=== PATIENT | female | born 1950 | race Hispanic/Latino ===

== ENCOUNTER 2021-01-05 12:19 | Inpatient (IN) | payer MEDICARE, OTHER ==
--- NOTE | 2021-01-05 13:13 | XRay Report ---
CHEST 1 VIEW 01/05/2021 12:40 PM INDICATION / CLINICAL INFORMATION: AMS. COMPARISON: None available. FINDINGS: SUPPORT DEVICES: None. HEART / MEDIASTINUM: No significant abnormality. LUNGS / PLEURA: Mild atelectasis in the left lower lung. No pneumothorax. ADDITIONAL FINDINGS: No significant additional findings. IMPRESSION: Mild atelectasis in the left lower lung. Small left effusion Signer Name: Blas Merino MD Signed: 01/05/2021 1:09 PM Workstation Name: [id number]
[2021-01-05 13:50] LABS: ABG Base Excess -27.8 mmol/L (-2.0-3.0); ABG HCO3 3.5 mmol/L (20.0-26.0); ABG Methemoglobin 0.9 % (0.0-1.5); ABG Oxygen Saturation 84.1 % (95.0-99.0); ABG PO2 84.7 mm Hg (80.0-90.0)
[2021-01-05 13:52] LABS: ABG PH 6.889 pH Units (7.350-7.450)
[2021-01-05] MEDS ORDERED: CEFEPIME/NS 2 GM/100 ML 2 GM/100 ML BAG IV SCH (14:00)
[2021-01-05 14:06] LABS: Hematocrit 26.1 % (30.3-42.9); Hemoglobin 7.7 gm/dl (10.1-14.3); Mean Corpuscular HGB Conc 30 % (30-34); Mean Corpuscular Volume 92 fl (79-97); Platelet Count 150 K/mm3 (140-440); Red Blood Count 2.83 M/mm3 (3.65-5.03); Red Cell Distribution Width 19.2 % (13.2-15.2)
[2021-01-05] MEDS ORDERED: SODIUM CHLORIDE 0.9% 1000 ML 1,000 ML IV ONE ×2 (14:20)
[2021-01-05] MEDS ORDERED: MINERAL OIL/PETROLATUM, WHITE OPHTH OINT 3.5 GM OU PRN (14:21)
[2021-01-05] MEDS ORDERED: LIP THERAPY VASELINE TP PRN (14:21)
[2021-01-05 14:29] LABS: Albumin 3.2 g/dL (3.9-5); Calcium 7.7 mg/dL (8.4-10.2)
--- NOTE | 2021-01-05 14:48 | XRay Report ---
CHEST 1 VIEW 01/05/2021 1:42 PM INDICATION / CLINICAL INFORMATION: ETT placement. COMPARISON: Exam done earlier today FINDINGS: SUPPORT DEVICES: ET tube tip is about 3 cm above the jen. HEART / MEDIASTINUM: No significant abnormality. LUNGS / PLEURA: Stable left lower lung atelectasis. No pneumothorax. ADDITIONAL FINDINGS: No significant additional findings. IMPRESSION: 1. Endotracheal tube in expected position. Signer Name: Dane Guillermo MD Signed: 01/05/2021 2:44 PM Workstation Name: [id number]
[2021-01-05 15:19] LABS: Band Neutrophils # (Manual) 0.6 K/mm3; Myelocytes # (Manual) 0.5 K/mm3; Promyelocytes # (Manual) 38.5 K/mm3; Total Cells Counted 100
[2021-01-05 15:20] LABS: Burr Cells 1+; Hypochromasia 1+; Ovalocytes Few; Platelet Estimate Consistent w Auto; Spherocytes Few
[2021-01-05 15:21] LABS: Poikilocytosis 2+
[2021-01-05] MEDS ORDERED: NORepinephrine/NS 4 MG-250 ML 4 MG/250 ML BAG IV ONE (15:30)
[2021-01-05] MEDS ORDERED: CALCIUM CHLORIDE 1,000 MG in SODIUM CHLORIDE 0.9% 100 ML IV ONE (15:56)
[2021-01-05] MEDS ORDERED: INSULIN REGULAR, HUMAN 100 UNITS/1 ML IV ONE (15:57)
[2021-01-05] MEDS ORDERED: SODIUM BICARB 8.4% 50 MEQ/50 ML SYRINGE IV ONE ×2 (15:57→22:46)
[2021-01-05] MEDS ORDERED: SODIUM POLYSTYRENE 15 GM/60 ML ORAL LIQD PR ONE (15:58)
[2021-01-05] MEDS ORDERED: DEXTROSE 50% IN WATER (25GM) 50 ML SYRINGE IV ONE (15:58)
[2021-01-05 16:20] LABS: Chol/HDL Ratio 1.24 %
[2021-01-05] MEDS: NORepinephrine/NS 4 MG-250 ML 4 MG/250 ML BAG IV SCH (16:20)
--- NOTE | 2021-01-05 16:29 | Consultation ---
History of Present Illness - Reason for Consult Consult date: 01/05/21 acute renal failure, hyperkalemia, metabolic acidosis - History of Present Illness The patient is a 70 YO female with history significant for Obesity, DM, HLD, Multiple Myeloma currently on Chemotherapy and Anemia of Chronic Disease presented to [facility] ED 01/05 for evaluation of AMS. Patient was not able to provide any history and there was no family member at the bedside. Information was obtained from priro notes and staff at the ED. Patient was noted to have increased confusion and weakness while undergoing chemotherapy at [facility]. The patient was seen and evaluated in the emergency department. The patient was found to have sepsis with shock, acute hypoxemic respiratory failure, Lactic acidosis, resp failure and Hyperkalemia. The patient is currently intubated on vent and Levophed. Initiated on sepsis protocol. Nephrology was consulted for further evaluation and treatment of MORGAN and hyperkalemia. Past History Past Medical History: other (See HPI.) Medications and Allergies Allergies Allergy/AdvReac Type Severity Reaction Status Date / Time Unable to Assess Allergy Unverified 01/05/21 13:30 Active Meds: Active Medications Famotidine (Famotidine 20 Mg/2 Ml Inj) 20 mg IV BID MIKEY Hydrophilic Ointment (Lip Therapy Vaseline) 1 applic TP Q2HR PRN PRN Reason: Dry Lips Cefepime HCl (Cefepime/Ns 2 Gm/100 Ml) 2 gm in 100 mls @ 200 mls/hr IV Q8H MIKEY; Protocol Last Admin: 01/05/21 16:19 Dose: 200 mls/hr Documented by: Propofol (Diprivan 10 Mg/Ml) 1,000 mg in 100 mls @ 0 mls/hr IV TITR MIKEY; Protocol Norepinephrine (Levophed Drip 4 Mg/Ns 250 Ml) 4 mg in 250 mls @ 7.5 mls/hr IV TITR MIKEY; Protocol Last Admin: 01/05/21 16:20 Dose: 2 mcg/min, 7.5 mls/hr Documented by: Calcium Chloride 1,000 mg/ (Sodium Chloride) 110 mls @ 110 mls/hr IV ONCE ONE Stop: 01/05/21 16:55 Sodium Bicarbonate 150 meq/ (Dextrose) 1,150 mls @ 125 mls/hr IV DIRECT MIKEY Multi-Ingred Cream/Lotion/Oil/Oint (Mineral Oil/Petrolatum, White Ophth Oint 3.5 Gm) 1 applic OU Q4HR PRN PRN Reason: Dry Eye(s) Senna/Docusate Sodium (Sennosides/Docusate Sodium 8.6/50 Mg Tab) 1 tab FEEDTUBE BID MIKEY Review of Systems ROS unobtainable: due to mental status Exam - Vital Signs Vital signs: Vital Signs Pulse Resp Pulse Ox 105 H 42 H 94 01/05/21 12:30 01/05/21 12:30 01/05/21 12:30 Results - Lab Results 01/05/21 13:44 01/05/21 13:44 Most recent lab results ABG pH 6.889 pH Units (7.350-7.450) L* 01/05/21 13:35 ABG pCO2 19.0 mm Hg 01/05/21 13:35 ABG pO2 84.7 mm Hg (80.0-90.0) 01/05/21 13:35 ABG HCO3 3.5 mmol/L (20.0-26.0) L 01/05/21 13:35 ABG O2 Saturation 84.1 % (95.0-99.0) L 01/05/21 13:35 Calcium 7.7 mg/dL (8.4-10.2) L 01/05/21 13:44 Magnesium 2.10 mg/dL (1.7-2.3) 01/05/21 13:44 Assessment and Plan 1. Acute kidney injury: Vasomotor MORGAN in the setting shock. Urine studies and Renal US ordered. Monitor renal function. Renal prognosis is guarded. Avoid nephrotoxic agents. Meds dosage based on GFR. Monitor for [employer] needs. Patient require hemodialysis due to significant decline in the GFR, associated hyperkalemia and severe metabolic acidosis. Unfortunately I was not able to reach her , called multiple times and left VM. Patient needs urgent hemodialysis due to above and also d/w , who agrees with me. Hemodialysis orders placed. 2. FEN: Hyperkalemia, meds ordered, HD today. Anion-gap Metabolic acidosis, HD today. Severe Lactic acidosis. Monitor lytes. 3. Acute respiratory failure with hypoxia: Intubated, on vent. Pulmonary consulted. 4. Shock, POA: Likely septic. Abx. On Levophed. Follow cultures. 5. Elevated Troponin: Monitor. 6. Diabetes mellitus type 2: Follow blood glucose. 7. Anemia, POA: Monitor. 8. Encephalopathy: CT head pending. Monitor. 9. Multiple myeloma: On Chemo. Prognosis is slim. Subjective: Patient was seen and examined at the bedside. Examination: General appearance: well-developed, well-nourished, appears stated age, intubated, on vent HEENT: ATNC, pupils equal Neck: supple Respiratory: coarse breath sounds Cardiology: regular, S1S2, no murmur Gastrointestinal: soft, bowel sounds heard, not tender Integumentary: no rash, warm and dry Neurologic: not responding Ext: no edema
--- NOTE | 2021-01-05 16:38 | History and Physical Report ---
History of Present Illness Chief complaint: Unresponsive History of present illness: 70 YO Female with Multiple Myeloma currently on Chemotherapy, DM, HLD, Obesity, Anemia of Chronic Disease presents to ED for evaluation. Patient is intubated and on ventilatory support at the time my evaluation and is unable to provide history. Patient history provided by EMS staff, ED staff, as well as the patient's who was made available via telephone for interview. As per the patient was noted to have increased confusion and weakness while undergoing chemotherapy at [facility]. EMS was notified and upon arrival the patient was found to be in distress and subsequently transported to [facility] for further care and evaluation. The patient was seen and evaluated in the emergency department. All lab and imaging studies reviewed. The patient was found to be in extremis with evidence of sepsis suspected secondary to urinary tract infection, multiple myeloma, currently undergoing chemotherapy, antibiotic acidosis. The patient was found to have acute hypoxemic respiratory failure and was intubated and subsequently placed on ventilatory support. Critical care team consulted in the emergency department. Patient admitted to ICU and initiated on sepsis protocol. Advanced care hugo nning conducted in ED. Patient found to have poor prognosis. Nephrology team consulted in ED. Patient pending Vas-Cath placement for urgent dialysis. Past History Past Medical History: cancer, ESRD, hypertension Past Surgical History: No surgical history, Other (Reviewed) Social history: Family history: no significant family history, other (Reviewed) Medications and Allergies Allergies Allergy/AdvReac Type Severity Reaction Status Date / Time Unable to Assess Allergy Unverified 01/05/21 13:30 Active Meds: Active Medications Famotidine (Famotidine 20 Mg/2 Ml Inj) 20 mg IV BID MIKEY Hydrophilic Ointment (Lip Therapy Vaseline) 1 applic TP Q2HR PRN PRN Reason: Dry Lips Cefepime HCl (Cefepime/Ns 2 Gm/100 Ml) 2 gm in 100 mls @ 200 mls/hr IV Q8H MIKEY; Protocol Last Admin: 01/05/21 16:19 Dose: 200 mls/hr Documented by: Propofol (Diprivan 10 Mg/Ml) 1,000 mg in 100 mls @ 0 mls/hr IV TITR MIKEY; Protocol Norepinephrine (Levophed Drip 4 Mg/Ns 250 Ml) 4 mg in 250 mls @ 7.5 mls/hr IV TITR MIKEY; Protocol Last Admin: 01/05/21 16:20 Dose: 2 mcg/min, 7.5 mls/hr Documented by: Calcium Chloride 1,000 mg/ (Sodium Chloride) 110 mls @ 110 mls/hr IV ONCE ONE Stop: 01/05/21 16:55 Sodium Bicarbonate 150 meq/ (Dextrose) 1,150 mls @ 125 mls/hr IV DIRECT MIKEY Sodium Chloride (Nacl 0.9%) 100 mls @ 999 mls/hr IV ERIC PRN PRN Reason: Hypotension Multi-Ingred Cream/Lotion/Oil/Oint (Mineral Oil/Petrolatum, White Ophth Oint 3.5 Gm) 1 applic OU Q4HR PRN PRN Reason: Dry Eye(s) Senna/Docusate Sodium (Sennosides/Docusate Sodium 8.6/50 Mg Tab) 1 tab FEEDTUBE BID MIKEY Review of Systems ROS unobtainable: due to endotracheal tube, due to mental status Exam - Constitutional Vitals: Temp Pulse Resp BP Pulse Ox 91 H 30 H 94/23 100 01/05/21 16:25 01/05/21 16:25 01/05/21 16:25 01/05/21 16:25 General appearance: Present: severe distress - EENT Eyes: Present: miosis ENT: hearing decreased - Neck Neck: Present: supple, normal ROM - Respiratory Respiratory effort: labored Respiratory: bilateral: diminished, rhonchi - Cardiovascular Heart Sounds: Present: S1 & S2. Absent: rub, click - Extremities Extremities: pulses symmetrical, No edema Peripheral Pulses: abnormal (Capillary refill greater than 3.5 seconds) - Abdominal General gastrointestinal: Present: soft, non-tender, non-distended, normal bowel sounds Female genitourinary: Present: normal - Integumentary Integumentary: Present: warm, dry, clammy, decreased turgor - Musculoskeletal Musculoskeletal: generalized weakness - Psychiatric Psychiatric: no appropriate mood/affect, no intact judgment & insight, no memory intact - Neurologic Neurologic: moves all extremities, no gait normal HEART Score - HEART Score Troponin: Troponin T 0.153 ng/mL (0.00-0.029) H* 01/05/21 13:44 Results - Labs CBC & Chem 7: 01/05/21 13:44 01/05/21 13:44 Labs: Abnormal lab results 01/05/21 01/05/21 01/05/21 Range/Units 13:35 13:44 13:44 WBC 11.6 H (4.5-11.0) K/mm3 RBC 2.83 L (3.65-5.03) M/mm3 Hgb 7.7 L (10.1-14.3) gm/dl Hct 26.1 L (30.3-42.9) % MCH 27 L (28-32) pg RDW 19.2 H (13.2-15.2) % Seg Neuts % (Manual) 79.0 H (40.0-70.0) % Lymphocytes % (Manual) 9.0 L (13.4-35.0) % Nucleated RBC % 2.0 H (0.0-0.9) % Seg Neutrophils # Man 9.2 H (1.8-7.7) K/mm3 Lymphocytes # (Manual) 1.0 L (1.2-5.4) K/mm3 APTT 44.4 H (24.2-36.6) Sec. ABG pH 6.889 L* (7.350-7.450) pH Units ABG HCO3 3.5 L (20.0-26.0) mmol/L ABG O2 Saturation 84.1 L (95.0-99.0) % ABG Base Excess -27.8 L (-2.0-3.0) mmol/L ABG Hemoglobin 9.2 L (12.0-16.0) gm/dl Oxyhemoglobin 82.4 L (95.0-99.0) % Sodium (137-145) mmol/L Potassium (3.6-5.0) mmol/L Chloride (98-107) mmol/L Carbon Dioxide (22-30) mmol/L BUN (7-17) mg/dL Creatinine (0.6-1.2) mg/dL Glucose (65-100) mg/dL Lactic Acid (0.7-2.0) mmol/L Calcium (8.4-10.2) mg/dL AST (5-40) units/L Ammonia (25-60) umol/L Total Creatine Kinase (30-135) units/L Troponin T (0.00-0.029) ng/mL NT-Pro-B Natriuret Pep (0-900) pg/mL Albumin (3.9-5) g/dL LDL Cholesterol Direct (50-130) mg/dL 01/05/21 01/05/21 01/05/21 Range/Units 13:44 13:44 13:44 WBC (4.5-11.0) K/mm3 RBC (3.65-5.03) M/mm3 Hgb (10.1-14.3) gm/dl Hct (30.3-42.9) % MCH (28-32) pg RDW (13.2-15.2) % Seg Neuts % (Manual) (40.0-70.0) % Lymphocytes % (Manual) (13.4-35.0) % Nucleated RBC % (0.0-0.9) % Seg Neutrophils # Man (1.8-7.7) K/mm3 Lymphocytes # (Manual) (1.2-5.4) K/mm3 APTT (24.2-36.6) Sec. ABG pH (7.350-7.450) pH Units ABG HCO3 (20.0-26.0) mmol/L ABG O2 Saturation (95.0-99.0) % ABG Base Excess (-2.0-3.0) mmol/L ABG Hemoglobin (12.0-16.0) gm/dl Oxyhemoglobin (95.0-99.0) % Sodium 129 L (137-145) mmol/L Potassium 6.2 H* (3.6-5.0) mmol/L Chloride 82.2 L (98-107) mmol/L Carbon Dioxide 4 L* (22-30) mmol/L BUN 67 H (7-17) mg/dL Creatinine 8.1 H (0.6-1.2) mg/dL Glucose 126 H (65-100) mg/dL Lactic Acid 20.10 H* (0.7-2.0) mmol/L Calcium 7.7 L (8.4-10.2) mg/dL AST 54 H (5-40) units/L Ammonia (25-60) umol/L Total Creatine Kinase 484 H (30-135) units/L Troponin T 0.153 H* (0.00-0.029) ng/mL NT-Pro-B Natriuret Pep 38246 H (0-900) pg/mL Albumin 3.2 L (3.9-5) g/dL LDL Cholesterol Direct 8 L (50-130) mg/dL 01/05/21 01/05/21 Range/Units 13:44 14:47 WBC (4.5-11.0) K/mm3 RBC (3.65-5.03) M/mm3 Hgb (10.1-14.3) gm/dl Hct (30.3-42.9) % MCH (28-32) pg RDW (13.2-15.2) % Seg Neuts % (Manual) (40.0-70.0) % Lymphocytes % (Manual) (13.4-35.0) % Nucleated RBC % (0.0-0.9) % Seg Neutrophils # Man (1.8-7.7) K/mm3 Lymphocytes # (Manual) (1.2-5.4) K/mm3 APTT (24.2-36.6) Sec. ABG pH (7.350-7.450) pH Units ABG HCO3 (20.0-26.0) mmol/L ABG O2 Saturation (95.0-99.0) % ABG Base Excess (-2.0-3.0) mmol/L ABG Hemoglobin (12.0-16.0) gm/dl Oxyhemoglobin (95.0-99.0) % Sodium (137-145) mmol/L Potassium (3.6-5.0) mmol/L Chloride (98-107) mmol/L Carbon Dioxide (22-30) mmol/L BUN (7-17) mg/dL Creatinine (0.6-1.2) mg/dL Glucose (65-100) mg/dL Lactic Acid 18.80 H* (0.7-2.0) mmol/L Calcium (8.4-10.2) mg/dL AST (5-40) units/L Ammonia 106.0 H (25-60) umol/L Total Creatine Kinase (30-135) units/L Troponin T (0.00-0.029) ng/mL NT-Pro-B Natriuret Pep (0-900) pg/mL Albumin (3.9-5) g/dL LDL Cholesterol Direct (50-130) mg/dL Assessment and Plan - Patient Problems (1) Sepsis Current Visit: Yes Status: Acute Qualifiers: Severe sepsis shock status: with septic shock Plan to address problem: Sepsis protocol: CBC, CMP, chest x-ray, urinalysis, blood culture, IV antibiotic therapy, IV fluid resuscitation therapy, maintain mean arterial pressure greater than or equal to 65, IV pressor support, monitor urine output every shift, The high probability of a clinically significant, sudden or life threatening deterioration of the [cardiac, pulmonary, renal, endocrine, hematologic] system(s) required my full and direct attention, intervention and personal management. The aggregate critical care time was [95] minutes. This time is in addition to time spent performing reported procedures but includes the following: [x] Data Review and interpretation [x] Patient assessment and monitoring of vital signs [x] Documentation [x] Medication orders and management (2) Acute hypoxemic respiratory failure Current Visit: Yes Status: Acute Plan to address problem: Patient intubated and on ventilatory support, wean vent as tolerated, critical care team consulted in ED, daily spontaneous breathing trial, arterial blood gas daily, sedation holiday daily, (3) UTI (urinary tract infection) Current Visit: Yes Status: Acute Qualifiers: Encounter type: initial encounter Plan to address problem: CBC, urinalysis, IV antibiotic therapy, (4) Multiple myeloma Current Visit: Yes Status: Acute Qualifiers: Multiple myeloma remission status: not in remission Qualified Code(s): C90.00 - Multiple myeloma not having achieved remission Plan to address problem: Supportive care, (5) Anemia of chronic disease Current Visit: Yes Status: Acute Plan to address problem: CBC, no transfusion at this time. Repeat CBC in a.m. (6) End stage renal disease Current Visit: Yes Status: Acute Plan to address problem: Nephrology team consulted in ED, patient is pending Vas-Cath placement for urgent dialysis, (7) DVT prophylaxis Current Visit: Yes Status: Acute Plan to address problem: SCD to bilateral lower extremities while in bed, prophylactic anticoagulation (8) Advance care planning Current Visit: Yes Status: Acute Plan to address problem: Disease education conducted, care plan discussed, diagnosis discussed, patient prognosis discussed, patient family knowledges understanding and agreement with care plan, +30 minutes. Patient remains full code. Patient reports that "I want everything done".
[2021-01-05] MEDS ORDERED: HYDROmorphone 1 MG/1 ML INJ IV PRN ×2 (17:00→19:30)
[2021-01-05] MEDS ORDERED: SODIUM CHLORIDE 0.9% 100 ML IV PRN (17:00)
[2021-01-05] MEDS ORDERED: ALBUTEROL 2.5 MG/3 ML NEBU IH PRN (17:00)
[2021-01-05] MEDS ORDERED: MORPHINE 2 MG/1 ML INJ IV PRN (17:00)
[2021-01-05] MEDS ORDERED: ACETAMINOPHEN 650 MG RECT SUPP PR PRN (17:00)
--- NOTE | 2021-01-05 17:09 | XRay Report ---
CHEST 1 VIEW 4:38 PM INDICATION: CVL attempt. COMPARISON: Earlier today. FINDINGS: Support devices: Endotracheal tube is unchanged. Heart: Stable. Lungs/Pleura: No pneumothorax. There is persistent pleuroparenchymal disease in the left lower hemith orax. IMPRESSION: 1. No pneumothorax after CVL attempt. Signer Name: Kailash Francis MD Signed: 01/05/2021 5:04 PM Workstation Name: [id number]
--- NOTE | 2021-01-05 17:26 | Emergency Department Report ---
ED General Adult HPI - General Chief complaint: Dyspnea/Respdistress Stated complaint: NICOLE Time Seen by Provider: 01/05/21 12:27 Source: EMS Mode of arrival: Stretcher Limitations: Altered Mental Status - History of Present Illness Initial comments: The patient presents to the emergency department via EMS for altered mental status. Is reported that the patient has stage IV cancer. EMS is not able to tell us the origin of the patient's cancer. Is reported that the patient went to [facility]'s infusion center for some form of infusion today when they noticed that the patient was altered and sent her to their urgent care/EC where she was evaluated and 911 was called. Upon patient's arrival she is completely altered and not able to cooperate with exam. -: unknown Consistency: constant Improves with: none Worsens with: none Treatments Prior to Arrival: none - Related Data Allergies Allergy/AdvReac Type Severity Reaction Status Date / Time Unable to Assess Allergy Unverified 01/05/21 13:30 ED Review of Systems ROS: Stated complaint: NICOLE Other details as noted in HPI Comment: Unobtainable due to pts medical conditions ED Physical Exam - General Limitations: Altered Mental Status General appearance: obtunded - Head Head exam: Present: atraumatic, normocephalic - Eye Eye exam: Present: normal appearance, PERRL - ENT ENT exam: Present: mucous membranes dry - Neck Neck exam: Present: normal inspection - Respiratory Respiratory exam: Present: decreased breath sounds - Cardiovascular Cardiovascular Exam: Present: normal rhythm, tachycardia - GI/Abdominal GI/Abdominal exam: Present: soft, normal bowel sounds. Absent: distended, tenderness - Extremities Exam Extremities exam: Absent: pedal edema - Neurological Exam Neurological exam: Present: altered - Psychiatric Psychiatric exam: Present: other (Not able to assess due to the patient's condition) - Skin Skin exam: Present: warm, dry, intact, normal color. Absent: rash ED Course Vital Signs 01/05/21 01/05/21 01/05/21 12:30 12:45 13:01 Pulse Rate 105 H 100 H 98 H Respiratory 42 H 41 H 41 H Rate Blood Pressure 138/45 138/45 O2 Sat by Pulse 94 89 43 L Oximetry 01/05/21 01/05/21 01/05/21 13:15 13:31 13:45 Pulse Rate 108 H Respiratory 30 H Rate Blood Pressure 138/45 138/45 138/45 O2 Sat by Pulse 89 93 68 L Oximetry 01/05/21 01/05/21 01/05/21 14:01 14:15 14:31 Pulse Rate Respiratory Rate Blood Pressure 138/45 138/45 91/25 O2 Sat by Pulse 65 L 85 100 Oximetry 01/05/21 01/05/21 01/05/21 14:45 15:01 15:15 Pulse Rate Respiratory Rate Blood Pressure 75/19 76/27 90/30 O2 Sat by Pulse 100 100 100 Oximetry 01/05/21 01/05/21 01/05/21 15:31 15:45 15:46 Pulse Rate 98 H Respiratory Rate Blood Pressure 87/26 91/28 103/30 O2 Sat by Pulse 100 100 100 Oximetry 01/05/21 01/05/21 01/05/21 16:00 16:15 16:25 Pulse Rate 94 H 95 H 91 H Respiratory 30 H 30 H 30 H Rate Blood Pressure 102/31 103/33 94/23 O2 Sat by Pulse 98 100 100 Oximetry - Central Line Placement Right Femoral Consent Obtained: emergent situation Time Out Performed: Yes Patient Placed on Monitor/Pulse Ox: Yes Prep: mask, gown, gloves Central Line Prep: Chlorhexidine scrub Ultrasound Used for Placement: No Central Line Lumen Inserted: triple Reason for Insertion: Volume Resuscitation Bloods Obtained for Lab: No Central Line Position: good blood return, all ports aspirated, flus, sutured in place with 2-0 Dressing Applied: Tegaderm Patient Tolerated Procedure: well Complications: pneumothorax Additional Comments: Initially right subclavian was attempted to no avail thus this was aborted and a right femoral placed - Intubation Time Out Performed: Yes Sedative: Etomidate Mg Given: 20 Paralytic: Rocuronium Mg Given: 50 Laryngoscope: Morgan Size: 3 ET Tube Size: 7.5 Tube Secured Depth (cm): 21 Tube Secured Location: lips Tube Placement Confirmation: visualized tube passing t Patient Tolerated Procedure: well Intubation Complications: none ED Medical Decision Making - Lab Data Result diagrams: 01/05/21 13:44 01/05/21 13:44 Upon the patient's initial evaluation it was noticed that the patient was altered patient was placed in the seated position in the bed and laboratory values were obtained as well as imaging Patient's mental status continued to decline in the ED with O2 sats dropping to 90% ABG obtained which showed pH of less than 6.9 At this point patient was intubated with no difficulty The remaining the laboratory values returned showing that the patient had a creatinine of greater than 8 and potassium greater than 6 IV and rectal therapy was initiated for the patient's hyperkalemia At this time patient appears to need emergent dialysis thus nephrology was consulted Dr. Mercedes was contacted and agreed to see the patient in consultation Critical care was contacted for placement of temporary dialysis catheter and acceptance to the ICU Patient was started on vasopressor Prior to lifesaving measures being applied we spoke with the patient's who stated she was a full code Patient is a [place] patient so I spoke to Dr. Buitrago at 4:43 PM who gave us approval to keep the patient at our facility. Lab Results 01/05/21 01/05/21 01/05/21 Range/Units 13:35 13:44 13:44 WBC 11.6 H (4.5-11.0) K/mm3 RBC 2.83 L (3.65-5.03) M/mm3 Hgb 7.7 L (10.1-14.3) gm/dl Hct 26.1 L (30.3-42.9) % MCV 92 (79-97) fl MCH 27 L (28-32) pg MCHC 30 (30-34) % RDW 19.2 H (13.2-15.2) % Plt Count 150 (140-440) K/mm3 Add Manual Diff Complete Total Counted 100 Seg Neuts % (Manual) 79.0 H (40.0-70.0) % Band Neutrophils % 5.0 % Lymphocytes % (Manual) 9.0 L (13.4-35.0) % Monocytes % (Manual) 2.0 (0.0-7.3) % Eosinophils % (Manual) 1.0 (0.0-4.3) % Myelocytes % 4.0 % Nucleated RBC % 2.0 H (0.0-0.9) % Seg Neutrophils # Man 9.2 H (1.8-7.7) K/mm3 Band Neutrophils # 0.6 K/mm3 Lymphocytes # (Manual) 1.0 L (1.2-5.4) K/mm3 Abs React Lymphs (Man) 0.0 K/mm3 Monocytes # (Manual) 0.2 (0.0-0.8) K/mm3 Eosinophils # (Manual) 0.1 (0.0-0.4) K/mm3 Basophils # (Manual) 0.0 (0.0-0.1) K/mm3 Metamyelocytes # 0.0 K/mm3 Myelocytes # 0.5 K/mm3 Promyelocytes # 38.5 K/mm3 Blast Cells # 0.0 K/mm3 WBC Morphology Not Reportable Hypersegmented Neuts Not Reportable Hyposegmented Neuts Not Reportable Hypogranular Neuts Not Reportable Smudge Cells Not Reportable Toxic Granulation Not Reportable Toxic Vacuolation Not Reportable Dohle Bodies Not Reportable Pelger-Huet Anomaly Not Reportable Diony Rods Not Reportable Platelet Estimate Consistent w auto Clumped Platelets Not Reportable Plt Clumps, EDTA Not Reportable Large Platelets Not Reportable Giant Platelets Not Reportable Platelet Satelliting Not Reportable Plt Morphology Comment Not Reportable RBC Morphology Not Reportable Dimorphic RBCs Not Reportable Polychromasia 1+ Hypochromasia 1+ Poikilocytosis 2+ Anisocytosis Not Reportable Microcytosis Not Reportable Macrocytosis Not Reportable Spherocytes Few Pappenheimer Bodies Not Reportable Sickle Cells Not Reportable Target Cells Not Reportable Tear Drop Cells Not Reportable Ovalocytes Few Helmet Cells Not Reportable [place] Bodies Not Reportable [place] Rings Not Reportable Taylor Cells 1+ Bite Cells Not Reportable Crenated Cell Not Reportable Elliptocytes Few Acanthocytes (Spur) Few Rouleaux Not Reportable Hemoglobin C Crystals Not Reportable Schistocytes Not Reportable Malaria parasites Not Reportable [place] Bodies Not Reportable Hem Pathologist Commnt No APTT 44.4 H (24.2-36.6) Sec. ABG pH 6.889 L* (7.350-7.450) pH Units ABG pCO2 19.0 mm Hg ABG pO2 84.7 (80.0-90.0) mm Hg ABG HCO3 3.5 L (20.0-26.0) mmol/L ABG O2 Saturation 84.1 L (95.0-99.0) % ABG O2 Content 10.8 (0.0-44) ABG Base Excess -27.8 L (-2.0-3.0) mmol/L ABG Hemoglobin 9.2 L (12.0-16.0) gm/dl ABG Carboxyhemoglobin 1.1 (0.0-5.0) % ABG Methemoglobin 0.9 (0.0-1.5) % Oxyhemoglobin 82.4 L (95.0-99.0) % FiO2 21 % Sodium (137-145) mmol/L Potassium (3.6-5.0) mmol/L Chloride (98-107) mmol/L Carbon Dioxide (22-30) mmol/L Anion Gap mmol/L BUN (7-17) mg/dL Creatinine (0.6-1.2) mg/dL Estimated GFR ml/min BUN/Creatinine Ratio % Glucose (65-100) mg/dL Ketones Quantitative (Negative) Lactic Acid (0.7-2.0) mmol/L Calcium (8.4-10.2) mg/dL Magnesium (1.7-2.3) mg/dL Total Bilirubin (0.1-1.2) mg/dL AST (5-40) units/L ALT (7-56) units/L Alkaline Phosphatase (35-129) units/L Ammonia (25-60) umol/L Total Creatine Kinase (30-135) units/L Troponin T (0.00-0.029) ng/mL NT-Pro-B Natriuret Pep (0-900) pg/mL Total Protein (6.3-8.2) g/dL Albumin (3.9-5) g/dL Albumin/Globulin Ratio % Triglycerides (2-149) mg/dL Cholesterol (50-199) mg/dL LDL Cholesterol Direct (50-130) mg/dL HDL Cholesterol (40-59) mg/dL Cholesterol/HDL Ratio % 01/05/21 01/05/21 01/05/21 Range/Units 13:44 13:44 13:44 WBC (4.5-11.0) K/mm3 RBC (3.65-5.03) M/mm3 Hgb (10.1-14.3) gm/dl Hct (30.3-42.9) % MCV (79-97) fl MCH (28-32) pg MCHC (30-34) % RDW (13.2-15.2) % Plt Count (140-440) K/mm3 Add Manual Diff Total Counted Seg Neuts % (Manual) (40.0-70.0) % Band Neutrophils % % Lymphocytes % (Manual) (13.4-35.0) % Monocytes % (Manual) (0.0-7.3) % Eosinophils % (Manual) (0.0-4.3) % Myelocytes % % Nucleated RBC % (0.0-0.9) % Seg Neutrophils # Man (1.8-7.7) K/mm3 Band Neutrophils # K/mm3 Lymphocytes # (Manual) (1.2-5.4) K/mm3 Abs React Lymphs (Man) K/mm3 Monocytes # (Manual) (0.0-0.8) K/mm3 Eosinophils # (Manual) (0.0-0.4) K/mm3 Basophils # (Manual) (0.0-0.1) K/mm3 Metamyelocytes # K/mm3 Myelocytes # K/mm3 Promyelocytes # K/mm3 Blast Cells # K/mm3 WBC Morphology Hypersegmented Neuts Hyposegmented Neuts Hypogranular Neuts Smudge Cells Toxic Granulation Toxic Vacuolation Dohle Bodies Pelger-Huet Anomaly Diony Rods Platelet Estimate Clumped Platelets Plt Clumps, EDTA Large Platelets Giant Platelets Platelet Satelliting Plt Morphology Comment RBC Morphology Dimorphic RBCs Polychromasia Hypochromasia Poikilocytosis Anisocytosis Microcytosis Macrocytosis Spherocytes Pappenheimer Bodies Sickle Cells Target Cells Tear Drop Cells Ovalocytes Helmet Cells [place] Bodies [place] Rings Taylor Cells Bite Cells Crenated Cell Elliptocytes Acanthocytes (Spur) Rouleaux Hemoglobin C Crystals Schistocytes Malaria parasites [place] Bodies Hem Pathologist Commnt APTT (24.2-36.6) Sec. ABG pH (7.350-7.450) pH Units ABG pCO2 mm Hg ABG pO2 (80.0-90.0) mm Hg ABG HCO3 (20.0-26.0) mmol/L ABG O2 Saturation (95.0-99.0) % ABG O2 Content (0.0-44) ABG Base Excess (-2.0-3.0) mmol/L ABG Hemoglobin (12.0-16.0) gm/dl ABG Carboxyhemoglobin (0.0-5.0) % ABG Methemoglobin (0.0-1.5) % Oxyhemoglobin (95.0-99.0) % FiO2 % Sodium 129 L (137-145) mmol/L Potassium 6.2 H* (3.6-5.0) mmol/L Chloride 82.2 L (98-107) mmol/L Carbon Dioxide 4 L* (22-30) mmol/L Anion Gap 49 mmol/L BUN 67 H (7-17) mg/dL Creatinine 8.1 H (0.6-1.2) mg/dL Estimated GFR 5 ml/min BUN/Creatinine Ratio 8 % Glucose 126 H (65-100) mg/dL Ketones Quantitative (Negative) Lactic Acid 20.10 H* (0.7-2.0) mmol/L Calcium 7.7 L (8.4-10.2) mg/dL Magnesium 2.10 (1.7-2.3) mg/dL Total Bilirubin 0.30 (0.1-1.2) mg/dL AST 54 H (5-40) units/L ALT 37 (7-56) units/L Alkaline Phosphatase 83 (35-129) units/L Ammonia (25-60) umol/L Total Creatine Kinase 484 H (30-135) units/L Troponin T 0.153 H* (0.00-0.029) ng/mL NT-Pro-B Natriuret Pep 87287 H (0-900) pg/mL Total Protein 6.9 (6.3-8.2) g/dL Albumin 3.2 L (3.9-5) g/dL Albumin/Globulin Ratio 0.9 % Triglycerides 75 (2-149) mg/dL Cholesterol 62 (50-199) mg/dL LDL Cholesterol Direct 8 L (50-130) mg/dL HDL Cholesterol 50 (40-59) mg/dL Cholesterol/HDL Ratio 1.24 % 01/05/21 01/05/21 01/05/21 Range/Units 13:44 14:39 14:47 WBC (4.5-11.0) K/mm3 RBC (3.65-5.03) M/mm3 Hgb (10.1-14.3) gm/dl Hct (30.3-42.9) % MCV (79-97) fl MCH (28-32) pg MCHC (30-34) % RDW (13.2-15.2) % Plt Count (140-440) K/mm3 Add Manual Diff Total Counted Seg Neuts % (Manual) (40.0-70.0) % Band Neutrophils % % Lymphocytes % (Manual) (13.4-35.0) % Monocytes % (Manual) (0.0-7.3) % Eosinophils % (Manual) (0.0-4.3) % Myelocytes % % Nucleated RBC % (0.0-0.9) % Seg Neutrophils # Man (1.8-7.7) K/mm3 Band Neutrophils # K/mm3 Lymphocytes # (Manual) (1.2-5.4) K/mm3 Abs React Lymphs (Man) K/mm3 Monocytes # (Manual) (0.0-0.8) K/mm3 Eosinophils # (Manual) (0.0-0.4) K/mm3 Basophils # (Manual) (0.0-0.1) K/mm3 Metamyelocytes # K/mm3 Myelocytes # K/mm3 Promyelocytes # K/mm3 Blast Cells # K/mm3 WBC Morphology Hypersegmented Neuts Hyposegmented Neuts Hypogranular Neuts Smudge Cells Toxic Granulation Toxic Vacuolation Dohle Bodies Pelger-Huet Anomaly Diony Rods Platelet Estimate Clumped Platelets Plt Clumps, EDTA Large Platelets Giant Platelets Platelet Satelliting Plt Morphology Comment RBC Morphology Dimorphic RBCs Polychromasia Hypochromasia Poikilocytosis Anisocytosis Microcytosis Macrocytosis Spherocytes Pappenheimer Bodies Sickle Cells Target Cells Tear Drop Cells Ovalocytes Helmet Cells [place] Bodies [place] Rings [place] Cells Bite Cells Crenated Cell Elliptocytes Acanthocytes (Spur) Rouleaux Hemoglobin C Crystals Schistocytes Malaria parasites [place] Bodies Hem Pathologist Commnt APTT (24.2-36.6) Sec. ABG pH (7.350-7.450) pH Units ABG pCO2 mm Hg ABG pO2 (80.0-90.0) mm Hg ABG HCO3 (20.0-26.0) mmol/L ABG O2 Saturation (95.0-99.0) % ABG O2 Content (0.0-44) ABG Base Excess (-2.0-3.0) mmol/L ABG Hemoglobin (12.0-16.0) gm/dl ABG Carboxyhemoglobin (0.0-5.0) % ABG Methemoglobin (0.0-1.5) % Oxyhemoglobin (95.0-99.0) % FiO2 % Sodium (137-145) mmol/L Potassium (3.6-5.0) mmol/L Chloride (98-107) mmol/L Carbon Dioxide (22-30) mmol/L Anion Gap mmol/L BUN (7-17) mg/dL Creatinine (0.6-1.2) mg/dL Estimated GFR ml/min BUN/Creatinine Ratio % Glucose (65-100) mg/dL Ketones Quantitative Negative (Negative) Lactic Acid 18.80 H* (0.7-2.0) mmol/L Calcium (8.4-10.2) mg/dL Magnesium (1.7-2.3) mg/dL Total Bilirubin (0.1-1.2) mg/dL AST (5-40) units/L ALT (7-56) units/L Alkaline Phosphatase (35-129) units/L Ammonia 106.0 H (25-60) umol/L Total Creatine Kinase (30-135) units/L Troponin T (0.00-0.029) ng/mL NT-Pro-B Natriuret Pep (0-900) pg/mL Total Protein (6.3-8.2) g/dL Albumin (3.9-5) g/dL Albumin/Globulin Ratio % Triglycerides (2-149) mg/dL Cholesterol (50-199) mg/dL LDL Cholesterol Direct (50-130) mg/dL HDL Cholesterol (40-59) mg/dL Cholesterol/HDL Ratio % - Radiology Data Radiology results: report reviewed - Medical Decision Making Upon the patient's initial evaluation it was noticed that the patient was altered patient was placed in the seated position in the bed and laboratory values were obtained as well as imaging Patient's mental status continued to decline in the ED with O2 sats dropping to 90% ABG obtained which showed pH of less than 6.9 At this point patient was intubated with no difficulty The remaining the laboratory values returned showing that the patient had a creatinine of greater than 8 and potassium greater than 6 IV and rectal therapy was initiated for the patient's hyperkalemia At this time patient appears to need emergent dialysis thus nephrology was consulted Dr. Mercedes was contacted and agreed to see the patient in consultation Critical care was contacted for placement of temporary dialysis catheter and acceptance to the ICU Patient was started on vasopressor Prior to lifesaving measures being applied we spoke with the patient's who stated she was a full code Patient is a [place] patient so I spoke to Dr. Buitrago at 4:43 PM who gave us approval to keep the patient at our facility. Dr. Buitrago also stated the patient has multiple myeloma and was recently admitted to the hospital for colitis. Patient has a history of diabetes mellitus, hypertension, hyperlipidemia. Critical Care Time: Yes Critical care time in (mins) excluding proc time.: 75 Critical care attestation.: If time is entered above; I have spent that time in minutes in the direct care of this critically ill patient, excluding procedure time. ED Disposition Clinical Impression: Respiratory failure, Hypoxia, Renal failure, Elevated brain natriuretic peptide (BNP) level, Elevated troponin Disposition: OP ADMIT IP TO THIS HOSP Is pt being admited?: Yes Does the pt Need Aspirin: No Condition: Critical
[2021-01-05 18:10] LABS: Amphetamine Screen,Urine Negative; Benzodiazepines Screen,Urine Negative; Cocaine Screen,Urine Negative; Methadone Screen,Urine Negative; Opiate Screen,Urine Negative
[2021-01-05 18:16] LABS: Amorphous Crystals,Urine 1+; Bacteria,Urine 4+ /HPF (Negative); Bilirubin,Urine NEG (Negative); Blood,Urine SM (Negative); Color,Urine Amber (Yellow); Mucus,Urine FEW /HPF; Protein,Urine >500 mg/dL (Negative); Urobilinogen,Urine < 2.0 mg/dL (<2.0)
[2021-01-05 18:23] LABS: Cannabinoid Screen,Urine Positive
[2021-01-05 18:24] LABS: Creatinine,Urine 74.4 mg/dL (0.1-20.0)
[2021-01-05] MEDS ORDERED: ACETAMINOPHEN 325 MG TAB PO PRN (19:00)
[2021-01-05 19:24] LABS: Hepatitis B Surface Antigen Non-Reactive (Negative); Hepatitis C Virus Antibody Non-Reactive (NonReactive)
[2021-01-05] MEDS ORDERED: SODIUM CHLORIDE 0.9% 1000 ML IV SOLN IV ONE (19:30)
[2021-01-05] MEDS: SODIUM BICARBONATE 150 MEQ in DEXTROSE 5% IN WATER 1,000 ML IV SCH (19:32)
--- NOTE | 2021-01-05 21:50 | Consultation ---
History of Present Illness Consult date: 01/05/21 Requesting physician: KATHERINE BISHOP Reason for consult: other (Acute Hypopxemic Respiratory Failure; MORGAN) History of present illness: PULMONARY/CCM CONSULT NOTE (Full dictation # [id number]) Please see dictated notes for full details Past History Past Medical History: other (See HPI.) Past Surgical History: No surgical history, Other (Reviewed) Social history: Family history: no significant family history, other (Reviewed) Medications and Allergies Allergies Allergy/AdvReac Type Severity Reaction Status Date / Time No Known Allergies Allergy Verified 01/05/21 22:00 Active Meds: Active Medications Acetaminophen (Acetaminophen 650 Mg Rect Supp) 650 mg KY Q6H PRN PRN Reason: Pain MILD(1-3)/Fever >100.5/SILVERMAN Acetaminophen (Acetaminophen 325 Mg Tab) 650 mg PO Q6H PRN PRN Reason: Pain, Mild (1-3) Albuterol (Albuterol 2.5 Mg/3 Ml Nebu) 2.5 mg IH Q3HRT PRN PRN Reason: Shortness Of Breath Famotidine (Famotidine 20 Mg/2 Ml Inj) 20 mg IV BID MIKEY Heparin Sodium (Porcine) (Heparin 5,000 Unit/1 Ml Vial) 5,000 unit SUB-Q Q12HR MIKEY Hydromorphone HCl (Hydromorphone 1 Mg/1 Ml Inj) 0.5 mg IV Q3H PRN PRN Reason: Pain , Severe (7-10) Hydromorphone HCl (Hydromorphone 1 Mg/1 Ml Inj) 0.25 mg IV Q4H PRN PRN Reason: Pain, Moderate (4-6) Hydrophilic Ointment (Lip Therapy Vaseline) 1 applic TP Q2HR PRN PRN Reason: Dry Lips Cefepime HCl (Cefepime/Ns 2 Gm/100 Ml) 2 gm in 100 mls @ 200 mls/hr IV Q8H MIKEY; Protocol Last Admin: 01/05/21 16:19 Dose: 200 mls/hr Documented by: Propofol (Diprivan 10 Mg/Ml) 1,000 mg in 100 mls @ 2.712 mls/hr IV TITR MIKEY; Protocol Norepinephrine (Levophed Drip 4 Mg/Ns 250 Ml) 4 mg in 250 mls @ 7.5 mls/hr IV TITR MIKEY; Protocol Last Titration: 01/05/21 18:28 Dose: 10 mcg/min, 37.5 mls/hr Documented by: Sodium Bicarbonate 150 meq/ (Dextrose) 1,150 mls @ 125 mls/hr IV DIRECT MIKEY Last Admin: 01/05/21 19:32 Dose: 125 mls/hr Documented by: Sodium Chloride (Nacl 0.9%) 100 mls @ 999 mls/hr IV ERIC PRN PRN Reason: Hypotension Ceftriaxone Sodium (Rocephin/Ns 1 Gm/50 Ml) 1 gm in 50 mls @ 100 mls/hr IV Q24HR MIKEY; Protocol Morphine Sulfate (Morphine 2 Mg/1 Ml Inj) 2 mg IV Q4H PRN PRN Reason: Pain, Moderate (4-6) Multi-Ingred Cream/Lotion/Oil/Oint (Mineral Oil/Petrolatum, White Ophth Oint 3.5 Gm) 1 applic OU Q4HR PRN PRN Reason: Dry Eye(s) Senna/Docusate Sodium (Sennosides/Docusate Sodium 8.6/50 Mg Tab) 1 tab FEEDTUBE BID MIKEY Sodium Chloride (Sodium Chloride 0.9% 10 Ml Flush Syringe) 10 ml IV PRN PRN PRN Reason: LINE FLUSH Sodium Chloride (Sodium Chloride 0.9% 10 Ml Flush Syringe) 10 ml IV BID MIKEY Sodium Chloride (Sodium Chloride 0.9% 10 Ml Flush Syringe) 10 ml IV PRN PRN PRN Reason: LINE FLUSH Physical Examination Vital signs: Vital Signs Pulse Resp Pulse Ox 105 H 42 H 94 01/05/21 12:30 01/05/21 12:30 01/05/21 12:30 Results - Laboratory Findings CBC and BMP: 01/05/21 13:44 01/05/21 13:44 ABG ABG pH 6.889 pH Units (7.350-7.450) L* 01/05/21 13:35 ABG pCO2 19.0 mm Hg 01/05/21 13:35 ABG pO2 84.7 mm Hg (80.0-90.0) 01/05/21 13:35 ABG O2 Saturation 84.1 % (95.0-99.0) L 01/05/21 13:35 Abnormal lab findings: Abnormal Labs 01/05/21 01/05/21 01/05/21 13:35 13:44 13:44 WBC 11.6 H RBC 2.83 L Hgb 7.7 L Hct 26.1 L MCH 27 L RDW 19.2 H Seg Neuts % (Manual) 79.0 H Lymphocytes % (Manual) 9.0 L Nucleated RBC % 2.0 H Seg Neutrophils # Man 9.2 H Lymphocytes # (Manual) 1.0 L APTT 44.4 H ABG pH 6.889 L* ABG HCO3 3.5 L ABG O2 Saturation 84.1 L ABG Base Excess -27.8 L ABG Hemoglobin 9.2 L Oxyhemoglobin 82.4 L Sodium Potassium Chloride Carbon Dioxide BUN Creatinine Glucose Lactic Acid Calcium AST Ammonia Total Creatine Kinase Troponin T NT-Pro-B Natriuret Pep Albumin LDL Cholesterol Direct Urine WBC (Auto) Urine Creatinine 01/05/21 01/05/21 01/05/21 13:44 13:44 13:44 WBC RBC Hgb Hct MCH RDW Seg Neuts % (Manual) Lymphocytes % (Manual) Nucleated RBC % Seg Neutrophils # Man Lymphocytes # (Manual) APTT ABG pH ABG HCO3 ABG O2 Saturation ABG Base Excess ABG Hemoglobin Oxyhemoglobin Sodium 129 L Potassium 6.2 H* Chloride 82.2 L Carbon Dioxide 4 L* BUN 67 H Creatinine 8.1 H Glucose 126 H Lactic Acid 20.10 H* Calcium 7.7 L AST 54 H Ammonia Total Creatine Kinase 484 H Troponin T 0.153 H* NT-Pro-B Natriuret Pep 81612 H Albumin 3.2 L LDL Cholesterol Direct 8 L Urine WBC (Auto) Urine Creatinine 01/05/21 01/05/21 01/05/21 13:44 14:47 17:50 WBC RBC Hgb Hct MCH RDW Seg Neuts % (Manual) Lymphocytes % (Manual) Nucleated RBC % Seg Neutrophils # Man Lymphocytes # (Manual) APTT ABG pH ABG HCO3 ABG O2 Saturation ABG Base Excess ABG Hemoglobin Oxyhemoglobin Sodium Potassium Chloride Carbon Dioxide BUN Creatinine Glucose Lactic Acid 18.80 H* Calcium AST Ammonia 106.0 H Total Creatine Kinase Troponin T NT-Pro-B Natriuret Pep Albumin LDL Cholesterol Direct Urine WBC (Auto) 38.0 H Urine Creatinine 01/05/21 17:50 WBC RBC Hgb Hct MCH RDW Seg Neuts % (Manual) Lymphocytes % (Manual) Nucleated RBC % Seg Neutrophils # Man Lymphocytes # (Manual) APTT ABG pH ABG HCO3 ABG O2 Saturation ABG Base Excess ABG Hemoglobin Oxyhemoglobin Sodium Potassium Chloride Carbon Dioxide BUN Creatinine Glucose Lactic Acid Calcium AST Ammonia Total Creatine Kinase Troponin T NT-Pro-B Natriuret Pep Albumin LDL Cholesterol Direct Urine WBC (Auto) Urine Creatinine 74.4 H
[2021-01-05] MEDS ORDERED: FAMOTIDINE 20 MG/2 ML INJ IV SCH (22:00)
[2021-01-05] MEDS ORDERED: HEPARIN 5,000 UNIT/1 ML VIAL SUB-Q SCH (22:00)
--- NOTE | 2021-01-05 22:03 | Procedure Note ---
Date of procedure: 01/05/21 Pre-op diagnosis: MORGAN; Acute Hypoxemic Respiratory Failure Post-op diagnosis: same Procedure: RIJ VASCATH PLACEMENT (Full dictation # [id number]) Please see dictated notes for full details
[2021-01-05] MEDS: fentaNYL DRIP Premix 2,000 MCG/100 ML BAG IV SCH (22:10)
--- NOTE | 2021-01-05 22:30 | XRay Report ---
CHEST 1 VIEW 01/05/2021 9:24 PM INDICATION / CLINICAL INFORMATION: Vascath placement. COMPARISON: 01/05/2021 FINDINGS: SUPPORT DEVICES: ET tube is satisfactory in position. Right jugular line tip overlies the distal SVC/ RA junction HEART / MEDIASTINUM: No significant abnormality. LUNGS / PLEURA: Left lower lung atelectasis and effusion No pneumothorax. Signer Name: Blas Merino MD Signed: 01/05/2021 10:25 PM Workstation Name: [id number]
[2021-01-05] MEDS ORDERED: VANCOMYCIN/NS 1 GM/250 ML 1 GM/250 ML BAG IV ONE (22:45)
[2021-01-05] MEDS: FAMOTIDINE 20 MG/2 ML INJ IV SCH (22:45)
--- NOTE | 2021-01-05 23:08 | Operative Report ---
DATE OF SURGERY: 01/05/2021 PROCEDURE: Right IJ vascular catheter placement for dialysis ____ Trialysis catheter. INDICATIONS: Acute kidney injury with severe hyperkalemia. Consent was informed and witnessed from the patient's . COMPLICATIONS: No immediate procedural complications. This was an ultrasound-guided placement. PROCEDURE DETAILS: As follows: After informed and witnessed consent as well as premedication with general local anesthetic agent and fentanyl drip being ordered, the area of the right upper anterior triangle of the neck was sterilely prepped and draped with chlorhexidine swabs and given a couple of minutes to dry. Full sterile technique was used including sterile gown, hat, mask, gloves, full barrier protection. Ultrasound imaging was used. Right internal jugular vein was located. It was easily compressible lateral to the carotid on the right side. General local anesthetic agent was infiltrated with a 25-gauge needle. First used to create a wheal and then a 22-gauge needle was used to infiltrate further into the skin. Under ultrasound guidance, the central line large bore needle was used to cannulate the internal jugular vein. I entered the vein on the first stick. A good looking venous blood return was obtained. The wire was threaded through the needle and catheter was advanced over the wire after dilatation with the dilators provided. Again, good-looking venous blood return was obtained. The ports of the three lumens were flushed. The catheter was sutured in place with 0 silk sutures. The patient tolerated the procedure well. Post-procedure chest x-ray has been reviewed. No post-procedural pneumothorax was noted. The okay has been given to the dialysis now to use the Vas-Cath. TID: [id number] RECEIPT: [id number] MICHELL/BENI/JOSEFA
[2021-01-06] MEDS ORDERED: VASOPRESSIN 20 UNIT in SODIUM CHLORIDE 0.9% 100 ML IV SCH
[2021-01-06] MEDS ORDERED: SODIUM CHLORIDE 0.45% 1000 ML 1,000 ML IV ONE (00:01)
[2021-01-06] MEDS ORDERED: SODIUM BICARB 8.4% 50 MEQ/50 ML SYRINGE IV ONE (00:02)
[2021-01-06] MEDS ORDERED: SODIUM CHLORIDE 0.9% 1000 ML 1,000 ML IV ONE (00:03)
--- NOTE | 2021-01-06 01:22 | Consultation ---
DATE OF CONSULTATION: 01/05/2021 PULMONARY CRITICAL CARE CONSULT NOTE CONSULTING PHYSICIAN: Dr. Zane Carballo. REASON FOR CONSULTATION: Acute hypoxemic respiratory failure, on mechanical ventilatory support; acute kidney injury requiring dialysis. CHIEF COMPLAINT AND HISTORY OF PRESENTING ILLNESS: The patient is a now 70-year-old female with past medical history significant for recent diagnosis of multiple myeloma for which she is currently on chemotherapy, but also history of diabetes. She was brought into the Emergency Room for altered mental status. According to the records, the patient went to the [facility] for some treatment. On the day of presentation, which is today she was found to be altered. She was sent to the urgent care, from there 911 was called. In the Emergency Room, she was obtunded and not able to cooperate with the exam. The Emergency Room physician ultimately intubated her and further evaluation was started. She was found to have an acute kidney injury with hyperkalemia. Her serum potassium was 6.2. Evaluated by the embedder and a decision was made for emergent hemodialysis. We are asked to assist with management, but also placement of a Vas-Cath. When I stopped by to see her, she was resting on the mechanical ventilator. She was intermittently active, mostly trying to move her neck and moving her upper body, especially around the time of the initial infiltration of the local anesthetic agent for the right internal jugular Vas-Cath placement. I do not have any history of vomiting or overt aspiration. I did discuss with the patient's and he states that the last time she had any urine was on 01/03, which was about a couple of days ago. Otherwise, he was not able to give me much of any history except to say that the patient has been drowsy for at least the past 24-48 hours. Again, this is as far as I can tell with regards to the patient's tobacco use/abuse history. It is unclear if she is a smoker. PAST MEDICAL HISTORY: Again, multiple myeloma, currently on chemotherapy, history of diabetes, hyperlipidemia, obesity and anemia of chronic disease. PAST SURGICAL HISTORY: Unknown. MEDICATIONS: She was on at the time I stopped by to see were reviewed, pertinent medications include the following: Tylenol 650 mg p.o. q. 6 hours p.r.n. mild pain or fevers, albuterol nebulizer treatments 2.5 mg nebulized q. 3 hours p.r.n. shortness of breath, cefepime 2 grams IV q. 8 hours scheduled, Rocephin 1 gram IV daily, famotidine 20 mg IV b.i.d. I have just ordered a fentanyl drip to start at 1 mcg/kg per hour, heparin 5000 units subQ q. 12 hours, Dilaudid 0.5 mg IV q. 3 hours p.r.n. severe pain, morphine sulfate 2 mg IV every 4 hours p.r.n. moderate pain, Levophed drip was going at 10 mcg per minute, propofol had been ordered, but not yet started. Senna, docusate 1 tablet p.o. b.i.d., D5W with 3 amps of bicarbonate per liter drip was going at 125 mL per hour. ALLERGIES: No known drug allergies. DIET: Obese lady, acute weight loss or gain history is unclear. SOCIAL HISTORY: Lives in the community. She is . As far as I can tell. No current alcohol, tobacco or illicit drug use or abuse. Remote history is unknown. FAMILY HISTORY: Otherwise unknown. REVIEW OF SYSTEMS: Unobtainable secondary to patient's medical and mental condition. Since she has been here, no gross hematochezia or melena, no gross hematuria, no hematemesis, no bloody tracheal secretions, no witnessed seizures. Review of systems otherwise unobtainable or as in the body of the history above. PHYSICAL EXAMINATION: VITAL SIGNS: At presentation in the Emergency Room, review of the vital signs. DICTATION ENDS HERE. TID: [id number] RECEIPT: [id number] MICHELL/RADHA
[2021-01-06] MEDS: NORepinephrine/NS 4 MG-250 ML 4 MG/250 ML BAG IV SCH ×2 (01:35→05:06)
--- NOTE | 2021-01-06 01:41 | Consultation ---
DATE OF CONSULTATION: 01/05/2021 ADDENDUM PHYSICAL EXAMINATION: VITAL SIGNS: In the hospital, I do not see any temperature, the first temperature that we get on this patient is in the Intensive Care Unit at about 9:30-10:00 p.m. They were about 92.1 degrees Fahrenheit, pulse at presentation was 105, respiratory rate was 42. Blood pressure was 138/45, O2 sats were 94%. Inspired oxygen concentration at that time was not recorded. When I stopped by to see her, her O2 sats were 98% that was on the mechanical ventilator, assist control mode of ventilation, tidal volume 450, rate of 30, PEEP of 5 on 100% FIO2. GENERAL: She is an elderly obese female. Normocephalic, atraumatic, on the mechanical ventilator without significant patient-ventilator dyssynchrony. HEENT: Anicteric. No conjunctival erythema. Oropharynx was moist. A #7.5 endotracheal tube was taped at the lips at about 23-24 cm. NECK: No gross jugular venous distention, no thyromegaly. Oropharynx was moist. Grossly, there were no palpable lymph nodes in the supraclavicular or submandibular lymph node chains. LUNGS: Auscultation of both lung sanchez unremarkable. Lungs were clear bilaterally with good bilateral air movement. HEART: Sounds 1 and 2 are heard. Regular tachycardia at the time of my evaluation without overt rubs or murmurs. ABDOMEN: Soft, full, bowel sounds are positive, nontender, no palpable hepatosplenomegaly. EXTREMITIES: Without overt digital clubbing or cyanosis. No pedal edema. Pedal pulses are 2+ bilaterally. NEUROLOGIC: Pupils are equal, round, about 3 mm, sluggishly reactive to light. Extraocular muscle movements could not be assessed. She did have spontaneous movements to her extremities, in particular the upper extremities and her head when we were doing the procedure. SKIN: Normal turgor in the areas examined without overt cellulitis or rash. Please see the wound care nurses' notes for full description of her skin. PSYCHIATRIC: Mood and affect could not be assessed. She was still lethargic to delirious. LABORATORY DATA: From my review are as follows: Admission white cell count 11,600, hemoglobin 7.7, hematocrit 26.1, platelet count was 150, 5% band, neutrophils on the manual differential. Arterial blood gas at presentation showed a pH of 6.89, pCO2 of 19, pO2 of 85 and that was reported as being on room air. Serum sodium was 129, potassium was 6.2, chloride was 82, bicarbonate was 4, BUN was 67, creatinine was 8.1, glucose was 126. Lactic acid level was 18.8. AST was 54. Ammonia level was 106. CPK was 484. Troponin was 0.15. Cholesterol 6.2. Urinalysis was negative for leukocyte esterase and nitrites. She did have 38 white cells per high power field, 4+ bacteria. Urine creatinine 74.4. Urine sodium 59. Urine drug screen was positive for THC, otherwise it was presumptive negative. Hepatitis screen is negative. Two sets of blood cultures are no growth to date. A chest x-ray was done essentially shows endotracheal tube in good position, the tip at the level of the aortic knob, left lower lobe infiltrate/partial atelectasis, otherwise negative chest x-ray. CT of the brain is pending. ASSESSMENT: 1. Acute hypoxemic respiratory failure, on mechanical ventilatory support. 2. Acute kidney injury. 3. Severe sepsis with shock. 4. Community-acquired pneumonia, left lower lobe. 5. Multiple myeloma, status post chemotherapy. 6. Severe metabolic acidosis. 7. Lactic acidosis. 8. Hyponatremia. 9. Non-ST elevation myocardial infarction. 10. Anemia that is normocytic. 11. Hyperkalemia. 12. Oropharyngeal dysphagia. 13. Possible urinary tract infection. PLAN: We are going to keep her on full mechanical ventilatory support. I am going to order a stat ABG right now, we will continue to empirically hyperventilate her to compensate for the severe metabolic acidosis at presentation. She is about to begin hemodialysis, right IJ vascath has been placed. Levophed will be weaned to keep mean arterial pressures greater than or equal to about 65 mmHg. Ventilator-associated pneumonia bundle has been introduced. Oxygen will be weaned to keep sats greater than or equal to about 90%. Aspiration precautions will be maintained. I do note the antibiotics. We will continue with cefepime. I will discontinue the Rocephin. Continue with cefepime. Infectious Disease consultation will be placed, one dose of vancomycin will be given. Sedation will be for target RASS scale of about 0 to -1. I will use fentanyl as the sedative of choice. Avoid benzodiazepines as possible. An OG tube will be placed. Enteral nutrition will be the feeding modality of choice. Nutrition consult to be placed. Winters catheter is in place. Inputs and outputs will be monitored. Electrolytes will be followed and corrected as necessary. Chronic disease medications will be continued. Glycemic control will be for target blood glucose of 140-180 mg/dL while critically ill. Sliding scale insulin will be q. 6 hours. I will be starting her empirically on lactulose and repeat the ammonia level in the morning. Lactic acid level will also be trended. Gentle volume resuscitation will be given. I will continue the bicarbonate drip. She is appropriately on GI prophylaxis as well as DVT prophylaxis. Flu and pneumonia vaccination will be addressed per protocol. Thank you very much for the consult, Dr. Carballo, we will follow along and make further recommendations as picture progresses/becomes clearer. I have also discussed with her at length. She is critically ill on life-sustaining interventions including mechanical ventilatory support. I should mention that the initial hyperkalemia has been treated by the body stylist in the Emergency Room. She is at very high risk of from cardiopulmonary and renal system decompensation. At this time, I spent about 60 minutes of critical care time without overlap and excluding any procedural time that may be necessary. TID: [id number] RECEIPT: [id number] MICHELL/JAMARI
[2021-01-06] MEDS: SODIUM BICARBONATE 150 MEQ in DEXTROSE 5% IN WATER 1,000 ML IV SCH ×3 (01:48→22:01)
[2021-01-06] MEDS: SENNOSIDES/DOCUSATE SODIUM 8.6/50 MG TAB FEEDTUBE SCH ×3 (02:25→21:11)
[2021-01-06] MEDS: LACTULOSE 20 GM/30 ML ORAL LIQD PO SCH ×4 (05:10→18:16)
--- NOTE | 2021-01-06 06:01 | Cat Scan Report ---
CT head/brain wo con INDICATION: Altered Mental Status. TECHNIQUE: Routine CT head. All CT scans at this location are performed using CT dose reduction for A FRANKY by means of automated exposure control. COMPARISON: None. FINDINGS: Intracranial: Farias-white matter differentiation is maintained. No intracranial hemorrhage. No extra a xial collection. No hydrocephalus. No herniation. There is a inferiorly projecting 9 mm meningioma al kim the tentorium (image 48 of series 401). No mass effect or vasogenic edema. Sinuses: Paranasal sinuses and mastoid air cells are essentially clear. Orbits: Globes are intact. Calvarium: Numerous tiny punched-out lytic lesions in the calvarium. IMPRESSION: 1. No acute intracranial abnormality. 2. Numerous punched-out calvarial lesions concerning for multiple myeloma. 3. 9 mm meningioma along the tentorium without significant sequela Signer Name: Everton Briggs MD Signed: 01/06/2021 5:56 AM Workstation Name: [id number]
[2021-01-06 07:08] LABS: Hemoglobin 6.5 gm/dl (10.1-14.3); Mean Corpuscular HGB Conc 34 % (30-34); Mean Corpuscular Volume 83 fl (79-97); Red Cell Distribution Width 18.5 % (13.2-15.2)
[2021-01-06 07:21] LABS: Hematocrit 19.1 % (30.3-42.9); Platelet Count 85 K/mm3 (140-440)
[2021-01-06 07:27] LABS: Albumin 2.5 g/dL (3.9-5); Calcium 6.5 mg/dL (8.4-10.2)
--- NOTE | 2021-01-06 07:55 | Progress Note ---
Assessment and Plan 1. Acute kidney injury: Vasomotor MORGAN in the setting shock. Urine studies and Renal US ordered. Monitor renal function. Renal prognosis is guarded. Avoid nephrotoxic agents. Meds dosage based on GFR. 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 Patient was started on hemodialysis due to significant decline in the GFR, associated hyperkalemia and severe metabolic acidosis. Unfortunately I was not able to reach her , called multiple times and left VM. Patient needs urgent hemodialysis due to above and also d/w , who agrees with me. Hemodialysis: 01/05. 2. FEN: Hyperkalemia, improved with HD. Anion-gap Metabolic acidosis, s/p HD, on bicarb drip, monitor. Severe Lactic acidosis. Monitor lytes. 3. Acute respiratory failure with hypoxia: Intubated, on vent. Followed by Pulmonary. 4. Shock, POA: Likely septic. Abx. On Levophed and Vasopressin. Follow cultures. 5. Elevated Troponin: Monitor. 6. Diabetes mellitus type 2: Follow blood glucose. 7. Anemia, POA: 1 unit of PRBC ordered. Monitor. 8. Encephalopathy: Monitor. 9. Multiple myeloma: On Chemo. Prognosis is slim. Subjective: Patient was seen and examined at the bedside. RN at the bedside. Examination: General appearance: well-developed, well-nourished, appears stated age, intubated, on vent HEENT: ATNC, pupils equal Neck: supple Respiratory: coarse breath sounds Cardiology: regular, S1S2, no murmur Gastrointestinal: soft, bowel sounds heard, not tender Integumentary: no rash, warm and dry Neurologic: opens, grimaces Ext: no edema : Winters catheter Hemodialysis access: R IJ temp catheter Subjective Date of service: 01/06/21 Objective - Vital Signs Vital signs: Vital Signs - 12hr 01/05/21 01/05/21 01/05/21 21:05 21:40 21:50 Temperature Pulse Rate 115 H 122 H 113 H Respiratory 30 H 30 H Rate Respiratory Rate [ Generalized] Blood Pressure 139/46 133/47 O2 Sat by Pulse Oximetry O2 Sat by Pulse Oximetry [ Bilateral] 01/05/21 01/05/21 01/05/21 22:00 22:10 22:20 Temperature Pulse Rate 140 H 114 H 110 H Respiratory 30 H 29 H 30 H Rate Respiratory 30 H Rate [ Generalized] Blood Pressure 118/40 118/40 130/46 O2 Sat by Pulse 100 Oximetry O2 Sat by Pulse Oximetry [ Bilateral] 01/05/21 01/05/21 01/05/21 22:30 22:40 22:50 Temperature Pulse Rate 118 H 133 H 108 H Respiratory 31 H 31 H 30 H Rate Respiratory Rate [ Generalized] Blood Pressure 122/61 122/61 114/52 O2 Sat by Pulse 99 100 100 Oximetry O2 Sat by Pulse Oximetry [ Bilateral] 01/05/21 01/05/21 01/05/21 22:55 23:00 23:10 Temperature 92.1 F L Pulse Rate 102 H 127 H 104 H Respiratory 30 H 30 H 31 H Rate Respiratory Rate [ Generalized] Blood Pressure 130/38 121/37 121/37 O2 Sat by Pulse 100 99 Oximetry O2 Sat by Pulse 100 Oximetry [ Bilateral] 01/05/21 01/05/21 01/05/21 23:15 23:20 23:30 Temperature Pulse Rate 104 H 102 H 98 H Respiratory 30 H 34 H Rate Respiratory Rate [ Generalized] Blood Pressure 103/92 121/37 68/32 O2 Sat by Pulse 98 97 Oximetry O2 Sat by Pulse Oximetry [ Bilateral] 01/05/21 01/05/21 01/05/21 23:40 23:45 23:50 Temperature Pulse Rate 95 H 99 H 96 H Respiratory 30 H 30 H Rate Respiratory Rate [ Generalized] Blood Pressure 59/31 93/41 72/36 O2 Sat by Pulse 97 Oximetry O2 Sat by Pulse Oximetry [ Bilateral] 01/06/21 01/06/21 01/06/21 00:00 00:10 00:15 Temperature Pulse Rate 99 H 102 H 101 H Respiratory 30 H 19 Rate Respiratory Rate [ Generalized] Blood Pressure 101/38 99/33 71/33 O2 Sat by Pulse 100 100 Oximetry O2 Sat by Pulse Oximetry [ Bilateral] 01/06/21 01/06/21 01/06/21 00:20 00:25 00:30 Temperature Pulse Rate 99 H 97 H 96 H Respiratory 19 20 Rate Respiratory Rate [ Generalized] Blood Pressure 59/31 83/38 O2 Sat by Pulse 100 100 Oximetry O2 Sat by Pulse Oximetry [ Bilateral] 01/06/21 01/06/21 01/06/21 00:34 00:40 00:45 Temperature Pulse Rate 103 H 104 H 104 H Respiratory 19 Rate Respiratory Rate [ Generalized] Blood Pressure 106/43 142/53 167/65 O2 Sat by Pulse 100 100 Oximetry O2 Sat by Pulse Oximetry [ Bilateral] 01/06/21 01/06/21 01/06/21 00:50 01:00 01:10 Temperature Pulse Rate 105 H 103 H 104 H Respiratory 18 26 H 19 Rate Respiratory Rate [ Generalized] Blood Pressure 157/55 126/58 127/61 O2 Sat by Pulse 100 100 100 Oximetry O2 Sat by Pulse Oximetry [ Bilateral] 01/06/21 01/06/21 01/06/21 01:20 01:26 01:30 Temperature 95.5 F L Pulse Rate 100 H 103 H 104 H Respiratory 14 20 19 Rate Respiratory Rate [ Generalized] Blood Pressure 160/56 118/58 131/46 O2 Sat by Pulse 100 100 Oximetry O2 Sat by Pulse 100 Oximetry [ Bilateral] 01/06/21 01/06/21 01/06/21 01:40 01:50 02:00 Temperature Pulse Rate 106 H 102 H 109 H Respiratory 20 26 H 19 Rate Respiratory Rate [ Generalized] Blood Pressure 144/64 156/58 160/67 O2 Sat by Pulse 100 100 100 Oximetry O2 Sat by Pulse Oximetry [ Bilateral] 01/06/21 01/06/21 01/06/21 02:10 02:20 02:30 Temperature Pulse Rate 97 H 95 H 91 H Respiratory 21 30 H 28 H Rate Respiratory Rate [ Generalized] Blood Pressure 138/50 141/59 142/55 O2 Sat by Pulse 100 100 100 Oximetry O2 Sat by Pulse Oximetry [ Bilateral] 01/06/21 01/06/21 01/06/21 02:40 02:50 03:00 Temperature Pulse Rate 93 H 85 89 Respiratory 30 H 30 H 30 H Rate Respiratory Rate [ Generalized] Blood Pressure 137/52 138/49 138/55 O2 Sat by Pulse 100 100 100 Oximetry O2 Sat by Pulse Oximetry [ Bilateral] 01/06/21 01/06/21 01/06/21 03:10 03:20 03:30 Temperature Pulse Rate 88 89 83 Respiratory 30 H 30 H 30 H Rate Respiratory Rate [ Generalized] Blood Pressure 132/47 128/48 126/41 O2 Sat by Pulse 100 100 100 Oximetry O2 Sat by Pulse Oximetry [ Bilateral] 01/06/21 01/06/21 01/06/21 03:40 03:50 04:00 Temperature Pulse Rate 88 88 111 H Respiratory 30 H 30 H 23 Rate Respiratory Rate [ Generalized] Blood Pressure 127/44 122/48 136/57 O2 Sat by Pulse 100 100 98 Oximetry O2 Sat by Pulse Oximetry [ Bilateral] 01/06/21 01/06/21 01/06/21 04:10 04:20 04:30 Temperature Pulse Rate 110 H 123 H 113 H Respiratory 20 34 H 18 Rate Respiratory Rate [ Generalized] Blood Pressure 136/52 121/84 152/53 O2 Sat by Pulse 93 98 100 Oximetry O2 Sat by Pulse Oximetry [ Bilateral] 01/06/21 01/06/21 01/06/21 04:40 04:50 05:00 Temperature 97.7 F Pulse Rate 109 H 107 H 100 H Respiratory 18 17 24 Rate Respiratory Rate [ Generalized] Blood Pressure 155/54 142/52 85/29 O2 Sat by Pulse 100 100 100 Oximetry O2 Sat by Pulse Oximetry [ Bilateral] 01/06/21 01/06/21 01/06/21 05:10 05:50 06:00 Temperature Pulse Rate 104 H 127 H 111 H Respiratory 16 24 29 H Rate Respiratory Rate [ Generalized] Blood Pressure 111/51 163/62 O2 Sat by Pulse 100 100 98 Oximetry O2 Sat by Pulse Oximetry [ Bilateral] 01/06/21 01/06/21 06:10 06:20 Temperature Pulse Rate 108 H 111 H Respiratory 20 17 Rate Respiratory Rate [ Generalized] Blood Pressure 174/62 164/113 O2 Sat by Pulse 100 100 Oximetry O2 Sat by Pulse Oximetry [ Bilateral] - Lab 01/06/21 06:40 01/06/21 06:40 Most recent lab results ABG pH 7.056 (7.320-7.450) L 01/05/21 22:34 ABG pCO2 19.0 mm Hg 01/05/21 13:35 ABG pO2 84.7 mm Hg (80.0-90.0) 01/05/21 13:35 ABG HCO3 3.5 mmol/L (20.0-26.0) L 01/05/21 13:35 ABG O2 Saturation 99.7 (0-100) 01/05/21 22:34 Calcium 6.5 mg/dL (8.4-10.2) L D 01/06/21 06:40 Magnesium 2.10 mg/dL (1.7-2.3) 01/05/21 13:44 Urine Creatinine 74.4 mg/dL (0.1-20.0) H 01/05/21 17:50 Urine Sodium 59 mmol/L 01/05/21 17:50 Medications & Allergies - Medications Allergies/Adverse Reactions: Allergies No Known Allergies Allergy (Verified 01/05/21 22:00) Active Medications: Generic Name Dose Route Start Last Admin Trade Name Freq PRN Reason Stop Dose Admin Acetaminophen 650 mg 01/05/21 17:00 Acetaminophen 650 Mg Rect Supp SD Q6H PRN Pain MILD(1-3)/Fever >100.5/SILVERMAN Acetaminophen 650 mg 01/05/21 19:00 Acetaminophen 325 Mg Tab PO Q6H PRN Pain, Mild (1-3) Albuterol 2.5 mg 01/05/21 17:00 Albuterol 2.5 Mg/3 Ml Nebu IH Q3HRT PRN Shortness Of Breath Famotidine 20 mg 01/05/21 22:00 01/05/21 22:45 Famotidine 20 Mg/2 Ml Inj IV 20 mg DAILY MIKEY Administration Fentanyl 50 mcg 01/05/21 21:55 Fentanyl 100 Mcg/2 Ml Inj IV Q10MIN PRN ANALGESIA Heparin Sodium (Porcine) 5,000 unit 01/05/21 22:00 01/05/21 22:46 Heparin 5,000 Unit/1 Ml Vial SUB-Q 5,000 unit Q12HR MIKEY Administration Hydromorphone HCl 0.5 mg 01/05/21 17:00 Hydromorphone 1 Mg/1 Ml Inj IV Q3H PRN Pain , Severe (7-10) Hydromorphone HCl 0.25 mg 01/05/21 19:30 Hydromorphone 1 Mg/1 Ml Inj IV Q4H PRN Pain, Moderate (4-6) Hydrophilic Ointment 1 applic 01/05/21 14:21 Lip Therapy Vaseline TP Q2HR PRN Dry Lips Propofol 1,000 mg in 100 mls @ 2.712 mls/hr 01/05/21 19:30 Diprivan 10 Mg/Ml IV TITR MIKEY Protocol 5 MCG/KG/MIN Norepinephrine 4 mg in 250 mls @ 7.5 mls/hr 01/05/21 16:00 01/06/21 05:06 Levophed Drip 4 Mg/Ns 250 Ml IV 14 mcg/min TITR MIKEY 52.5 mls/hr Administration Protocol 2 MCG/MIN Sodium Bicarbonate 150 meq/ 1,150 mls @ 125 mls/hr 01/05/21 17:00 01/06/21 01:48 Dextrose IV 125 mls/hr DIRECT MIKEY Administration Sodium Chloride 100 mls @ 999 mls/hr 01/05/21 17:00 Nacl 0.9% IV ERIC PRN Hypotension Fentanyl Citrate 2,000 mcg in 100 mls @ 4.52 mls/hr 01/05/21 22:00 01/06/21 04:00 Fentanyl Drip Premix IV 2 mcg/kg/hr TITR MIEKY 9.04 mls/hr Titration Protocol 1 MCG/KG/HR Vasopressin 20 unit/ Sodium 101 mls @ 9.09 mls/hr 01/06/21 00:00 Chloride IV TITR MIKEY Protocol 0.03 UNITS/MIN Lactulose 20 gm 01/06/21 00:00 01/06/21 05:10 Lactulose 20 Gm/30 Ml Oral Liqd PO 01/07/21 06:01 20 gm Q6HR MIKEY Administration Morphine Sulfate 2 mg 01/05/21 17:00 Morphine 2 Mg/1 Ml Inj IV Q4H PRN Pain, Moderate (4-6) Multi-Ingred Cream/Lotion/Oil/Oint 1 applic 01/05/21 14:21 Mineral Oil/Petrolatum, White Ophth Oint 3.5 Gm OU Q4HR PRN Dry Eye(s) Senna/Docusate Sodium 1 tab 01/05/21 22:00 01/06/21 02:25 Sennosides/Docusate Sodium 8.6/50 Mg Tab FEEDTUBE Not Given BID MIKEY Sodium Chloride 10 ml 01/05/21 17:00 Sodium Chloride 0.9% 10 Ml Flush Syringe IV PRN PRN LINE FLUSH Sodium Chloride 10 ml 01/05/21 22:00 Sodium Chloride 0.9% 10 Ml Flush Syringe IV BID MIKEY
[2021-01-06] MEDS ORDERED: SODIUM CHLORIDE 0.9% 500 ML 500 ML IV NR (07:58)
[2021-01-06] MEDS ORDERED: SODIUM BICARBONATE 325 MG TAB FEEDTUBE PRN (08:10)
[2021-01-06] MEDS ORDERED: SIMPLE SYRUP 15 ML FEEDTUBE PRN ×2 (08:10)
[2021-01-06] MEDS ORDERED: LIPASE 10,500/PROTEASE 25,000/AMYLASE 43,750 (UNITS) DR CAP FEEDTUBE PRN (08:10)
--- NOTE | 2021-01-06 08:23 | XRay Report ---
ABDOMEN 1 VIEW(S) INDICATION / CLINICAL INFORMATION: og tube placement. COMPARISON: None available. FINDINGS: TUBES / LINES: A G-tube is in good position terminating in the distal stomach. BOWEL GAS PATTERN: No significant abnormality. FREE AIR / EXTRALUMINAL GAS: None seen. ADDITIONAL FINDINGS: Kyphoplasty changes from T12-L3 are noted. IMPRESSION: No significant abnormality. Adequate placement of the nasogastric tube. Signer Name: Alexis Shaffer Jr, MD Signed: 01/06/2021 8:19 AM Workstation Name: [id number]
[2021-01-06] MEDS ORDERED: CEFEPIME/NS 2 GM/100 ML 2 GM/100 ML BAG IV SCH (09:00)
--- NOTE | 2021-01-06 09:41 | Progress Note ---
Assessment and Plan Assessment and plan: --Anemia of chronic disease Hb 6.5 Current Visit: Yes Status: Acute CBC, transfuse 1 unit PRBC, closely monitor H&H Stool for occult blood --Sepsis secondary to UTI Current Visit: Yes Status: Acute. 6.5 hemoglobin, no external evidence of bleeding type and cross transfuse 1 unit PRBC, Sepsis protocol: CBC, CMP, chest x-ray, urinalysis, blood culture, IV antibiotic therapy, IV fluid resuscitation therapy, maintain mean arterial pressure greater than or equal to 65,IV pressor support, monitor urine output every shift, --Acute hypoxemic respiratory failure Current Visit: Yes Status: Acute Patient intubated and on ventilatory support, wean vent as tolerated, critical care team consulted in ED, daily spontaneous breathing trial, arterial blood gas daily, sedation holiday daily, -- UTI (urinary tract infection) Current Visit: Yes Status: Acute Empiric antibiotics, follow cultures --History of multiple myeloma Current Visit: Yes Status: Acute Supportive care, --End stage renal disease Current Visit: Yes Status: Acute Nephrology team consulted in ED, patient is pending Vas-Cath placement for ur gent dialysis, --DVT prophylaxis Current Visit: Yes Status: Acute SCD to bilateral lower extremities while in bed, prophylactic anticoagulation --Advance care planning Current Visit: Yes Status: Acute Disease education conducted, care plan discussed, diagnosis discussed, patient prognosis discussed, patient family knowledges understanding and agreement with care plan, +30 minutes. Patient remains full code. Patient reports that "I want everything done". The high probability of a clinically significant, sudden or life threatening deterioration of the [cardiac, pulmonary, renal, endocrine, hematologic] system(s) required my full and direct attention, intervention and personal management. The aggregate critical care time was [45] minutes. This time is in addition to time spent performing reported procedures but includes the following: [x] Data Review and interpretation [x] Patient assessment and monitoring of vital signs [x] Documentation [x] Medication orders and management Closely monitor patient and adjust management as needed Restraint for safety Plan of care reviewed with the patient's nurse, case project management it specialist recommendations noted and appreciated 01/06/2021; patient is critically ill with severe sepsis and septic shock requiring multiple pressors Acute respiratory failure requiring intubation and ventilatory support History Interval history: I have seen and examined the patient at the bedside in ICU Patient's chart and medications reviewed Patient is orally intubated on ventilatory support Hypotensive on vasopressors Vital signs noted Hospitalist Physical - Constitutional Vitals: Temp Pulse Resp BP Pulse Ox 97.7 F 111 H 17 164/113 100 01/06/21 05:00 01/06/21 08:00 01/06/21 08:00 01/06/21 08:00 01/06/21 08:00 General appearance: Present: mild distress, well-nourished, obese, other (Intubated on ventilatory support) - EENT Eyes: Present: PERRL, EOM intact - Neck Neck: Present: supple, normal ROM - Respiratory Respiratory effort: normal Respiratory: bilateral: diminished, negative: rales, rhonchi, wheezing - Cardiovascular Rhythm: regular Heart Sounds: Present: S1 & S2 - Extremities Extremities: no ischemia, No edema - Abdominal General gastrointestinal: soft, non-tender, non-distended, normal bowel sounds - Integumentary Integumentary: Present: clear, warm - Psychiatric Psychiatric: cooperative, other (Noncommunicative ) - Neurologic Neurologic: moves all extremities HEART Score - HEART Score Troponin: Troponin T 0.153 ng/mL (0.00-0.029) H* 01/05/21 13:44 Results - Labs CBC & Chem 7: 01/06/21 06:40 01/06/21 06:40 Labs: Laboratory Last Values WBC 9.5 K/mm3 (4.5-11.0) 01/06/21 06:40 RBC 2.30 M/mm3 (3.65-5.03) L 01/06/21 06:40 Hgb 6.5 gm/dl (10.1-14.3) L 01/06/21 06:40 Hct 19.1 % (30.3-42.9) L* D 01/06/21 06:40 MCV 83 fl (79-97) 01/06/21 06:40 MCH 28 pg (28-32) 01/06/21 06:40 MCHC 34 % (30-34) 01/06/21 06:40 RDW 18.5 % (13.2-15.2) H 01/06/21 06:40 Plt Count 85 K/mm3 (140-440) L 01/06/21 06:40 Add Manual Diff Complete 01/05/21 13:44 Total Counted 100 01/05/21 13:44 Seg Neutrophils % Relations Manager 01/06/21 06:40 Seg Neuts % (Manual) 79.0 % (40.0-70.0) H 01/05/21 13:44 Band Neutrophils % 5.0 % 01/05/21 13:44 Lymphocytes % (Manual) 9.0 % (13.4-35.0) L 01/05/21 13:44 Monocytes % (Manual) 2.0 % (0.0-7.3) 01/05/21 13:44 Eosinophils % (Manual) 1.0 % (0.0-4.3) 01/05/21 13:44 Myelocytes % 4.0 % 01/05/21 13:44 Nucleated RBC % 2.0 % (0.0-0.9) H 01/05/21 13:44 Seg Neutrophils # Man 9.2 K/mm3 (1.8-7.7) H 01/05/21 13:44 Band Neutrophils # 0.6 K/mm3 01/05/21 13:44 Lymphocytes # (Manual) 1.0 K/mm3 (1.2-5.4) L 01/05/21 13:44 Abs React Lymphs (Man) 0.0 K/mm3 01/05/21 13:44 Monocytes # (Manual) 0.2 K/mm3 (0.0-0.8) 01/05/21 13:44 Eosinophils # (Manual) 0.1 K/mm3 (0.0-0.4) 01/05/21 13:44 Basophils # (Manual) 0.0 K/mm3 (0.0-0.1) 01/05/21 13:44 Metamyelocytes # 0.0 K/mm3 01/05/21 13:44 Myelocytes # 0.5 K/mm3 01/05/21 13:44 Promyelocytes # 38.5 K/mm3 01/05/21 13:44 Blast Cells # 0.0 K/mm3 01/05/21 13:44 WBC Morphology Not Reportable 01/05/21 13:44 Hypersegmented Neuts Not Reportable 01/05/21 13:44 Hyposegmented Neuts Not Reportable 01/05/21 13:44 Hypogranular Neuts Not Reportable 01/05/21 13:44 Smudge Cells Not Reportable 01/05/21 13:44 Toxic Granulation Not Reportable 01/05/21 13:44 Toxic Vacuolation Not Reportable 01/05/21 13:44 Dohle Bodies Not Reportable 01/05/21 13:44 Pelger-Huet Anomaly Not Reportable 01/05/21 13:44 Diony Rods Not Reportable 01/05/21 13:44 Platelet Estimate Consistent w auto 01/05/21 13:44 Clumped Platelets Not Reportable 01/05/21 13:44 Plt Clumps, EDTA Not Reportable 01/05/21 13:44 Large Platelets Not Reportable 01/05/21 13:44 Giant Platelets Not Reportable 01/05/21 13:44 Platelet Satelliting Not Reportable 01/05/21 13:44 Plt Morphology Comment Not Reportable 01/05/21 13:44 RBC Morphology Not Reportable 01/05/21 13:44 Dimorphic RBCs Not Reportable 01/05/21 13:44 Polychromasia 1+ 01/05/21 13:44 Hypochromasia 1+ 01/05/21 13:44 Poikilocytosis 2+ 01/05/21 13:44 Anisocytosis Not Reportable 01/05/21 13:44 Microcytosis Not Reportable 01/05/21 13:44 Macrocytosis Not Reportable 01/05/21 13:44 Spherocytes Few 01/05/21 13:44 Pappenheimer Bodies Not Reportable 01/05/21 13:44 Sickle Cells Not Reportable 01/05/21 13:44 Target Cells Not Reportable 01/05/21 13:44 Tear Drop Cells Not Reportable 01/05/21 13:44 Ovalocytes Few 01/05/21 13:44 Helmet Cells Not Reportable 01/05/21 13:44 Oliveira-Rogers Bodies Not Reportable 01/05/21 13:44 [place] Rings Not Reportable 01/05/21 13:44 [place] Cells 1+ 01/05/21 13:44 Bite Cells Not Reportable 01/05/21 13:44 Crenated Cell Not Reportable 01/05/21 13:44 Elliptocytes Few 01/05/21 13:44 Acanthocytes (Spur) Few 01/05/21 13:44 Rouleaux Not Reportable 01/05/21 13:44 Hemoglobin C Crystals Not Reportable 01/05/21 13:44 Schistocytes Not Reportable 01/05/21 13:44 Malaria parasites Not Reportable 01/05/21 13:44 [place] Bodies Not Reportable 01/05/21 13:44 Hem Pathologist Commnt No 01/05/21 13:44 APTT 44.4 Sec. (24.2-36.6) H 01/05/21 13:44 ABG pH 7.397 (7.320-7.450) 01/06/21 09:04 POC ABG pCO2 20.9 mmHg (32.0-48.0) L 01/06/21 09:04 ABG pCO2 19.0 mm Hg 01/05/21 13:35 POC ABG pO2 162.3 mmHg (83-108) H 01/06/21 09:04 ABG pO2 84.7 mm Hg (80.0-90.0) 01/05/21 13:35 POC ABG HCO3 12.6 01/06/21 09:04 ABG HCO3 3.5 mmol/L (20.0-26.0) L 01/05/21 13:35 ABG O2 Saturation 99.4 (0-100) 01/06/21 09:04 ABG O2 Content 10.8 (0.0-44) 01/05/21 13:35 POC ABG Base Excess -11.2 01/06/21 09:04 ABG Base Excess -27.8 mmol/L (-2.0-3.0) L 01/05/21 13:35 ABG Hemoglobin 6.0 (12.0-17.5) L 01/06/21 09:04 ABG Oxyhemoglobin 98.2 (94-98) H 01/06/21 09:04 ABG Carboxyhemoglobin 1.1 % (0.0-5.0) 01/05/21 13:35 ABG Methemoglobin 0.3 (0.0-1.5) 01/06/21 09:04 ABG Sodium 131.2 mmol/L (136.0-145.0) L 01/06/21 09:04 ABG Potassium 3.6 mmol/L (3.40-4.50) 01/06/21 09:04 ABG Chloride 95.0 mmol/L (98-107) L 01/06/21 09:04 ABG Glucose 175 mg/dL (65-95) H 01/06/21 09:04 Oxyhemoglobin 82.4 % (95.0-99.0) L 01/05/21 13:35 Carboxyhemoglobin 0.9 (0.5-1.5) 01/06/21 09:04 FiO2 21 % 01/05/21 13:35 FiO2 % 45.0 01/06/21 09:04 Sodium 135 mmol/L (137-145) L 01/06/21 06:40 Potassium 3.6 mmol/L (3.6-5.0) D 01/06/21 06:40 Chloride 87.4 mmol/L (98-107) L 01/06/21 06:40 Carbon Dioxide 14 mmol/L (22-30) L D 01/06/21 06:40 Anion Gap 37 mmol/L 01/06/21 06:40 BUN 36 mg/dL (7-17) H 01/06/21 06:40 Creatinine 4.3 mg/dL (0.6-1.2) H 01/06/21 06:40 Estimated GFR 10 ml/min 01/06/21 06:40 BUN/Creatinine Ratio 8 % 01/06/21 06:40 Glucose 167 mg/dL (65-100) H 01/06/21 06:40 POC Glucose 159 mg/dL (70-105) H 01/06/21 05:00 Ketones Quantitative Negative (Negative) 01/05/21 14:39 Lactic Acid 13.60 mmol/L (0.7-2.0) H* 01/06/21 06:40 Calcium 6.5 mg/dL (8.4-10.2) L D 01/06/21 06:40 Magnesium 2.10 mg/dL (1.7-2.3) 01/05/21 13:44 Total Bilirubin 0.30 mg/dL (0.1-1.2) 01/06/21 06:40 AST 122 units/L (5-40) H 01/06/21 06:40 ALT 37 units/L (7-56) 01/06/21 06:40 Alkaline Phosphatase 68 units/L (35-129) 01/06/21 06:40 Ammonia 100.0 umol/L (25-60) H 01/05/21 23:05 Total Creatine Kinase 484 units/L (30-135) H 01/05/21 13:44 Troponin T 0.153 ng/mL (0.00-0.029) H* 01/05/21 13:44 NT-Pro-B Natriuret Pep 76923 pg/mL (0-900) H 01/05/21 13:44 Total Protein 5.4 g/dL (6.3-8.2) L D 01/06/21 06:40 Albumin 2.5 g/dL (3.9-5) L 01/06/21 06:40 Albumin/Globulin Ratio 0.9 % 01/06/21 06:40 Triglycerides 75 mg/dL (2-149) 01/05/21 13:44 Cholesterol 62 mg/dL (50-199) 01/05/21 13:44 LDL Cholesterol Direct 8 mg/dL (50-130) L 01/05/21 13:44 HDL Cholesterol 50 mg/dL (40-59) 01/05/21 13:44 Cholesterol/HDL Ratio 1.24 % 01/05/21 13:44 PTH Intact 209.3 pg/mL (15-65) H 01/06/21 06:40 Arterial Blood Glucose 175 mg/dL (65-95) H 01/06/21 09:04 Arterial Blood Ionized Calcium 3.3 mg/dL (4.6-5.3) L 01/06/21 09:04 Urine Color Yanira (Yellow) 01/05/21 17:50 Urine Turbidity Cloudy (Clear) 01/05/21 17:50 Urine pH 5.0 (5.0-7.0) 01/05/21 17:50 Ur Specific [place] 1.018 (1.003-1.030) 01/05/21 17:50 Urine Protein >500 mg/dL (Negative) 01/05/21 17:50 Urine Glucose (UA) 50 mg/dL (Negative) 01/05/21 17:50 Urine Ketones Neg mg/dL (Negative) 01/05/21 17:50 Urine Blood Sm (Negative) 01/05/21 17:50 Urine Nitrite Neg (Negative) 01/05/21 17:50 Urine Bilirubin Neg (Negative) 01/05/21 17:50 Urine Urobilinogen < 2.0 mg/dL (<2.0) 01/05/21 17:50 Ur Leukocyte Esterase Neg (Negative) 01/05/21 17:50 Urine WBC (Auto) 38.0 /HPF (0.0-6.0) H 01/05/21 17:50 Urine RBC (Auto) 6.0 /HPF (0.0-6.0) 01/05/21 17:50 U Epithel Cells (Auto) 12.0 /HPF (0-13.0) 01/05/21 17:50 Urine Bacteria (Auto) 4+ /HPF (Negative) 01/05/21 17:50 Amorphous Crystals 1+ 01/05/21 17:50 Urine Mucus Few /HPF 01/05/21 17:50 Urine Creatinine 74.4 mg/dL (0.1-20.0) H 01/05/21 17:50 Urine Sodium 59 mmol/L 01/05/21 17:50 Random Vancomycin 15.4 ug/mL (0-40.0) 01/06/21 06:40 Urine Opiates Screen Negative 01/05/21 17:50 Urine Methadone Screen Negative 01/05/21 17:50 Ur Barbiturates Screen Negative 01/05/21 17:50 Ur Phencyclidine Scrn Negative 01/05/21 17:50 Ur Amphetamines Screen Negative 01/05/21 17:50 U Benzodiazepines Scrn Negative 01/05/21 17:50 Urine Cocaine Screen Negative 01/05/21 17:50 U Marijuana (THC) Screen Positive 01/05/21 17:50 Drugs of Abuse Note Disclamer 01/05/21 17:50 Hepatitis A IgM Ab Non-reactive (NonReactive) 01/05/21 18:27 Hep Bs Antigen Non-reactive (Negative) 01/05/21 18:27 Hep B Core IgM Ab Non-reactive (NonReactive) 01/05/21 18:27 Hepatitis C Antibody Non-reactive (NonReactive) 01/05/21 18:27 Microbiology: Microbiology 01/05/21 14:39 Peripheral/Venous Blood Culture - Preliminary Culture in Progress 01/05/21 13:44 Peripheral/Venous Blood Culture - Preliminary Culture in Progress Active Medications - Current Medications Current Medications: Generic Name Dose Route Start Last Admin Trade Name Freq PRN Reason Stop Dose Admin Acetaminophen 650 mg 01/05/21 17:00 Acetaminophen 650 Mg Rect Supp PA Q6H PRN Pain MILD(1-3)/Fever >100.5/SILVERMAN Acetaminophen 650 mg 01/05/21 19:00 Acetaminophen 325 Mg Tab PO Q6H PRN Pain, Mild (1-3) Albuterol 2.5 mg 01/05/21 17:00 Albuterol 2.5 Mg/3 Ml Nebu IH Q3HRT PRN Shortness Of Breath Lipase/Protease/Amylase 1 each 01/06/21 08:10 Lipase 10,500/Protease 25,000/Amylase 43,750 (Units) Dr Cap FEEDTUBE PRN PRN For Clogged Feeding Tube Famotidine 20 mg 01/05/21 22:00 01/05/21 22:45 Famotidine 20 Mg/2 Ml Inj IV 20 mg DAILY MIKEY Administration Fentanyl 50 mcg 01/05/21 21:55 Fentanyl 100 Mcg/2 Ml Inj IV Q10MIN PRN ANALGESIA Hydromorphone HCl 0.5 mg 01/05/21 17:00 Hydromorphone 1 Mg/1 Ml Inj IV Q3H PRN Pain , Severe (7-10) Hydromorphone HCl 0.25 mg 01/05/21 19:30 Hydromorphone 1 Mg/1 Ml Inj IV Q4H PRN Pain, Moderate (4-6) Hydrophilic Ointment 1 applic 01/05/21 14:21 Lip Therapy Vaseline TP Q2HR PRN Dry Lips Propofol 1,000 mg in 100 mls @ 2.712 mls/hr 01/05/21 19:30 Diprivan 10 Mg/Ml IV TITR MIKEY Protocol 5 MCG/KG/MIN Norepinephrine 4 mg in 250 mls @ 7.5 mls/hr 01/05/21 16:00 01/06/21 05:06 Levophed Drip 4 Mg/Ns 250 Ml IV 14 mcg/min TITR MIKEY 52.5 mls/hr Administration Protocol 2 MCG/MIN Sodium Bicarbonate 150 meq/ 1,150 mls @ 125 mls/hr 01/05/21 17:00 01/06/21 01:48 Dextrose IV 125 mls/hr DIRECT MIKEY Administration Sodium Chloride 100 mls @ 999 mls/hr 01/05/21 17:00 Nacl 0.9% IV ERIC PRN Hypotension Fentanyl Citrate 2,000 mcg in 100 mls @ 4.52 mls/hr 01/05/21 22:00 01/06/21 04:00 Fentanyl Drip Premix IV 2 mcg/kg/hr TITR MIKEY 9.04 mls/hr Titration Protocol 1 MCG/KG/HR Vasopressin 20 unit/ Sodium 101 mls @ 9.09 mls/hr 01/06/21 00:00 Chloride IV TITR MIKEY Protocol 0.03 UNITS/MIN Sodium Chloride 500 mls @ 0 mls/hr 01/06/21 07:58 Nacl 0.9% 500 Ml IV 01/06/21 23:59 ONCE NR As Directed Cefepime HCl 2 gm in 100 mls @ 200 mls/hr 01/06/21 10:00 Cefepime/Ns 2 Gm/100 Ml IV Q24H MIKEY Protocol Lactulose 20 gm 01/06/21 00:00 01/06/21 08:09 Lactulose 20 Gm/30 Ml Oral Liqd PO 01/07/21 06:01 Not Given Q6HR MIKEY Morphine Sulfate 2 mg 01/05/21 17:00 Morphine 2 Mg/1 Ml Inj IV Q4H PRN Pain, Moderate (4-6) Multi-Ingred Cream/Lotion/Oil/Oint 1 applic 01/05/21 14:21 Mineral Oil/Petrolatum, White Ophth Oint 3.5 Gm OU Q4HR PRN Dry Eye(s) Senna/Docusate Sodium 1 tab 01/05/21 22:00 01/06/21 02:25 Sennosides/Docusate Sodium 8.6/50 Mg Tab FEEDTUBE Not Given BID MIKEY Simple Syrup 15 ml 01/06/21 08:10 Simple Syrup 15 Ml FEEDTUBE PRN PRN Hypoglycemia Simple Syrup 30 ml 01/06/21 08:10 Simple Syrup 15 Ml FEEDTUBE PRN PRN Hypoglycemia Sodium Bicarbonate 325 mg 01/06/21 08:10 Sodium Bicarbonate 325 Mg Tab FEEDTUBE PRN PRN For Clogged Feeding Tube Sodium Chloride 10 ml 01/05/21 17:00 Sodium Chloride 0.9% 10 Ml Flush Syringe IV PRN PRN LINE FLUSH Sodium Chloride 10 ml 01/05/21 22:00 Sodium Chloride 0.9% 10 Ml Flush Syringe IV BID MIKEY Nutrition/Malnutrition Assess - Dietary Evaluation Nutrition/Malnutrition Findings: Nutrition Notes Start: 01/06/21 08:02 Freq: Status: Active Protocol: Document 01/06/21 08:02 KARINA (Rec: 01/06/21 08:10 KARINA [id number]) Nutrition Notes Need for Assessment generated from: MD Order,legal paraprofessional,MST Initial or Follow up Assessment Current Diagnosis CKD (stage V CKD),Diabetes, Sepsis,Hypertension, Respiratory Failure Other Pertinent Diagnosis on HD, UTI, anemia, multiple myeloma on chemotherapy Current Diet NPO Labs/Tests Na 135 BUN 36 Cr 4.3 Pertinent Medications Levophed Lactulose Height 5 ft 3 in Weight 90.2 kg [place] Body Weight (kg) 52.27 BMI 35.2 Weight Status Obese Subjective/Other Information MD order for TF and eval intakes. RN screen for MST and skin risk. Fer score 12. Pt has abrasion on buttox. Pt on vent. Burn Absent Trauma Absent Current % PO Negligible Minimum of two criteria No physical signs of malnutrition Fluid Accumulation Mild (non-severe) #1 Nutrition Diagnosis Inadequate oral intake Etiology acute respiratory failure As Evidenced by Signs and Symptoms pt on vent and unable to consume PO Is patient on ventilator? Yes Is Patient Ambulatory and/or Out of Bed No REE-([place]-confined to bed) 1669.080 Kcal/Kg value to use for calculation 16 Approximate Energy Requirements Using 1443 kcal/Kg Calculation Used for Recommendations Kcal/kg Additional Notes Protein: (>2g/kg IBW) greater than 105g Fluid: 1 ml/kcal Nutrition Intervention Change Diet Order: Start TF Nutrition Support: Nepro 1.8 at 35 ml/hr Flush 100 ml q4h or per MD Kcal 1,512 Protein (gm) 68 Fluid (mL) 611 Goal #1 Meet at least 75% of energy needs and 60% of protein needs Anticipated Discharge Needs: Unable to determine at this time Follow-Up By: 01/08/21 Additional Comments FU for TF start and tolerance
[2021-01-06] MEDS ORDERED: cefTRIAXone/NS 1 GM/50 ML 1 GM/50 ML BAG IV SCH (10:00)
[2021-01-06] MEDS: CEFEPIME/NS 2 GM/100 ML 2 GM/100 ML BAG IV SCH (10:11)
[2021-01-06] MEDS: fentaNYL 100 MCG/2 ML INJ IV PRN ×2 (10:12→14:10)
[2021-01-06] MEDS: FAMOTIDINE 20 MG/2 ML INJ IV SCH (10:13)
[2021-01-06] MEDS: fentaNYL DRIP Premix 2,000 MCG/100 ML BAG IV SCH ×2 (10:30→21:10)
[2021-01-06 12:45] LABS: Anisocytosis 2+; Burr Cells 2+; Hypochromasia 1+; Ovalocytes 1+; Platelet Estimate Consistent w Auto; Poikilocytosis 1+; Total Cells Counted 100
[2021-01-06] MEDS: INSULIN LISPRO 100 UNIT/ML SUB-Q SCH ×2 (12:46→18:16)
--- NOTE | 2021-01-06 14:06 | Consultation ---
History of Present Illness - Reason for Consult Consult date: 01/06/21 - History of Present Illness 70-year-old female past medical history multiple myeloma currently on chemo, diabetes, obesity presented to the hospital in respiratory failure and months in the field. Family noted on presentation that she was confused and weak while undergoing chemotherapy, EMS was notified during the session. She was found to be in renal failure on presentation and was started on urgent hemodialysis. Low temperatures on presentation which have normalized, white count 9.5. Blood cultures no growth so far. Currently receiving cefepime and vancomycin. Imaging personally reviewed: Chest x-ray: Left lung atelectasis and effusion. Past History Past Medical History: other (See HPI.) Past Surgical History: No surgical history, Other (Reviewed) Social history: Family history: no significant family history, other (Reviewed) Medications and Allergies Allergies Allergy/AdvReac Type Severity Reaction Status Date / Time No Known Allergies Allergy Verified 01/05/21 22:00 Active Meds: Active Medications Acetaminophen (Acetaminophen 650 Mg Rect Supp) 650 mg IA Q6H PRN PRN Reason: Pain MILD(1-3)/Fever >100.5/SILVERMAN Acetaminophen (Acetaminophen 325 Mg Tab) 650 mg PO Q6H PRN PRN Reason: Pain, Mild (1-3) Albuterol (Albuterol 2.5 Mg/3 Ml Nebu) 2.5 mg IH Q3HRT PRN PRN Reason: Shortness Of Breath Lipase/Protease/Amylase (Lipase 10,500/Protease 25,000/Amylase 43,750 (Units) Dr Lockwood) 1 each FEEDTUBE PRN PRN PRN Reason: For Clogged Feeding Tube Famotidine (Famotidine 20 Mg/2 Ml Inj) 20 mg IV DAILY MIKEY Last Admin: 01/06/21 10:13 Dose: 20 mg Documented by: Fentanyl (Fentanyl 100 Mcg/2 Ml Inj) 50 mcg IV Q10MIN PRN PRN Reason: ANALGESIA Last Admin: 01/06/21 10:12 Dose: 50 mcg Documented by: Hydromorphone HCl (Hydromorphone 1 Mg/1 Ml Inj) 0.5 mg IV Q3H PRN PRN Reason: Pain , Severe (7-10) Hydromorphone HCl (Hydromorphone 1 Mg/1 Ml Inj) 0.25 mg IV Q4H PRN PRN Reason: Pain, Moderate (4-6) Hydrophilic Ointment (Lip Therapy Vaseline) 1 applic TP Q2HR PRN PRN Reason: Dry Lips Propofol (Diprivan 10 Mg/Ml) 1,000 mg in 100 mls @ 2.712 mls/hr IV TITR MIKEY; Protocol Norepinephrine (Levophed Drip 4 Mg/Ns 250 Ml) 4 mg in 250 mls @ 7.5 mls/hr IV TITR MIKEY; Protocol Last Titration: 01/06/21 10:15 Dose: 4 mcg/min, 15 mls/hr Documented by: Sodium Bicarbonate 150 meq/ (Dextrose) 1,150 mls @ 125 mls/hr IV DIRECT MIKEY Last Admin: 01/06/21 13:10 Dose: 125 mls/hr Documented by: Sodium Chloride (Nacl 0.9%) 100 mls @ 999 mls/hr IV ERIC PRN PRN Reason: Hypotension Fentanyl Citrate (Fentanyl Drip Premix) 2,000 mcg in 100 mls @ 4.52 mls/hr IV TITR MIKEY; Protocol Last Titration: 01/06/21 12:47 Dose: 1 mcg/kg/hr, 4.52 mls/hr Documented by: Vasopressin 20 unit/ Sodium (Chloride) 101 mls @ 9.09 mls/hr IV TITR MIKEY; Protocol Last Admin: 01/06/21 12:45 Dose: 0.03 units/min, 9.09 mls/hr Documented by: Sodium Chloride (Nacl 0.9% 500 Ml) 500 mls @ 0 mls/hr IV ONCE NR Stop: 01/06/21 23:59 Cefepime HCl (Cefepime/Ns 2 Gm/100 Ml) 2 gm in 100 mls @ 200 mls/hr IV Q24H MIKEY; Protocol Last Admin: 01/06/21 10:11 Dose: 200 mls/hr Documented by: Insulin Human Lispro (Insulin Lispro 100 Unit/Ml) 0 unit SUB-Q Q6HR MIKEY; Protocol Last Admin: 01/06/21 12:46 Dose: 1 unit Documented by: Lactulose (Lactulose 20 Gm/30 Ml Oral Liqd) 20 gm PO Q6HR MIKEY Stop: 01/07/21 06:01 Last Admin: 01/06/21 12:45 Dose: 20 gm Documented by: Morphine Sulfate (Morphine 2 Mg/1 Ml Inj) 2 mg IV Q4H PRN PRN Reason: Pain, Moderate (4-6) Multi-Ingred Cream/Lotion/Oil/Oint (Mineral Oil/Petrolatum, White Ophth Oint 3.5 Gm) 1 applic OU Q4HR PRN PRN Reason: Dry Eye(s) Senna/Docusate Sodium (Sennosides/Docusate Sodium 8.6/50 Mg Tab) 1 tab FEEDTUBE BID [facility] Last Admin: 01/06/21 10:12 Dose: Not Given Documented by: Simple Syrup (Simple Syrup 15 Ml) 15 ml FEEDTUBE PRN PRN PRN Reason: Hypoglycemia Simple Syrup (Simple Syrup 15 Ml) 30 ml FEEDTUBE PRN PRN PRN Reason: Hypoglycemia Sodium Bicarbonate (Sodium Bicarbonate 325 Mg Tab) 325 mg FEEDTUBE PRN PRN PRN Reason: For Clogged Feeding Tube Sodium Chloride (Sodium Chloride 0.9% 10 Ml Flush Syringe) 10 ml IV PRN PRN PRN Reason: LINE FLUSH Sodium Chloride (Sodium Chloride 0.9% 10 Ml Flush Syringe) 10 ml IV BID [facility] Last Admin: 01/06/21 10:13 Dose: 10 ml Documented by: Review of Systems ROS unobtainable: due to endotracheal tube Physical Examination - Physical Exam Narrative exam: Physical Exam: Constitutional: intubated, sedated Head, Ears, Nose: Normocephalic, atraumatic. External ears, nose normal Eyes: Conjunctivae/corneas clear. No icterus. No ptosis. Neck: ETT Oral: ETT Cardiovascular: S1, S2 normal. Respiratory: Good air entry, clear to auscultation bilaterally GI: Soft, non-tender; bowel sounds normal. No peritoneal signs. Musculoskeletal: noted sacral wound/erosions on images, patient not turned for exam. Skin: No rash or abscess Hem/Lymphatic: No palpable cervical or supraclavicular nodes. No lymphangitis Psych: Mood ok. Affect normal Neurological: intubated, sedated - Constitutional Vitals: Vital Signs Temp Pulse Resp BP Pulse Ox 97.7 F 103 H 28 H 142/61 100 01/06/21 05:00 01/06/21 12:08 01/06/21 12:08 01/06/21 12:08 01/06/21 12:08 Temperature -Last 24 Hours Temperature 97.7 F Temperature 99.6 F Temperature 95.5 F Temperature 92.1 F Results - Labs CBC & Chem 7: 01/06/21 06:40 01/06/21 06:40 Labs: Abnormal lab results 01/05/21 01/05/21 01/05/21 Range/Units 13:44 13:44 13:44 WBC 11.6 H (4.5-11.0) K/mm3 RBC 2.83 L (3.65-5.03) M/mm3 Hgb 7.7 L (10.1-14.3) gm/dl Hct 26.1 L (30.3-42.9) % MCH 27 L (28-32) pg RDW 19.2 H (13.2-15.2) % Plt Count (140-440) K/mm3 Seg Neuts % (Manual) 79.0 H (40.0-70.0) % Lymphocytes % (Manual) 9.0 L (13.4-35.0) % Nucleated RBC % 2.0 H (0.0-0.9) % Seg Neutrophils # Man 9.2 H (1.8-7.7) K/mm3 Lymphocytes # (Manual) 1.0 L (1.2-5.4) K/mm3 APTT 44.4 H (24.2-36.6) Sec. ABG pH (7.320-7.450) POC ABG pCO2 (32.0-48.0) mmHg POC ABG pO2 (83-108) mmHg ABG Hemoglobin (12.0-17.5) ABG Oxyhemoglobin (94-98) ABG Sodium (136.0-145.0) mmol/L ABG Potassium (3.40-4.50) mmol/L ABG Chloride (98-107) mmol/L ABG Glucose (65-95) mg/dL Carboxyhemoglobin (0.5-1.5) Sodium 129 L (137-145) mmol/L Potassium 6.2 H* (3.6-5.0) mmol/L Chloride 82.2 L (98-107) mmol/L Carbon Dioxide 4 L* (22-30) mmol/L BUN 67 H (7-17) mg/dL Creatinine 8.1 H (0.6-1.2) mg/dL Glucose 126 H (65-100) mg/dL POC Glucose (70-105) mg/dL Lactic Acid (0.7-2.0) mmol/L Calcium 7.7 L (8.4-10.2) mg/dL AST 54 H (5-40) units/L Ammonia (25-60) umol/L Total Creatine Kinase 484 H (30-135) units/L Troponin T 0.153 H* (0.00-0.029) ng/mL NT-Pro-B Natriuret Pep (0-900) pg/mL Total Protein (6.3-8.2) g/dL Albumin 3.2 L (3.9-5) g/dL LDL Cholesterol Direct 8 L (50-130) mg/dL PTH Intact (15-65) pg/mL Arterial Blood Glucose (65-95) mg/dL Arterial Blood Ionized Calcium (4.6-5.3) mg/dL Urine WBC (Auto) (0.0-6.0) /HPF Urine Creatinine (0.1-20.0) mg/dL 01/05/21 01/05/21 01/05/21 Range/Units 13:44 13:44 13:44 WBC (4.5-11.0) K/mm3 RBC (3.65-5.03) M/mm3 Hgb (10.1-14.3) gm/dl Hct (30.3-42.9) % MCH (28-32) pg RDW (13.2-15.2) % Plt Count (140-440) K/mm3 Seg Neuts % (Manual) (40.0-70.0) % Lymphocytes % (Manual) (13.4-35.0) % Nucleated RBC % (0.0-0.9) % Seg Neutrophils # Man (1.8-7.7) K/mm3 Lymphocytes # (Manual) (1.2-5.4) K/mm3 APTT (24.2-36.6) Sec. ABG pH (7.320-7.450) POC ABG pCO2 (32.0-48.0) mmHg POC ABG pO2 (83-108) mmHg ABG Hemoglobin (12.0-17.5) ABG Oxyhemoglobin (94-98) ABG Sodium (136.0-145.0) mmol/L ABG Potassium (3.40-4.50) mmol/L ABG Chloride (98-107) mmol/L ABG Glucose (65-95) mg/dL Carboxyhemoglobin (0.5-1.5) Sodium (137-145) mmol/L Potassium (3.6-5.0) mmol/L Chloride (98-107) mmol/L Carbon Dioxide (22-30) mmol/L BUN (7-17) mg/dL Creatinine (0.6-1.2) mg/dL Glucose (65-100) mg/dL POC Glucose (70-105) mg/dL Lactic Acid 20.10 H* (0.7-2.0) mmol/L Calcium (8.4-10.2) mg/dL AST (5-40) units/L Ammonia 106.0 H (25-60) umol/L Total Creatine Kinase (30-135) units/L Troponin T (0.00-0.029) ng/mL NT-Pro-B Natriuret Pep 74502 H (0-900) pg/mL Total Protein (6.3-8.2) g/dL Albumin (3.9-5) g/dL LDL Cholesterol Direct (50-130) mg/dL PTH Intact (15-65) pg/mL Arterial Blood Glucose (65-95) mg/dL Arterial Blood Ionized Calcium (4.6-5.3) mg/dL Urine WBC (Auto) (0.0-6.0) /HPF Urine Creatinine (0.1-20.0) mg/dL 01/05/21 01/05/21 01/05/21 Range/Units 14:47 17:50 17:50 WBC (4.5-11.0) K/mm3 RBC (3.65-5.03) M/mm3 Hgb (10.1-14.3) gm/dl Hct (30.3-42.9) % MCH (28-32) pg RDW (13.2-15.2) % Plt Count (140-440) K/mm3 Seg Neuts % (Manual) (40.0-70.0) % Lymphocytes % (Manual) (13.4-35.0) % Nucleated RBC % (0.0-0.9) % Seg Neutrophils # Man (1.8-7.7) K/mm3 Lymphocytes # (Manual) (1.2-5.4) K/mm3 APTT (24.2-36.6) Sec. ABG pH (7.320-7.450) POC ABG pCO2 (32.0-48.0) mmHg POC ABG pO2 (83-108) mmHg ABG Hemoglobin (12.0-17.5) ABG Oxyhemoglobin (94-98) ABG Sodium (136.0-145.0) mmol/L ABG Potassium (3.40-4.50) mmol/L ABG Chloride (98-107) mmol/L ABG Glucose (65-95) mg/dL Carboxyhemoglobin (0.5-1.5) Sodium (137-145) mmol/L Potassium (3.6-5.0) mmol/L Chloride (98-107) mmol/L Carbon Dioxide (22-30) mmol/L BUN (7-17) mg/dL Creatinine (0.6-1.2) mg/dL Glucose (65-100) mg/dL POC Glucose (70-105) mg/dL Lactic Acid 18.80 H* (0.7-2.0) mmol/L Calcium (8.4-10.2) mg/dL AST (5-40) units/L Ammonia (25-60) umol/L Total Creatine Kinase (30-135) units/L Troponin T (0.00-0.029) ng/mL NT-Pro-B Natriuret Pep (0-900) pg/mL Total Protein (6.3-8.2) g/dL Albumin (3.9-5) g/dL LDL Cholesterol Direct (50-130) mg/dL PTH Intact (15-65) pg/mL Arterial Blood Glucose (65-95) mg/dL Arterial Blood Ionized Calcium (4.6-5.3) mg/dL Urine WBC (Auto) 38.0 H (0.0-6.0) /HPF Urine Creatinine 74.4 H (0.1-20.0) mg/dL 01/05/21 01/05/21 01/05/21 Range/Units 22:34 23:05 23:18 WBC (4.5-11.0) K/mm3 RBC (3.65-5.03) M/mm3 Hgb (10.1-14.3) gm/dl Hct (30.3-42.9) % MCH (28-32) pg RDW (13.2-15.2) % Plt Count (140-440) K/mm3 Seg Neuts % (Manual) (40.0-70.0) % Lymphocytes % (Manual) (13.4-35.0) % Nucleated RBC % (0.0-0.9) % Seg Neutrophils # Man (1.8-7.7) K/mm3 Lymphocytes # (Manual) (1.2-5.4) K/mm3 APTT (24.2-36.6) Sec. ABG pH 7.056 L (7.320-7.450) POC ABG pCO2 23.6 L (32.0-48.0) mmHg POC ABG pO2 277.9 H (83-108) mmHg ABG Hemoglobin 7.6 L (12.0-17.5) ABG Oxyhemoglobin 99.6 H (94-98) ABG Sodium 125.0 L (136.0-145.0) mmol/L ABG Potassium 5.7 H (3.40-4.50) mmol/L ABG Chloride 94.0 L (98-107) mmol/L ABG Glucose 283 H (65-95) mg/dL Carboxyhemoglobin 0.1 L (0.5-1.5) Sodium (137-145) mmol/L Potassium (3.6-5.0) mmol/L Chloride (98-107) mmol/L Carbon Dioxide (22-30) mmol/L BUN (7-17) mg/dL Creatinine (0.6-1.2) mg/dL Glucose (65-100) mg/dL POC Glucose 252 H (70-105) mg/dL Lactic Acid (0.7-2.0) mmol/L Calcium (8.4-10.2) mg/dL AST (5-40) units/L Ammonia 100.0 H (25-60) umol/L Total Creatine Kinase (30-135) units/L Troponin T (0.00-0.029) ng/mL NT-Pro-B Natriuret Pep (0-900) pg/mL Total Protein (6.3-8.2) g/dL Albumin (3.9-5) g/dL LDL Cholesterol Direct (50-130) mg/dL PTH Intact (15-65) pg/mL Arterial Blood Glucose 283 H (65-95) mg/dL Arterial Blood Ionized Calcium 3.9 L (4.6-5.3) mg/dL Urine WBC (Auto) (0.0-6.0) /HPF Urine Creatinine (0.1-20.0) mg/dL 01/06/21 01/06/21 01/06/21 Range/Units 05:00 06:40 06:40 WBC (4.5-11.0) K/mm3 RBC 2.30 L (3.65-5.03) M/mm3 Hgb 6.5 L (10.1-14.3) gm/dl Hct 19.1 L* D (30.3-42.9) % MCH (28-32) pg RDW 18.5 H (13.2-15.2) % Plt Count 85 L (140-440) K/mm3 Seg Neuts % (Manual) 76.0 H (40.0-70.0) % Lymphocytes % (Manual) 1.0 L (13.4-35.0) % Nucleated RBC % 2.0 H (0.0-0.9) % Seg Neutrophils # Man (1.8-7.7) K/mm3 Lymphocytes # (Manual) 0.1 L (1.2-5.4) K/mm3 APTT (24.2-36.6) Sec. ABG pH (7.320-7.450) POC ABG pCO2 (32.0-48.0) mmHg POC ABG pO2 (83-108) mmHg ABG Hemoglobin (12.0-17.5) ABG Oxyhemoglobin (94-98) ABG Sodium (136.0-145.0) mmol/L ABG Potassium (3.40-4.50) mmol/L ABG Chloride (98-107) mmol/L ABG Glucose (65-95) mg/dL Carboxyhemoglobin (0.5-1.5) Sodium 135 L (137-145) mmol/L Potassium (3.6-5.0) mmol/L Chloride 87.4 L (98-107) mmol/L Carbon Dioxide 14 L D (22-30) mmol/L BUN 36 H (7-17) mg/dL Creatinine 4.3 H (0.6-1.2) mg/dL Glucose 167 H (65-100) mg/dL POC Glucose 159 H (70-105) mg/dL Lactic Acid (0.7-2.0) mmol/L Calcium 6.5 L D (8.4-10.2) mg/dL AST 122 H (5-40) units/L Ammonia (25-60) umol/L Total Creatine Kinase (30-135) units/L Troponin T (0.00-0.029) ng/mL NT-Pro-B Natriuret Pep (0-900) pg/mL Total Protein 5.4 L D (6.3-8.2) g/dL Albumin 2.5 L (3.9-5) g/dL LDL Cholesterol Direct (50-130) mg/dL PTH Intact (15-65) pg/mL Arterial Blood Glucose (65-95) mg/dL Arterial Blood Ionized Calcium (4.6-5.3) mg/dL Urine WBC (Auto) (0.0-6.0) /HPF Urine Creatinine (0.1-20.0) mg/dL 01/06/21 01/06/21 01/06/21 Range/Units 06:40 06:40 09:04 WBC (4.5-11.0) K/mm3 RBC (3.65-5.03) M/mm3 Hgb (10.1-14.3) gm/dl Hct (30.3-42.9) % MCH (28-32) pg RDW (13.2-15.2) % Plt Count (140-440) K/mm3 Seg Neuts % (Manual) (40.0-70.0) % Lymphocytes % (Manual) (13.4-35.0) % Nucleated RBC % (0.0-0.9) % Seg Neutrophils # Man (1.8-7.7) K/mm3 Lymphocytes # (Manual) (1.2-5.4) K/mm3 APTT (24.2-36.6) Sec. ABG pH (7.320-7.450) POC ABG pCO2 20.9 L (32.0-48.0) mmHg POC ABG pO2 162.3 H (83-108) mmHg ABG Hemoglobin 6.0 L (12.0-17.5) ABG Oxyhemoglobin 98.2 H (94-98) ABG Sodium 131.2 L (136.0-145.0) mmol/L ABG Potassium (3.40-4.50) mmol/L ABG Chloride 95.0 L (98-107) mmol/L ABG Glucose 175 H (65-95) mg/dL Carboxyhemoglobin (0.5-1.5) Sodium (137-145) mmol/L Potassium (3.6-5.0) mmol/L Chloride (98-107) mmol/L Carbon Dioxide (22-30) mmol/L BUN (7-17) mg/dL Creatinine (0.6-1.2) mg/dL Glucose (65-100) mg/dL POC Glucose (70-105) mg/dL Lactic Acid 13.60 H* (0.7-2.0) mmol/L Calcium (8.4-10.2) mg/dL AST (5-40) units/L Ammonia (25-60) umol/L Total Creatine Kinase (30-135) units/L Troponin T (0.00-0.029) ng/mL NT-Pro-B Natriuret Pep (0-900) pg/mL Total Protein (6.3-8.2) g/dL Albumin (3.9-5) g/dL LDL Cholesterol Direct (50-130) mg/dL PTH Intact 209.3 H (15-65) pg/mL Arterial Blood Glucose 175 H (65-95) mg/dL Arterial Blood Ionized Calcium 3.3 L (4.6-5.3) mg/dL Urine WBC (Auto) (0.0-6.0) /HPF Urine Creatinine (0.1-20.0) mg/dL 01/06/21 Range/Units 12:43 WBC (4.5-11.0) K/mm3 RBC (3.65-5.03) M/mm3 Hgb (10.1-14.3) gm/dl Hct (30.3-42.9) % MCH (28-32) pg RDW (13.2-15.2) % Plt Count (140-440) K/mm3 Seg Neuts % (Manual) (40.0-70.0) % Lymphocytes % (Manual) (13.4-35.0) % Nucleated RBC % (0.0-0.9) % Seg Neutrophils # Man (1.8-7.7) K/mm3 Lymphocytes # (Manual) (1.2-5.4) K/mm3 APTT (24.2-36.6) Sec. ABG pH (7.320-7.450) POC ABG pCO2 (32.0-48.0) mmHg POC ABG pO2 (83-108) mmHg ABG Hemoglobin (12.0-17.5) ABG Oxyhemoglobin (94-98) ABG Sodium (136.0-145.0) mmol/L ABG Potassium (3.40-4.50) mmol/L ABG Chloride (98-107) mmol/L ABG Glucose (65-95) mg/dL Carboxyhemoglobin (0.5-1.5) Sodium (137-145) mmol/L Potassium (3.6-5.0) mmol/L Chloride (98-107) mmol/L Carbon Dioxide (22-30) mmol/L BUN (7-17) mg/dL Creatinine (0.6-1.2) mg/dL Glucose (65-100) mg/dL POC Glucose 151 H (70-105) mg/dL Lactic Acid (0.7-2.0) mmol/L Calcium (8.4-10.2) mg/dL AST (5-40) units/L Ammonia (25-60) umol/L Total Creatine Kinase (30-135) units/L Troponin T (0.00-0.029) ng/mL NT-Pro-B Natriuret Pep (0-900) pg/mL Total Protein (6.3-8.2) g/dL Albumin (3.9-5) g/dL LDL Cholesterol Direct (50-130) mg/dL PTH Intact (15-65) pg/mL Arterial Blood Glucose (65-95) mg/dL Arterial Blood Ionized Calcium (4.6-5.3) mg/dL Urine WBC (Auto) (0.0-6.0) /HPF Urine Creatinine (0.1-20.0) mg/dL Assessment and Plan Cultures: Blood culture 01/05/2021 no growth so far. A/P: 70-year-old female past medical history multiple myeloma currently on chemo, diabetes, obesity admitted with hypoxic respiratory failure. #Acute hypoxic respiratory failure: unclear etiology, only pleural effusion and atelectasis on the left. #Pyuria: unclear if symptoms previous to admission. epithelial cells on UA, however continue antibiotics in the meantime. #Multiple myeloma on chemotherapy: immunocompromised host. #MORGAN: now requiring HD. Renally dose medications Recs: -Follow up culture data -Continue renally dosed cefepime for now. -Given MORGAN hold off on vanco while blood cultures are pending Thank you for the consult, we will continue to follow. Kesha Dvais MD [facility] ([facility] O: [phone] F: [phone]
--- NOTE | 2021-01-06 15:02 | Ultrasound Report ---
ULTRASOUND RENAL INDICATION / CLINICAL INFORMATION: Acute renal failure.. COMPARISON: None available. FINDINGS: RIGHT KIDNEY: Length = 12.0 cm. [normal > 9 cm] - Parenchymal Thickness = 1.7 cm. [normal > 1.5 cm] - Echogenicity: Increased - Hydronephrosis: None. - Cyst or mass: No significant abnormality. - Stones: None seen. LEFT KIDNEY: Length = 12.4 cm. [normal > 9 cm] - Parenchymal Thickness = 2.2 cm. [normal > 1.5 cm] - Echogenicity: Increased - Hydronephrosis: None. - Cyst or mass: No significant abnormality. - Stones: 1 cm shadowing calcification is suspected near the inferior pole of the left kidney. URINARY BLADDER: Bladder is empty and obscured by bowel gas FREE FLUID: None. ADDITIONAL FINDINGS: None. IMPRESSION: Normal size but echogenic kidneys consistent with medical renal disease or nonspecific renal parench ymal disease. No hydronephrosis. 1 cm left renal stone at the inferior pole. Signer Name: Alexis Shaffer Jr, MD Signed: 01/06/2021 2:58 PM Workstation Name: [id number]
--- NOTE | 2021-01-06 15:14 | Progress Note ---
Assessment and Plan Acute hypoxemic respiratory failure on MVS Acute kidney injury Severe sepsis with shock Community-acquired pneumonia Multiple myeloma Severe metabolic acidosis Lactic acidosis Hyponatremia Non-ST elevation myocardial infarction Anemia that is normocytic Hyperkalemia Oropharyngeal dysphagia Possible urinary tract infection - care plan discussed with her at bedside - will get 2D ECHO and address maury better volume managemnet - discontinue Vasopressin - wean Levophed for target MAP > 65 mmHg - reduce set rate to 14/min - transfuse 1 unit PRBC - send HIT assay re: thrombocytopenia and avoid heparinoids - begin SSI wuith q6h accuchecks - continue HD/UF per nephrology prescription - continue Daily SAT and SBT assessment as tolerated - continue to wean supplemental oxygen for target O2 sat's > 90% acutely - VAP bundle addressed - continue lung protective strategies - continue bronchodilators with pulmonary hygiene per RT - wean per pulmonary driven protocols otherwise - avoid nephrotoxins, renally dose all medications - continue to avoid benzodiazepine's, reduce the possibility of delirium - complete empiric AB's per ID rec's - continue accuchecks with glycemic control per SSI (While critically ill target blood glucose of 140-180 mg/dL; avoid hypoglycemia) - sedation prn for target RASS 0 to -1 - prn analgesia per CPOT score - Maintenance of sleep-wake cycle, avoid delirium - continue enteral nutritional support at goal rate as tolerated - G.I. & VTE prophylaxis - PT/OT/ROM exercises - continue mobility protocols for pressure ulcer prophylaxis - Monitor hemodynamics closely - continue other care per attending / other consultants - discharge planning ongoing concurrently .... Re-evaluate in am & prn CONDITION: CRITICAL PROGNOSIS: GUARDED CODE STATUS: FULL CODE The high probability of a clinically significant, sudden or life-threatening deterioration of the [respiratory, cardiovascular, renal & neurologic] system(s) required my full and direct attention, intervention and personal management. The aggregate critical care time was [38] minutes without overlap. Time includes spent on; [x] Data Review and interpretation [x] Patient assessment and monitoring of vital signs [x] Documentation [x] Medication orders and management Subjective Date of service: 01/06/21 Principal diagnosis: Ac hypoxemic resp failure; MORGAN; Septic Shock; CAP; Multiple myeloma; NSTEMI Interval history: Patient is seen today for: Acute hypoxemic respiratory failure; MORGAN; Septic Shock; CAP; Multiple myeloma; NSTEMI Seen and examined at bedside; 24hour events reviewed; nursing and respiratory care staff consulted; no adverse overnight events reported to me; resting peacefully in bed; doing much better; remains on Levophed and vasopressin but weaned down; tolerated dialysis well yesterday; no emesis or overt aspiration and no gross bleeding Objective Vital Signs - 12hr 01/06/21 01/06/21 01/06/21 03:20 03:30 03:40 Temperature Pulse Rate 89 83 88 Respiratory 30 H 30 H 30 H Rate Respiratory Rate [ Generalized] Blood Pressure 128/48 126/41 127/44 O2 Sat by Pulse 100 100 100 Oximetry 01/06/21 01/06/21 01/06/21 03:50 04:00 04:10 Temperature Pulse Rate 88 111 H 110 H Respiratory 30 H 23 20 Rate Respiratory Rate [ Generalized] Blood Pressure 122/48 136/57 136/52 O2 Sat by Pulse 100 98 93 Oximetry 01/06/21 01/06/21 01/06/21 04:20 04:30 04:40 Temperature Pulse Rate 123 H 113 H 109 H Respiratory 34 H 18 18 Rate Respiratory Rate [ Generalized] Blood Pressure 121/84 152/53 155/54 O2 Sat by Pulse 98 100 100 Oximetry 01/06/21 01/06/21 01/06/21 04:50 05:00 05:10 Temperature 97.7 F Pulse Rate 107 H 100 H 104 H Respiratory 17 24 16 Rate Respiratory Rate [ Generalized] Blood Pressure 142/52 85/29 111/51 O2 Sat by Pulse 100 100 100 Oximetry 01/06/21 01/06/21 01/06/21 05:50 06:00 06:10 Temperature Pulse Rate 127 H 111 H 108 H Respiratory 24 29 H 20 Rate Respiratory Rate [ Generalized] Blood Pressure 163/62 174/62 O2 Sat by Pulse 100 98 100 Oximetry 01/06/21 01/06/21 01/06/21 06:20 08:00 10:00 Temperature Pulse Rate 111 H 111 H Respiratory 17 17 Rate Respiratory 30 H Rate [ Generalized] Blood Pressure 164/113 164/113 O2 Sat by Pulse 100 100 Oximetry 01/06/21 01/06/21 10:12 12:08 Temperature Pulse Rate 103 H Respiratory 28 H 28 H Rate Respiratory Rate [ Generalized] Blood Pressure 142/61 O2 Sat by Pulse 100 Oximetry Constitutional: no acute distress, other (elderly obese female with mildly increased respiratory effort at rest on MVS) Eyes: non-icteric ENT: oropharynx moist, other (ETT 24 cm ERUM) Neck: supple, no lymphadenopathy, no JVD Effort: mildly labored Percussion: Bilateral: not dull Cardiovascular: regular rate and rhythm Gastrointestinal: normoactive bowel sounds, soft, non-tender, non-distended Integumentary: normal Extremities: no cyanosis, no edema, pink and warm, pulses normal Neurologic: non-focal exam (grossly), pupils equal and round, CN II-XII normal, motor strength normal and Psychiatric: anxious CBC and BMP: 01/06/21 06:40 01/07/21 07:06 ABG, PT/INR, D-dimer: ABG ABG pH 7.397 (7.320-7.450) 01/06/21 09:04 POC ABG pCO2 20.9 mmHg (32.0-48.0) L 01/06/21 09:04 ABG pCO2 19.0 mm Hg 01/05/21 13:35 POC ABG pO2 162.3 mmHg (83-108) H 01/06/21 09:04 ABG pO2 84.7 mm Hg (80.0-90.0) 01/05/21 13:35 POC ABG HCO3 12.6 01/06/21 09:04 ABG O2 Saturation 99.4 (0-100) 01/06/21 09:04 Abnormal lab findings: Abnormal Labs 01/05/21 01/05/21 01/05/21 13:35 13:44 13:44 WBC 11.6 H RBC 2.83 L Hgb 7.7 L Hct 26.1 L MCH 27 L RDW 19.2 H Plt Count Seg Neuts % (Manual) 79.0 H Lymphocytes % (Manual) 9.0 L Nucleated RBC % 2.0 H Seg Neutrophils # Man 9.2 H Lymphocytes # (Manual) 1.0 L APTT 44.4 H ABG pH 6.889 L* POC ABG pCO2 POC ABG pO2 ABG HCO3 3.5 L ABG O2 Saturation 84.1 L ABG Base Excess -27.8 L ABG Hemoglobin 9.2 L ABG Oxyhemoglobin ABG Sodium ABG Potassium ABG Chloride ABG Glucose Oxyhemoglobin 82.4 L Carboxyhemoglobin Sodium Potassium Chloride Carbon Dioxide BUN Creatinine Glucose POC Glucose Lactic Acid Calcium AST Ammonia Total Creatine Kinase Troponin T NT-Pro-B Natriuret Pep Total Protein Albumin LDL Cholesterol Direct PTH Intact Arterial Blood Glucose Arterial Blood Ionized Calcium Urine WBC (Auto) Urine Creatinine 01/05/21 01/05/21 01/05/21 13:44 13:44 13:44 WBC RBC Hgb Hct MCH RDW Plt Count Seg Neuts % (Manual) Lymphocytes % (Manual) Nucleated RBC % Seg Neutrophils # Man Lymphocytes # (Manual) APTT ABG pH POC ABG pCO2 POC ABG pO2 ABG HCO3 ABG O2 Saturation ABG Base Excess ABG Hemoglobin ABG Oxyhemoglobin ABG Sodium ABG Potassium ABG Chloride ABG Glucose Oxyhemoglobin Carboxyhemoglobin Sodium 129 L Potassium 6.2 H* Chloride 82.2 L Carbon Dioxide 4 L* BUN 67 H Creatinine 8.1 H Glucose 126 H POC Glucose Lactic Acid 20.10 H* Calcium 7.7 L AST 54 H Ammonia Total Creatine Kinase 484 H Troponin T 0.153 H* NT-Pro-B Natriuret Pep 65759 H Total Protein Albumin 3.2 L LDL Cholesterol Direct 8 L PTH Intact Arterial Blood Glucose Arterial Blood Ionized Calcium Urine WBC (Auto) Urine Creatinine 01/05/21 01/05/21 01/05/21 13:44 14:47 17:50 WBC RBC Hgb Hct MCH RDW Plt Count Seg Neuts % (Manual) Lymphocytes % (Manual) Nucleated RBC % Seg Neutrophils # Man Lymphocytes # (Manual) APTT ABG pH POC ABG pCO2 POC ABG pO2 ABG HCO3 ABG O2 Saturation ABG Base Excess ABG Hemoglobin ABG Oxyhemoglobin ABG Sodium ABG Potassium ABG Chloride ABG Glucose Oxyhemoglobin Carboxyhemoglobin Sodium Potassium Chloride Carbon Dioxide BUN Creatinine Glucose POC Glucose Lactic Acid 18.80 H* Calcium AST Ammonia 106.0 H Total Creatine Kinase Troponin T NT-Pro-B Natriuret Pep Total Protein Albumin LDL Cholesterol Direct PTH Intact Arterial Blood Glucose Arterial Blood Ionized Calcium Urine WBC (Auto) 38.0 H Urine Creatinine 01/05/21 01/05/21 01/05/21 17:50 22:34 23:05 WBC RBC Hgb Hct MCH RDW Plt Count Seg Neuts % (Manual) Lymphocytes % (Manual) Nucleated RBC % Seg Neutrophils # Man Lymphocytes # (Manual) APTT ABG pH 7.056 L POC ABG pCO2 23.6 L POC ABG pO2 277.9 H ABG HCO3 ABG O2 Saturation ABG Base Excess ABG Hemoglobin 7.6 L ABG Oxyhemoglobin 99.6 H ABG Sodium 125.0 L ABG Potassium 5.7 H ABG Chloride 94.0 L ABG Glucose 283 H Oxyhemoglobin Carboxyhemoglobin 0.1 L Sodium Potassium Chloride Carbon Dioxide BUN Creatinine Glucose POC Glucose Lactic Acid Calcium AST Ammonia 100.0 H Total Creatine Kinase Troponin T NT-Pro-B Natriuret Pep Total Protein Albumin LDL Cholesterol Direct PTH Intact Arterial Blood Glucose 283 H Arterial Blood Ionized Calcium 3.9 L Urine WBC (Auto) Urine Creatinine 74.4 H 01/05/21 01/06/21 01/06/21 23:18 05:00 06:40 WBC RBC 2.30 L Hgb 6.5 L Hct 19.1 L* D MCH RDW 18.5 H Plt Count 85 L Seg Neuts % (Manual) 76.0 H Lymphocytes % (Manual) 1.0 L Nucleated RBC % 2.0 H Seg Neutrophils # Man Lymphocytes # (Manual) 0.1 L APTT ABG pH POC ABG pCO2 POC ABG pO2 ABG HCO3 ABG O2 Saturation ABG Base Excess ABG Hemoglobin ABG Oxyhemoglobin ABG Sodium ABG Potassium ABG Chloride ABG Glucose Oxyhemoglobin Carboxyhemoglobin Sodium Potassium Chloride Carbon Dioxide BUN Creatinine Glucose POC Glucose 252 H 159 H Lactic Acid Calcium AST Ammonia Total Creatine Kinase Troponin T NT-Pro-B Natriuret Pep Total Protein Albumin LDL Cholesterol Direct PTH Intact Arterial Blood Glucose Arterial Blood Ionized Calcium Urine WBC (Auto) Urine Creatinine 01/06/21 01/06/21 01/06/21 06:40 06:40 06:40 WBC RBC Hgb Hct MCH RDW Plt Count Seg Neuts % (Manual) Lymphocytes % (Manual) Nucleated RBC % Seg Neutrophils # Man Lymphocytes # (Manual) APTT ABG pH POC ABG pCO2 POC ABG pO2 ABG HCO3 ABG O2 Saturation ABG Base Excess ABG Hemoglobin ABG Oxyhemoglobin ABG Sodium ABG Potassium ABG Chloride ABG Glucose Oxyhemoglobin Carboxyhemoglobin Sodium 135 L Potassium Chloride 87.4 L Carbon Dioxide 14 L D BUN 36 H Creatinine 4.3 H Glucose 167 H POC Glucose Lactic Acid 13.60 H* Calcium 6.5 L D AST 122 H Ammonia Total Creatine Kinase Troponin T NT-Pro-B Natriuret Pep Total Protein 5.4 L D Albumin 2.5 L LDL Cholesterol Direct PTH Intact 209.3 H Arterial Blood Glucose Arterial Blood Ionized Calcium Urine WBC (Auto) Urine Creatinine 01/06/21 01/06/21 09:04 12:43 WBC RBC Hgb Hct MCH RDW Plt Count Seg Neuts % (Manual) Lymphocytes % (Manual) Nucleated RBC % Seg Neutrophils # Man Lymphocytes # (Manual) APTT ABG pH POC ABG pCO2 20.9 L POC ABG pO2 162.3 H ABG HCO3 ABG O2 Saturation ABG Base Excess ABG Hemoglobin 6.0 L ABG Oxyhemoglobin 98.2 H ABG Sodium 131.2 L ABG Potassium ABG Chloride 95.0 L ABG Glucose 175 H Oxyhemoglobin Carboxyhemoglobin Sodium Potassium Chloride Carbon Dioxide BUN Creatinine Glucose POC Glucose 151 H Lactic Acid Calcium AST Ammonia Total Creatine Kinase Troponin T NT-Pro-B Natriuret Pep Total Protein Albumin LDL Cholesterol Direct PTH Intact Arterial Blood Glucose 175 H Arterial Blood Ionized Calcium 3.3 L Urine WBC (Auto) Urine Creatinine Chest x-ray: pending Allied health notes reviewed: nursing
[2021-01-06] MEDS: FLUCONAZOLE 200 MG 200 MG/100 ML BAG IV SCH (15:26)
--- NOTE | 2021-01-06 16:10 | XRay Report ---
CHEST 1 VIEW 01/06/2021 3:53 PM INDICATION / CLINICAL INFORMATION: respiratory failure. COMPARISON: 01/05/21 FINDINGS: SUPPORT DEVICES: Endotracheal tube and right jugular vas catheter are unchanged. Esophagogastric tube has been placed below the diaphragm into the stomach. HEART / MEDIASTINUM: Stable. LUNGS / PLEURA: Left lung base density is unchanged. No pneumothorax. ADDITIONAL FINDINGS: No significant additional findings. IMPRESSION: 1. No significant change. Signer Name: Ruébn Castro MD Signed: 01/06/2021 4:05 PM Workstation Name: [id number]
--- NOTE | 2021-01-06 16:56 | Event Note ---
Date: 01/06/21 I called patient's spouse Mr. Syed Schmitt at [phone] to discuss about patient's condition tests and reports and treatment plan, however I could not reach him as no one picked up the phone. So I left the voice message and requested him to call back to update patient's condition. I left a callback number. Over I will call back in 1 or 2 hours or tomorrow after rounds/
[2021-01-07] MEDS: INSULIN LISPRO 100 UNIT/ML SUB-Q SCH ×5 (00:15→23:17)
[2021-01-07] MEDS: fentaNYL 100 MCG/2 ML INJ IV PRN (00:23)
[2021-01-07] MEDS: LACTULOSE 20 GM/30 ML ORAL LIQD PO SCH ×2 (00:23→06:36)
[2021-01-07] MEDS: fentaNYL DRIP Premix 2,000 MCG/100 ML BAG IV SCH ×3 (04:22→21:10)
[2021-01-07] MEDS: SODIUM BICARBONATE 150 MEQ in DEXTROSE 5% IN WATER 1,000 ML IV SCH (08:10)
--- NOTE | 2021-01-07 08:30 | XRay Report ---
CHEST - 1 VIEW 0755 hours INDICATION: follow up respiratory failure COMPARISON: Yesterday FINDINGS: Support devices: Stable support device positioning. Heart: Stable cardiomediastinal silhouette. Lungs/pleura: Minor linear scarring or discoid atelectasis at the left lung base is stable. Otherwis e the lungs are clear. No pneumothorax. Additional findings: None. IMPRESSION: Unchanged exam. Signer Name: Alexis Shaffer Jr, MD Signed: 01/07/2021 8:25 AM Workstation Name: [id number]
[2021-01-07 09:17] LABS: Calcium 5.7 mg/dL (8.4-10.2)
[2021-01-07] MEDS: SENNOSIDES/DOCUSATE SODIUM 8.6/50 MG TAB FEEDTUBE SCH ×2 (09:51→21:04)
[2021-01-07] MEDS: CEFEPIME/NS 2 GM/100 ML 2 GM/100 ML BAG IV SCH (09:51)
[2021-01-07] MEDS: FAMOTIDINE 20 MG/2 ML INJ IV SCH (09:51)
--- NOTE | 2021-01-07 10:03 | Progress Note ---
Assessment and Plan 1. Acute kidney injury: Vasomotor MORGAN in the setting shock. Renal US negative for hydro. Monitor renal function. Renal prognosis is guarded. Avoid nephrotoxic agents. Meds dosage based on GFR. 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 Patient was started on hemodialysis due to significant decline in the GFR, associated hyperkalemia and severe metabolic acidosis. Hemodialysis: 01/05. HD today. 2. FEN: Hyperkalemia, improved with HD. Anion-gap Metabolic acidosis, s/p HD, on bicarb drip, monitor. Replete Calcium. Severe Lactic acidosis. Monitor lytes. 3. Acute respiratory failure with hypoxia: Intubated, on vent. Followed by Pulmonary. 4. Shock, POA: Likely septic. Abx. Off pressors now. Follow cultures. 5. Elevated Troponin: Monitor. 6. Diabetes mellitus type 2: Follow blood glucose. 7. Anemia, POA: 1 unit of PRBC ordered, yet to be given. Spoke with RN. Monitor. 8. Encephalopathy: Monitor. 9. Multiple myeloma: On Chemo. Prognosis is guarded. Subjective: Patient was seen and examined at the bedside. RN at the bedside. Examination: General appearance: well-developed, well-nourished, appears stated age, intubated, on vent HEENT: ATNC, pupils equal Neck: supple Respiratory: coarse breath sounds Cardiology: regular, S1S2, no murmur Gastrointestinal: soft, bowel sounds heard, not tender Integumentary: no rash, warm and dry Neurologic: opens eyes, grimaces Ext: no edema : Winters catheter Hemodialysis access: R IJ temp catheter Subjective Date of service: 01/07/21 Objective - Vital Signs Vital signs: Vital Signs - 12hr 01/06/21 01/06/21 01/06/21 22:10 22:20 22:30 Temperature Pulse Rate 86 83 84 Respiratory 13 13 14 Rate Blood Pressure 95/46 102/46 100/46 O2 Sat by Pulse 100 100 100 Oximetry 01/06/21 01/06/21 01/06/21 22:40 22:50 22:52 Temperature Pulse Rate 84 85 84 Respiratory 13 15 12 Rate Blood Pressure 99/51 95/47 95/47 O2 Sat by Pulse 100 100 100 Oximetry 01/06/21 01/06/21 01/06/21 23:00 23:10 23:20 Temperature 98.7 F Pulse Rate 84 83 82 Respiratory 16 14 15 Rate Blood Pressure 97/45 97/46 89/47 O2 Sat by Pulse 100 100 100 Oximetry 01/06/21 01/06/21 01/06/21 23:30 23:40 23:50 Temperature Pulse Rate 84 84 83 Respiratory 13 13 18 Rate Blood Pressure 102/45 91/47 88/45 O2 Sat by Pulse 100 100 100 Oximetry 01/07/21 01/07/21 01/07/21 00:00 00:10 00:20 Temperature Pulse Rate 83 105 H 106 H Respiratory 15 20 15 Rate Blood Pressure 101/47 169/58 157/59 O2 Sat by Pulse 100 100 100 Oximetry 01/07/21 01/07/21 01/07/21 00:30 00:33 00:40 Temperature Pulse Rate 94 H 92 H 89 Respiratory 11 L 13 Rate Blood Pressure 143/52 119/46 117/51 O2 Sat by Pulse 100 100 100 Oximetry 01/07/21 01/07/21 01/07/21 00:50 01:00 01:10 Temperature Pulse Rate 103 H 99 H 98 H Respiratory 12 13 18 Rate Blood Pressure 128/71 117/63 108/57 O2 Sat by Pulse 99 100 99 Oximetry 01/07/21 01/07/21 01/07/21 01:20 01:30 01:40 Temperature Pulse Rate 107 H 91 H 89 Respiratory 14 15 13 Rate Blood Pressure 158/73 108/46 101/44 O2 Sat by Pulse 100 100 100 Oximetry 01/07/21 01/07/21 01/07/21 01:50 02:00 02:10 Temperature Pulse Rate 88 88 88 Respiratory 15 14 15 Rate Blood Pressure 92/46 98/47 99/44 O2 Sat by Pulse 100 100 100 Oximetry 01/07/21 01/07/21 01/07/21 02:20 02:30 02:40 Temperature Pulse Rate 88 86 87 Respiratory 13 13 14 Rate Blood Pressure 92/46 99/48 89/50 O2 Sat by Pulse 100 100 100 Oximetry 01/07/21 01/07/21 01/07/21 02:50 03:00 03:10 Temperature Pulse Rate 87 86 99 H Respiratory 13 15 13 Rate Blood Pressure 108/48 99/51 99/60 O2 Sat by Pulse 100 100 100 Oximetry 01/07/21 01/07/21 01/07/21 03:20 03:30 03:40 Temperature Pulse Rate 95 H 89 87 Respiratory 13 14 13 Rate Blood Pressure 142/79 117/49 105/47 O2 Sat by Pulse 100 100 100 Oximetry 01/07/21 01/07/21 01/07/21 03:50 03:56 04:00 Temperature 98.6 F Pulse Rate 104 H 103 H Respiratory 15 13 Rate Blood Pressure 152/56 134/65 O2 Sat by Pulse 100 100 Oximetry 01/07/21 01/07/21 01/07/21 04:10 04:13 04:20 Temperature Pulse Rate 90 97 H Respiratory 13 12 Rate Blood Pressure 126/72 103/50 127/58 O2 Sat by Pulse 100 100 Oximetry 01/07/21 01/07/21 01/07/21 04:30 04:40 04:50 Temperature Pulse Rate 109 H 93 H Respiratory 27 H 16 Rate Blood Pressure 148/61 130/56 121/56 O2 Sat by Pulse 100 99 100 Oximetry 01/07/21 01/07/21 01/07/21 05:00 05:10 05:20 Temperature Pulse Rate 91 H 90 89 Respiratory 13 15 15 Rate Blood Pressure 89/52 104/54 99/53 O2 Sat by Pulse 100 100 100 Oximetry 01/07/21 01/07/21 01/07/21 05:30 05:40 05:50 Temperature Pulse Rate 88 88 88 Respiratory 15 13 13 Rate Blood Pressure 94/52 97/55 98/50 O2 Sat by Pulse 100 Oximetry 01/07/21 01/07/21 01/07/21 06:00 06:10 06:20 Temperature Pulse Rate 87 87 86 Respiratory 17 15 15 Rate Blood Pressure 96/50 101/48 93/52 O2 Sat by Pulse 100 100 Oximetry 01/07/21 01/07/21 01/07/21 06:30 06:40 06:50 Temperature Pulse Rate 85 86 86 Respiratory 13 14 15 Rate Blood Pressure 99/45 103/49 99/55 O2 Sat by Pulse 100 100 100 Oximetry 01/07/21 01/07/21 01/07/21 07:00 07:10 07:20 Temperature Pulse Rate 85 85 85 Respiratory 15 15 14 Rate Blood Pressure 97/54 99/51 103/52 O2 Sat by Pulse 100 100 100 Oximetry 01/07/21 01/07/21 01/07/21 07:30 07:40 07:50 Temperature Pulse Rate 87 85 87 Respiratory 15 13 12 Rate Blood Pressure 100/52 105/47 105/49 O2 Sat by Pulse 100 100 100 Oximetry 01/07/21 01/07/21 01/07/21 08:00 08:10 08:20 Temperature Pulse Rate 96 H 89 93 H Respiratory 14 14 13 Rate Blood Pressure 147/49 114/46 109/63 O2 Sat by Pulse 100 99 100 Oximetry 01/07/21 01/07/21 01/07/21 08:30 08:40 08:50 Temperature Pulse Rate 92 H 95 H 93 H Respiratory 12 12 8 L Rate Blood Pressure 118/54 136/54 137/61 O2 Sat by Pulse 99 99 99 Oximetry 01/07/21 01/07/21 01/07/21 09:00 09:10 09:20 Temperature Pulse Rate 91 H 90 94 H Respiratory 13 14 15 Rate Blood Pressure 106/48 99/42 108/51 O2 Sat by Pulse 100 100 100 Oximetry 01/07/21 01/07/21 01/07/21 09:30 09:40 09:50 Temperature Pulse Rate 92 H 109 H 104 H Respiratory 13 15 10 L Rate Blood Pressure 102/46 125/104 146/60 O2 Sat by Pulse 100 99 99 Oximetry - Lab 01/06/21 06:40 01/07/21 07:06 Most recent lab results ABG pH 7.345 (7.320-7.450) 01/07/21 03:22 ABG pCO2 19.0 mm Hg 01/05/21 13:35 ABG pO2 84.7 mm Hg (80.0-90.0) 01/05/21 13:35 ABG HCO3 3.5 mmol/L (20.0-26.0) L 01/05/21 13:35 ABG O2 Saturation 99.0 (0-100) 01/07/21 03:22 Calcium 5.7 mg/dL (8.4-10.2) L* 01/07/21 07:06 Phosphorus 4.60 mg/dL (2.5-4.5) H 01/07/21 07:06 Magnesium 2.10 mg/dL (1.7-2.3) 01/05/21 13:44 Urine Creatinine 74.4 mg/dL (0.1-20.0) H 01/05/21 17:50 Urine Sodium 59 mmol/L 01/05/21 17:50 Medications & Allergies - Medications Allergies/Adverse Reactions: Allergies No Known Allergies Allergy (Verified 01/05/21 22:00) Home Medications: Home Medications Medication Instructions Recorded Confirmed Last Taken Type Acyclovir [Zovirax Tab] 400 mg PO BID 01/06/21 01/06/21 Unknown History Aspirin [Aspirin BABY CHEW TAB] 81 mg PO 4XD 01/06/21 01/06/21 Unknown History HYDROcodone/ACETAMINOPHEN 1 each PO Q4H PRN 01/06/21 01/06/21 Unknown History [Verdrocet 2.5-325 mg TAB] HYDROcodone/ACETAMINOPHEN 2 each PO Q4H PRN 01/06/21 01/06/21 Unknown History [Verdrocet 2.5-325 mg TAB] Lenalidomide [Revlimid] 10 mg PO QDAY 01/06/21 01/06/21 Unknown History Lisinopril/Hydrochlorothiazide 10 - 12.5 mg PO DAILY 01/06/21 01/06/21 Unknown History [Zestoretic 10-12.5 mg Tablet] Metformin HCl [metFORMIN] 1,000 mg BID 01/06/21 01/06/21 Unknown History Ondansetron HCl [Zofran] 8 mg PO BID PRN 01/06/21 01/06/21 Unknown History Pantoprazole [Protonix] 40 mg PO QDAY 01/06/21 01/06/21 Unknown History Rosuvastatin Calcium 20 mg PO DAILY 01/06/21 01/06/21 Unknown History dexAMETHasone [Dexamethasone] 16 mg PO 1XW 01/06/21 01/06/21 Unknown History traMADoL [Ultram 50 MG tab] 50 mg PO Q6H PRN 01/06/21 01/06/21 Unknown History Active Medications: Generic Name Dose Route Start Last Admin Trade Name Freq PRN Reason Stop Dose Admin Acetaminophen 650 mg 01/05/21 17:00 Acetaminophen 650 Mg Rect Supp NE Q6H PRN Pain MILD(1-3)/Fever >100.5/SILVERMAN Acetaminophen 650 mg 01/05/21 19:00 Acetaminophen 325 Mg Tab PO Q6H PRN Pain, Mild (1-3) Albuterol 2.5 mg 01/05/21 17:00 Albuterol 2.5 Mg/3 Ml Nebu IH Q3HRT PRN Shortness Of Breath Lipase/Protease/Amylase 1 each 01/06/21 08:10 Lipase 10,500/Protease 25,000/Amylase 43,750 (Units) Dr Cap FEEDTUBE PRN PRN For Clogged Feeding Tube Famotidine 20 mg 01/05/21 22:00 01/07/21 09:51 Famotidine 20 Mg/2 Ml Inj IV 20 mg DAILY MIKEY Administration Fentanyl 50 mcg 01/05/21 21:55 01/07/21 00:23 Fentanyl 100 Mcg/2 Ml Inj IV 50 mcg Q10MIN PRN Administration ANALGESIA Hydromorphone HCl 0.5 mg 01/05/21 17:00 Hydromorphone 1 Mg/1 Ml Inj IV Q3H PRN Pain , Severe (7-10) Hydromorphone HCl 0.25 mg 01/05/21 19:30 Hydromorphone 1 Mg/1 Ml Inj IV Q4H PRN Pain, Moderate (4-6) Hydrophilic Ointment 1 applic 01/05/21 14:21 Lip Therapy Vaseline TP Q2HR PRN Dry Lips Propofol 1,000 mg in 100 mls @ 2.712 mls/hr 01/05/21 19:30 Diprivan 10 Mg/Ml IV TITR MIKEY Protocol 5 MCG/KG/MIN Norepinephrine 4 mg in 250 mls @ 7.5 mls/hr 01/05/21 16:00 01/06/21 12:15 Levophed Drip 4 Mg/Ns 250 Ml IV 0 mcg/min TITR MIKEY 0 mls/hr Titration Protocol 2 MCG/MIN Sodium Bicarbonate 150 meq/ 1,150 mls @ 50 mls/hr 01/05/21 17:00 01/07/21 08:10 Dextrose IV 125 mls/hr DIRECT MIKEY Administration Sodium Chloride 100 mls @ 999 mls/hr 01/05/21 17:00 Nacl 0.9% IV ERIC PRN Hypotension Fentanyl Citrate 2,000 mcg in 100 mls @ 4.52 mls/hr 01/05/21 22:00 01/07/21 08:53 Fentanyl Drip Premix IV 0 mcg/kg/hr TITR MIKEY 0 mls/hr Titration Protocol 1 MCG/KG/HR Vasopressin 20 unit/ Sodium 101 mls @ 9.09 mls/hr 01/06/21 00:00 01/06/21 12:45 Chloride IV 0.03 units/min TITR MIKEY 9.09 mls/hr Administration Protocol 0.03 UNITS/MIN Cefepime HCl 2 gm in 100 mls @ 200 mls/hr 01/06/21 10:00 01/07/21 09:51 Cefepime/Ns 2 Gm/100 Ml IV 200 mls/hr Q24H MIKEY Administration Protocol Fluconazole 200 mg in 100 mls @ 100 mls/hr 01/06/21 15:00 01/06/21 15:26 Diflucan IV 100 mls/hr Q24H MIKEY Administration Protocol Calcium Gluconate 2,000 mg/ 120 mls @ 660 mls/hr 01/07/21 10:00 Sodium Chloride IV 01/07/21 10:10 ONCE ONE Insulin Human Lispro 0 unit 01/06/21 12:00 01/07/21 06:17 Insulin Lispro 100 Unit/Ml SUB-Q Not Given Q6HR MIKEY Protocol Multi-Ingred Cream/Lotion/Oil/Oint 1 applic 01/05/21 14:21 Mineral Oil/Petrolatum, White Ophth Oint 3.5 Gm OU Q4HR PRN Dry Eye(s) Senna/Docusate Sodium 1 tab 01/05/21 22:00 01/07/21 09:51 Sennosides/Docusate Sodium 8.6/50 Mg Tab FEEDTUBE 1 tab BID MIKEY Administration Simple Syrup 15 ml 01/06/21 08:10 Simple Syrup 15 Ml FEEDTUBE PRN PRN Hypoglycemia Simple Syrup 30 ml 01/06/21 08:10 Simple Syrup 15 Ml FEEDTUBE PRN PRN Hypoglycemia Sodium Bicarbonate 325 mg 01/06/21 08:10 Sodium Bicarbonate 325 Mg Tab FEEDTUBE PRN PRN For Clogged Feeding Tube Sodium Chloride 10 ml 01/05/21 17:00 Sodium Chloride 0.9% 10 Ml Flush Syringe IV PRN PRN LINE FLUSH Sodium Chloride 10 ml 01/05/21 22:00 01/07/21 09:52 Sodium Chloride 0.9% 10 Ml Flush Syringe IV 10 ml BID MIKEY Administration
[2021-01-07] MEDS ORDERED: CALCIUM GLUCONATE 2,000 MG in SODIUM CHLORIDE 0.9% 100 ML IV ONE (10:30)
--- NOTE | 2021-01-07 11:32 | Progress Note ---
Assessment and Plan Assessment and plan: --Anemia of chronic disease Hb 6.5 Current Visit: Yes Status: Acute CBC, transfuse 1 unit PRBC, closely monitor H&H Stool for occult blood --Sepsis secondary to UTI Current Visit: Yes Status: Acute. 6.5 hemoglobin, no external evidence of bleeding type and cross transfuse 1 unit PRBC, Sepsis protocol: CBC, CMP, chest x-ray, urinalysis, blood culture, IV antibiotic therapy, IV fluid resuscitation therapy, maintain mean arterial pressure greater than or equal to 65,IV pressor support, monitor urine output every shift, --Acute hypoxemic respiratory failure Current Visit: Yes Status: Acute Patient intubated and on ventilatory support, wean vent as tolerated, critical care team consulted in ED, daily spontaneous breathing trial, arterial blood gas daily, sedation holiday daily, -- UTI (urinary tract infection) Current Visit: Yes Status: Acute Empiric antibiotics, follow cultures --History of multiple myeloma Current Visit: Yes Status: Acute Supportive care, --End stage renal disease Current Visit: Yes Status: Acute Nephrology team consulted in ED, patient is pending Vas-Cath placement for ur gent dialysis, --DVT prophylaxis Current Visit: Yes Status: Acute SCD to bilateral lower extremities while in bed, prophylactic anticoagulation --Advance care planning Current Visit: Yes Status: Acute Disease education conducted, care plan discussed, diagnosis discussed, patient prognosis discussed, patient family knowledges understanding and agreement with care plan, +30 minutes. Patient remains full code. Patient reports that "I want everything done". The high probability of a clinically significant, sudden or life threatening deterioration of the [cardiac, pulmonary, renal, endocrine, hematologic] system(s) required my full and direct attention, intervention and personal management. The aggregate critical care time was [45] minutes. This time is in addition to time spent performing reported procedures but includes the following: [x] Data Review and interpretation [x] Patient assessment and monitoring of vital signs [x] Documentation [x] Medication orders and management Closely monitor patient and adjust management as needed Restraint for safety Plan of care reviewed with the patient's nurse, case management instructor recommendations noted and appreciated 01/06/2021; patient is critically ill with severe sepsis and septic shock requiring multiple pressors Acute respiratory failure requiring intubation and ventilatory support Hospitalist Physical - Constitutional Vitals: Temp Pulse Resp BP Pulse Ox 97.8 F 111 H 15 144/99 99 07/08/21 11:10 01/07/21 11:15 01/07/21 11:10 01/07/21 11:15 01/07/21 11:10 General appearance: Present: mild distress, well-nourished, obese, other (Intubated on ventilatory support) HEART Score - HEART Score Troponin: Troponin T 0.153 ng/mL (0.00-0.029) H* 01/05/21 13:44 Results - Labs CBC & Chem 7: 01/06/21 06:40 01/07/21 07:06 Labs: Laboratory Last Values WBC 9.5 K/mm3 (4.5-11.0) 01/06/21 06:40 RBC 2.30 M/mm3 (3.65-5.03) L 01/06/21 06:40 Hgb 6.5 gm/dl (10.1-14.3) L 01/06/21 06:40 Hct 19.1 % (30.3-42.9) L* D 01/06/21 06:40 MCV 83 fl (79-97) 01/06/21 06:40 MCH 28 pg (28-32) 01/06/21 06:40 MCHC 34 % (30-34) 01/06/21 06:40 RDW 18.5 % (13.2-15.2) H 01/06/21 06:40 Plt Count 85 K/mm3 (140-440) L 01/06/21 06:40 Add Manual Diff Complete 01/06/21 06:40 Total Counted 100 01/06/21 06:40 Seg Neutrophils % Advanced Nursing Professor 01/06/21 06:40 Seg Neuts % (Manual) 76.0 % (40.0-70.0) H 01/06/21 06:40 Band Neutrophils % 21.0 % 01/06/21 06:40 Lymphocytes % (Manual) 1.0 % (13.4-35.0) L 01/06/21 06:40 Monocytes % (Manual) 1.0 % (0.0-7.3) 01/06/21 06:40 Eosinophils % (Manual) 1.0 % (0.0-4.3) 01/05/21 13:44 Metamyelocytes % 1.0 % 01/06/21 06:40 Myelocytes % 4.0 % 01/05/21 13:44 Nucleated RBC % 2.0 % (0.0-0.9) H 01/06/21 06:40 Seg Neutrophils # Man 7.2 K/mm3 (1.8-7.7) 01/06/21 06:40 Band Neutrophils # 2.0 K/mm3 01/06/21 06:40 Lymphocytes # (Manual) 0.1 K/mm3 (1.2-5.4) L 01/06/21 06:40 Abs React Lymphs (Man) 0.0 K/mm3 01/06/21 06:40 Monocytes # (Manual) 0.1 K/mm3 (0.0-0.8) 01/06/21 06:40 Eosinophils # (Manual) 0.0 K/mm3 (0.0-0.4) 01/06/21 06:40 Basophils # (Manual) 0.0 K/mm3 (0.0-0.1) 01/06/21 06:40 Metamyelocytes # 0.1 K/mm3 01/06/21 06:40 Myelocytes # 0.0 K/mm3 01/06/21 06:40 Promyelocytes # 0.0 K/mm3 01/06/21 06:40 Blast Cells # 0.0 K/mm3 01/06/21 06:40 WBC Morphology Not Reportable 01/06/21 06:40 Hypersegmented Neuts Not Reportable 01/06/21 06:40 Hyposegmented Neuts Not Reportable 01/06/21 06:40 Hypogranular Neuts Not Reportable 01/06/21 06:40 Smudge Cells Not Reportable 01/06/21 06:40 Toxic Granulation Not Reportable 01/06/21 06:40 Toxic Vacuolation Not Reportable 01/06/21 06:40 Dohle Bodies Not Reportable 01/06/21 06:40 Pelger-Huet Anomaly Not Reportable 01/06/21 06:40 Diony Rods Not Reportable 01/06/21 06:40 Platelet Estimate Consistent w auto 01/06/21 06:40 Clumped Platelets Not Reportable 01/06/21 06:40 Plt Clumps, EDTA Not Reportable 01/06/21 06:40 Large Platelets Not Reportable 01/06/21 06:40 Giant Platelets Not Reportable 01/06/21 06:40 Platelet Satelliting Not Reportable 01/06/21 06:40 Plt Morphology Comment Not Reportable 01/06/21 06:40 RBC Morphology Not Reportable 01/06/21 06:40 Dimorphic RBCs Not Reportable 01/06/21 06:40 Polychromasia Not Reportable 01/06/21 06:40 Hypochromasia 1+ 01/06/21 06:40 Poikilocytosis 1+ 01/06/21 06:40 Anisocytosis 2+ 01/06/21 06:40 Microcytosis Not Reportable 01/06/21 06:40 Macrocytosis Not Reportable 01/06/21 06:40 Spherocytes Not Reportable 01/06/21 06:40 Pappenheimer Bodies Not Reportable 01/06/21 06:40 Sickle Cells Not Reportable 01/06/21 06:40 Target Cells Not Reportable 01/06/21 06:40 Tear Drop Cells Not Reportable 01/06/21 06:40 Ovalocytes 1+ 01/06/21 06:40 Helmet Cells Not Reportable 01/06/21 06:40 Oliveira-Granite [place]arry Bodies Not Reportable 01/06/21 06:40 Maceo Rings Not Reportable 01/06/21 06:40 Moose Cells 2+ 01/06/21 06:40 Bite Cells Not Reportable 01/06/21 06:40 Crenated Cell Not Reportable 01/06/21 06:40 Elliptocytes Not Reportable 01/06/21 06:40 Acanthocytes (Spur) Not Reportable 01/06/21 06:40 Rouleaux Not Reportable 01/06/21 06:40 Hemoglobin C Crystals Not Reportable 01/06/21 06:40 Schistocytes Not Reportable 01/06/21 06:40 Malaria parasites Not Reportable 01/06/21 06:40 [place]os Bodies Not Reportable 01/06/21 06:40 Hem Pathologist Commnt No 01/06/21 06:40 APTT 44.4 Sec. (24.2-36.6) H 01/05/21 13:44 ABG pH 7.345 (7.320-7.450) 01/07/21 03:22 POC ABG pCO2 32.6 mmHg (32.0-48.0) 01/07/21 03:22 ABG pCO2 19.0 mm Hg 01/05/21 13:35 POC ABG pO2 138.2 mmHg (83-108) H 01/07/21 03:22 ABG pO2 84.7 mm Hg (80.0-90.0) 01/05/21 13:35 POC ABG HCO3 17.4 01/07/21 03:22 ABG HCO3 3.5 mmol/L (20.0-26.0) L 01/05/21 13:35 ABG O2 Saturation 99.0 (0-100) 01/07/21 03:22 ABG O2 Content 10.8 (0.0-44) 01/05/21 13:35 POC ABG Base Excess -7.6 01/07/21 03:22 ABG Base Excess -27.8 mmol/L (-2.0-3.0) L 01/05/21 13:35 ABG Hemoglobin 5.7 (12.0-17.5) L 01/07/21 03:22 ABG Oxyhemoglobin 97.4 (94-98) 01/07/21 03:22 ABG Carboxyhemoglobin 1.1 % (0.0-5.0) 01/05/21 13:35 ABG Methemoglobin 0.3 (0.0-1.5) 01/07/21 03:22 ABG Sodium 129.7 mmol/L (136.0-145.0) L 01/07/21 03:22 ABG Potassium 3.5 mmol/L (3.40-4.50) 01/07/21 03:22 ABG Chloride 89.0 mmol/L (98-107) L 01/07/21 03:22 ABG Glucose 146 mg/dL (65-95) H 01/07/21 03:22 Oxyhemoglobin 82.4 % (95.0-99.0) L 01/05/21 13:35 Carboxyhemoglobin 1.3 (0.5-1.5) 01/07/21 03:22 FiO2 21 % 01/05/21 13:35 FiO2 % 35.0 01/07/21 03:22 Sodium 137 mmol/L (137-145) 01/07/21 07:06 Potassium 3.7 mmol/L (3.6-5.0) 01/07/21 07:06 Chloride 85.2 mmol/L (98-107) L 01/07/21 07:06 Carbon Dioxide 21 mmol/L (22-30) L D 01/07/21 07:06 Anion Gap 35 mmol/L 01/07/21 07:06 BUN 48 mg/dL (7-17) H 01/07/21 07:06 Creatinine 5.0 mg/dL (0.6-1.2) H 01/07/21 07:06 Estimated GFR 9 ml/min 01/07/21 07:06 BUN/Creatinine Ratio 10 % 01/07/21 07:06 Glucose 142 mg/dL (65-100) H 01/07/21 07:06 POC Glucose 137 mg/dL (70-105) H 01/07/21 05:49 Ketones Quantitative Negative (Negative) 01/05/21 14:39 Lactic Acid 14.20 mmol/L (0.7-2.0) H* 01/07/21 08:35 Calcium 5.7 mg/dL (8.4-10.2) L* 01/07/21 07:06 Phosphorus 4.60 mg/dL (2.5-4.5) H 01/07/21 07:06 Magnesium 2.10 mg/dL (1.7-2.3) 01/05/21 13:44 Total Bilirubin 0.30 mg/dL (0.1-1.2) 01/06/21 06:40 AST 122 units/L (5-40) H 01/06/21 06:40 ALT 37 units/L (7-56) 01/06/21 06:40 Alkaline Phosphatase 68 units/L (35-129) 01/06/21 06:40 Ammonia 100.0 umol/L (25-60) H 01/05/21 23:05 Total Creatine Kinase 484 units/L (30-135) H 01/05/21 13:44 Troponin T 0.153 ng/mL (0.00-0.029) H* 01/05/21 13:44 NT-Pro-B Natriuret Pep 40112 pg/mL (0-900) H 01/05/21 13:44 Total Protein 5.4 g/dL (6.3-8.2) L D 01/06/21 06:40 Albumin 2.5 g/dL (3.9-5) L 01/06/21 06:40 Albumin/Globulin Ratio 0.9 % 01/06/21 06:40 Triglycerides 75 mg/dL (2-149) 01/05/21 13:44 Cholesterol 62 mg/dL (50-199) 01/05/21 13:44 LDL Cholesterol Direct 8 mg/dL (50-130) L 01/05/21 13:44 HDL Cholesterol 50 mg/dL (40-59) 01/05/21 13:44 Cholesterol/HDL Ratio 1.24 % 01/05/21 13:44 Procalcitonin 17.62 ng/mL (<0.15) 01/05/21 23:05 PTH Intact 209.3 pg/mL (15-65) H 01/06/21 06:40 Arterial Blood Glucose 146 mg/dL (65-95) H 01/07/21 03:22 Arterial Blood Ionized Calcium 2.9 mg/dL (4.6-5.3) L 01/07/21 03:22 Urine Color Yanira (Yellow) 01/05/21 17:50 Urine Turbidity Cloudy (Clear) 01/05/21 17:50 Urine pH 5.0 (5.0-7.0) 01/05/21 17:50 Ur Specific [place] 1.018 (1.003-1.030) 01/05/21 17:50 Urine Protein >500 mg/dL (Negative) 01/05/21 17:50 Urine Glucose (UA) 50 mg/dL (Negative) 01/05/21 17:50 Urine Ketones Neg mg/dL (Negative) 01/05/21 17:50 Urine Blood Sm (Negative) 01/05/21 17:50 Urine Nitrite Neg (Negative) 01/05/21 17:50 Urine Bilirubin Neg (Negative) 01/05/21 17:50 Urine Urobilinogen < 2.0 mg/dL (<2.0) 01/05/21 17:50 Ur Leukocyte Esterase Neg (Negative) 01/05/21 17:50 Urine WBC (Auto) 38.0 /HPF (0.0-6.0) H 01/05/21 17:50 Urine RBC (Auto) 6.0 /HPF (0.0-6.0) 01/05/21 17:50 U Epithel Cells (Auto) 12.0 /HPF (0-13.0) 01/05/21 17:50 Urine Bacteria (Auto) 4+ /HPF (Negative) 01/05/21 17:50 Amorphous Crystals 1+ 01/05/21 17:50 Urine Mucus Few /HPF 01/05/21 17:50 Urine Creatinine 74.4 mg/dL (0.1-20.0) H 01/05/21 17:50 Urine Sodium 59 mmol/L 01/05/21 17:50 Random Vancomycin 15.4 ug/mL (0-40.0) 01/06/21 06:40 Urine Opiates Screen Negative 01/05/21 17:50 Urine Methadone Screen Negative 01/05/21 17:50 Ur Barbiturates Screen Negative 01/05/21 17:50 Ur Phencyclidine Scrn Negative 01/05/21 17:50 Ur Amphetamines Screen Negative 01/05/21 17:50 U Benzodiazepines Scrn Negative 01/05/21 17:50 Urine Cocaine Screen Negative 01/05/21 17:50 U Marijuana (THC) Screen Positive 01/05/21 17:50 Drugs of Abuse Note Disclamer 01/05/21 17:50 Hepatitis A IgM Ab Non-reactive (NonReactive) 01/05/21 18:27 Hep Bs Antigen Non-reactive (Negative) 01/05/21 18:27 Hep B Core IgM Ab Non-reactive (NonReactive) 01/05/21 18:27 Hepatitis C Antibody Non-reactive (NonReactive) 01/05/21 18:27 Blood Type A POSITIVE 01/07/21 07:06 Antibody Screen Negative 01/07/21 07:06 Crossmatch See Detail 01/07/21 07:06 Microbiology: Microbiology 01/05/21 14:39 Peripheral/Venous Blood Culture - Preliminary NO GROWTH AFTER 24 HOURS 01/05/21 13:44 Peripheral/Venous Blood Culture - Preliminary NO GROWTH AFTER 24 HOURS Active Medications - Current Medications Current Medications: Generic Name Dose Route Start Last Admin Trade Name Freq PRN Reason Stop Dose Admin Acetaminophen 650 mg 01/05/21 17:00 Acetaminophen 650 Mg Rect Supp [place] Q6H PRN Pain MILD(1-3)/Fever >100.5/SILVERMAN Acetaminophen 650 mg 01/05/21 19:00 Acetaminophen 325 Mg Tab PO Q6H PRN Pain, Mild (1-3) Albuterol 2.5 mg 01/05/21 17:00 Albuterol 2.5 Mg/3 Ml Nebu IH Q3HRT PRN Shortness Of Breath Lipase/Protease/Amylase 1 each 01/06/21 08:10 Lipase 10,500/Protease 25,000/Amylase 43,750 (Units) Dr Cap FEEDTUBE PRN PRN For Clogged Feeding Tube Famotidine 20 mg 01/05/21 22:00 01/07/21 09:51 Famotidine 20 Mg/2 Ml Inj IV 20 mg DAILY MIKEY Administration Fentanyl 50 mcg 01/05/21 21:55 01/07/21 00:23 Fentanyl 100 Mcg/2 Ml Inj IV 50 mcg Q10MIN PRN Administration ANALGESIA Hydromorphone HCl 0.5 mg 01/05/21 17:00 Hydromorphone 1 Mg/1 Ml Inj IV Q3H PRN Pain , Severe (7-10) Hydromorphone HCl 0.25 mg 01/05/21 19:30 Hydromorphone 1 Mg/1 Ml Inj IV Q4H PRN Pain, Moderate (4-6) Hydrophilic Ointment 1 applic 01/05/21 14:21 Lip Therapy Vaseline TP Q2HR PRN Dry Lips Propofol 1,000 mg in 100 mls @ 2.712 mls/hr 01/05/21 19:30 Diprivan 10 Mg/Ml IV TITR MIKEY Protocol 5 MCG/KG/MIN Norepinephrine 4 mg in 250 mls @ 7.5 mls/hr 01/05/21 16:00 01/06/21 12:15 Levophed Drip 4 Mg/Ns 250 Ml IV 0 mcg/min TITR MIKEY 0 mls/hr Titration Protocol 2 MCG/MIN Sodium Bicarbonate 150 meq/ 1,150 mls @ 50 mls/hr 01/05/21 17:00 01/07/21 08:10 Dextrose IV 125 mls/hr DIRECT MIKEY Administration Sodium Chloride 100 mls @ 999 mls/hr 01/05/21 17:00 Nacl 0.9% IV ERCI PRN Hypotension Fentanyl Citrate 2,000 mcg in 100 mls @ 4.52 mls/hr 01/05/21 22:00 01/07/21 08:53 Fentanyl Drip Premix IV 0 mcg/kg/hr TITR MIKEY 0 mls/hr Titration Protocol 1 MCG/KG/HR Vasopressin 20 unit/ Sodium 101 mls @ 9.09 mls/hr 01/06/21 00:00 01/06/21 12:45 Chloride IV 0.03 units/min TITR MIKEY 9.09 mls/hr Administration Protocol 0.03 UNITS/MIN Cefepime HCl 2 gm in 100 mls @ 200 mls/hr 01/06/21 10:00 01/07/21 09:51 Cefepime/Ns 2 Gm/100 Ml IV 200 mls/hr Q24H MIKEY Administration Protocol Fluconazole 200 mg in 100 mls @ 100 mls/hr 01/06/21 15:00 01/06/21 15:26 Diflucan IV 100 mls/hr Q24H MIKEY Administration Protocol Insulin Human Lispro 0 unit 01/06/21 12:00 01/07/21 06:17 Insulin Lispro 100 Unit/Ml SUB-Q Not Given Q6HR [facility] Protocol Multi-Ingred Cream/Lotion/Oil/Oint 1 applic 01/05/21 14:21 Mineral Oil/Petrolatum, White Ophth Oint 3.5 Gm OU Q4HR PRN Dry Eye(s) Senna/Docusate Sodium 1 tab 01/05/21 22:00 01/07/21 09:51 Sennosides/Docusate Sodium 8.6/50 Mg Tab FEEDTUBE 1 tab BID MIKEY Administration Simple Syrup 15 ml 01/06/21 08:10 Simple Syrup 15 Ml FEEDTUBE PRN PRN Hypoglycemia Simple Syrup 30 ml 01/06/21 08:10 Simple Syrup 15 Ml FEEDTUBE PRN PRN Hypoglycemia Sodium Bicarbonate 325 mg 01/06/21 08:10 Sodium Bicarbonate 325 Mg Tab FEEDTUBE PRN PRN For Clogged Feeding Tube Sodium Chloride 10 ml 01/05/21 17:00 Sodium Chloride 0.9% 10 Ml Flush Syringe IV PRN PRN LINE FLUSH Sodium Chloride 10 ml 01/05/21 22:00 01/07/21 09:52 Sodium Chloride 0.9% 10 Ml Flush Syringe IV 10 ml BID MIKEY Administration Nutrition/Malnutrition Assess - Dietary Evaluation Nutrition/Malnutrition Findings: Nutrition Notes Start: 01/06/21 0 8:02 Freq: Status: Active Protocol: Document 01/06/21 08:02 KARINA (Rec: 01/06/21 08:10 KARINA [id number]) Nutrition Notes Need for Assessment generated from: MD Order,rn invasive,MST Initial or Follow up Assessment Current Diagnosis CKD (stage V CKD),Diabetes, Sepsis,Hypertension, Respiratory Failure Other Pertinent Diagnosis on HD, UTI, anemia, multiple myeloma on chemotherapy Current Diet NPO Labs/Tests Na 135 BUN 36 Cr 4.3 Pertinent Medications Levophed Lactulose Height 5 ft 3 in Weight 90.2 kg Williams Body Weight (kg) 52.27 BMI 35.2 Weight Status Obese Subjective/Other Information MD order for TF and eval intakes. RN screen for MST and skin risk. Fer score 12. Pt has abrasion on buttox. Pt on vent. Burn Absent Trauma Absent Current % PO Negligible Minimum of two criteria No physical signs of malnutrition Fluid Accumulation Mild (non-severe) #1 Nutrition Diagnosis Inadequate oral intake Etiology acute respiratory failure As Evidenced by Signs and Symptoms pt on vent and unable to consume PO Is patient on ventilator? Yes Is Patient Ambulatory and/or Out of Bed No REE-([facility]-confined to bed) 1669.080 Kcal/Kg value to use for calculation 16 Approximate Energy Requirements Using 1443 kcal/Kg Calculation Used for Recommendations Kcal/kg Additional Notes Protein: (>2g/kg IBW) greater than 105g Fluid: 1 ml/kcal Nutrition Intervention Change Diet Order: Start TF Nutrition Support: Nepro 1.8 at 35 ml/hr Flush 100 ml q4h or per MD Kcal 1,512 Protein (gm) 68 Fluid (mL) 611 Goal #1 Meet at least 75% of energy needs and 60% of protein needs Anticipated Discharge Needs: Unable to determine at this time Follow-Up By: 01/08/21 Additional Comments FU for TF start and tolerance
--- NOTE | 2021-01-07 13:03 | Progress Note ---
Assessment and Plan Acute hypoxemic respiratory failure on MVS Acute kidney injury Severe sepsis with shock Community-acquired pneumonia Multiple myeloma Severe metabolic acidosis Lactic acidosis Hyponatremia Non-ST elevation myocardial infarction Anemia that is normocytic Hyperkalemia Oropharyngeal dysphagia Possible urinary tract infection - care plan discussed with her at bedside again today - 2D ECHO with any heart failure - placed back on PSV and tolerating well - get ABG at 9 pm today to assess ventilation - tentative extubation in am if passes SBT - follow repeat CBC re: thrombocytopenia ands anemia - follow HIT assay - continue care as below otherwise; - continue HD/UF per nephrology prescription - continue Daily SAT and SBT assessment as tolerated - continue to wean supplemental oxygen for target O2 sat's > 90% acutely - VAP bundle addressed - continue lung protective strategies - continue bronchodilators with pulmonary hygiene per RT - wean per pulmonary driven protocols otherwise - avoid nephrotoxins, renally dose all medications - continue to avoid benzodiazepine's, reduce the possibility of delirium - complete empiric AB's per ID rec's - continue accuchecks with glycemic control per SSI (While critically ill target blood glucose of 140-180 mg/dL; avoid hypoglycemia) - sedation prn for target RASS 0 to -1 - prn analgesia per CPOT score - Maintenance of sleep-wake cycle, avoid delirium - continue enteral nutritional support at goal rate as tolerated - G.I. & VTE prophylaxis - PT/OT/ROM exercises - continue mobility protocols for pressure ulcer prophylaxis - Monitor hemodynamics closely - continue other care per attending / other consultants - discharge planning ongoing concurrently .... Re-evaluate in am & prn CONDITION: CRITICAL PROGNOSIS: GUARDED CODE STATUS: FULL CODE The high probability of a clinically significant, sudden or life-threatening deterioration of the [respiratory, cardiovascular, renal & neurologic] system(s) required my full and direct attention, intervention and personal management. The aggregate critical care time was [33] minutes without overlap. Time includes s pent on; [x] Data Review and interpretation [x] Patient assessment and monitoring of vital signs [x] Documentation [x] Medication orders and management Subjective Date of service: 01/07/21 Principal diagnosis: Ac hypoxemic resp failure; MORGAN; Septic Shock; CAP; Multiple myeloma; NSTEMI Interval history: Patient is seen today for: Acute hypoxemic respiratory failure; MORGAN; Septic Shock; CAP; Multiple myeloma; NSTEMI Seen and examined at bedside; 24hour events reviewed; nursing and respiratory care staff consulted; no adverse overnight events reported to me; resting peacefully in bed; doing much better but failed SBT earlier today; HD/UF ongoin g; she is agitated and looks very anxious; no emesis or overt aspiration; now off vasopressors Objective Vital Signs - 12hr 01/07/21 01/07/21 01/07/21 01:10 01:20 01:30 Temperature Pulse Rate 98 H 107 H 91 H Respiratory 18 14 15 Rate Blood Pressure 108/57 158/73 108/46 O2 Sat by Pulse 99 100 100 Oximetry O2 Sat by Pulse Oximetry [ Bilateral] 01/07/21 01/07/21 01/07/21 01:40 01:50 02:00 Temperature Pulse Rate 89 88 88 Respiratory 13 15 14 Rate Blood Pressure 101/44 92/46 98/47 O2 Sat by Pulse 100 100 100 Oximetry O2 Sat by Pulse Oximetry [ Bilateral] 01/07/21 01/07/21 01/07/21 02:10 02:20 02:30 Temperature Pulse Rate 88 88 86 Respiratory 15 13 13 Rate Blood Pressure 99/44 92/46 99/48 O2 Sat by Pulse 100 100 100 Oximetry O2 Sat by Pulse Oximetry [ Bilateral] 01/07/21 01/07/21 01/07/21 02:40 02:50 03:00 Temperature Pulse Rate 87 87 86 Respiratory 14 13 15 Rate Blood Pressure 89/50 108/48 99/51 O2 Sat by Pulse 100 100 100 Oximetry O2 Sat by Pulse Oximetry [ Bilateral] 01/07/21 01/07/21 01/07/21 03:10 03:20 03:30 Temperature Pulse Rate 99 H 95 H 89 Respiratory 13 13 14 Rate Blood Pressure 99/60 142/79 117/49 O2 Sat by Pulse 100 100 100 Oximetry O2 Sat by Pulse Oximetry [ Bilateral] 01/07/21 01/07/21 01/07/21 03:40 03:50 03:56 Temperature 98.6 F Pulse Rate 87 104 H Respiratory 13 15 Rate Blood Pressure 105/47 152/56 O2 Sat by Pulse 100 100 Oximetry O2 Sat by Pulse Oximetry [ Bilateral] 01/07/21 01/07/21 01/07/21 04:00 04:10 04:13 Temperature Pulse Rate 103 H 90 Respiratory 13 13 Rate Blood Pressure 134/65 126/72 103/50 O2 Sat by Pulse 100 100 Oximetry O2 Sat by Pulse Oximetry [ Bilateral] 01/07/21 01/07/21 01/07/21 04:20 04:30 04:40 Temperature Pulse Rate 97 H 109 H Respiratory 12 27 H Rate Blood Pressure 127/58 148/61 130/56 O2 Sat by Pulse 100 100 99 Oximetry O2 Sat by Pulse Oximetry [ Bilateral] 01/07/21 01/07/21 01/07/21 04:50 05:00 05:10 Temperature Pulse Rate 93 H 91 H 90 Respiratory 16 13 15 Rate Blood Pressure 121/56 89/52 104/54 O2 Sat by Pulse 100 100 100 Oximetry O2 Sat by Pulse Oximetry [ Bilateral] 01/07/21 01/07/21 01/07/21 05:20 05:30 05:40 Temperature Pulse Rate 89 88 88 Respiratory 15 15 13 Rate Blood Pressure 99/53 94/52 97/55 O2 Sat by Pulse 100 Oximetry O2 Sat by Pulse Oximetry [ Bilateral] 01/07/21 01/07/21 01/07/21 05:50 06:00 06:10 Temperature Pulse Rate 88 87 87 Respiratory 13 17 15 Rate Blood Pressure 98/50 96/50 101/48 O2 Sat by Pulse 100 100 100 Oximetry O2 Sat by Pulse Oximetry [ Bilateral] 01/07/21 01/07/21 01/07/21 06:20 06:30 06:40 Temperature Pulse Rate 86 85 86 Respiratory 15 13 14 Rate Blood Pressure 93/52 99/45 103/49 O2 Sat by Pulse 100 100 Oximetry O2 Sat by Pulse Oximetry [ Bilateral] 01/07/21 01/07/21 01/07/21 06:50 07:00 07:10 Temperature Pulse Rate 86 85 85 Respiratory 15 15 15 Rate Blood Pressure 99/55 97/54 99/51 O2 Sat by Pulse 100 100 100 Oximetry O2 Sat by Pulse Oximetry [ Bilateral] 01/07/21 01/07/21 01/07/21 07:20 07:30 07:40 Temperature Pulse Rate 85 87 85 Respiratory 14 15 13 Rate Blood Pressure 103/52 100/52 105/47 O2 Sat by Pulse 100 100 100 Oximetry O2 Sat by Pulse Oximetry [ Bilateral] 01/07/21 01/07/21 01/07/21 07:50 08:00 08:10 Temperature 98.4 F Pulse Rate 87 90 89 Respiratory 12 14 14 Rate Blood Pressure 105/49 147/49 114/46 O2 Sat by Pulse 100 100 99 Oximetry O2 Sat by Pulse Oximetry [ Bilateral] 01/07/21 01/07/21 01/07/21 08:20 08:30 08:40 Temperature Pulse Rate 93 H 92 H 95 H Respiratory 13 12 12 Rate Blood Pressure 109/63 118/54 136/54 O2 Sat by Pulse 100 99 99 Oximetry O2 Sat by Pulse Oximetry [ Bilateral] 01/07/21 01/07/21 01/07/21 08:50 09:00 09:10 Temperature Pulse Rate 93 H 91 H 90 Respiratory 8 L 13 14 Rate Blood Pressure 137/61 106/48 99/42 O2 Sat by Pulse 99 100 100 Oximetry O2 Sat by Pulse Oximetry [ Bilateral] 01/07/21 01/07/21 01/07/21 09:20 09:30 09:40 Temperature Pulse Rate 94 H 92 H 109 H Respiratory 15 13 15 Rate Blood Pressure 108/51 102/46 125/104 O2 Sat by Pulse 100 100 99 Oximetry O2 Sat by Pulse Oximetry [ Bilateral] 01/07/21 01/07/21 01/07/21 09:50 10:00 10:10 Temperature Pulse Rate 104 H 94 H 107 H Respiratory 10 L 15 13 Rate Blood Pressure 146/60 103/50 134/57 O2 Sat by Pulse 99 99 99 Oximetry O2 Sat by Pulse Oximetry [ Bilateral] 01/07/21 01/07/21 01/07/21 10:20 10:30 11:10 Temperature 97.8 F Pulse Rate 109 H 102 H 110 H Respiratory 17 13 15 Rate Blood Pressure 135/61 123/50 138/96 O2 Sat by Pulse 98 99 Oximetry O2 Sat by Pulse 99 Oximetry [ Bilateral] 01/07/21 01/07/21 01/07/21 11:15 11:30 11:45 Temperature Pulse Rate 111 H 116 H 114 H Respiratory Rate Blood Pressure 144/99 132/62 124/62 O2 Sat by Pulse Oximetry O2 Sat by Pulse Oximetry [ Bilateral] 01/07/21 01/07/21 01/07/21 12:00 12:02 12:10 Temperature 97.8 F 97.8 F Pulse Rate 114 H 114 H 116 H Respiratory 15 Rate Blood Pressure 136/58 136/58 136/58 O2 Sat by Pulse 100 100 Oximetry O2 Sat by Pulse Oximetry [ Bilateral] 01/07/21 01/07/21 01/07/21 12:15 12:30 12:45 Temperature Pulse Rate 110 H 117 H 112 H Respiratory Rate Blood Pressure 145/56 146/51 151/73 O2 Sat by Pulse Oximetry O2 Sat by Pulse Oximetry [ Bilateral] Constitutional: appears uncomfortable, other (elderly obese female with mildly increased respiratory effort at rest on MVS) Eyes: non-icteric ENT: oropharynx moist, other (ETT 24 cm ERUM) Neck: supple, no lymphadenopathy, no JVD Effort: mildly labored Ascultation: Bilateral: rhonchi (scant) Percussion: Bilateral: not dull Cardiovascular: regular rate and rhythm Gastrointestinal: normoactive bowel sounds, soft, non-tender, non-distended Integumentary: normal Extremities: no cyanosis, no edema, pink and warm, pulses normal Neurologic: non-focal exam (grossly), pupils equal and round, CN II-XII normal, motor strength normal and Psychiatric: anxious CBC and BMP: 01/06/21 06:40 01/07/21 07:06 ABG, PT/INR, D-dimer: ABG ABG pH 7.345 (7.320-7.450) 01/07/21 03:22 POC ABG pCO2 32.6 mmHg (32.0-48.0) 01/07/21 03:22 ABG pCO2 19.0 mm Hg 01/05/21 13:35 POC ABG pO2 138.2 mmHg (83-108) H 01/07/21 03:22 ABG pO2 84.7 mm Hg (80.0-90.0) 01/05/21 13:35 POC ABG HCO3 17.4 01/07/21 03:22 ABG O2 Saturation 99.0 (0-100) 01/07/21 03:22 Abnormal lab findings: Abnormal Labs 01/05/21 01/05/21 01/05/21 13:35 13:44 13:44 WBC 11.6 H RBC 2.83 L Hgb 7.7 L Hct 26.1 L MCH 27 L RDW 19.2 H Plt Count Seg Neuts % (Manual) 79.0 H Lymphocytes % (Manual) 9.0 L Nucleated RBC % 2.0 H Seg Neutrophils # Man 9.2 H Lymphocytes # (Manual) 1.0 L APTT 44.4 H ABG pH 6.889 L* POC ABG pCO2 POC ABG pO2 ABG HCO3 3.5 L ABG O2 Saturation 84.1 L ABG Base Excess -27.8 L ABG Hemoglobin 9.2 L ABG Oxyhemoglobin ABG Sodium ABG Potassium ABG Chloride ABG Glucose Oxyhemoglobin 82.4 L Carboxyhemoglobin Sodium Potassium Chloride Carbon Dioxide BUN Creatinine Glucose POC Glucose Lactic Acid Calcium Phosphorus AST Ammonia Total Creatine Kinase Troponin T NT-Pro-B Natriuret Pep Total Protein Albumin LDL Cholesterol Direct PTH Intact Arterial Blood Glucose Arterial Blood Ionized Calcium Urine WBC (Auto) Urine Creatinine Crossmatch 01/05/21 01/05/21 01/05/21 13:44 13:44 13:44 WBC RBC Hgb Hct MCH RDW Plt Count Seg Neuts % (Manual) Lymphocytes % (Manual) Nucleated RBC % Seg Neutrophils # Man Lymphocytes # (Manual) APTT ABG pH POC ABG pCO2 POC ABG pO2 ABG HCO3 ABG O2 Saturation ABG Base Excess ABG Hemoglobin ABG Oxyhemoglobin ABG Sodium ABG Potassium ABG Chloride ABG Glucose Oxyhemoglobin Carboxyhemoglobin Sodium 129 L Potassium 6.2 H* Chloride 82.2 L Carbon Dioxide 4 L* BUN 67 H Creatinine 8.1 H Glucose 126 H POC Glucose Lactic Acid 20.10 H* Calcium 7.7 L Phosphorus AST 54 H Ammonia Total Creatine Kinase 484 H Troponin T 0.153 H* NT-Pro-B Natriuret Pep 41560 H Total Protein Albumin 3.2 L LDL Cholesterol Direct 8 L PTH Intact Arterial Blood Glucose Arterial Blood Ionized Calcium Urine WBC (Auto) Urine Creatinine Crossmatch 01/05/21 01/05/21 01/05/21 13:44 14:47 17:50 WBC RBC Hgb Hct MCH RDW Plt Count Seg Neuts % (Manual) Lymphocytes % (Manual) Nucleated RBC % Seg Neutrophils # Man Lymphocytes # (Manual) APTT ABG pH POC ABG pCO2 POC ABG pO2 ABG HCO3 ABG O2 Saturation ABG Base Excess ABG Hemoglobin ABG Oxyhemoglobin ABG Sodium ABG Potassium ABG Chloride ABG Glucose Oxyhemoglobin Carboxyhemoglobin Sodium Potassium Chloride Carbon Dioxide BUN Creatinine Glucose POC Glucose Lactic Acid 18.80 H* Calcium Phosphorus AST Ammonia 106.0 H Total Creatine Kinase Troponin T NT-Pro-B Natriuret Pep Total Protein Albumin LDL Cholesterol Direct PTH Intact Arterial Blood Glucose Arterial Blood Ionized Calcium Urine WBC (Auto) 38.0 H Urine Creatinine Crossmatch 01/05/21 01/05/21 01/05/21 17:50 22:34 23:05 WBC RBC Hgb Hct MCH RDW Plt Count Seg Neuts % (Manual) Lymphocytes % (Manual) Nucleated RBC % Seg Neutrophils # Man Lymphocytes # (Manual) APTT ABG pH 7.056 L POC ABG pCO2 23.6 L POC ABG pO2 277.9 H ABG HCO3 ABG O2 Saturation ABG Base Excess ABG Hemoglobin 7.6 L ABG Oxyhemoglobin 99.6 H ABG Sodium 125.0 L ABG Potassium 5.7 H ABG Chloride 94.0 L ABG Glucose 283 H Oxyhemoglobin Carboxyhemoglobin 0.1 L Sodium Potassium Chloride Carbon Dioxide BUN Creatinine Glucose POC Glucose Lactic Acid Calcium Phosphorus AST Ammonia 100.0 H Total Creatine Kinase Troponin T NT-Pro-B Natriuret Pep Total Protein Albumin LDL Cholesterol Direct PTH Intact Arterial Blood Glucose 283 H Arterial Blood Ionized Calcium 3.9 L Urine WBC (Auto) Urine Creatinine 74.4 H Crossmatch 01/05/21 01/06/21 01/06/21 23:18 05:00 06:40 WBC RBC 2.30 L Hgb 6.5 L Hct 19.1 L* D MCH RDW 18.5 H Plt Count 85 L Seg Neuts % (Manual) 76.0 H Lymphocytes % (Manual) 1.0 L Nucleated RBC % 2.0 H Seg Neutrophils # Man Lymphocytes # (Manual) 0.1 L APTT ABG pH POC ABG pCO2 POC ABG pO2 ABG HCO3 ABG O2 Saturation ABG Base Excess ABG Hemoglobin ABG Oxyhemoglobin ABG Sodium ABG Potassium ABG Chloride ABG Glucose Oxyhemoglobin Carboxyhemoglobin Sodium Potassium Chloride Carbon Dioxide BUN Creatinine Glucose POC Glucose 252 H 159 H Lactic Acid Calcium Phosphorus AST Ammonia Total Creatine Kinase Troponin T NT-Pro-B Natriuret Pep Total Protein Albumin LDL Cholesterol Direct PTH Intact Arterial Blood Glucose Arterial Blood Ionized Calcium Urine WBC (Auto) Urine Creatinine Crossmatch 01/06/21 01/06/21 01/06/21 06:40 06:40 06:40 WBC RBC Hgb Hct MCH RDW Plt Count Seg Neuts % (Manual) Lymphocytes % (Manual) Nucleated RBC % Seg Neutrophils # Man Lymphocytes # (Manual) APTT ABG pH POC ABG pCO2 POC ABG pO2 ABG HCO3 ABG O2 Saturation ABG Base Excess ABG Hemoglobin ABG Oxyhemoglobin ABG Sodium ABG Potassium ABG Chloride ABG Glucose Oxyhemoglobin Carboxyhemoglobin Sodium 135 L Potassium Chloride 87.4 L Carbon Dioxide 14 L D BUN 36 H Creatinine 4.3 H Glucose 167 H POC Glucose Lactic Acid 13.60 H* Calcium 6.5 L D Phosphorus AST 122 H Ammonia Total Creatine Kinase Troponin T NT-Pro-B Natriuret Pep Total Protein 5.4 L D Albumin 2.5 L LDL Cholesterol Direct PTH Intact 209.3 H Arterial Blood Glucose Arterial Blood Ionized Calcium Urine WBC (Auto) Urine Creatinine Crossmatch 01/06/21 01/06/21 01/06/21 09:04 12:43 17:27 WBC RBC Hgb Hct MCH RDW Plt Count Seg Neuts % (Manual) Lymphocytes % (Manual) Nucleated RBC % Seg Neutrophils # Man Lymphocytes # (Manual) APTT ABG pH POC ABG pCO2 20.9 L POC ABG pO2 162.3 H ABG HCO3 ABG O2 Saturation ABG Base Excess ABG Hemoglobin 6.0 L ABG Oxyhemoglobin 98.2 H ABG Sodium 131.2 L ABG Potassium ABG Chloride 95.0 L ABG Glucose 175 H Oxyhemoglobin Carboxyhemoglobin Sodium Potassium Chloride Carbon Dioxide BUN Creatinine Glucose POC Glucose 151 H 151 H Lactic Acid Calcium Phosphorus AST Ammonia Total Creatine Kinase Troponin T NT-Pro-B Natriuret Pep Total Protein Albumin LDL Cholesterol Direct PTH Intact Arterial Blood Glucose 175 H Arterial Blood Ionized Calcium 3.3 L Urine WBC (Auto) Urine Creatinine Crossmatch 01/06/21 01/07/21 01/07/21 23:04 03:22 05:49 WBC RBC Hgb Hct MCH RDW Plt Count Seg Neuts % (Manual) Lymphocytes % (Manual) Nucleated RBC % Seg Neutrophils # Man Lymphocytes # (Manual) APTT ABG pH POC ABG pCO2 POC ABG pO2 138.2 H ABG HCO3 ABG O2 Saturation ABG Base Excess ABG Hemoglobin 5.7 L ABG Oxyhemoglobin ABG Sodium 129.7 L ABG Potassium ABG Chloride 89.0 L ABG Glucose 146 H Oxyhemoglobin Carboxyhemoglobin Sodium Potassium Chloride Carbon Dioxide BUN Creatinine Glucose POC Glucose 139 H 137 H Lactic Acid Calcium Phosphorus AST Ammonia Total Creatine Kinase Troponin T NT-Pro-B Natriuret Pep Total Protein Albumin LDL Cholesterol Direct PTH Intact Arterial Blood Glucose 146 H Arterial Blood Ionized Calcium 2.9 L Urine WBC (Auto) Urine Creatinine Crossmatch 01/07/21 01/07/21 01/07/21 07:06 07:06 07:06 WBC RBC Hgb Hct MCH RDW Plt Count Seg Neuts % (Manual) Lymphocytes % (Manual) Nucleated RBC % Seg Neutrophils # Man Lymphocytes # (Manual) APTT ABG pH POC ABG pCO2 POC ABG pO2 ABG HCO3 ABG O2 Saturation ABG Base Excess ABG Hemoglobin ABG Oxyhemoglobin ABG Sodium ABG Potassium ABG Chloride ABG Glucose Oxyhemoglobin Carboxyhemoglobin Sodium Potassium Chloride 85.2 L Carbon Dioxide 21 L D BUN 48 H Creatinine 5.0 H Glucose 142 H POC Glucose Lactic Acid 13.90 H* Calcium 5.7 L* Phosphorus 4.60 H AST Ammonia Total Creatine Kinase Troponin T NT-Pro-B Natriuret Pep Total Protein Albumin LDL Cholesterol Direct PTH Intact Arterial Blood Glucose Arterial Blood Ionized Calcium Urine WBC (Auto) Urine Creatinine Crossmatch See Detail 01/07/21 01/07/21 08:35 11:33 WBC RBC Hgb Hct MCH RDW Plt Count Seg Neuts % (Manual) Lymphocytes % (Manual) Nucleated RBC % Seg Neutrophils # Man Lymphocytes # (Manual) APTT ABG pH POC ABG pCO2 POC ABG pO2 ABG HCO3 ABG O2 Saturation ABG Base Excess ABG Hemoglobin ABG Oxyhemoglobin ABG Sodium ABG Potassium ABG Chloride ABG Glucose Oxyhemoglobin Carboxyhemoglobin Sodium Potassium Chloride Carbon Dioxide BUN Creatinine Glucose POC Glucose 149 H Lactic Acid 14.20 H* Calcium Phosphorus AST Ammonia Total Creatine Kinase Troponin T NT-Pro-B Natriuret Pep Total Protein Albumin LDL Cholesterol Direct PTH Intact Arterial Blood Glucose Arterial Blood Ionized Calcium Urine WBC (Auto) Urine Creatinine Crossmatch Chest x-ray: image reviewed (no acute infiltrate) Allied health notes reviewed: nursing
[2021-01-07] MEDS ORDERED: ONDANSETRON 4 MG/2 ML INJ ONE (13:22)
[2021-01-07] MEDS ORDERED: ONDANSETRON 4 MG/2 ML INJ IV PRN (13:23)
[2021-01-07] MEDS: FLUCONAZOLE 200 MG 200 MG/100 ML BAG IV SCH (14:49)
--- NOTE | 2021-01-07 16:03 | Progress Note ---
Assessment and Plan Cultures: Blood culture 01/05/2021 no growth so far. A/P: 70-year-old female past medical history multiple myeloma currently on chemo, diabetes, obesity admitted with hypoxic respiratory failure. #Acute hypoxic respiratory failure: unclear etiology, only pleural effusion and atelectasis on the left. #Pyuria: unclear if symptoms previous to admission. epithelial cells on UA, however continue antibiotics in the meantime. #Multiple myeloma on chemotherapy: immunocompromised host. #MORGAN: now requiring HD. Renally dose medications Recs: -Follow up culture data -Continue renally dosed cefepime for now. -Given MORGAN hold off on vanco while blood cultures are pending -Fluconazole 200 mg daily for possible fungal rash on sacrum Thank you for the consult, we will continue to follow. Kesha Davis MD [facility] ([facility] O: [phone] F: [phone] Subjective Date of service: 01/07/21 Principal diagnosis: Ac hypoxemic resp failure; MORGAN; Septic Shock; CAP; Multiple myeloma; NSTEMI Interval history: Afebrile, remains tachycardic. Cultures remain negative so far. Imaging personally viewed: Chest x-ray: Unchanged, probable atelectasis the left lung base. Remains on the vent. Objective - Exam Narrative Exam: Physical Exam: Constitutional: intubated, sedated Head, Ears, Nose: Normocephalic, atraumatic. Eyes: Conjunctivae/corneas clear. No icterus. No ptosis. Neck: ETT Oral: ETT Cardiovascular: S1, S2 normal. Respiratory: Good air entry, clear to auscultation bilaterally GI: Soft, non-tender; bowel sounds normal. No peritoneal signs. Musculoskeletal: noted sacral wound/erosions on images, patient not turned for exam. Skin: No rash or abscess Hem/Lymphatic: No palpable cervical or supraclavicular nodes. No lymphangitis Psych: Mood ok. Affect normal Neurological: intubated, sedated - Constitutional Vitals: Vital Signs Temp Pulse Resp BP Pulse Ox 97.8 F 114 H 14 145/58 97 01/07/21 14:20 01/07/21 15:30 01/07/21 15:30 01/07/21 15:30 01/07/21 15:30 Temperature -Last 24 Hours Temperature 97.8 F Temperature 97.8 F Temperature 97.8 F Temperature 97.8 F Temperature 98.4 F Temperature 98.6 F Temperature 98.7 F Temperature 98.7 F - Labs CBC & Chem 7: 01/06/21 06:40 01/07/21 07:06 Labs: Abnormal lab results 01/06/21 01/06/21 01/07/21 Range/Units 17:27 23:04 03:22 POC ABG pO2 138.2 H (83-108) mmHg ABG Hemoglobin 5.7 L (12.0-17.5) ABG Sodium 129.7 L (136.0-145.0) mmol/L ABG Chloride 89.0 L (98-107) mmol/L ABG Glucose 146 H (65-95) mg/dL Chloride (98-107) mmol/L Carbon Dioxide (22-30) mmol/L BUN (7-17) mg/dL Creatinine (0.6-1.2) mg/dL Glucose (65-100) mg/dL POC Glucose 151 H 139 H (70-105) mg/dL Lactic Acid (0.7-2.0) mmol/L Calcium (8.4-10.2) mg/dL Phosphorus (2.5-4.5) mg/dL Arterial Blood Glucose 146 H (65-95) mg/dL Arterial Blood Ionized Calcium 2.9 L (4.6-5.3) mg/dL Crossmatch 01/07/21 01/07/21 01/07/21 Range/Units 05:49 07:06 07:06 POC ABG pO2 (83-108) mmHg ABG Hemoglobin (12.0-17.5) ABG Sodium (136.0-145.0) mmol/L ABG Chloride (98-107) mmol/L ABG Glucose (65-95) mg/dL Chloride 85.2 L (98-107) mmol/L Carbon Dioxide 21 L D (22-30) mmol/L BUN 48 H (7-17) mg/dL Creatinine 5.0 H (0.6-1.2) mg/dL Glucose 142 H (65-100) mg/dL POC Glucose 137 H (70-105) mg/dL Lactic Acid (0.7-2.0) mmol/L Calcium 5.7 L* (8.4-10.2) mg/dL Phosphorus 4.60 H (2.5-4.5) mg/dL Arterial Blood Glucose (65-95) mg/dL Arterial Blood Ionized Calcium (4.6-5.3) mg/dL Crossmatch See Detail 01/07/21 01/07/21 01/07/21 Range/Units 07:06 08:35 11:33 POC ABG pO2 (83-108) mmHg ABG Hemoglobin (12.0-17.5) ABG Sodium (136.0-145.0) mmol/L ABG Chloride (98-107) mmol/L ABG Glucose (65-95) mg/dL Chloride (98-107) mmol/L Carbon Dioxide (22-30) mmol/L BUN (7-17) mg/dL Creatinine (0.6-1.2) mg/dL Glucose (65-100) mg/dL POC Glucose 149 H (70-105) mg/dL Lactic Acid 13.90 H* 14.20 H* (0.7-2.0) mmol/L Calcium (8.4-10.2) mg/dL Phosphorus (2.5-4.5) mg/dL Arterial Blood Glucose (65-95) mg/dL Arterial Blood Ionized Calcium (4.6-5.3) mg/dL Crossmatch
[2021-01-08] MEDS: fentaNYL DRIP Premix 2,000 MCG/100 ML BAG IV SCH (03:32)
[2021-01-08] MEDS: SODIUM BICARBONATE 150 MEQ in DEXTROSE 5% IN WATER 1,000 ML IV SCH (04:52)
[2021-01-08] MEDS: INSULIN LISPRO 100 UNIT/ML SUB-Q SCH ×4 (05:39→23:58)
--- NOTE | 2021-01-08 06:31 | XRay Report ---
XR chest 1V ap INDICATION / CLINICAL INFORMATION: follow up respiratory failure. COMPARISON: Radiograph from yesterday. FINDINGS: SUPPORT DEVICES: Unchanged. HEART / MEDIASTINUM: Unchanged. LUNGS / PLEURA: Left basilar subsegmental atelectasis is unchanged. Low lung lines. Lung parenchyma i s not significantly changed. No pneumothorax. No definite effusions. ADDITIONAL FINDINGS: No significant additional findings. IMPRESSION: 1. No significant interval change. Signer Name: Everton Briggs MD Signed: 01/08/2021 5:20 AM Workstation Name: [id number]
[2021-01-08 06:34] LABS: Hematocrit 21.7 % (30.3-42.9); Hemoglobin 7.3 gm/dl (10.1-14.3); Mean Corpuscular HGB Conc 34 % (30-34); Mean Corpuscular Volume 83 fl (79-97); Platelet Count 46 K/mm3 (140-440); Red Blood Count 2.57 M/mm3 (3.65-5.03); Red Cell Distribution Width 17.9 % (13.2-15.2)
[2021-01-08 06:52] LABS: Calcium 7.8 mg/dL (8.4-10.2)
[2021-01-08 07:36] LABS: Anisocytosis 1+; Band Neutrophils # (Manual) 0.6 K/mm3; Burr Cells 1+; Ovalocytes 1+; Platelet Estimate Consistent w Auto; Tear Drop Cells Few; Total Cells Counted 100
--- NOTE | 2021-01-08 08:35 | Progress Note ---
Assessment and Plan Acute hypoxemic respiratory failure on MVS Acute kidney injury on HD Severe sepsis with shock Community-acquired pneumonia Multiple myeloma Severe metabolic acidosis Lactic acidosis Hyponatremia Non-ST elevation myocardial infarction Anemia that is normocytic Hyperkalemia Oropharyngeal dysphagia Possible urinary tract infection -Titrate supplemental oxygen for SpO2 89-92% - continue Daily SAT and SBT assessment as tolerated -Will decrease PS to 6, if she tolerates it then get weaning parameters with a goal to liberate from MVS -Hold enteric nutritional support, currently running via OGT -Discussed extensively with the renal service re a session of UF today to help optimize chances of liberation from MVS - VAP bundle addressed, aspiration precautions HOB >30 - continue lung protective strategies - continue bronchodilators with pulmonary hygiene per RT - avoid nephrotoxins, renally dose all medications - continue to avoid benzodiazepines, reduce the possibility of delirium - complete empiric antibiotics per ID - continue accuchecks with glycemic control per SSI (While critically ill target blood glucose of 140-180 mg/dL; avoid hypoglycemia) - Maintenance of sleep-wake cycle, avoid delirium - Continue with stress ulcer and VTE prophylaxis - PT/OT/ROM exercises - continue mobility , off loading and frequent turning per facility protocol to avoid pressure ulcers - continue to monitor hemodynamics closely CONDITION: CRITICAL PROGNOSIS: GUARDED CODE STATUS: FULL CODE The high probability of a clinically significant, sudden or life-threatening deterioration of the [respiratory, cardiovascular, renal and neurologic] system(s) required my full and direct attention, intervention and personal management. The aggregate critical care time was [35] minutes without overlap. Time includes spent on; [x] Data Review and interpretation [x] Patient assessment and monitoring of vital signs [x] Documentation [x] Medication orders and management Subjective Date of service: 01/08/21 Principal diagnosis: Ac hypoxemic resp failure; MORGAN; Septic Shock; CAP; Multiple myeloma; NSTEMI Interval history: Patient is seen today for: Acute hypoxemic respiratory failure; MORGAN; Septic Shock; CAP; Multiple myeloma; NSTEMI Seen and examined at bedside; 24hour events reviewed; nursing and respiratory care staff consulted; no adverse overnight events reported to me; resting peace fully in bed;tolerating SBT with PSV 10; awake and alert; no emesis or overt aspiration; remains off vasopressors No diarrhea, no fevers, no vomiting Objective Vital Signs - 12hr 01/07/21 01/07/21 01/07/21 20:40 20:50 21:00 Temperature Pulse Rate 108 H 112 H 107 H Respiratory 13 16 15 Rate Respiratory Rate [ Generalized] Blood Pressure 170/60 145/70 149/67 O2 Sat by Pulse 100 99 99 Oximetry 01/07/21 01/07/21 01/07/21 21:05 21:10 21:20 Temperature Pulse Rate 110 H 108 H Respiratory 16 17 15 Rate Respiratory Rate [ Generalized] Blood Pressure 149/67 146/73 O2 Sat by Pulse 99 99 98 Oximetry 01/07/21 01/07/21 01/07/21 21:30 21:40 21:50 Temperature Pulse Rate 100 H 101 H 99 H Respiratory 14 14 15 Rate Respiratory Rate [ Generalized] Blood Pressure 148/65 148/65 142/72 O2 Sat by Pulse 98 99 98 Oximetry 01/07/21 01/07/21 01/07/21 22:00 22:10 22:20 Temperature Pulse Rate 106 H 104 H 104 H Respiratory 16 13 13 Rate Respiratory Rate [ Generalized] Blood Pressure 149/62 149/62 153/59 O2 Sat by Pulse 93 98 97 Oximetry 01/07/21 01/07/21 01/07/21 22:30 22:40 22:50 Temperature Pulse Rate 102 H 103 H 100 H Respiratory 13 17 10 L Rate Respiratory Rate [ Generalized] Blood Pressure 129/53 129/53 120/55 O2 Sat by Pulse 96 99 99 Oximetry 01/07/21 01/07/21 01/07/21 23:00 23:10 23:20 Temperature Pulse Rate 101 H 105 H 85 Respiratory 16 17 16 Rate Respiratory 16 Rate [ Generalized] Blood Pressure 126/57 126/57 116/53 O2 Sat by Pulse 98 99 99 Oximetry 01/07/21 01/07/21 01/07/21 23:30 23:40 23:48 Temperature 99.9 F H Pulse Rate 98 H 97 H Respiratory 12 11 L Rate Respiratory Rate [ Generalized] Blood Pressure 123/57 123/57 O2 Sat by Pulse 98 99 Oximetry 01/07/21 01/08/21 01/08/21 23:50 00:00 00:02 Temperature Pulse Rate 98 H 93 H 92 H Respiratory 14 12 14 Rate Respiratory Rate [ Generalized] Blood Pressure 141/57 107/52 107/52 O2 Sat by Pulse 97 97 98 Oximetry 01/08/21 01/08/21 01/08/21 00:09 00:10 00:20 Temperature Pulse Rate 94 H 92 H 90 Respiratory 12 13 Rate Respiratory Rate [ Generalized] Blood Pressure 141/57 107/52 103/46 O2 Sat by Pulse 98 98 98 Oximetry 01/08/21 01/08/21 01/08/21 00:30 00:40 00:50 Temperature Pulse Rate 87 86 85 Respiratory 12 12 12 Rate Respiratory Rate [ Generalized] Blood Pressure O2 Sat by Pulse 97 96 100 Oximetry 01/08/21 01/08/21 01/08/21 01:00 01:05 01:10 Temperature Pulse Rate 86 86 87 Respiratory 12 16 12 Rate Respiratory Rate [ Generalized] Blood Pressure 84/42 89/61 O2 Sat by Pulse 98 99 98 Oximetry 01/08/21 01/08/21 01/08/21 01:20 01:30 01:40 Temperature Pulse Rate 85 83 85 Respiratory 12 12 12 Rate Respiratory Rate [ Generalized] Blood Pressure 89/61 82/40 82/40 O2 Sat by Pulse 96 99 99 Oximetry 01/08/21 01/08/21 01/08/21 01:50 02:00 02:10 Temperature Pulse Rate 86 86 87 Respiratory 12 12 13 Rate Respiratory Rate [ Generalized] Blood Pressure 82/40 84/45 84/45 O2 Sat by Pulse 100 99 Oximetry 01/08/21 01/08/21 01/08/21 02:20 02:30 02:40 Temperature Pulse Rate 90 101 H 107 H Respiratory 15 17 18 Rate Respiratory Rate [ Generalized] Blood Pressure 84/45 135/72 135/72 O2 Sat by Pulse 99 98 100 Oximetry 01/08/21 01/08/21 01/08/21 02:50 03:00 03:10 Temperature Pulse Rate 106 H 112 H 106 H Respiratory 17 18 11 L Rate Respiratory Rate [ Generalized] Blood Pressure 135/72 122/71 122/71 O2 Sat by Pulse 99 98 99 Oximetry 01/08/21 01/08/21 01/08/21 03:20 03:30 03:32 Temperature Pulse Rate 113 H 114 H 116 H Respiratory 17 23 16 Rate Respiratory Rate [ Generalized] Blood Pressure 122/71 122/71 O2 Sat by Pulse 99 98 99 Oximetry 01/08/21 01/08/21 01/08/21 03:40 03:50 04:00 Temperature 99.2 F Pulse Rate 113 H 115 H 112 H Respiratory 19 17 14 Rate Respiratory Rate [ Generalized] Blood Pressure 112/73 112/73 112/73 O2 Sat by Pulse 99 99 99 Oximetry 01/08/21 01/08/21 01/08/21 04:10 04:20 04:30 Temperature Pulse Rate 116 H 115 H 107 H Respiratory 12 14 14 Rate Respiratory Rate [ Generalized] Blood Pressure 104/77 104/77 O2 Sat by Pulse 97 97 96 Oximetry 01/08/21 01/08/21 01/08/21 04:40 04:50 05:00 Temperature Pulse Rate 114 H 106 H 109 H Respiratory 16 13 13 Rate Respiratory Rate [ Generalized] Blood Pressure 137/68 137/68 137/68 O2 Sat by Pulse 100 98 97 Oximetry 01/08/21 01/08/21 01/08/21 05:10 05:19 05:20 Temperature Pulse Rate 107 H 109 H Respiratory 13 16 13 Rate Respiratory Rate [ Generalized] Blood Pressure 136/63 136/63 O2 Sat by Pulse 99 99 99 Oximetry 01/08/21 01/08/21 01/08/21 05:30 05:40 05:50 Temperature Pulse Rate 107 H 111 H 103 H Respiratory 16 17 13 Rate Respiratory Rate [ Generalized] Blood Pressure 134/103 134/103 134/103 O2 Sat by Pulse 97 99 99 Oximetry 01/08/21 01/08/21 01/08/21 06:00 06:10 06:15 Temperature Pulse Rate 106 H 107 H 110 H Respiratory 9 L 16 Rate Respiratory Rate [ Generalized] Blood Pressure 136/73 136/73 136/73 O2 Sat by Pulse 98 99 99 Oximetry 01/08/21 01/08/21 01/08/21 06:20 06:30 06:40 Temperature Pulse Rate 111 H 105 H 107 H Respiratory 14 21 11 L Rate Respiratory Rate [ Generalized] Blood Pressure 136/73 148/60 148/60 O2 Sat by Pulse 97 98 99 Oximetry 01/08/21 01/08/21 01/08/21 06:50 07:00 07:10 Temperature Pulse Rate 107 H 107 H 110 H Respiratory 15 14 19 Rate Respiratory Rate [ Generalized] Blood Pressure 148/60 141/58 141/58 O2 Sat by Pulse 99 99 99 Oximetry 01/08/21 01/08/21 01/08/21 07:20 07:30 07:40 Temperature Pulse Rate 110 H 106 H 107 H Respiratory 11 L 11 L 15 Rate Respiratory Rate [ Generalized] Blood Pressure 141/58 133/57 133/57 O2 Sat by Pulse 99 97 99 Oximetry 01/08/21 01/08/21 01/08/21 07:50 08:00 08:10 Temperature Pulse Rate 105 H 106 H 100 H Respiratory 15 13 12 Rate Respiratory Rate [ Generalized] Blood Pressure 133/57 158/74 158/74 O2 Sat by Pulse 99 99 98 Oximetry 01/08/21 01/08/21 08:20 08:30 Temperature 99.6 F Pulse Rate 103 H Respiratory 14 Rate Respiratory Rate [ Generalized] Blood Pressure 158/74 O2 Sat by Pulse 100 Oximetry Constitutional: appears uncomfortable, other (elderly obese female with normal respiratory effort at rest on MVS) Eyes: non-icteric ENT: oropharynx moist, other (ETT 24 cm ERUM) Neck: supple, no lymphadenopathy, no JVD Effort: normal Ascultation: Bilateral: rhonchi (scant) Percussion: Bilateral: not dull Cardiovascular: regular rate and rhythm, other (S1,S2) Gastrointestinal: normoactive bowel sounds, soft, non-tender, non-distended Integumentary: normal Extremities: no cyanosis, no edema, pink and warm, pulses normal Neurologic: non-focal exam (grossly), pupils equal and round, CN II-XII normal, motor strength normal and Psychiatric: mood appropriate, affect normal CBC and BMP: 01/09/21 04:27 01/09/21 04:27 ABG, PT/INR, D-dimer: ABG ABG pH 7.482 (7.320-7.450) H 01/07/21 21:00 POC ABG pCO2 33.4 mmHg (32.0-48.0) 01/07/21 21:00 ABG pCO2 19.0 mm Hg 01/05/21 13:35 POC ABG pO2 108.1 mmHg (83-108) H 01/07/21 21:00 ABG pO2 84.7 mm Hg (80.0-90.0) 01/05/21 13:35 POC ABG HCO3 24.4 01/07/21 21:00 ABG O2 Saturation 98.1 (0-100) 01/07/21 21:00 Abnormal lab findings: Abnormal Labs 01/05/21 01/05/21 01/05/21 13:35 13:44 13:44 WBC 11.6 H RBC 2.83 L Hgb 7.7 L Hct 26.1 L MCH 27 L RDW 19.2 H Plt Count Seg Neuts % (Manual) 79.0 H Lymphocytes % (Manual) 9.0 L Nucleated RBC % 2.0 H Seg Neutrophils # Man 9.2 H Lymphocytes # (Manual) 1.0 L APTT 44.4 H ABG pH 6.889 L* POC ABG pCO2 POC ABG pO2 ABG HCO3 3.5 L ABG O2 Saturation 84.1 L ABG Base Excess -27.8 L ABG Hemoglobin 9.2 L ABG Oxyhemoglobin ABG Sodium ABG Potassium ABG Chloride ABG Glucose Oxyhemoglobin 82.4 L Carboxyhemoglobin Sodium Potassium Chloride Carbon Dioxide BUN Creatinine Glucose POC Glucose Lactic Acid Calcium Phosphorus AST Ammonia Total Creatine Kinase Troponin T NT-Pro-B Natriuret Pep Total Protein Albumin LDL Cholesterol Direct PTH Intact Arterial Blood Glucose Arterial Blood Ionized Calcium Urine WBC (Auto) Urine Creatinine Crossmatch 01/05/21 01/05/21 01/05/21 13:44 13:44 13:44 WBC RBC Hgb Hct MCH RDW Plt Count Seg Neuts % (Manual) Lymphocytes % (Manual) Nucleated RBC % Seg Neutrophils # Man Lymphocytes # (Manual) APTT ABG pH POC ABG pCO2 POC ABG pO2 ABG HCO3 ABG O2 Saturation ABG Base Excess ABG Hemoglobin ABG Oxyhemoglobin ABG Sodium ABG Potassium ABG Chloride ABG Glucose Oxyhemoglobin Carboxyhemoglobin Sodium 129 L Potassium 6.2 H* Chloride 82.2 L Carbon Dioxide 4 L* BUN 67 H Creatinine 8.1 H Glucose 126 H POC Glucose Lactic Acid 20.10 H* Calcium 7.7 L Phosphorus AST 54 H Ammonia Total Creatine Kinase 484 H Troponin T 0.153 H* NT-Pro-B Natriuret Pep 12840 H Total Protein Albumin 3.2 L LDL Cholesterol Direct 8 L PTH Intact Arterial Blood Glucose Arterial Blood Ionized Calcium Urine WBC (Auto) Urine Creatinine Crossmatch 01/05/21 01/05/21 01/05/21 13:44 14:47 17:50 WBC RBC Hgb Hct MCH RDW Plt Count Seg Neuts % (Manual) Lymphocytes % (Manual) Nucleated RBC % Seg Neutrophils # Man Lymphocytes # (Manual) APTT ABG pH POC ABG pCO2 POC ABG pO2 ABG HCO3 ABG O2 Saturation ABG Base Excess ABG Hemoglobin ABG Oxyhemoglobin ABG Sodium ABG Potassium ABG Chloride ABG Glucose Oxyhemoglobin Carboxyhemoglobin Sodium Potassium Chloride Carbon Dioxide BUN Creatinine Glucose POC Glucose Lactic Acid 18.80 H* Calcium Phosphorus AST Ammonia 106.0 H Total Creatine Kinase Troponin T NT-Pro-B Natriuret Pep Total Protein Albumin LDL Cholesterol Direct PTH Intact Arterial Blood Glucose Arterial Blood Ionized Calcium Urine WBC (Auto) 38.0 H Urine Creatinine Crossmatch 01/05/21 01/05/21 01/05/21 17:50 22:34 23:05 WBC RBC Hgb Hct MCH RDW Plt Count Seg Neuts % (Manual) Lymphocytes % (Manual) Nucleated RBC % Seg Neutrophils # Man Lymphocytes # (Manual) APTT ABG pH 7.056 L POC ABG pCO2 23.6 L POC ABG pO2 277.9 H ABG HCO3 ABG O2 Saturation ABG Base Excess ABG Hemoglobin 7.6 L ABG Oxyhemoglobin 99.6 H ABG Sodium 125.0 L ABG Potassium 5.7 H ABG Chloride 94.0 L ABG Glucose 283 H Oxyhemoglobin Carboxyhemoglobin 0.1 L Sodium Potassium Chloride Carbon Dioxide BUN Creatinine Glucose POC Glucose Lactic Acid Calcium Phosphorus AST Ammonia 100.0 H Total Creatine Kinase Troponin T NT-Pro-B Natriuret Pep Total Protein Albumin LDL Cholesterol Direct PTH Intact Arterial Blood Glucose 283 H Arterial Blood Ionized Calcium 3.9 L Urine WBC (Auto) Urine Creatinine 74.4 H Crossmatch 01/05/21 01/06/21 01/06/21 23:18 05:00 06:40 WBC RBC 2.30 L Hgb 6.5 L Hct 19.1 L* D MCH RDW 18.5 H Plt Count 85 L Seg Neuts % (Manual) 76.0 H Lymphocytes % (Manual) 1.0 L Nucleated RBC % 2.0 H Seg Neutrophils # Man Lymphocytes # (Manual) 0.1 L APTT ABG pH POC ABG pCO2 POC ABG pO2 ABG HCO3 ABG O2 Saturation ABG Base Excess ABG Hemoglobin ABG Oxyhemoglobin ABG Sodium ABG Potassium ABG Chloride ABG Glucose Oxyhemoglobin Carboxyhemoglobin Sodium Potassium Chloride Carbon Dioxide BUN Creatinine Glucose POC Glucose 252 H 159 H Lactic Acid Calcium Phosphorus AST Ammonia Total Creatine Kinase Troponin T NT-Pro-B Natriuret Pep Total Protein Albumin LDL Cholesterol Direct PTH Intact Arterial Blood Glucose Arterial Blood Ionized Calcium Urine WBC (Auto) Urine Creatinine Crossmatch 01/06/21 01/06/21 01/06/21 06:40 06:40 06:40 WBC RBC Hgb Hct MCH RDW Plt Count Seg Neuts % (Manual) Lymphocytes % (Manual) Nucleated RBC % Seg Neutrophils # Man Lymphocytes # (Manual) APTT ABG pH POC ABG pCO2 POC ABG pO2 ABG HCO3 ABG O2 Saturation ABG Base Excess ABG Hemoglobin ABG Oxyhemoglobin ABG Sodium ABG Potassium ABG Chloride ABG Glucose Oxyhemoglobin Carboxyhemoglobin Sodium 135 L Potassium Chloride 87.4 L Carbon Dioxide 14 L D BUN 36 H Creatinine 4.3 H Glucose 167 H POC Glucose Lactic Acid 13.60 H* Calcium 6.5 L D Phosphorus AST 122 H Ammonia Total Creatine Kinase Troponin T NT-Pro-B Natriuret Pep Total Protein 5.4 L D Albumin 2.5 L LDL Cholesterol Direct PTH Intact 209.3 H Arterial Blood Glucose Arterial Blood Ionized Calcium Urine WBC (Auto) Urine Creatinine Crossmatch 01/06/21 01/06/21 01/06/21 09:04 12:43 17:27 WBC RBC Hgb Hct MCH RDW Plt Count Seg Neuts % (Manual) Lymphocytes % (Manual) Nucleated RBC % Seg Neutrophils # Man Lymphocytes # (Manual) APTT ABG pH POC ABG pCO2 20.9 L POC ABG pO2 162.3 H ABG HCO3 ABG O2 Saturation ABG Base Excess ABG Hemoglobin 6.0 L ABG Oxyhemoglobin 98.2 H ABG Sodium 131.2 L ABG Potassium ABG Chloride 95.0 L ABG Glucose 175 H Oxyhemoglobin Carboxyhemoglobin Sodium Potassium Chloride Carbon Dioxide BUN Creatinine Glucose POC Glucose 151 H 151 H Lactic Acid Calcium Phosphorus AST Ammonia Total Creatine Kinase Troponin T NT-Pro-B Natriuret Pep Total Protein Albumin LDL Cholesterol Direct PTH Intact Arterial Blood Glucose 175 H Arterial Blood Ionized Calcium 3.3 L Urine WBC (Auto) Urine Creatinine Crossmatch 01/06/21 01/07/21 01/07/21 23:04 03:22 05:49 WBC RBC Hgb Hct MCH RDW Plt Count Seg Neuts % (Manual) Lymphocytes % (Manual) Nucleated RBC % Seg Neutrophils # Man Lymphocytes # (Manual) APTT ABG pH POC ABG pCO2 POC ABG pO2 138.2 H ABG HCO3 ABG O2 Saturation ABG Base Excess ABG Hemoglobin 5.7 L ABG Oxyhemoglobin ABG Sodium 129.7 L ABG Potassium ABG Chloride 89.0 L ABG Glucose 146 H Oxyhemoglobin Carboxyhemoglobin Sodium Potassium Chloride Carbon Dioxide BUN Creatinine Glucose POC Glucose 139 H 137 H Lactic Acid Calcium Phosphorus AST Ammonia Total Creatine Kinase Troponin T NT-Pro-B Natriuret Pep Total Protein Albumin LDL Cholesterol Direct PTH Intact Arterial Blood Glucose 146 H Arterial Blood Ionized Calcium 2.9 L Urine WBC (Auto) Urine Creatinine Crossmatch 01/07/21 01/07/21 01/07/21 07:06 07:06 07:06 WBC RBC Hgb Hct MCH RDW Plt Count Seg Neuts % (Manual) Lymphocytes % (Manual) Nucleated RBC % Seg Neutrophils # Man Lymphocytes # (Manual) APTT ABG pH POC ABG pCO2 POC ABG pO2 ABG HCO3 ABG O2 Saturation ABG Base Excess ABG Hemoglobin ABG Oxyhemoglobin ABG Sodium ABG Potassium ABG Chloride ABG Glucose Oxyhemoglobin Carboxyhemoglobin Sodium Potassium Chloride 85.2 L Carbon Dioxide 21 L D BUN 48 H Creatinine 5.0 H Glucose 142 H POC Glucose Lactic Acid 13.90 H* Calcium 5.7 L* Phosphorus 4.60 H AST Ammonia Total Creatine Kinase Troponin T NT-Pro-B Natriuret Pep Total Protein Albumin LDL Cholesterol Direct PTH Intact Arterial Blood Glucose Arterial Blood Ionized Calcium Urine WBC (Auto) Urine Creatinine Crossmatch See Detail 01/07/21 01/07/21 01/07/21 08:35 11:33 21:00 WBC RBC Hgb Hct MCH RDW Plt Count Seg Neuts % (Manual) Lymphocytes % (Manual) Nucleated RBC % Seg Neutrophils # Man Lymphocytes # (Manual) APTT ABG pH 7.482 H POC ABG pCO2 POC ABG pO2 108.1 H ABG HCO3 ABG O2 Saturation ABG Base Excess ABG Hemoglobin 7.2 L ABG Oxyhemoglobin ABG Sodium 128.1 L ABG Potassium 3.2 L ABG Chloride 95.0 L ABG Glucose 185 H Oxyhemoglobin Carboxyhemoglobin Sodium Potassium Chloride Carbon Dioxide BUN Creatinine Glucose POC Glucose 149 H Lactic Acid 14.20 H* Calcium Phosphorus AST Ammonia Total Creatine Kinase Troponin T NT-Pro-B Natriuret Pep Total Protein Albumin LDL Cholesterol Direct PTH Intact Arterial Blood Glucose 185 H Arterial Blood Ionized Calcium 4.2 L Urine WBC (Auto) Urine Creatinine Crossmatch 01/07/21 01/08/21 01/08/21 23:09 02:47 05:29 WBC RBC Hgb Hct MCH RDW Plt Count Seg Neuts % (Manual) Lymphocytes % (Manual) Nucleated RBC % Seg Neutrophils # Man Lymphocytes # (Manual) APTT ABG pH POC ABG pCO2 POC ABG pO2 ABG HCO3 ABG O2 Saturation ABG Base Excess ABG Hemoglobin ABG Oxyhemoglobin ABG Sodium ABG Potassium ABG Chloride ABG Glucose Oxyhemoglobin Carboxyhemoglobin Sodium Potassium Chloride Carbon Dioxide BUN Creatinine Glucose POC Glucose 179 H 121 H 154 H Lactic Acid Calcium Phosphorus AST Ammonia Total Creatine Kinase Troponin T NT-Pro-B Natriuret Pep Total Protein Albumin LDL Cholesterol Direct PTH Intact Arterial Blood Glucose Arterial Blood Ionized Calcium Urine WBC (Auto) Urine Creatinine Crossmatch 01/08/21 01/08/21 05:56 05:56 WBC 4.0 L RBC 2.57 L Hgb 7.3 L Hct 21.7 L MCH RDW 17.9 H Plt Count 46 L Seg Neuts % (Manual) 74.0 H Lymphocytes % (Manual) 1.0 L Nucleated RBC % Seg Neutrophils # Man Lymphocytes # (Manual) 0.0 L APTT ABG pH POC ABG pCO2 POC ABG pO2 ABG HCO3 ABG O2 Saturation ABG Base Excess ABG Hemoglobin ABG Oxyhemoglobin ABG Sodium ABG Potassium ABG Chloride ABG Glucose Oxyhemoglobin Carboxyhemoglobin Sodium Potassium 3.2 L Chloride 93.4 L Carbon Dioxide BUN 32 H Creatinine 3.2 H Glucose 154 H POC Glucose Lactic Acid Calcium 7.8 L D Phosphorus AST Ammonia Total Creatine Kinase Troponin T NT-Pro-B Natriuret Pep Total Protein Albumin LDL Cholesterol Direct PTH Intact Arterial Blood Glucose Arterial Blood Ionized Calcium Urine WBC (Auto) Urine Creatinine Crossmatch Chest x-ray: image reviewed Allied health notes reviewed: RT
[2021-01-08] MEDS ORDERED: HALOPERIDOL LACTATE 5 MG/1 ML INJ IV PRN (09:13)
[2021-01-08 09:21] LABS: Eosinophils # (Auto) 0.2 K/mm3 (0.0-0.4); Eosinophils % (Auto) 4.5 % (0.0-4.3); Monocytes # (Auto) 0.3 K/mm3 (0.0-0.8); Monocytes % (Auto) 6.3 % (0.0-7.3)
[2021-01-08] MEDS: CEFEPIME/NS 2 GM/100 ML 2 GM/100 ML BAG IV SCH (09:36)
[2021-01-08] MEDS: SENNOSIDES/DOCUSATE SODIUM 8.6/50 MG TAB FEEDTUBE SCH ×2 (09:36→22:16)
[2021-01-08] MEDS: FAMOTIDINE 20 MG TAB PO SCH (09:36)
--- NOTE | 2021-01-08 10:04 | Progress Note ---
Assessment and Plan Assessment and plan: --Anemia of chronic disease Hb 6.5-7.3 Current Visit: Yes Status: Acute Received 1 unit PRBC, Stool for occult blood --Sepsis secondary to UTI Current Visit: Yes Status: Acute. Continue cefepime renal dose, cultures negative to date Diflucan for possible fungal infection of the sacrum per ID --Acute hypoxemic respiratory failure intubated[01/05/2021] Current Visit: Yes Status: Acute on ventilatory support, weaning parameters Extubated per loader operator 01/05/2021 arterial blood gas daily, sedation holiday daily, Home O2 evaluation upon discharge -- UTI (urinary tract infection) Current Visit: Yes Status: Acute Continue cefepime renal dose Cultures negative to date, ID following --History of multiple myeloma Current Visit: Yes Status: Acute Supportive care, --End stage renal disease Current Visit: Yes Status: Acute Nephrology following Patient received dialysis 01/05, 01/07 --DVT prophylaxis Current Visit: Yes Status: Acute SCD , no pharmacologic anticoagulation in view of severe thrombocytopenia --Advance care planning Current Visit: Yes Status: Acute Disease education conducted, care plan discussed, diagnosis discussed, patient prognosis discussed, patient family knowledges understanding and agreement with care plan, +30 minutes. Patient remains full code. Patient reports that "I want everything done". The high probability of a clinically significant, sudden or life threatening deterioration of the [cardiac, pulmonary, renal, endocrine, hematologic] system(s) required my full and direct attention, intervention and personal management. The aggregate critical care time was [35 ] minutes. This time is in addition to time spent performing reported procedures but includes the following: [x] Data Review and interpretation [x] Patient assessment and monitoring of vital signs [x] Documentation [x] Medication orders and management Brief history and daily hospital course 70-year-old female patient with history of multiple myeloma on chemotherapy, diabetes mellitus dyslipidemia anemia chronic kidney disease was admitted to emergency room with unresponsiveness and severe hypoxemia requiring intubation, patient was admitted to ICU evaluated by loader operator, nephrology and ID and medications optimized Patient was appropriately managed received hemodialysis on 01/05 and 01/07, nephrology following dialysis as needed Today patient was extubated saturating well on 2 L of nasal cannula oxygen 01/07/2021;I called [place] physician at [phone] and updated patient's condition with Dr. Herrera and answered all her questions She advised us to continue patient care in the hospital and would call to check on the patient tomorrow. Patient remains intubated on ventilatory support, on weaning parameters Extensively spoke with the at the bedside 01/08/2021; patient is extubated, on nasal cannula oxygen, tolerating and saturating well Continue empiric antibiotics for sepsis due to UTI as well as Diflucan for p ossible fungal infection of the sacrum Physical therapy occupational therapy, patient received hemodialysis on 01/05 and 01/07 possible hemodialysis tomorrow if needed Today 01/08/2021 I called [place] physician Dr. Izquierdo at [phone] updated patient's condition that patient is extubated And plan for discharge in 2 to 3 days if stable she advised to continue the management here at this point, and check with the family if they want to be transferred. Disposition possible transfer to [facility] versus discharge in 1 to 2 days if stable History Interval history: I have seen and examined the patient at the bedside Patient's chart and medications reviewed Patient was extubated this morning On 2 L nasal cannula oxygen Vital signs reviewed Hospitalist Physical - Constitutional Vitals: Temp Pulse Resp BP Pulse Ox 97.9 F 100 H 12 151/68 99 01/08/21 09:10 01/08/21 09:35 01/08/21 09:35 01/08/21 09:35 01/08/21 09:35 General appearance: Present: mild distress, well-nourished, obese, other (Intubated on ventilatory support) - EENT Eyes: Present: PERRL, EOM intact - Neck Neck: Present: supple, normal ROM - Respiratory Respiratory effort: normal Respiratory: bilateral: diminished, negative: rales, rhonchi, wheezing - Cardiovascular Rhythm: regular Heart Sounds: Present: S1 & S2 - Extremities Extremities: no ischemia, No edema - Abdominal General gastrointestinal: soft, non-tender, non-distended, normal bowel sounds - Integumentary Integumentary: Present: clear, warm - Psychiatric Psychiatric: appropriate mood/affect, other - Neurologic Neurologic: moves all extremities HEART Score - HEART Score Troponin: Troponin T 0.153 ng/mL (0.00-0.029) H* 01/05/21 13:44 Results - Labs CBC & Chem 7: 01/08/21 05:56 01/08/21 05:56 Labs: Laboratory Last Values WBC 4.0 K/mm3 (4.5-11.0) L 01/08/21 05:56 RBC 2.57 M/mm3 (3.65-5.03) L 01/08/21 05:56 Hgb 7.3 gm/dl (10.1-14.3) L 01/08/21 05:56 Hct 21.7 % (30.3-42.9) L 01/08/21 05:56 MCV 83 fl (79-97) 01/08/21 05:56 MCH 28 pg (28-32) 01/08/21 05:56 MCHC 34 % (30-34) 01/08/21 05:56 RDW 17.9 % (13.2-15.2) H 01/08/21 05:56 Plt Count 46 K/mm3 (140-440) L 01/08/21 05:56 [place] % (Auto) 6.3 % (0.0-7.3) 01/08/21 05:56 Eos % (Auto) 4.5 % (0.0-4.3) H 01/08/21 05:56 [place] # (Auto) 0.3 K/mm3 (0.0-0.8) 01/08/21 05:56 Eos # (Auto) 0.2 K/mm3 (0.0-0.4) 01/08/21 05:56 Baso # (Auto) 0.0 K/mm3 (0.0-0.1) 01/08/21 05:56 Add Manual Diff Complete 01/08/21 05:56 Total Counted 100 01/08/21 05:56 Seg Neutrophils % 87.1 % (40.0-70.0) H 01/08/21 05:56 Seg Neuts % (Manual) 74.0 % (40.0-70.0) H 01/08/21 05:56 Band Neutrophils % 14.0 % 01/08/21 05:56 Lymphocytes % (Manual) 1.0 % (13.4-35.0) L 01/08/21 05:56 Monocytes % (Manual) 7.0 % (0.0-7.3) 01/08/21 05:56 Eosinophils % (Manual) 4.0 % (0.0-4.3) 01/08/21 05:56 Metamyelocytes % 1.0 % 01/06/21 06:40 Myelocytes % 4.0 % 01/05/21 13:44 Nucleated RBC % Not Reportable 01/08/21 05:56 Seg Neutrophils # 3.5 K/mm3 (1.8-7.7) 01/08/21 05:56 Seg Neutrophils # Man 3.0 K/mm3 (1.8-7.7) 01/08/21 05:56 Band Neutrophils # 0.6 K/mm3 01/08/21 05:56 Lymphocytes # (Manual) 0.0 K/mm3 (1.2-5.4) L 01/08/21 05:56 Abs React Lymphs (Man) 0.0 K/mm3 01/08/21 05:56 Monocytes # (Manual) 0.3 K/mm3 (0.0-0.8) 01/08/21 05:56 Eosinophils # (Manual) 0.2 K/mm3 (0.0-0.4) 01/08/21 05:56 Basophils # (Manual) 0.0 K/mm3 (0.0-0.1) 01/08/21 05:56 Metamyelocytes # 0.0 K/mm3 01/08/21 05:56 Myelocytes # 0.0 K/mm3 01/08/21 05:56 Promyelocytes # 0.0 K/mm3 01/08/21 05:56 Blast Cells # 0.0 K/mm3 01/08/21 05:56 WBC Morphology Not Reportable 01/08/21 05:56 Hypersegmented Neuts Not Reportable 01/08/21 05:56 Hyposegmented Neuts Not Reportable 01/08/21 05:56 Hypogranular Neuts Not Reportable 01/08/21 05:56 Smudge Cells Not Reportable 01/08/21 05:56 Toxic Granulation Not Reportable 01/08/21 05:56 Toxic Vacuolation Not Reportable 01/08/21 05:56 Dohle Bodies Not Reportable 01/08/21 05:56 Pelger-Huet Anomaly Not Reportable 01/08/21 05:56 Diony Rods Not Reportable 01/08/21 05:56 Platelet Estimate Consistent w auto 01/08/21 05:56 Clumped Platelets Not Reportable 01/08/21 05:56 Plt Clumps, EDTA Not Reportable 01/08/21 05:56 Large Platelets Not Reportable 01/08/21 05:56 Giant Platelets Not Reportable 01/08/21 05:56 Platelet Satelliting Not Reportable 01/08/21 05:56 Plt Morphology Comment Not Reportable 01/08/21 05:56 RBC Morphology Not Reportable 01/08/21 05:56 Dimorphic RBCs Not Reportable 01/08/21 05:56 Polychromasia Not Reportable 01/08/21 05:56 Hypochromasia Not Reportable 01/08/21 05:56 Poikilocytosis Not Reportable 01/08/21 05:56 Anisocytosis 1+ 01/08/21 05:56 Microcytosis Not Reportable 01/08/21 05:56 Macrocytosis Not Reportable 01/08/21 05:56 Spherocytes Not Reportable 01/08/21 05:56 Pappenheimer Bodies Not Reportable 01/08/21 05:56 Sickle Cells Not Reportable 01/08/21 05:56 Target Cells Not Reportable 01/08/21 05:56 Tear Drop Cells Few 01/08/21 05:56 Ovalocytes 1+ 01/08/21 05:56 Helmet Cells Not Reportable 01/08/21 05:56 [place] Bodies Not Reportable 01/08/21 05:56 [place] Rings Not Reportable 01/08/21 05:56 [place] Cells 1+ 01/08/21 05:56 Bite Cells Not Reportable 01/08/21 05:56 Crenated Cell Not Reportable 01/08/21 05:56 Elliptocytes Not Reportable 01/08/21 05:56 Acanthocytes (Spur) Not Reportable 01/08/21 05:56 Rouleaux Not Reportable 01/08/21 05:56 Hemoglobin C Crystals Not Reportable 01/08/21 05:56 Schistocytes Not Reportable 01/08/21 05:56 Malaria parasites Not Reportable 01/08/21 05:56 [place] Bodies Not Reportable 01/08/21 05:56 Hem Pathologist Commnt No 01/08/21 05:56 APTT 44.4 Sec. (24.2-36.6) H 01/05/21 13:44 ABG pH 7.474 (7.320-7.450) H 01/08/21 09:20 POC ABG pCO2 39.7 mmHg (32.0-48.0) 01/08/21 09:20 ABG pCO2 19.0 mm Hg 01/05/21 13:35 POC ABG pO2 101.9 mmHg (83-108) 01/08/21 09:20 ABG pO2 84.7 mm Hg (80.0-90.0) 01/05/21 13:35 POC ABG HCO3 28.5 01/08/21 09:20 ABG HCO3 3.5 mmol/L (20.0-26.0) L 01/05/21 13:35 ABG O2 Saturation 98.1 (0-100) 01/08/21 09:20 ABG O2 Content 10.8 (0.0-44) 01/05/21 13:35 POC ABG Base Excess 4.5 01/08/21 09:20 ABG Base Excess -27.8 mmol/L (-2.0-3.0) L 01/05/21 13:35 ABG Hemoglobin 6.9 (12.0-17.5) L 01/08/21 09:20 ABG Oxyhemoglobin 96.6 (94-98) 01/08/21 09:20 ABG Carboxyhemoglobin 1.1 % (0.0-5.0) 01/05/21 13:35 ABG Methemoglobin 0.3 (0.0-1.5) 01/08/21 09:20 ABG Sodium 126.7 mmol/L (136.0-145.0) L 01/08/21 09:20 ABG Potassium 3.0 mmol/L (3.40-4.50) L 01/08/21 09:20 ABG Chloride 94.0 mmol/L (98-107) L 01/08/21 09:20 ABG Glucose 199 mg/dL (65-95) H 01/08/21 09:20 Oxyhemoglobin 82.4 % (95.0-99.0) L 01/05/21 13:35 Carboxyhemoglobin 1.2 (0.5-1.5) 01/08/21 09:20 FiO2 21 % 01/05/21 13:35 FiO2 % 30.0 01/08/21 09:20 Sodium 139 mmol/L (137-145) 01/08/21 05:56 Potassium 3.2 mmol/L (3.6-5.0) L 01/08/21 05:56 Chloride 93.4 mmol/L (98-107) L 01/08/21 05:56 Carbon Dioxide 30 mmol/L (22-30) D 01/08/21 05:56 Anion Gap 19 mmol/L 01/08/21 05:56 BUN 32 mg/dL (7-17) H 01/08/21 05:56 Creatinine 3.2 mg/dL (0.6-1.2) H 01/08/21 05:56 Estimated GFR 14 ml/min 01/08/21 05:56 BUN/Creatinine Ratio 10 % 01/08/21 05:56 Glucose 154 mg/dL (65-100) H 01/08/21 05:56 POC Glucose 154 mg/dL (70-105) H 01/08/21 05:29 Ketones Quantitative Negative (Negative) 01/05/21 14:39 Lactic Acid 14.20 mmol/L (0.7-2.0) H* 01/07/21 08:35 Calcium 7.8 mg/dL (8.4-10.2) L D 01/08/21 05:56 Phosphorus 4.60 mg/dL (2.5-4.5) H 01/07/21 07:06 Magnesium 2.10 mg/dL (1.7-2.3) 01/05/21 13:44 Total Bilirubin 0.30 mg/dL (0.1-1.2) 01/06/21 06:40 AST 122 units/L (5-40) H 01/06/21 06:40 ALT 37 units/L (7-56) 01/06/21 06:40 Alkaline Phosphatase 68 units/L (35-129) 01/06/21 06:40 Ammonia 100.0 umol/L (25-60) H 01/05/21 23:05 Total Creatine Kinase 484 units/L (30-135) H 01/05/21 13:44 Troponin T 0.153 ng/mL (0.00-0.029) H* 01/05/21 13:44 NT-Pro-B Natriuret Pep 02255 pg/mL (0-900) H 01/05/21 13:44 Total Protein 5.4 g/dL (6.3-8.2) L D 01/06/21 06:40 Albumin 2.5 g/dL (3.9-5) L 01/06/21 06:40 Albumin/Globulin Ratio 0.9 % 01/06/21 06:40 Triglycerides 75 mg/dL (2-149) 01/05/21 13:44 Cholesterol 62 mg/dL (50-199) 01/05/21 13:44 LDL Cholesterol Direct 8 mg/dL (50-130) L 01/05/21 13:44 HDL Cholesterol 50 mg/dL (40-59) 01/05/21 13:44 Cholesterol/HDL Ratio 1.24 % 01/05/21 13:44 Procalcitonin 17.62 ng/mL (<0.15) 01/05/21 23:05 PTH Intact 209.3 pg/mL (15-65) H 01/06/21 06:40 Arterial Blood Glucose 199 mg/dL (65-95) H 01/08/21 09:20 Arterial Blood Ionized Calcium 3.9 mg/dL (4.6-5.3) L 01/08/21 09:20 Urine Color [place] (Yellow) 01/05/21 17:50 Urine Turbidity Cloudy (Clear) 01/05/21 17:50 Urine pH 5.0 (5.0-7.0) 01/05/21 17:50 Ur Specific [place] 1.018 (1.003-1.030) 01/05/21 17:50 Urine Protein >500 mg/dL (Negative) 01/05/21 17:50 Urine Glucose (UA) 50 mg/dL (Negative) 01/05/21 17:50 Urine Ketones Neg mg/dL (Negative) 01/05/21 17:50 Urine Blood Sm (Negative) 01/05/21 17:50 Urine Nitrite Neg (Negative) 01/05/21 17:50 Urine Bilirubin Neg (Negative) 01/05/21 17:50 Urine Urobilinogen < 2.0 mg/dL (<2.0) 01/05/21 17:50 Ur Leukocyte Esterase Neg (Negative) 01/05/21 17:50 Urine WBC (Auto) 38.0 /HPF (0.0-6.0) H 01/05/21 17:50 Urine RBC (Auto) 6.0 /HPF (0.0-6.0) 01/05/21 17:50 U Epithel Cells (Auto) 12.0 /HPF (0-13.0) 01/05/21 17:50 Urine Bacteria (Auto) 4+ /HPF (Negative) 01/05/21 17:50 Amorphous Crystals 1+ 01/05/21 17:50 Urine Mucus Few /HPF 01/05/21 17:50 Urine Creatinine 74.4 mg/dL (0.1-20.0) H 01/05/21 17:50 Urine Sodium 59 mmol/L 01/05/21 17:50 Random Vancomycin 15.4 ug/mL (0-40.0) 01/06/21 06:40 Urine Opiates Screen Negative 01/05/21 17:50 Urine Methadone Screen Negative 01/05/21 17:50 Ur Barbiturates Screen Negative 01/05/21 17:50 Ur Phencyclidine Scrn Negative 01/05/21 17:50 Ur Amphetamines Screen Negative 01/05/21 17:50 U Benzodiazepines Scrn Negative 01/05/21 17:50 Urine Cocaine Screen Negative 01/05/21 17:50 U Marijuana (THC) Screen Positive 01/05/21 17:50 Drugs of Abuse Note Disclamer 01/05/21 17:50 Hepatitis A IgM Ab Non-reactive (NonReactive) 01/05/21 18:27 Hep Bs Antigen Non-reactive (Negative) 01/05/21 18:27 Hep B Core IgM Ab Non-reactive (NonReactive) 01/05/21 18:27 Hepatitis C Antibody Non-reactive (NonReactive) 01/05/21 18:27 Blood Type A POSITIVE 01/07/21 07:06 Antibody Screen Negative 01/07/21 07:06 Crossmatch See Detail 01/07/21 07:06 Microbiology: Microbiology 01/05/21 14:39 Peripheral/Venous Blood Culture - Preliminary NO GROWTH AFTER 48 HOURS 01/05/21 13:44 Peripheral/Venous Blood Culture - Preliminary NO GROWTH AFTER 48 HOURS [place]/IV: Voiding Method Indwelling Catheter Active Medications - Current Medications Current Medications: Generic Name Dose Route Start Last Admin Trade Name Freq PRN Reason Stop Dose Admin Acetaminophen 650 mg 01/05/21 17:00 Acetaminophen 650 Mg Rect Supp UT Q6H PRN Pain MILD(1-3)/Fever >100.5/SILVERMAN Acetaminophen 650 mg 01/05/21 19:00 Acetaminophen 325 Mg Tab PO Q6H PRN Pain, Mild (1-3) Albuterol 2.5 mg 01/05/21 17:00 Albuterol 2.5 Mg/3 Ml Nebu IH Q3HRT PRN Shortness Of Breath Lipase/Protease/Amylase 1 each 01/06/21 08:10 Lipase 10,500/Protease 25,000/Amylase 43,750 (Units) Dr Lockwood FEEDTUBE PRN PRN For Clogged Feeding Tube Famotidine 20 mg 01/08/21 10:00 01/08/21 09:36 Famotidine 20 Mg Tab PO 20 mg DAILY MIKEY Administration Haloperidol Lactate 5 mg 01/08/21 09:13 Haloperidol Lactate 5 Mg/1 Ml Inj IV Q6H PRN Agitation Hydrophilic Ointment 1 applic 01/05/21 14:21 Lip Therapy Vaseline TP Q2HR PRN Dry Lips Sodium Chloride 100 mls @ 999 mls/hr 01/05/21 17:00 Nacl 0.9% IV ERIC PRN Hypotension Cefepime HCl 2 gm in 100 mls @ 200 mls/hr 01/06/21 10:00 01/08/21 09:36 Cefepime/Ns 2 Gm/100 Ml IV 200 mls/hr Q24H MIKEY Administration Protocol Fluconazole 200 mg in 100 mls @ 100 mls/hr 01/06/21 15:00 01/07/21 14:49 Diflucan IV 100 mls/hr Q24H [facility] Administration Protocol Insulin Human Lispro 0 unit 01/06/21 12:00 01/08/21 05:39 Insulin Lispro 100 Unit/Ml SUB-Q 1 unit Q6HR MIKEY Administration Protocol Multi-Ingred Cream/Lotion/Oil/Oint 1 applic 01/05/21 14:21 Mineral Oil/Petrolatum, White Ophth Oint 3.5 Gm OU Q4HR PRN Dry Eye(s) Ondansetron HCl 4 mg 01/07/21 13:23 Ondansetron 4 Mg/2 Ml Inj IV Q8H PRN Nausea And Vomiting Potassium Chloride 40 meq 01/08/21 11:00 Potassium Chloride 20 Meq Packet FEEDTUBE 01/08/21 11:01 ONCE ONE Senna/Docusate Sodium 1 tab 01/05/21 22:00 01/08/21 09:36 Sennosides/Docusate Sodium 8.6/50 Mg Tab FEEDTUBE 1 tab BID MIKEY Administration Simple Syrup 15 ml 01/06/21 08:10 Simple Syrup 15 Ml FEEDTUBE PRN PRN Hypoglycemia Simple Syrup 30 ml 01/06/21 08:10 Simple Syrup 15 Ml FEEDTUBE PRN PRN Hypoglycemia Sodium Bicarbonate 325 mg 01/06/21 08:10 Sodium Bicarbonate 325 Mg Tab FEEDTUBE PRN PRN For Clogged Feeding Tube Sodium Chloride 10 ml 01/05/21 17:00 Sodium Chloride 0.9% 10 Ml Flush Syringe IV PRN PRN LINE FLUSH Sodium Chloride 10 ml 01/05/21 22:00 01/08/21 09:37 Sodium Chloride 0.9% 10 Ml Flush Syringe IV 10 ml BID MIKEY Administration Nutrition/Malnutrition Assess - Dietary Evaluation Nutrition/Malnutrition Findings: Nutrition Notes Start: 01/06/21 08:02 Freq: Status: Active Protocol: Document 01/06/21 08:02 KARINA (Rec: 01/06/21 08:10 KARINA [id number]) Nutrition Notes Need for Assessment generated from: MD Order,kitchen supervisor,MST Initial or Follow up Assessment Current Diagnosis CKD (stage V CKD),Diabetes, Sepsis,Hypertension, Respiratory Failure Other Pertinent Diagnosis on HD, UTI, anemia, multiple myeloma on chemotherapy Current Diet NPO Labs/Tests Na 135 BUN 36 Cr 4.3 Pertinent Medications Levophed Lactulose Height 5 ft 3 in Weight 90.2 kg [place] Body Weight (kg) 52.27 BMI 35.2 Weight Status Obese Subjective/Other Information MD order for TF and eval intakes. RN screen for MST and skin risk. Fer score 12. Pt has abrasion on buttox. Pt on vent. Burn Absent Trauma Absent Current % PO Negligible Minimum of two criteria No physical signs of malnutrition Fluid Accumulation Mild (non-severe) #1 Nutrition Diagnosis Inadequate oral intake Etiology acute respiratory failure As Evidenced by Signs and Symptoms pt on vent and unable to consume PO Is patient on ventilator? Yes Is Patient Ambulatory and/or Out of Bed No REE-([place]-confined to bed) 1669.080 Kcal/Kg value to use for calculation 16 Approximate Energy Requirements Using 1443 kcal/Kg Calculation Used for Recommendations Kcal/kg Additional Notes Protein: (>2g/kg IBW) greater than 105g Fluid: 1 ml/kcal Nutrition Intervention Change Diet Order: Start TF Nutrition Support: Nepro 1.8 at 35 ml/hr Flush 100 ml q4h or per MD Kcal 1,512 Protein (gm) 68 Fluid (mL) 611 Goal #1 Meet at least 75% of energy needs and 60% of protein needs Anticipated Discharge Needs: Unable to determine at this time Follow-Up By: 01/08/21 Additional Comments FU for TF start and tolerance
--- NOTE | 2021-01-08 10:44 | Progress Note ---
Assessment and Plan 1. Acute kidney injury: Vasomotor MORGAN in the setting shock. Renal US negative for hydro. Monitor renal function. Oliguric. Renal prognosis is guarded. Avoid nephrotoxic agents. Meds dosage based on GFR. Monitor for [employer] needs. Patient was started on hemodialysis due to significant decline in the GFR, associated hyperkalemia and severe metabolic acidosis. Hemodialysis: 01/05, 01/07. 2. FEN: Hyperkalemia, improved with HD. Anion-gap Metabolic acidosis, s/p HD, on bicarb drip, monitor. Replete Calcium. UF today. Monitor lytes. 3. Acute respiratory failure with hypoxia: S/p extubated. Followed by Pulmonary. 4. Shock, POA: Likely septic. Abx. Off pressors now. Follow cultures. 5. Elevated Troponin: Monitor. 6. Diabetes mellitus type 2: Follow blood glucose. 7. Anemia, POA: S/p 1 unit of PRBC 01/07. Monitor. 8. Encephalopathy: Monitor. 9. Multiple myeloma: On Chemo. Prognosis is guarded. Subjective: Patient was seen and examined at the bedside. RN at the bedside. Examination: General appearance: well-developed, well-nourished, appears stated age HEENT: ATNC, pupils equal Neck: supple Respiratory: ctab Cardiology: regular, S1S2, no murmur Gastrointestinal: soft, bowel sounds heard, not tender Integumentary: no rash, warm and dry Neurologic: lethargic, hoarse voice, able to move extremities Ext: no edema : Winters catheter Hemodialysis access: R IJ temp catheter Subjective Date of service: 01/08/21 Principal diagnosis: Ac hypoxemic resp failure; MORGAN; Septic Shock; CAP; Multiple myeloma; NSTEMI Objective - Vital Signs Vital signs: Vital Signs - 12hr 01/07/21 01/07/21 01/07/21 22:50 23:00 23:10 Temperature Pulse Rate 100 H 101 H 105 H Respiratory 10 L 16 17 Rate Respiratory 16 Rate [ Generalized] Blood Pressure 120/55 126/57 126/57 O2 Sat by Pulse 99 98 99 Oximetry 01/07/21 01/07/21 01/07/21 23:20 23:30 23:40 Temperature Pulse Rate 85 98 H 97 H Respiratory 16 12 11 L Rate Respiratory Rate [ Generalized] Blood Pressure 116/53 123/57 123/57 O2 Sat by Pulse 99 98 99 Oximetry 01/07/21 01/07/21 01/08/21 23:48 23:50 00:00 Temperature 99.9 F H Pulse Rate 98 H 93 H Respiratory 14 12 Rate Respiratory Rate [ Generalized] Blood Pressure 141/57 107/52 O2 Sat by Pulse 97 97 Oximetry 01/08/21 01/08/21 01/08/21 00:02 00:09 00:10 Temperature Pulse Rate 92 H 94 H 92 H Respiratory 14 12 Rate Respiratory Rate [ Generalized] Blood Pressure 107/52 141/57 107/52 O2 Sat by Pulse 98 98 98 Oximetry 01/08/21 01/08/21 01/08/21 00:20 00:30 00:40 Temperature Pulse Rate 90 87 86 Respiratory 13 12 12 Rate Respiratory Rate [ Generalized] Blood Pressure 103/46 O2 Sat by Pulse 98 97 96 Oximetry 01/08/21 01/08/21 01/08/21 00:50 01:00 01:05 Temperature Pulse Rate 85 86 86 Respiratory 12 12 16 Rate Respiratory Rate [ Generalized] Blood Pressure 84/42 O2 Sat by Pulse 100 98 99 Oximetry 01/08/21 01/08/21 01/08/21 01:10 01:20 01:30 Temperature Pulse Rate 87 85 83 Respiratory 12 12 12 Rate Respiratory Rate [ Generalized] Blood Pressure 89/61 89/61 82/40 O2 Sat by Pulse 98 96 99 Oximetry 01/08/21 01/08/21 01/08/21 01:40 01:50 02:00 Temperature Pulse Rate 85 86 86 Respiratory 12 12 12 Rate Respiratory Rate [ Generalized] Blood Pressure 82/40 82/40 84/45 O2 Sat by Pulse 99 100 Oximetry 01/08/21 01/08/21 01/08/21 02:10 02:20 02:30 Temperature Pulse Rate 87 90 101 H Respiratory 13 15 17 Rate Respiratory Rate [ Generalized] Blood Pressure 84/45 84/45 135/72 O2 Sat by Pulse 99 99 98 Oximetry 01/08/21 01/08/21 01/08/21 02:40 02:50 03:00 Temperature Pulse Rate 107 H 106 H 112 H Respiratory 18 17 18 Rate Respiratory Rate [ Generalized] Blood Pressure 135/72 135/72 122/71 O2 Sat by Pulse 100 99 98 Oximetry 01/08/21 01/08/21 01/08/21 03:10 03:20 03:30 Temperature Pulse Rate 106 H 113 H 114 H Respiratory 11 L 17 23 Rate Respiratory Rate [ Generalized] Blood Pressure 122/71 122/71 122/71 O2 Sat by Pulse 99 99 98 Oximetry 01/08/21 01/08/21 01/08/21 03:32 03:40 03:50 Temperature Pulse Rate 116 H 113 H 115 H Respiratory 16 19 17 Rate Respiratory Rate [ Generalized] Blood Pressure 112/73 112/73 O2 Sat by Pulse 99 99 99 Oximetry 01/08/21 01/08/21 01/08/21 04:00 04:10 04:20 Temperature 99.2 F Pulse Rate 112 H 116 H 115 H Respiratory 14 12 14 Rate Respiratory Rate [ Generalized] Blood Pressure 112/73 104/77 O2 Sat by Pulse 99 97 97 Oximetry 01/08/21 01/08/21 01/08/21 04:30 04:40 04:50 Temperature Pulse Rate 107 H 114 H 106 H Respiratory 14 16 13 Rate Respiratory Rate [ Generalized] Blood Pressure 104/77 137/68 137/68 O2 Sat by Pulse 96 100 98 Oximetry 01/08/21 01/08/21 01/08/21 05:00 05:10 05:19 Temperature Pulse Rate 109 H 107 H Respiratory 13 13 16 Rate Respiratory Rate [ Generalized] Blood Pressure 137/68 136/63 O2 Sat by Pulse 97 99 99 Oximetry 01/08/21 01/08/21 01/08/21 05:20 05:30 05:40 Temperature Pulse Rate 109 H 107 H 111 H Respiratory 13 16 17 Rate Respiratory Rate [ Generalized] Blood Pressure 136/63 134/103 134/103 O2 Sat by Pulse 99 97 99 Oximetry 01/08/21 01/08/21 01/08/21 05:50 06:00 06:10 Temperature Pulse Rate 103 H 106 H 107 H Respiratory 13 9 L 16 Rate Respiratory Rate [ Generalized] Blood Pressure 134/103 136/73 136/73 O2 Sat by Pulse 99 98 99 Oximetry 01/08/21 01/08/21 01/08/21 06:15 06:20 06:30 Temperature Pulse Rate 110 H 111 H 105 H Respiratory 14 21 Rate Respiratory Rate [ Generalized] Blood Pressure 136/73 136/73 148/60 O2 Sat by Pulse 99 97 98 Oximetry 01/08/21 01/08/21 01/08/21 06:40 06:50 07:00 Temperature Pulse Rate 107 H 107 H 107 H Respiratory 11 L 15 14 Rate Respiratory Rate [ Generalized] Blood Pressure 148/60 148/60 141/58 O2 Sat by Pulse 99 99 99 Oximetry 01/08/21 01/08/21 01/08/21 07:10 07:20 07:30 Temperature Pulse Rate 110 H 110 H 106 H Respiratory 19 11 L 11 L Rate Respiratory Rate [ Generalized] Blood Pressure 141/58 141/58 133/57 O2 Sat by Pulse 99 99 97 Oximetry 01/08/21 01/08/21 01/08/21 07:40 07:50 08:00 Temperature Pulse Rate 107 H 105 H 102 H Respiratory 15 15 10 L Rate Respiratory Rate [ Generalized] Blood Pressure 133/57 133/57 158/74 O2 Sat by Pulse 99 99 99 Oximetry 01/08/21 01/08/21 01/08/21 08:10 08:20 08:30 Temperature 99.6 F Pulse Rate 100 H 103 H 97 H Respiratory 12 14 12 Rate Respiratory Rate [ Generalized] Blood Pressure 158/74 158/74 138/60 O2 Sat by Pulse 98 100 99 Oximetry 01/08/21 01/08/21 01/08/21 08:38 08:40 08:50 Temperature Pulse Rate 101 H 102 H 105 H Respiratory 8 L 11 L 11 L Rate Respiratory Rate [ Generalized] Blood Pressure 138/60 138/60 138/60 O2 Sat by Pulse 99 99 100 Oximetry 01/08/21 01/08/21 01/08/21 09:00 09:10 09:20 Temperature 97.9 F Pulse Rate 105 H 104 H 98 H Respiratory 14 12 11 L Rate Respiratory Rate [ Generalized] Blood Pressure 148/59 148/59 148/59 O2 Sat by Pulse 99 100 99 Oximetry 01/08/21 01/08/21 01/08/21 09:30 09:35 09:40 Temperature Pulse Rate 108 H 100 H 104 H Respiratory 15 12 9 L Rate Respiratory Rate [ Generalized] Blood Pressure 151/68 151/68 151/68 O2 Sat by Pulse 99 99 100 Oximetry 01/08/21 01/08/21 09:50 10:00 Temperature Pulse Rate 102 H 107 H Respiratory 8 L 14 Rate Respiratory Rate [ Generalized] Blood Pressure 151/68 128/62 O2 Sat by Pulse 99 99 Oximetry - Lab 01/08/21 05:56 01/08/21 05:56 Most recent lab results ABG pH 7.474 (7.320-7.450) H 01/08/21 09:20 ABG pCO2 19.0 mm Hg 01/05/21 13:35 ABG pO2 84.7 mm Hg (80.0-90.0) 01/05/21 13:35 ABG HCO3 3.5 mmol/L (20.0-26.0) L 01/05/21 13:35 ABG O2 Saturation 98.1 (0-100) 01/08/21 09:20 Calcium 7.8 mg/dL (8.4-10.2) L D 01/08/21 05:56 Phosphorus 4.60 mg/dL (2.5-4.5) H 01/07/21 07:06 Magnesium 2.10 mg/dL (1.7-2.3) 01/05/21 13:44 Urine Creatinine 74.4 mg/dL (0.1-20.0) H 01/05/21 17:50 Urine Sodium 59 mmol/L 01/05/21 17:50 Medications & Allergies - Medications Allergies/Adverse Reactions: Allergies No Known Allergies Allergy (Verified 01/05/21 22:00) Home Medications: Home Medications Medication Instructions Recorded Confirmed Last Taken Type Acyclovir [Zovirax Tab] 400 mg PO BID 01/06/21 01/06/21 Unknown History Aspirin [Aspirin BABY CHEW TAB] 81 mg PO 4XD 01/06/21 01/06/21 Unknown History HYDROcodone/ACETAMINOPHEN 1 each PO Q4H PRN 01/06/21 01/06/21 Unknown History [Verdrocet 2.5-325 mg TAB] HYDROcodone/ACETAMINOPHEN 2 each PO Q4H PRN 01/06/21 01/06/21 Unknown History [Verdrocet 2.5-325 mg TAB] Lenalidomide [Revlimid] 10 mg PO QDAY 01/06/21 01/06/21 Unknown History Lisinopril/Hydrochlorothiazide 10 - 12.5 mg PO DAILY 01/06/21 01/06/21 Unknown History [Zestoretic 10-12.5 mg Tablet] Metformin HCl [metFORMIN] 1,000 mg BID 01/06/21 01/06/21 Unknown History Ondansetron HCl [Zofran] 8 mg PO BID PRN 01/06/21 01/06/21 Unknown History Pantoprazole [Protonix] 40 mg PO QDAY 01/06/21 01/06/21 Unknown History Rosuvastatin Calcium 20 mg PO DAILY 01/06/21 01/06/21 Unknown History dexAMETHasone [Dexamethasone] 16 mg PO 1XW 01/06/21 01/06/21 Unknown History traMADoL [Ultram 50 MG tab] 50 mg PO Q6H PRN 01/06/21 01/06/21 Unknown History Active Medications: Generic Name Dose Route Start Last Admin Trade Name Freq PRN Reason Stop Dose Admin Acetaminophen 650 mg 01/05/21 17:00 Acetaminophen 650 Mg Rect Supp NV Q6H PRN Pain MILD(1-3)/Fever >100.5/SILVERMAN Acetaminophen 650 mg 01/05/21 19:00 Acetaminophen 325 Mg Tab PO Q6H PRN Pain, Mild (1-3) Albuterol 2.5 mg 01/05/21 17:00 Albuterol 2.5 Mg/3 Ml Nebu IH Q3HRT PRN Shortness Of Breath Lipase/Protease/Amylase 1 each 01/06/21 08:10 Lipase 10,500/Protease 25,000/Amylase 43,750 (Units) Dr Lockwood FEEDTUBE PRN PRN For Clogged Feeding Tube Famotidine 20 mg 01/08/21 10:00 01/08/21 09:36 Famotidine 20 Mg Tab PO 20 mg DAILY MIKEY Administration Haloperidol Lactate 5 mg 01/08/21 09:13 Haloperidol Lactate 5 Mg/1 Ml Inj IV Q6H PRN Agitation Hydrophilic Ointment 1 applic 01/05/21 14:21 Lip Therapy Vaseline TP Q2HR PRN Dry Lips Sodium Chloride 100 mls @ 999 mls/hr 01/05/21 17:00 Nacl 0.9% IV ERIC PRN Hypotension Cefepime HCl 2 gm in 100 mls @ 200 mls/hr 01/06/21 10:00 01/08/21 09:36 Cefepime/Ns 2 Gm/100 Ml IV 200 mls/hr Q24H MIKEY Administration Protocol Fluconazole 200 mg in 100 mls @ 100 mls/hr 01/06/21 15:00 01/07/21 14:49 Diflucan IV 100 mls/hr Q24H MIKEY Administration Protocol Insulin Human Lispro 0 unit 01/06/21 12:00 01/08/21 05:39 Insulin Lispro 100 Unit/Ml SUB-Q 1 unit Q6HR MIKEY Administration Protocol Multi-Ingred Cream/Lotion/Oil/Oint 1 applic 01/05/21 14:21 Mineral Oil/Petrolatum, White Ophth Oint 3.5 Gm OU Q4HR PRN Dry Eye(s) Ondansetron HCl 4 mg 01/07/21 13:23 Ondansetron 4 Mg/2 Ml Inj IV Q8H PRN Nausea And Vomiting Potassium Chloride 40 meq 01/08/21 11:00 Potassium Chloride 20 Meq Packet FEEDTUBE 01/08/21 11:01 ONCE ONE Senna/Docusate Sodium 1 tab 01/05/21 22:00 01/08/21 09:36 Sennosides/Docusate Sodium 8.6/50 Mg Tab FEEDTUBE 1 tab BID MIKEY Administration Simple Syrup 15 ml 01/06/21 08:10 Simple Syrup 15 Ml FEEDTUBE PRN PRN Hypoglycemia Simple Syrup 30 ml 01/06/21 08:10 Simple Syrup 15 Ml FEEDTUBE PRN PRN Hypoglycemia Sodium Bicarbonate 325 mg 01/06/21 08:10 Sodium Bicarbonate 325 Mg Tab FEEDTUBE PRN PRN For Clogged Feeding Tube Sodium Chloride 10 ml 01/05/21 17:00 Sodium Chloride 0.9% 10 Ml Flush Syringe IV PRN PRN LINE FLUSH Sodium Chloride 10 ml 01/05/21 22:00 01/08/21 09:37 Sodium Chloride 0.9% 10 Ml Flush Syringe IV 10 ml BID MIKEY Administration
[2021-01-08] MEDS ORDERED: POTASSIUM CHLORIDE 20 MEQ PACKET FEEDTUBE ONE (11:00)
[2021-01-08] MEDS: POTASSIUM CHLORIDE 20 MEQ 20 MEQ/100 ML BAG IV SCH ×2 (11:58→12:50)
[2021-01-08] MEDS: FLUCONAZOLE 200 MG 200 MG/100 ML BAG IV SCH (15:18)
--- NOTE | 2021-01-08 15:19 | Progress Note ---
Assessment and Plan Cultures: Blood culture 01/05/2021 no growth so far. A/P: 70-year-old female past medical history multiple myeloma currently on chemo, diabetes, obesity admitted with hypoxic respiratory failure. #Acute hypoxic respiratory failure: unclear etiology, only pleural effusion and atelectasis on the left. #Pyuria: unclear if symptoms previous to admission. epithelial cells on UA, however continue antibiotics in the meantime. #Multiple myeloma on chemotherapy: immunocompromised host. #MORGAN: now requiring HD. Renally dose medications Recs: -Follow up culture data -Continue renally dosed cefepime for now. -Given MORGAN hold off on vanco while blood cultures are pending -Fluconazole 200 mg daily for fungal rash on sacrum Thank you for the consult, we will continue to follow. Kesha Davis MD [facility] O: [phone] F: [phone] Subjective Date of service: 01/08/21 Principal diagnosis: Ac hypoxemic resp failure; MORGAN; Septic Shock; CAP; Multiple myeloma; NSTEMI Interval history: Afebrile, white count 4. Cultures remain negative so far. Imaging personally viewed: Chest x-ray: No interval change. Objective - Exam Narrative Exam: Physical Exam: Constitutional: intubated, sedated Head, Ears, Nose: Normocephalic, atraumatic. Eyes: Conjunctivae/corneas clear. No icterus. No ptosis. Neck: ETT Oral: ETT Cardiovascular: S1, S2 normal. Respiratory: Good air entry, clear to auscultation bilaterally GI: Soft, non-tender; bowel sounds normal. No peritoneal signs. Musculoskeletal: noted sacral wound/erosions on images, patient not turned for exam. Skin: No rash or abscess Hem/Lymphatic: No palpable cervical or supraclavicular nodes. No lymphangitis Psych: Mood ok. Affect normal Neurological: intubated, sedated - Constitutional Vitals: Vital Signs Temp Pulse Resp BP Pulse Ox 97.9 F 106 H 18 153/62 99 01/08/21 09:10 01/08/21 12:40 01/08/21 12:40 01/08/21 12:40 01/08/21 12:40 Temperature -Last 24 Hours Temperature 97.9 F Temperature 99.6 F Temperature 99.2 F Temperature 99.9 F Temperature 99.2 F Temperature 98.8 F - Labs CBC & Chem 7: 01/08/21 05:56 01/08/21 05:56 Labs: Abnormal lab results 01/07/21 01/07/21 01/08/21 Range/Units 21:00 23:09 02:47 WBC (4.5-11.0) K/mm3 RBC (3.65-5.03) M/mm3 Hgb (10.1-14.3) gm/dl Hct (30.3-42.9) % RDW (13.2-15.2) % Plt Count (140-440) K/mm3 Eos % (Auto) (0.0-4.3) % Seg Neutrophils % (40.0-70.0) % Seg Neuts % (Manual) (40.0-70.0) % Lymphocytes % (Manual) (13.4-35.0) % Lymphocytes # (Manual) (1.2-5.4) K/mm3 ABG pH 7.482 H (7.320-7.450) POC ABG pO2 108.1 H (83-108) mmHg ABG Hemoglobin 7.2 L (12.0-17.5) ABG Sodium 128.1 L (136.0-145.0) mmol/L ABG Potassium 3.2 L (3.40-4.50) mmol/L ABG Chloride 95.0 L (98-107) mmol/L ABG Glucose 185 H (65-95) mg/dL Potassium (3.6-5.0) mmol/L Chloride (98-107) mmol/L BUN (7-17) mg/dL Creatinine (0.6-1.2) mg/dL Glucose (65-100) mg/dL POC Glucose 179 H 121 H (70-105) mg/dL Calcium (8.4-10.2) mg/dL Arterial Blood Glucose 185 H (65-95) mg/dL Arterial Blood Ionized Calcium 4.2 L (4.6-5.3) mg/dL 01/08/21 01/08/21 01/08/21 Range/Units 05:29 05:56 05:56 WBC 4.0 L (4.5-11.0) K/mm3 RBC 2.57 L (3.65-5.03) M/mm3 Hgb 7.3 L (10.1-14.3) gm/dl Hct 21.7 L (30.3-42.9) % RDW 17.9 H (13.2-15.2) % Plt Count 46 L (140-440) K/mm3 Eos % (Auto) 4.5 H (0.0-4.3) % Seg Neutrophils % 87.1 H (40.0-70.0) % Seg Neuts % (Manual) 74.0 H (40.0-70.0) % Lymphocytes % (Manual) 1.0 L (13.4-35.0) % Lymphocytes # (Manual) 0.0 L (1.2-5.4) K/mm3 ABG pH (7.320-7.450) POC ABG pO2 (83-108) mmHg ABG Hemoglobin (12.0-17.5) ABG Sodium (136.0-145.0) mmol/L ABG Potassium (3.40-4.50) mmol/L ABG Chloride (98-107) mmol/L ABG Glucose (65-95) mg/dL Potassium 3.2 L (3.6-5.0) mmol/L Chloride 93.4 L (98-107) mmol/L BUN 32 H (7-17) mg/dL Creatinine 3.2 H (0.6-1.2) mg/dL Glucose 154 H (65-100) mg/dL POC Glucose 154 H (70-105) mg/dL Calcium 7.8 L D (8.4-10.2) mg/dL Arterial Blood Glucose (65-95) mg/dL Arterial Blood Ionized Calcium (4.6-5.3) mg/dL 01/08/21 01/08/21 Range/Units 09:20 11:43 WBC (4.5-11.0) K/mm3 RBC (3.65-5.03) M/mm3 Hgb (10.1-14.3) gm/dl Hct (30.3-42.9) % RDW (13.2-15.2) % Plt Count (140-440) K/mm3 Eos % (Auto) (0.0-4.3) % Seg Neutrophils % (40.0-70.0) % Seg Neuts % (Manual) (40.0-70.0) % Lymphocytes % (Manual) (13.4-35.0) % Lymphocytes # (Manual) (1.2-5.4) K/mm3 ABG pH 7.474 H (7.320-7.450) POC ABG pO2 (83-108) mmHg ABG Hemoglobin 6.9 L (12.0-17.5) ABG Sodium 126.7 L (136.0-145.0) mmol/L ABG Potassium 3.0 L (3.40-4.50) mmol/L ABG Chloride 94.0 L (98-107) mmol/L ABG Glucose 199 H (65-95) mg/dL Potassium (3.6-5.0) mmol/L Chloride (98-107) mmol/L BUN (7-17) mg/dL Creatinine (0.6-1.2) mg/dL Glucose (65-100) mg/dL POC Glucose 179 H (70-105) mg/dL Calcium (8.4-10.2) mg/dL Arterial Blood Glucose 199 H (65-95) mg/dL Arterial Blood Ionized Calcium 3.9 L (4.6-5.3) mg/dL
[2021-01-09 05:12] LABS: Hemoglobin 6.8 gm/dl (10.1-14.3); Mean Corpuscular HGB Conc 35 % (30-34); Mean Corpuscular Volume 82 fl (79-97)
[2021-01-09] MEDS: INSULIN LISPRO 100 UNIT/ML SUB-Q SCH ×3 (05:22→18:22)
[2021-01-09 05:27] LABS: Calcium 7.6 mg/dL (8.4-10.2)
[2021-01-09 05:29] LABS: Hematocrit 19.7 % (30.3-42.9); Platelet Count 30 K/mm3 (140-440)
[2021-01-09] MEDS ORDERED: SODIUM CHLORIDE 0.9% 500 ML 500 ML IV ONE (06:10)
--- NOTE | 2021-01-09 07:25 | Progress Note ---
Assessment and Plan Acute hypoxemic respiratory failure s/p MVS -extubated 01/08/2021 Acute kidney injury on HD Severe sepsis with shock, improved Community-acquired pneumonia Multiple myeloma Severe metabolic acidosis Lactic acidosis Hyponatremia Non-ST elevation myocardial infarction Anemia that is normocytic Hyperkalemia Oropharyngeal dysphagia Possible urinary tract infection -Titrate supplemental oxygen for SpO2 89-92% - Place small bowel feeding tube fro nutritional support -Strict NPO per FIN[employer] PROFESSIONAL for now -Stop all laxatives -Transfuse 1 unit PRBC fro HgB <7g/dL - continue bronchodilators with pulmonary hygiene per RT -Chest PT, airway clearance, incentive spirometry - avoid nephrotoxins, renally dose all medications - continue to avoid benzodiazepines, reduce the possibility of delirium - complete empiric antibiotics per ID - continue accuchecks with glycemic control per SSI (While critically ill target blood glucose of 140-180 mg/dL; avoid hypoglycemia) - Maintenance of sleep-wake cycle, avoid delirium - Continue with stress ulcer and VTE prophylaxis - PT/OT/ROM exercises - continue mobility , off loading and frequent turning per facility protocol to avoid pressure ulcers - continue to monitor hemodynamics closely CONDITION: FAIR PROGNOSIS: FAIR CODE STATUS: FULL CODE Subjective Date of service: 01/09/21 Principal diagnosis: Ac hypoxemic resp failure; MORGAN; Septic Shock; CAP; Multiple myeloma; NSTEMI Interval history: Patient is seen today for: Acute hypoxemic respiratory failure; MORGAN; Septic Shock; CAP; Multiple myeloma; NSTEMI Seen and examined at bedside; 24hour events reviewed; nursing and respiratory care staff consulted; no adverse overnight events reported to me; resting peacefully in bed; extubated yesterday, failed swallow evaluation Diarrhea overnight, no fevers, moist cough, some agitation on and off Objective Vital Signs - 12hr 01/08/21 01/08/21 01/08/21 19:30 19:35 19:40 Temperature 98.2 F Pulse Rate 103 H 98 H 107 H Respiratory 17 12 Rate Respiratory Rate [ Generalized] Blood Pressure 114/66 115/54 134/66 O2 Sat by Pulse 99 100 Oximetry 01/08/21 01/08/21 01/08/21 19:45 19:46 19:50 Temperature 99.0 F Pulse Rate 99 H Respiratory 12 Rate Respiratory Rate [ Generalized] Blood Pressure 133/62 O2 Sat by Pulse 100 100 Oximetry 01/08/21 01/08/21 01/08/21 20:00 20:10 20:19 Temperature Pulse Rate 100 H 101 H 101 H Respiratory 12 12 12 Rate Respiratory Rate [ Generalized] Blood Pressure 141/66 141/66 O2 Sat by Pulse 100 100 100 Oximetry 01/08/21 01/08/21 01/08/21 20:20 20:30 20:40 Temperature Pulse Rate 98 H 98 H 105 H Respiratory 13 11 L 13 Rate Respiratory Rate [ Generalized] Blood Pressure 146/63 146/63 146/63 O2 Sat by Pulse 99 100 99 Oximetry 01/08/21 01/08/21 01/08/21 20:50 21:00 21:10 Temperature Pulse Rate 98 H 99 H 100 H Respiratory 12 14 15 Rate Respiratory Rate [ Generalized] Blood Pressure 146/63 137/71 137/71 O2 Sat by Pulse 99 100 100 Oximetry 01/08/21 01/08/21 01/08/21 21:20 21:30 21:40 Temperature Pulse Rate 100 H 99 H 101 H Respiratory 15 13 10 L Rate Respiratory Rate [ Generalized] Blood Pressure 137/71 137/71 137/71 O2 Sat by Pulse 99 100 99 Oximetry 01/08/21 01/08/21 01/08/21 21:50 22:00 22:10 Temperature Pulse Rate 98 H 99 H 95 H Respiratory 14 11 L 13 Rate Respiratory Rate [ Generalized] Blood Pressure 137/71 147/71 147/71 O2 Sat by Pulse 100 100 100 Oximetry 01/08/21 01/08/21 01/08/21 22:15 22:20 22:30 Temperature Pulse Rate 94 H 95 H Respiratory 12 12 Rate Respiratory 18 Rate [ Generalized] Blood Pressure 147/71 147/71 O2 Sat by Pulse 99 100 Oximetry 01/08/21 01/08/21 01/08/21 22:40 22:50 23:00 Temperature Pulse Rate 101 H 96 H 95 H Respiratory 17 11 L 15 Rate Respiratory Rate [ Generalized] Blood Pressure 147/71 147/71 126/56 O2 Sat by Pulse 99 99 100 Oximetry 01/08/21 01/08/21 01/08/21 23:10 23:18 23:20 Temperature Pulse Rate 100 H 97 H 98 H Respiratory 11 L 11 L 12 Rate Respiratory Rate [ Generalized] Blood Pressure 126/56 135/70 126/56 O2 Sat by Pulse 99 100 100 Oximetry 01/08/21 01/08/21 01/08/21 23:30 23:40 23:50 Temperature Pulse Rate 102 H 93 H 100 H Respiratory 12 10 L 12 Rate Respiratory Rate [ Generalized] Blood Pressure 126/56 126/56 126/56 O2 Sat by Pulse 99 99 99 Oximetry 01/09/21 01/09/21 01/09/21 00:00 00:10 00:15 Temperature 97.3 F L Pulse Rate 98 H 102 H 102 H Respiratory 14 13 14 Rate Respiratory Rate [ Generalized] Blood Pressure 153/77 153/77 O2 Sat by Pulse 100 99 100 Oximetry 01/09/21 01/09/21 01/09/21 00:20 00:30 00:40 Temperature Pulse Rate 100 H 94 H 104 H Respiratory 18 14 14 Rate Respiratory Rate [ Generalized] Blood Pressure 153/77 153/77 153/77 O2 Sat by Pulse 93 92 97 Oximetry 01/09/21 01/09/21 01/09/21 00:50 01:00 01:10 Temperature Pulse Rate 98 H 97 H 81 Respiratory 12 16 14 Rate Respiratory Rate [ Generalized] Blood Pressure 153/77 148/67 148/67 O2 Sat by Pulse 90 97 95 Oximetry 01/09/21 01/09/21 01/09/21 01:20 01:30 01:40 Temperature Pulse Rate 96 H 99 H 91 H Respiratory 12 17 12 Rate Respiratory Rate [ Generalized] Blood Pressure 148/67 148/67 148/67 O2 Sat by Pulse 97 95 93 Oximetry 01/09/21 01/09/21 01/09/21 01:50 02:00 02:05 Temperature Pulse Rate 91 H 95 H 95 H Respiratory 15 16 14 Rate Respiratory Rate [ Generalized] Blood Pressure 148/67 150/63 O2 Sat by Pulse 94 97 100 Oximetry 01/09/21 01/09/21 01/09/21 02:10 02:20 02:30 Temperature Pulse Rate 95 H 99 H 85 Respiratory 13 14 14 Rate Respiratory Rate [ Generalized] Blood Pressure 150/63 150/63 150/63 O2 Sat by Pulse 95 97 97 Oximetry 01/09/21 01/09/21 01/09/21 02:40 02:50 03:00 Temperature Pulse Rate 96 H 92 H 94 H Respiratory 14 14 12 Rate Respiratory Rate [ Generalized] Blood Pressure 150/63 150/63 144/62 O2 Sat by Pulse 97 96 96 Oximetry 01/09/21 01/09/21 01/09/21 03:10 03:20 03:30 Temperature Pulse Rate 90 97 H 90 Respiratory 16 13 18 Rate Respiratory Rate [ Generalized] Blood Pressure 144/62 144/62 144/62 O2 Sat by Pulse 92 96 96 Oximetry 01/09/21 01/09/21 01/09/21 03:40 03:46 03:50 Temperature 98.0 F Pulse Rate 94 H 88 Respiratory 19 14 Rate Respiratory Rate [ Generalized] Blood Pressure 144/62 144/62 O2 Sat by Pulse 97 95 Oximetry 01/09/21 01/09/21 01/09/21 04:00 04:10 04:15 Temperature Pulse Rate 92 H 90 86 Respiratory 15 12 14 Rate Respiratory Rate [ Generalized] Blood Pressure 132/58 132/58 O2 Sat by Pulse 100 96 100 Oximetry 01/09/21 01/09/21 01/09/21 04:20 04:30 04:40 Temperature Pulse Rate 89 93 H 86 Respiratory 10 L 13 11 L Rate Respiratory Rate [ Generalized] Blood Pressure 132/58 132/58 132/58 O2 Sat by Pulse 100 100 99 Oximetry 01/09/21 01/09/21 01/09/21 04:50 05:00 05:10 Temperature Pulse Rate 86 79 79 Respiratory 11 L 11 L 12 Rate Respiratory Rate [ Generalized] Blood Pressure 132/58 132/58 132/58 O2 Sat by Pulse 100 100 100 Oximetry 01/09/21 01/09/21 01/09/21 05:19 05:20 05:30 Temperature Pulse Rate 79 87 80 Respiratory 14 10 L 11 L Rate Respiratory Rate [ Generalized] Blood Pressure 121/61 121/61 O2 Sat by Pulse 100 100 100 Oximetry 01/09/21 01/09/21 01/09/21 05:41 05:51 06:00 Temperature Pulse Rate 79 81 83 Respiratory 11 L 12 10 L Rate Respiratory Rate [ Generalized] Blood Pressure 121/61 97/49 O2 Sat by Pulse 100 100 100 Oximetry 01/09/21 06:11 Temperature Pulse Rate 84 Respiratory 11 L Rate Respiratory Rate [ Generalized] Blood Pressure 97/49 O2 Sat by Pulse 100 Oximetry Constitutional: no acute distress, appears uncomfortable Eyes: non-icteric ENT: oropharynx moist Neck: supple, no lymphadenopathy, no JVD, other (RIJ HD catheter) Effort: mildly labored Ascultation: Bilateral: rhonchi (scant) Percussion: Bilateral: not dull Cardiovascular: regular rate and rhythm Gastrointestinal: normoactive bowel sounds, soft, non-tender, non-distended Integumentary: normal Extremities: no cyanosis, no edema, pink and warm, pulses normal Neurologic: non-focal exam (grossly), pupils equal and round, CN II-XII normal, motor strength normal and Psychiatric: affect normal CBC and BMP: 01/09/21 04:27 01/09/21 04:27 ABG, PT/INR, D-dimer: ABG ABG pH 7.474 (7.320-7.450) H 01/08/21 09:20 POC ABG pCO2 39.7 mmHg (32.0-48.0) 01/08/21 09:20 ABG pCO2 19.0 mm Hg 01/05/21 13:35 POC ABG pO2 101.9 mmHg (83-108) 01/08/21 09:20 ABG pO2 84.7 mm Hg (80.0-90.0) 01/05/21 13:35 POC ABG HCO3 28.5 01/08/21 09:20 ABG O2 Saturation 98.1 (0-100) 01/08/21 09:20 Abnormal lab findings: Abnormal Labs 01/05/21 01/05/21 01/05/21 13:35 13:44 13:44 WBC 11.6 H RBC 2.83 L Hgb 7.7 L Hct 26.1 L MCH 27 L MCHC RDW 19.2 H Plt Count Eos % (Auto) Seg Neutrophils % Seg Neuts % (Manual) 79.0 H Lymphocytes % (Manual) 9.0 L Nucleated RBC % 2.0 H Seg Neutrophils # Man 9.2 H Lymphocytes # (Manual) 1.0 L APTT 44.4 H ABG pH 6.889 L* POC ABG pCO2 POC ABG pO2 ABG HCO3 3.5 L ABG O2 Saturation 84.1 L ABG Base Excess -27.8 L ABG Hemoglobin 9.2 L ABG Oxyhemoglobin ABG Sodium ABG Potassium ABG Chloride ABG Glucose Oxyhemoglobin 82.4 L Carboxyhemoglobin Sodium Potassium Chloride Carbon Dioxide BUN Creatinine Glucose POC Glucose Lactic Acid Calcium Phosphorus Magnesium AST Ammonia Total Creatine Kinase Troponin T NT-Pro-B Natriuret Pep Total Protein Albumin LDL Cholesterol Direct PTH Intact Arterial Blood Glucose Arterial Blood Ionized Calcium Urine WBC (Auto) Urine Creatinine Crossmatch 01/05/21 01/05/21 01/05/21 13:44 13:44 13:44 WBC RBC Hgb Hct MCH MCHC RDW Plt Count Eos % (Auto) Seg Neutrophils % Seg Neuts % (Manual) Lymphocytes % (Manual) Nucleated RBC % Seg Neutrophils # Man Lymphocytes # (Manual) APTT ABG pH POC ABG pCO2 POC ABG pO2 ABG HCO3 ABG O2 Saturation ABG Base Excess ABG Hemoglobin ABG Oxyhemoglobin ABG Sodium ABG Potassium ABG Chloride ABG Glucose Oxyhemoglobin Carboxyhemoglobin Sodium 129 L Potassium 6.2 H* Chloride 82.2 L Carbon Dioxide 4 L* BUN 67 H Creatinine 8.1 H Glucose 126 H POC Glucose Lactic Acid 20.10 H* Calcium 7.7 L Phosphorus Magnesium AST 54 H Ammonia Total Creatine Kinase 484 H Troponin T 0.153 H* NT-Pro-B Natriuret Pep 14901 H Total Protein Albumin 3.2 L LDL Cholesterol Direct 8 L PTH Intact Arterial Blood Glucose Arterial Blood Ionized Calcium Urine WBC (Auto) Urine Creatinine Crossmatch 01/05/21 01/05/21 01/05/21 13:44 14:47 17:50 WBC RBC Hgb Hct MCH MCHC RDW Plt Count Eos % (Auto) Seg Neutrophils % Seg Neuts % (Manual) Lymphocytes % (Manual) Nucleated RBC % Seg Neutrophils # Man Lymphocytes # (Manual) APTT ABG pH POC ABG pCO2 POC ABG pO2 ABG HCO3 ABG O2 Saturation ABG Base Excess ABG Hemoglobin ABG Oxyhemoglobin ABG Sodium ABG Potassium ABG Chloride ABG Glucose Oxyhemoglobin Carboxyhemoglobin Sodium Potassium Chloride Carbon Dioxide BUN Creatinine Glucose POC Glucose Lactic Acid 18.80 H* Calcium Phosphorus Magnesium AST Ammonia 106.0 H Total Creatine Kinase Troponin T NT-Pro-B Natriuret Pep Total Protein Albumin LDL Cholesterol Direct PTH Intact Arterial Blood Glucose Arterial Blood Ionized Calcium Urine WBC (Auto) 38.0 H Urine Creatinine Crossmatch 01/05/21 01/05/21 01/05/21 17:50 22:34 23:05 WBC RBC Hgb Hct MCH MCHC RDW Plt Count Eos % (Auto) Seg Neutrophils % Seg Neuts % (Manual) Lymphocytes % (Manual) Nucleated RBC % Seg Neutrophils # Man Lymphocytes # (Manual) APTT ABG pH 7.056 L POC ABG pCO2 23.6 L POC ABG pO2 277.9 H ABG HCO3 ABG O2 Saturation ABG Base Excess ABG Hemoglobin 7.6 L ABG Oxyhemoglobin 99.6 H ABG Sodium 125.0 L ABG Potassium 5.7 H ABG Chloride 94.0 L ABG Glucose 283 H Oxyhemoglobin Carboxyhemoglobin 0.1 L Sodium Potassium Chloride Carbon Dioxide BUN Creatinine Glucose POC Glucose Lactic Acid Calcium Phosphorus Magnesium AST Ammonia 100.0 H Total Creatine Kinase Troponin T NT-Pro-B Natriuret Pep Total Protein Albumin LDL Cholesterol Direct PTH Intact Arterial Blood Glucose 283 H Arterial Blood Ionized Calcium 3.9 L Urine WBC (Auto) Urine Creatinine 74.4 H Crossmatch 01/05/21 01/06/21 01/06/21 23:18 05:00 06:40 WBC RBC 2.30 L Hgb 6.5 L Hct 19.1 L* D MCH MCHC RDW 18.5 H Plt Count 85 L Eos % (Auto) Seg Neutrophils % Seg Neuts % (Manual) 76.0 H Lymphocytes % (Manual) 1.0 L Nucleated RBC % 2.0 H Seg Neutrophils # Man Lymphocytes # (Manual) 0.1 L APTT ABG pH POC ABG pCO2 POC ABG pO2 ABG HCO3 ABG O2 Saturation ABG Base Excess ABG Hemoglobin ABG Oxyhemoglobin ABG Sodium ABG Potassium ABG Chloride ABG Glucose Oxyhemoglobin Carboxyhemoglobin Sodium Potassium Chloride Carbon Dioxide BUN Creatinine Glucose POC Glucose 252 H 159 H Lactic Acid Calcium Phosphorus Magnesium AST Ammonia Total Creatine Kinase Troponin T NT-Pro-B Natriuret Pep Total Protein Albumin LDL Cholesterol Direct PTH Intact Arterial Blood Glucose Arterial Blood Ionized Calcium Urine WBC (Auto) Urine Creatinine Crossmatch 01/06/21 01/06/21 01/06/21 06:40 06:40 06:40 WBC RBC Hgb Hct MCH MCHC RDW Plt Count Eos % (Auto) Seg Neutrophils % Seg Neuts % (Manual) Lymphocytes % (Manual) Nucleated RBC % Seg Neutrophils # Man Lymphocytes # (Manual) APTT ABG pH POC ABG pCO2 POC ABG pO2 ABG HCO3 ABG O2 Saturation ABG Base Excess ABG Hemoglobin ABG Oxyhemoglobin ABG Sodium ABG Potassium ABG Chloride ABG Glucose Oxyhemoglobin Carboxyhemoglobin Sodium 135 L Potassium Chloride 87.4 L Carbon Dioxide 14 L D BUN 36 H Creatinine 4.3 H Glucose 167 H POC Glucose Lactic Acid 13.60 H* Calcium 6.5 L D Phosphorus Magnesium AST 122 H Ammonia Total Creatine Kinase Troponin T NT-Pro-B Natriuret Pep Total Protein 5.4 L D Albumin 2.5 L LDL Cholesterol Direct PTH Intact 209.3 H Arterial Blood Glucose Arterial Blood Ionized Calcium Urine WBC (Auto) Urine Creatinine Crossmatch 01/06/21 01/06/21 01/06/21 09:04 12:43 17:27 WBC RBC Hgb Hct MCH MCHC RDW Plt Count Eos % (Auto) Seg Neutrophils % Seg Neuts % (Manual) Lymphocytes % (Manual) Nucleated RBC % Seg Neutrophils # Man Lymphocytes # (Manual) APTT ABG pH POC ABG pCO2 20.9 L POC ABG pO2 162.3 H ABG HCO3 ABG O2 Saturation ABG Base Excess ABG Hemoglobin 6.0 L ABG Oxyhemoglobin 98.2 H ABG Sodium 131.2 L ABG Potassium ABG Chloride 95.0 L ABG Glucose 175 H Oxyhemoglobin Carboxyhemoglobin Sodium Potassium Chloride Carbon Dioxide BUN Creatinine Glucose POC Glucose 151 H 151 H Lactic Acid Calcium Phosphorus Magnesium AST Ammonia Total Creatine Kinase Troponin T NT-Pro-B Natriuret Pep Total Protein Albumin LDL Cholesterol Direct PTH Intact Arterial Blood Glucose 175 H Arterial Blood Ionized Calcium 3.3 L Urine WBC (Auto) Urine Creatinine Crossmatch 01/06/21 01/07/21 01/07/21 23:04 03:22 05:49 WBC RBC Hgb Hct MCH MCHC RDW Plt Count Eos % (Auto) Seg Neutrophils % Seg Neuts % (Manual) Lymphocytes % (Manual) Nucleated RBC % Seg Neutrophils # Man Lymphocytes # (Manual) APTT ABG pH POC ABG pCO2 POC ABG pO2 138.2 H ABG HCO3 ABG O2 Saturation ABG Base Excess ABG Hemoglobin 5.7 L ABG Oxyhemoglobin ABG Sodium 129.7 L ABG Potassium ABG Chloride 89.0 L ABG Glucose 146 H Oxyhemoglobin Carboxyhemoglobin Sodium Potassium Chloride Carbon Dioxide BUN Creatinine Glucose POC Glucose 139 H 137 H Lactic Acid Calcium Phosphorus Magnesium AST Ammonia Total Creatine Kinase Troponin T NT-Pro-B Natriuret Pep Total Protein Albumin LDL Cholesterol Direct PTH Intact Arterial Blood Glucose 146 H Arterial Blood Ionized Calcium 2.9 L Urine WBC (Auto) Urine Creatinine Crossmatch 07/02/2001/07/21 01/07/21 07:06 07:06 07:06 WBC RBC Hgb Hct MCH MCHC RDW Plt Count Eos % (Auto) Seg Neutrophils % Seg Neuts % (Manual) Lymphocytes % (Manual) Nucleated RBC % Seg Neutrophils # Man Lymphocytes # (Manual) APTT ABG pH POC ABG pCO2 POC ABG pO2 ABG HCO3 ABG O2 Saturation ABG Base Excess ABG Hemoglobin ABG Oxyhemoglobin ABG Sodium ABG Potassium ABG Chloride ABG Glucose Oxyhemoglobin Carboxyhemoglobin Sodium Potassium Chloride 85.2 L Carbon Dioxide 21 L D BUN 48 H Creatinine 5.0 H Glucose 142 H POC Glucose Lactic Acid 13.90 H* Calcium 5.7 L* Phosphorus 4.60 H Magnesium AST Ammonia Total Creatine Kinase Troponin T NT-Pro-B Natriuret Pep Total Protein Albumin LDL Cholesterol Direct PTH Intact Arterial Blood Glucose Arterial Blood Ionized Calcium Urine WBC (Auto) Urine Creatinine Crossmatch See Detail 01/07/21 01/07/21 01/07/21 08:35 11:33 21:00 WBC RBC Hgb Hct MCH MCHC RDW Plt Count Eos % (Auto) Seg Neutrophils % Seg Neuts % (Manual) Lymphocytes % (Manual) Nucleated RBC % Seg Neutrophils # Man Lymphocytes # (Manual) APTT ABG pH 7.482 H POC ABG pCO2 POC ABG pO2 108.1 H ABG HCO3 ABG O2 Saturation ABG Base Excess ABG Hemoglobin 7.2 L ABG Oxyhemoglobin ABG Sodium 128.1 L ABG Potassium 3.2 L ABG Chloride 95.0 L ABG Glucose 185 H Oxyhemoglobin Carboxyhemoglobin Sodium Potassium Chloride Carbon Dioxide BUN Creatinine Glucose POC Glucose 149 H Lactic Acid 14.20 H* Calcium Phosphorus Magnesium AST Ammonia Total Creatine Kinase Troponin T NT-Pro-B Natriuret Pep Total Protein Albumin LDL Cholesterol Direct PTH Intact Arterial Blood Glucose 185 H Arterial Blood Ionized Calcium 4.2 L Urine WBC (Auto) Urine Creatinine Crossmatch 01/07/21 01/08/21 01/08/21 23:09 02:47 05:29 WBC RBC Hgb Hct MCH MCHC RDW Plt Count Eos % (Auto) Seg Neutrophils % Seg Neuts % (Manual) Lymphocytes % (Manual) Nucleated RBC % Seg Neutrophils # Man Lymphocytes # (Manual) APTT ABG pH POC ABG pCO2 POC ABG pO2 ABG HCO3 ABG O2 Saturation ABG Base Excess ABG Hemoglobin ABG Oxyhemoglobin ABG Sodium ABG Potassium ABG Chloride ABG Glucose Oxyhemoglobin Carboxyhemoglobin Sodium Potassium Chloride Carbon Dioxide BUN Creatinine Glucose POC Glucose 179 H 121 H 154 H Lactic Acid Calcium Phosphorus Magnesium AST Ammonia Total Creatine Kinase Troponin T NT-Pro-B Natriuret Pep Total Protein Albumin LDL Cholesterol Direct PTH Intact Arterial Blood Glucose Arterial Blood Ionized Calcium Urine WBC (Auto) Urine Creatinine Crossmatch 01/08/21 01/08/21 01/08/21 05:56 05:56 09:20 WBC 4.0 L RBC 2.57 L Hgb 7.3 L Hct 21.7 L MCH MCHC RDW 17.9 H Plt Count 46 L Eos % (Auto) 4.5 H Seg Neutrophils % 87.1 H Seg Neuts % (Manual) 74.0 H Lymphocytes % (Manual) 1.0 L Nucleated RBC % Seg Neutrophils # Man Lymphocytes # (Manual) 0.0 L APTT ABG pH 7.474 H POC ABG pCO2 POC ABG pO2 ABG HCO3 ABG O2 Saturation ABG Base Excess ABG Hemoglobin 6.9 L ABG Oxyhemoglobin ABG Sodium 126.7 L ABG Potassium 3.0 L ABG Chloride 94.0 L ABG Glucose 199 H Oxyhemoglobin Carboxyhemoglobin Sodium Potassium 3.2 L Chloride 93.4 L Carbon Dioxide BUN 32 H Creatinine 3.2 H Glucose 154 H POC Glucose Lactic Acid Calcium 7.8 L D Phosphorus Magnesium AST Ammonia Total Creatine Kinase Troponin T NT-Pro-B Natriuret Pep Total Protein Albumin LDL Cholesterol Direct PTH Intact Arterial Blood Glucose 199 H Arterial Blood Ionized Calcium 3.9 L Urine WBC (Auto) Urine Creatinine Crossmatch 01/08/21 01/08/21 01/08/21 11:43 17:29 23:58 WBC RBC Hgb Hct MCH MCHC RDW Plt Count Eos % (Auto) Seg Neutrophils % Seg Neuts % (Manual) Lymphocytes % (Manual) Nucleated RBC % Seg Neutrophils # Man Lymphocytes # (Manual) APTT ABG pH POC ABG pCO2 POC ABG pO2 ABG HCO3 ABG O2 Saturation ABG Base Excess ABG Hemoglobin ABG Oxyhemoglobin ABG Sodium ABG Potassium ABG Chloride ABG Glucose Oxyhemoglobin Carboxyhemoglobin Sodium Potassium Chloride Carbon Dioxide BUN Creatinine Glucose POC Glucose 179 H 164 H 142 H Lactic Acid Calcium Phosphorus Magnesium AST Ammonia Total Creatine Kinase Troponin T NT-Pro-B Natriuret Pep Total Protein Albumin LDL Cholesterol Direct PTH Intact Arterial Blood Glucose Arterial Blood Ionized Calcium Urine WBC (Auto) Urine Creatinine Crossmatch 01/09/21 01/09/21 01/09/21 04:27 04:27 05:13 WBC 2.8 L RBC 2.40 L Hgb 6.8 L Hct 19.7 L* MCH MCHC 35 H RDW 18.0 H Plt Count 30 L Eos % (Auto) Seg Neutrophils % Seg Neuts % (Manual) Lymphocytes % (Manual) Nucleated RBC % Seg Neutrophils # Man Lymphocytes # (Manual) APTT ABG pH POC ABG pCO2 POC ABG pO2 ABG HCO3 ABG O2 Saturation ABG Base Excess ABG Hemoglobin ABG Oxyhemoglobin ABG Sodium ABG Potassium ABG Chloride ABG Glucose Oxyhemoglobin Carboxyhemoglobin Sodium Potassium Chloride 97.1 L Carbon Dioxide 33 H BUN 55 H Creatinine 4.2 H Glucose 147 H POC Glucose 138 H Lactic Acid Calcium 7.6 L Phosphorus Magnesium 1.50 L AST Ammonia Total Creatine Kinase Troponin T NT-Pro-B Natriuret Pep Total Protein Albumin LDL Cholesterol Direct PTH Intact Arterial Blood Glucose Arterial Blood Ionized Calcium Urine WBC (Auto) Urine Creatinine Crossmatch Chest x-ray: image reviewed Allied health notes reviewed: nursing
[2021-01-09 07:40] LABS: Total Cells Counted 100
[2021-01-09 07:45] LABS: Anisocytosis 1+; Platelet Estimate Consistent w Auto
[2021-01-09] MEDS: FAMOTIDINE 20 MG TAB PO SCH (10:43)
[2021-01-09] MEDS: CEFEPIME/NS 2 GM/100 ML 2 GM/100 ML BAG IV SCH (10:43)
[2021-01-09] MEDS: SENNOSIDES/DOCUSATE SODIUM 8.6/50 MG TAB FEEDTUBE SCH (10:44)
[2021-01-09] MEDS ORDERED: SODIUM CHLORIDE 0.9% 500 ML 500 ML IV SCH (11:00)
--- NOTE | 2021-01-09 13:07 | Progress Note ---
Assessment and Plan Cultures: 01/05/2021 blood culture: No growth 01/05/2021 urine culture: No growth A/P: 70-year-old female past medical history multiple myeloma currently on chemo, diabetes, obesity admitted with hypoxic respiratory failure. #Acute hypoxic respiratory failure: unclear etiology, only pleural effusion and atelectasis on the left. Extubated 01/08/2021. #Pyuria: unclear if symptoms previous to admission. epithelial cells on UA, however continue antibiotics in the meantime. #Pancytopenia, multiple myeloma on chemotherapy: immunocompromised host. #MORGAN: now requiring HD. Renally dose medications Recs: -Continue IV Cefepime 1 gm daily, D4 of 5 -Fluconazole 200 mg daily x 7 days Jose Pichardo MD, FACP [facility] ([facility] O: [phone] F: [phone] Subjective Date of service: 01/09/21 Principal diagnosis: Ac hypoxemic resp failure; MORGAN; Septic Shock; CAP; Multiple myeloma; NSTEMI Interval history: No fever. Stable on nasal cannula at 2 L/min. Wants to get out of the bed. at bedside. Labs reveal pancytopenia. Objective - Exam Narrative Exam: Physical Exam: Constitutional: awake Head, Ears, Nose: Normocephalic, atraumatic. External ears, nose normal Eyes: Conjunctivae/corneas clear. No icterus. No ptosis. Neck: Supple, no meningeal signs. dialysis cath + Cardiovascular: S1, S2 normal. Respiratory: Good air entry, clear to auscultation bilaterally GI: Soft, non-tender; bowel sounds normal. No peritoneal signs Musculoskeletal: No pedal edema, no cyanosis. Skin: No rash or abscess Hem/Lymphatic: No palpable cervical or supraclavicular nodes. No lymphangitis Neurological: awake, alert - Constitutional Vitals: Vital Signs Temp Pulse Resp BP Pulse Ox 97.9 F 96 H 15 141/64 100 01/09/21 07:51 01/09/21 11:21 01/09/21 11:21 01/09/21 11:21 01/09/21 11:21 Temperature -Last 24 Hours Temperature 97.9 F Temperature 98.0 F Temperature 97.3 F Temperature 99.0 F Temperature 98.2 F Temperature 99.1 F Temperature 98.6 F - Labs CBC & Chem 7: 01/09/21 04:27 01/09/21 04:27 Labs: Abnormal lab results 01/07/21 01/08/21 01/08/21 Range/Units 07:06 17:29 23:58 WBC (4.5-11.0) K/mm3 RBC (3.65-5.03) M/mm3 Hgb (10.1-14.3) gm/dl Hct (30.3-42.9) % MCHC (30-34) % RDW (13.2-15.2) % Plt Count (140-440) K/mm3 Seg Neuts % (Manual) (40.0-70.0) % Lymphocytes % (Manual) (13.4-35.0) % Eosinophils % (Manual) (0.0-4.3) % Lymphocytes # (Manual) (1.2-5.4) K/mm3 Chloride (98-107) mmol/L Carbon Dioxide (22-30) mmol/L BUN (7-17) mg/dL Creatinine (0.6-1.2) mg/dL Glucose (65-100) mg/dL POC Glucose 164 H 142 H (70-105) mg/dL Calcium (8.4-10.2) mg/dL Magnesium (1.7-2.3) mg/dL Crossmatch See Detail 01/09/21 01/09/21 01/09/21 Range/Units 04:27 04:27 05:13 WBC 2.8 L (4.5-11.0) K/mm3 RBC 2.40 L (3.65-5.03) M/mm3 Hgb 6.8 L (10.1-14.3) gm/dl Hct 19.7 L* (30.3-42.9) % MCHC 35 H (30-34) % RDW 18.0 H (13.2-15.2) % Plt Count 30 L (140-440) K/mm3 Seg Neuts % (Manual) 92.0 H (40.0-70.0) % Lymphocytes % (Manual) 2.0 L (13.4-35.0) % Eosinophils % (Manual) 5.0 H (0.0-4.3) % Lymphocytes # (Manual) 0.1 L (1.2-5.4) K/mm3 Chloride 97.1 L (98-107) mmol/L Carbon Dioxide 33 H (22-30) mmol/L BUN 55 H (7-17) mg/dL Creatinine 4.2 H (0.6-1.2) mg/dL Glucose 147 H (65-100) mg/dL POC Glucose 138 H (70-105) mg/dL Calcium 7.6 L (8.4-10.2) mg/dL Magnesium 1.50 L (1.7-2.3) mg/dL Crossmatch 01/09/21 Range/Units 11:57 WBC (4.5-11.0) K/mm3 RBC (3.65-5.03) M/mm3 Hgb (10.1-14.3) gm/dl Hct (30.3-42.9) % MCHC (30-34) % RDW (13.2-15.2) % Plt Count (140-440) K/mm3 Seg Neuts % (Manual) (40.0-70.0) % Lymphocytes % (Manual) (13.4-35.0) % Eosinophils % (Manual) (0.0-4.3) % Lymphocytes # (Manual) (1.2-5.4) K/mm3 Chloride (98-107) mmol/L Carbon Dioxide (22-30) mmol/L BUN (7-17) mg/dL Creatinine (0.6-1.2) mg/dL Glucose (65-100) mg/dL POC Glucose 155 H (70-105) mg/dL Calcium (8.4-10.2) mg/dL Magnesium (1.7-2.3) mg/dL Crossmatch
--- NOTE | 2021-01-09 14:00 | Progress Note ---
Assessment and Plan 1. Acute kidney injury: Vasomotor MORGAN in the setting shock. Renal US negative for hydro. Monitor renal function. Oliguric. Renal prognosis is guarded. Avoid nephrotoxic agents. Meds dosage based on GFR. Monitor for [employer] needs. Patient was started on hemodialysis due to significant decline in the GFR, associated hyperkalemia and severe metabolic acidosis. Hemodialysis: 01/05, 01/07, 01/08(UF only). 2. FEN: Hyperkalemia, improved with HD. Anion-gap Metabolic acidosis, improved, monitor. Replete Mg. Monitor lytes. 3. Acute respiratory failure with hypoxia: S/p extubated. Followed by Pulmonary. 4. Shock, POA: Likely septic. Abx. Off pressors now. Follow cultures. 5. Elevated Troponin: Monitor. 6. Diabetes mellitus type 2: Follow blood glucose. 7. Anemia, POA: S/p 1 unit of PRBC 01/07. Monitor. 8. Encephalopathy: Monitor. 9. Multiple myeloma: On Chemo. Prognosis is guarded. Subjective: Patient was seen and examined at the bedside. at the bedside. Examination: General appearance: well-developed, well-nourished, appears stated age HEENT: ATNC, pupils equal Neck: supple Respiratory: ctab Cardiology: regular, S1S2, no murmur Gastrointestinal: soft, bowel sounds heard, not tender Integumentary: no rash, warm and dry Neurologic: lethargic, hoarse voice, able to move extremities Ext: trace dependent edema : Winters catheter Hemodialysis access: R IJ temp catheter Subjective Date of service: 01/09/21 Principal diagnosis: Ac hypoxemic resp failure; MORGAN; Septic Shock; CAP; Multiple myeloma; NSTEMI Objective - Vital Signs Vital signs: Vital Signs - 12hr 01/09/21 01/09/21 01/09/21 02:00 02:05 02:10 Temperature Pulse Rate 95 H 95 H 95 H Respiratory 16 14 13 Rate Respiratory Rate [ Generalized] Blood Pressure 150/63 150/63 O2 Sat by Pulse 97 100 95 Oximetry 01/09/21 01/09/21 01/09/21 02:20 02:30 02:40 Temperature Pulse Rate 99 H 85 96 H Respiratory 14 14 14 Rate Respiratory Rate [ Generalized] Blood Pressure 150/63 150/63 150/63 O2 Sat by Pulse 97 97 97 Oximetry 01/09/21 01/09/21 01/09/21 02:50 03:00 03:10 Temperature Pulse Rate 92 H 94 H 90 Respiratory 14 12 16 Rate Respiratory Rate [ Generalized] Blood Pressure 150/63 144/62 144/62 O2 Sat by Pulse 96 96 92 Oximetry 01/09/21 01/09/21 01/09/21 03:20 03:30 03:40 Temperature Pulse Rate 97 H 90 94 H Respiratory 13 18 19 Rate Respiratory Rate [ Generalized] Blood Pressure 144/62 144/62 144/62 O2 Sat by Pulse 96 96 97 Oximetry 01/09/21 01/09/21 01/09/21 03:46 03:50 04:00 Temperature 98.0 F Pulse Rate 88 92 H Respiratory 14 15 Rate Respiratory Rate [ Generalized] Blood Pressure 144/62 132/58 O2 Sat by Pulse 95 100 Oximetry 01/09/21 01/09/21 01/09/21 04:10 04:15 04:20 Temperature Pulse Rate 90 86 89 Respiratory 12 14 10 L Rate Respiratory Rate [ Generalized] Blood Pressure 132/58 132/58 O2 Sat by Pulse 96 100 100 Oximetry 01/09/21 01/09/21 01/09/21 04:30 04:40 04:50 Temperature Pulse Rate 93 H 86 86 Respiratory 13 11 L 11 L Rate Respiratory Rate [ Generalized] Blood Pressure 132/58 132/58 132/58 O2 Sat by Pulse 100 99 100 Oximetry 01/09/21 01/09/21 01/09/21 05:00 05:10 05:19 Temperature Pulse Rate 79 79 79 Respiratory 11 L 12 14 Rate Respiratory Rate [ Generalized] Blood Pressure 132/58 132/58 O2 Sat by Pulse 100 100 100 Oximetry 01/09/21 01/09/21 01/09/21 05:20 05:30 05:41 Temperature Pulse Rate 87 80 79 Respiratory 10 L 11 L 11 L Rate Respiratory Rate [ Generalized] Blood Pressure 121/61 121/61 O2 Sat by Pulse 100 100 100 Oximetry 01/09/21 01/09/21 01/09/21 05:51 06:00 06:11 Temperature Pulse Rate 81 83 84 Respiratory 12 10 L 11 L Rate Respiratory Rate [ Generalized] Blood Pressure 121/61 97/49 97/49 O2 Sat by Pulse 100 100 100 Oximetry 01/09/21 01/09/21 01/09/21 06:21 06:31 06:41 Temperature Pulse Rate 80 88 79 Respiratory 11 L 11 L 10 L Rate Respiratory Rate [ Generalized] Blood Pressure 97/49 97/49 97/49 O2 Sat by Pulse 100 100 100 Oximetry 01/09/21 01/09/21 01/09/21 06:51 07:00 07:11 Temperature Pulse Rate 78 92 H 101 H Respiratory 11 L 13 20 Rate Respiratory Rate [ Generalized] Blood Pressure 97/49 156/65 156/65 O2 Sat by Pulse 100 100 98 Oximetry 01/09/21 01/09/21 01/09/21 07:21 07:31 07:41 Temperature Pulse Rate 102 H 106 H 108 H Respiratory 18 15 19 Rate Respiratory Rate [ Generalized] Blood Pressure 156/65 156/65 156/65 O2 Sat by Pulse 99 98 98 Oximetry 01/09/21 01/09/21 01/09/21 07:51 08:00 08:11 Temperature 97.9 F Pulse Rate 103 H 104 H 100 H Respiratory 16 16 17 Rate Respiratory Rate [ Generalized] Blood Pressure 156/65 153/63 153/63 O2 Sat by Pulse 97 97 99 Oximetry 01/09/21 01/09/21 01/09/21 08:21 08:31 08:41 Temperature Pulse Rate 103 H 97 H 99 H Respiratory 18 13 13 Rate Respiratory Rate [ Generalized] Blood Pressure 153/63 153/63 153/63 O2 Sat by Pulse 98 99 99 Oximetry 01/09/21 01/09/21 01/09/21 08:51 09:01 09:11 Temperature Pulse Rate 104 H 102 H 91 H Respiratory 17 18 14 Rate Respiratory Rate [ Generalized] Blood Pressure 153/63 153/63 153/63 O2 Sat by Pulse 98 99 98 Oximetry 01/09/21 01/09/21 01/09/21 09:21 09:22 09:31 Temperature Pulse Rate 97 H 94 H Respiratory 13 18 Rate Respiratory Rate [ Generalized] Blood Pressure 153/63 153/63 O2 Sat by Pulse 98 99 99 Oximetry 01/09/21 01/09/21 01/09/21 09:41 09:51 10:00 Temperature Pulse Rate 94 H 93 H 93 H Respiratory 17 16 13 Rate Respiratory 18 Rate [ Generalized] Blood Pressure 153/63 153/63 150/68 O2 Sat by Pulse 99 99 99 Oximetry 01/09/21 01/09/21 01/09/21 10:11 10:21 10:31 Temperature Pulse Rate 88 96 H 100 H Respiratory 13 16 18 Rate Respiratory Rate [ Generalized] Blood Pressure 150/68 150/68 150/68 O2 Sat by Pulse 99 98 99 Oximetry 01/09/21 01/09/21 01/09/21 10:41 10:51 11:00 Temperature Pulse Rate 91 H 98 H 96 H Respiratory 17 15 13 Rate Respiratory Rate [ Generalized] Blood Pressure 150/68 150/68 141/64 O2 Sat by Pulse 99 99 99 Oximetry 01/09/21 01/09/21 01/09/21 11:11 11:21 12:00 Temperature 99.2 F Pulse Rate 96 H 96 H Respiratory 16 15 Rate Respiratory Rate [ Generalized] Blood Pressure 141/64 141/64 O2 Sat by Pulse 99 100 Oximetry - Lab 01/09/21 04:27 01/09/21 04:27 Most recent lab results ABG pH 7.474 (7.320-7.450) H 01/08/21 09:20 ABG pCO2 19.0 mm Hg 01/05/21 13:35 ABG pO2 84.7 mm Hg (80.0-90.0) 01/05/21 13:35 ABG HCO3 3.5 mmol/L (20.0-26.0) L 01/05/21 13:35 ABG O2 Saturation 98.1 (0-100) 01/08/21 09:20 Calcium 7.6 mg/dL (8.4-10.2) L 01/09/21 04:27 Phosphorus 4.60 mg/dL (2.5-4.5) H 01/07/21 07:06 Magnesium 1.50 mg/dL (1.7-2.3) L 01/09/21 04:27 Urine Creatinine 74.4 mg/dL (0.1-20.0) H 01/05/21 17:50 Urine Sodium 59 mmol/L 01/05/21 17:50 Medications & Allergies - Medications Allergies/Adverse Reactions: Allergies No Known Allergies Allergy (Verified 01/05/21 22:00) Home Medications: Home Medications Medication Instructions Recorded Confirmed Last Taken Type Acyclovir [Zovirax Tab] 400 mg PO BID 01/06/21 01/06/21 Unknown History Aspirin [Aspirin BABY CHEW TAB] 81 mg PO 4XD 01/06/21 01/06/21 Unknown History HYDROcodone/ACETAMINOPHEN 1 each PO Q4H PRN 01/06/21 01/06/21 Unknown History [Verdrocet 2.5-325 mg TAB] HYDROcodone/ACETAMINOPHEN 2 each PO Q4H PRN 01/06/21 01/06/21 Unknown History [Verdrocet 2.5-325 mg TAB] Lenalidomide [Revlimid] 10 mg PO QDAY 01/06/21 01/06/21 Unknown History Lisinopril/Hydrochlorothiazide 10 - 12.5 mg PO DAILY 01/06/21 01/06/21 Unknown History [Zestoretic 10-12.5 mg Tablet] Metformin HCl [metFORMIN] 1,000 mg BID 01/06/21 01/06/21 Unknown History Ondansetron HCl [Zofran] 8 mg PO BID PRN 01/06/21 01/06/21 Unknown History Pantoprazole [Protonix] 40 mg PO QDAY 01/06/21 01/06/21 Unknown History Rosuvastatin Calcium 20 mg PO DAILY 01/06/21 01/06/21 Unknown History dexAMETHasone [Dexamethasone] 16 mg PO 1XW 01/06/21 01/06/21 Unknown History traMADoL [Ultram 50 MG tab] 50 mg PO Q6H PRN 01/06/21 01/06/21 Unknown History Active Medications: Generic Name Dose Route Start Last Admin Trade Name Freq PRN Reason Stop Dose Admin Acetaminophen 650 mg 01/05/21 17:00 Acetaminophen 650 Mg Rect Supp HI Q6H PRN Pain MILD(1-3)/Fever >100.5/SILVERMAN Acetaminophen 650 mg 01/05/21 19:00 Acetaminophen 325 Mg Tab PO Q6H PRN Pain, Mild (1-3) Albuterol 2.5 mg 01/05/21 17:00 Albuterol 2.5 Mg/3 Ml Nebu IH Q3HRT PRN Shortness Of Breath Lipase/Protease/Amylase 1 each 01/06/21 08:10 Lipase 10,500/Protease 25,000/Amylase 43,750 (Units) Dr Lockwood FEEDTUBE PRN PRN For Clogged Feeding Tube Famotidine 20 mg 01/08/21 10:00 01/09/21 10:43 Famotidine 20 Mg Tab PO 20 mg DAILY MIKEY Administration Haloperidol Lactate 5 mg 01/08/21 09:13 Haloperidol Lactate 5 Mg/1 Ml Inj IV Q6H PRN Agitation Hydrophilic Ointment 1 applic 01/05/21 14:21 Lip Therapy Vaseline TP Q2HR PRN Dry Lips Sodium Chloride 100 mls @ 999 mls/hr 01/05/21 17:00 Nacl 0.9% IV ERIC PRN Hypotension Cefepime HCl 2 gm in 100 mls @ 200 mls/hr 01/06/21 10:00 01/09/21 10:43 Cefepime/Ns 2 Gm/100 Ml IV 200 mls/hr Q24H MIKEY Administration Protocol Fluconazole 200 mg in 100 mls @ 100 mls/hr 01/06/21 15:00 01/08/21 15:18 Diflucan IV 100 mls/hr Q24H MIKEY Administration Protocol Sodium Chloride 500 mls @ 0 mls/hr 01/09/21 11:00 Nacl 0.9% 500 Ml IV 01/09/21 18:00 ONCE MIKEY As Directed Insulin Human Lispro 0 unit 01/06/21 12:00 01/09/21 12:57 Insulin Lispro 100 Unit/Ml SUB-Q 1 unit Q6HR MIKEY Administration Protocol Multi-Ingred Cream/Lotion/Oil/Oint 1 applic 01/05/21 14:21 Mineral Oil/Petrolatum, White Ophth Oint 3.5 Gm OU Q4HR PRN Dry Eye(s) Ondansetron HCl 4 mg 01/07/21 13:23 Ondansetron 4 Mg/2 Ml Inj IV Q8H PRN Nausea And Vomiting Senna/Docusate Sodium 1 tab 01/05/21 22:00 01/09/21 10:44 Sennosides/Docusate Sodium 8.6/50 Mg Tab FEEDTUBE Not Given BID MIKEY Simple Syrup 15 ml 01/06/21 08:10 Simple Syrup 15 Ml FEEDTUBE PRN PRN Hypoglycemia Simple Syrup 30 ml 01/06/21 08:10 Simple Syrup 15 Ml FEEDTUBE PRN PRN Hypoglycemia Sodium Bicarbonate 325 mg 01/06/21 08:10 Sodium Bicarbonate 325 Mg Tab FEEDTUBE PRN PRN For Clogged Feeding Tube Sodium Chloride 10 ml 01/05/21 17:00 01/08/21 11:14 Sodium Chloride 0.9% 10 Ml Flush Syringe IV 10 ml PRN PRN Administration LINE FLUSH Sodium Chloride 10 ml 01/05/21 22:00 01/09/21 10:44 Sodium Chloride 0.9% 10 Ml Flush Syringe IV 10 ml BID MIKEY Administration
[2021-01-09] MEDS ORDERED: MAGNESIUM SULFATE 1 GM in SODIUM CHLORIDE 0.9% 50 ML IV ONE (15:30)
[2021-01-09] MEDS: FLUCONAZOLE 200 MG 200 MG/100 ML BAG IV SCH (15:36)
--- NOTE | 2021-01-09 18:31 | Progress Note ---
Subjective Date of service: 01/09/21 Principal diagnosis: Ac hypoxemic resp failure; MORGAN; Septic Shock; CAP; Multiple myeloma; NSTEMI Objective - Constitutional Vitals: Vital Signs - 12hr 01/09/21 01/09/21 01/09/21 06:41 06:51 07:00 Temperature Pulse Rate 79 78 92 H Respiratory 10 L 11 L 13 Rate Respiratory Rate [ Generalized] Blood Pressure 97/49 97/49 156/65 O2 Sat by Pulse 100 100 100 Oximetry O2 Sat by Pulse Oximetry [ Anterior Bilateral] 01/09/21 01/09/21 01/09/21 07:11 07:21 07:31 Temperature Pulse Rate 101 H 102 H 106 H Respiratory 20 18 15 Rate Respiratory Rate [ Generalized] Blood Pressure 156/65 156/65 156/65 O2 Sat by Pulse 98 99 98 Oximetry O2 Sat by Pulse Oximetry [ Anterior Bilateral] 01/09/21 01/09/21 01/09/21 07:41 07:51 08:00 Temperature 97.9 F Pulse Rate 108 H 103 H 104 H Respiratory 19 16 16 Rate Respiratory Rate [ Generalized] Blood Pressure 156/65 156/65 153/63 O2 Sat by Pulse 98 97 97 Oximetry O2 Sat by Pulse Oximetry [ Anterior Bilateral] 01/09/21 01/09/21 01/09/21 08:11 08:21 08:31 Temperature Pulse Rate 100 H 103 H 97 H Respiratory 17 18 13 Rate Respiratory Rate [ Generalized] Blood Pressure 153/63 153/63 153/63 O2 Sat by Pulse 99 98 99 Oximetry O2 Sat by Pulse Oximetry [ Anterior Bilateral] 01/09/21 01/09/21 01/09/21 08:41 08:51 09:01 Temperature Pulse Rate 99 H 104 H 102 H Respiratory 13 17 18 Rate Respiratory Rate [ Generalized] Blood Pressure 153/63 153/63 153/63 O2 Sat by Pulse 99 98 99 Oximetry O2 Sat by Pulse Oximetry [ Anterior Bilateral] 01/09/21 01/09/21 01/09/21 09:11 09:21 09:22 Temperature Pulse Rate 91 H 97 H Respiratory 14 13 Rate Respiratory Rate [ Generalized] Blood Pressure 153/63 153/63 O2 Sat by Pulse 98 98 99 Oximetry O2 Sat by Pulse Oximetry [ Anterior Bilateral] 01/09/21 01/09/21 01/09/21 09:31 09:41 09:51 Temperature Pulse Rate 94 H 94 H 93 H Respiratory 18 17 16 Rate Respiratory Rate [ Generalized] Blood Pressure 153/63 153/63 153/63 O2 Sat by Pulse 99 99 99 Oximetry O2 Sat by Pulse Oximetry [ Anterior Bilateral] 01/09/21 01/09/21 01/09/21 10:00 10:11 10:21 Temperature Pulse Rate 93 H 88 96 H Respiratory 13 13 16 Rate Respiratory 18 Rate [ Generalized] Blood Pressure 150/68 150/68 150/68 O2 Sat by Pulse 99 99 98 Oximetry O2 Sat by Pulse Oximetry [ Anterior Bilateral] 01/09/21 01/09/21 01/09/21 10:31 10:41 10:51 Temperature Pulse Rate 100 H 91 H 98 H Respiratory 18 17 15 Rate Respiratory Rate [ Generalized] Blood Pressure 150/68 150/68 150/68 O2 Sat by Pulse 99 99 99 Oximetry O2 Sat by Pulse Oximetry [ Anterior Bilateral] 01/09/21 01/09/21 01/09/21 11:00 11:11 11:21 Temperature Pulse Rate 96 H 96 H 96 H Respiratory 13 16 15 Rate Respiratory Rate [ Generalized] Blood Pressure 141/64 141/64 141/64 O2 Sat by Pulse 99 99 100 Oximetry O2 Sat by Pulse Oximetry [ Anterior Bilateral] 01/09/21 01/09/21 01/09/21 11:31 11:41 11:51 Temperature Pulse Rate 97 H 86 100 H Respiratory 13 16 14 Rate Respiratory Rate [ Generalized] Blood Pressure 141/64 141/64 141/64 O2 Sat by Pulse 99 100 99 Oximetry O2 Sat by Pulse Oximetry [ Anterior Bilateral] 01/09/21 01/09/21 01/09/21 12:00 12:11 12:21 Temperature 99.2 F Pulse Rate 88 87 97 H Respiratory 15 14 14 Rate Respiratory Rate [ Generalized] Blood Pressure 142/66 142/66 142/66 O2 Sat by Pulse 99 100 98 Oximetry O2 Sat by Pulse Oximetry [ Anterior Bilateral] 01/09/21 01/09/21 01/09/21 12:31 12:41 12:51 Temperature Pulse Rate 96 H 84 90 Respiratory 12 15 12 Rate Respiratory Rate [ Generalized] Blood Pressure 142/66 142/66 142/66 O2 Sat by Pulse 100 100 99 Oximetry O2 Sat by Pulse Oximetry [ Anterior Bilateral] 01/09/21 01/09/21 01/09/21 13:00 13:11 13:21 Temperature Pulse Rate 88 87 91 H Respiratory 17 13 14 Rate Respiratory Rate [ Generalized] Blood Pressure 153/70 153/70 153/70 O2 Sat by Pulse 100 100 100 Oximetry O2 Sat by Pulse Oximetry [ Anterior Bilateral] 01/09/21 01/09/21 01/09/21 13:31 13:41 13:51 Temperature Pulse Rate 84 87 89 Respiratory 16 13 13 Rate Respiratory Rate [ Generalized] Blood Pressure 153/70 153/70 153/70 O2 Sat by Pulse 100 100 99 Oximetry O2 Sat by Pulse Oximetry [ Anterior Bilateral] 01/09/21 01/09/21 01/09/21 14:01 14:11 14:21 Temperature Pulse Rate 91 H 86 89 Respiratory 18 15 15 Rate Respiratory Rate [ Generalized] Blood Pressure 148/49 148/49 148/49 O2 Sat by Pulse 99 99 99 Oximetry O2 Sat by Pulse Oximetry [ Anterior Bilateral] 01/09/21 01/09/21 01/09/21 14:31 14:41 14:51 Temperature Pulse Rate 89 96 H 94 H Respiratory 16 12 14 Rate Respiratory Rate [ Generalized] Blood Pressure 148/49 148/49 148/49 O2 Sat by Pulse 98 98 99 Oximetry O2 Sat by Pulse Oximetry [ Anterior Bilateral] 01/09/21 01/09/21 01/09/21 15:00 15:11 15:21 Temperature Pulse Rate 87 88 95 H Respiratory 19 11 L 14 Rate Respiratory Rate [ Generalized] Blood Pressure 160/66 160/66 160/66 O2 Sat by Pulse 98 99 99 Oximetry O2 Sat by Pulse Oximetry [ Anterior Bilateral] 01/09/21 01/09/21 01/09/21 15:31 15:41 15:50 Temperature 98.4 F Pulse Rate 86 86 83 Respiratory 16 16 14 Rate Respiratory Rate [ Generalized] Blood Pressure 160/66 160/66 151/61 O2 Sat by Pulse 100 98 98 Oximetry O2 Sat by Pulse 99 Oximetry [ Anterior Bilateral] 01/09/21 01/09/21 01/09/21 16:00 16:11 16:15 Temperature Pulse Rate 86 86 87 Respiratory 13 13 Rate Respiratory Rate [ Generalized] Blood Pressure 152/59 145/67 145/67 O2 Sat by Pulse 100 100 Oximetry O2 Sat by Pulse Oximetry [ Anterior Bilateral] 01/09/21 01/09/21 01/09/21 16:20 16:22 16:30 Temperature 98.4 F Pulse Rate 96 H 87 87 Respiratory 14 20 15 Rate Respiratory Rate [ Generalized] Blood Pressure 147/66 145/67 160/73 O2 Sat by Pulse 100 100 99 Oximetry O2 Sat by Pulse Oximetry [ Anterior Bilateral] 01/09/21 01/09/21 01/09/21 16:32 16:34 16:40 Temperature 100 F H 98.9 F Pulse Rate 87 87 Respiratory 15 16 Rate Respiratory Rate [ Generalized] Blood Pressure 160/73 170/74 O2 Sat by Pulse 98 99 Oximetry O2 Sat by Pulse Oximetry [ Anterior Bilateral] 01/09/21 01/09/21 01/09/21 16:45 16:50 16:52 Temperature 98.8 F Pulse Rate 84 96 H 84 Respiratory 13 12 Rate Respiratory Rate [ Generalized] Blood Pressure 164/76 164/76 164/76 O2 Sat by Pulse 99 99 Oximetry O2 Sat by Pulse Oximetry [ Anterior Bilateral] 01/09/21 01/09/21 01/09/21 17:00 17:10 17:15 Temperature Pulse Rate 98 H 89 96 H Respiratory 16 14 Rate Respiratory Rate [ Generalized] Blood Pressure 156/81 147/78 147/78 O2 Sat by Pulse 100 100 Oximetry O2 Sat by Pulse Oximetry [ Anterior Bilateral] 01/09/21 01/09/21 01/09/21 17:20 17:30 17:40 Temperature Pulse Rate 107 H 90 107 H Respiratory 15 14 15 Rate Respiratory Rate [ Generalized] Blood Pressure 143/87 142/66 153/72 O2 Sat by Pulse 100 99 99 Oximetry O2 Sat by Pulse Oximetry [ Anterior Bilateral] 01/09/21 01/09/21 01/09/21 17:45 17:50 18:00 Temperature Pulse Rate 86 106 H 106 H Respiratory 15 18 Rate Respiratory Rate [ Generalized] Blood Pressure 153/72 143/73 140/79 O2 Sat by Pulse 99 99 Oximetry O2 Sat by Pulse Oximetry [ Anterior Bilateral] 01/09/21 01/09/21 01/09/21 18:10 18:15 18:20 Temperature Pulse Rate 111 H 105 H 109 H Respiratory 17 15 Rate Respiratory Rate [ Generalized] Blood Pressure 151/79 151/79 141/87 O2 Sat by Pulse 99 99 Oximetry O2 Sat by Pulse Oximetry [ Anterior Bilateral] General appearance: Present: no acute distress, well-nourished - EENT Eyes: PERRL, EOM intact ENT: hearing intact, clear oral mucosa Ears: bilateral: normal - Neck Neck: supple, normal ROM - Respiratory Respiratory effort: normal Respiratory: bilateral: CTA - Breasts Breasts: normal - Cardiovascular Rhythm: regular Heart Sounds: Present: S1 & S2. Absent: gallop, rub Extremities: pulses intact, No edema, normal color, Full ROM - Gastrointestinal General gastrointestinal: Present: soft, non-tender, non-distended, normal bowel sounds - Genitourinary Female genitourinary: normal - Integumentary Integumentary: clear, warm, dry - Musculoskeletal Musculoskeletal: 1, strength equal bilaterally - Neurologic Neurologic: moves all extremities - Psychiatric Psychiatric: memory intact, appropriate mood/affect, intact judgment & insight - Labs CBC & Chem 7: 01/09/21 04:27 01/09/21 04:27 Labs: Abnormal lab results 01/07/21 01/08/21 01/09/21 Range/Units 07:06 23:58 04:27 WBC (4.5-11.0) K/mm3 RBC (3.65-5.03) M/mm3 Hgb (10.1-14.3) gm/dl Hct (30.3-42.9) % MCHC (30-34) % RDW (13.2-15.2) % Plt Count (140-440) K/mm3 Seg Neuts % (Manual) (40.0-70.0) % Lymphocytes % (Manual) (13.4-35.0) % Eosinophils % (Manual) (0.0-4.3) % Lymphocytes # (Manual) (1.2-5.4) K/mm3 Chloride 97.1 L (98-107) mmol/L Carbon Dioxide 33 H (22-30) mmol/L BUN 55 H (7-17) mg/dL Creatinine 4.2 H (0.6-1.2) mg/dL Glucose 147 H (65-100) mg/dL POC Glucose 142 H (70-105) mg/dL Calcium 7.6 L (8.4-10.2) mg/dL Magnesium 1.50 L (1.7-2.3) mg/dL Crossmatch See Detail 01/09/21 01/09/21 01/09/21 Range/Units 04:27 05:13 11:57 WBC 2.8 L (4.5-11.0) K/mm3 RBC 2.40 L (3.65-5.03) M/mm3 Hgb 6.8 L (10.1-14.3) gm/dl Hct 19.7 L* (30.3-42.9) % MCHC 35 H (30-34) % RDW 18.0 H (13.2-15.2) % Plt Count 30 L (140-440) K/mm3 Seg Neuts % (Manual) 92.0 H (40.0-70.0) % Lymphocytes % (Manual) 2.0 L (13.4-35.0) % Eosinophils % (Manual) 5.0 H (0.0-4.3) % Lymphocytes # (Manual) 0.1 L (1.2-5.4) K/mm3 Chloride (98-107) mmol/L Carbon Dioxide (22-30) mmol/L BUN (7-17) mg/dL Creatinine (0.6-1.2) mg/dL Glucose (65-100) mg/dL POC Glucose 138 H 155 H (70-105) mg/dL Calcium (8.4-10.2) mg/dL Magnesium (1.7-2.3) mg/dL Crossmatch 01/09/21 Range/Units 18:19 WBC (4.5-11.0) K/mm3 RBC (3.65-5.03) M/mm3 Hgb (10.1-14.3) gm/dl Hct (30.3-42.9) % MCHC (30-34) % RDW (13.2-15.2) % Plt Count (140-440) K/mm3 Seg Neuts % (Manual) (40.0-70.0) % Lymphocytes % (Manual) (13.4-35.0) % Eosinophils % (Manual) (0.0-4.3) % Lymphocytes # (Manual) (1.2-5.4) K/mm3 Chloride (98-107) mmol/L Carbon Dioxide (22-30) mmol/L BUN (7-17) mg/dL Creatinine (0.6-1.2) mg/dL Glucose (65-100) mg/dL POC Glucose 168 H (70-105) mg/dL Calcium (8.4-10.2) mg/dL Magnesium (1.7-2.3) mg/dL Crossmatch HEART Score - HEART Score Troponin: Troponin T 0.153 ng/mL (0.00-0.029) H* 01/05/21 13:44
[2021-01-10] MEDS: INSULIN LISPRO 100 UNIT/ML SUB-Q SCH ×3 (02:02→18:39)
[2021-01-10 07:53] LABS: Calcium 8.7 mg/dL (8.4-10.2)
[2021-01-10] MEDS: CEFEPIME/NS 2 GM/100 ML 2 GM/100 ML BAG IV SCH (10:24)
[2021-01-10] MEDS: FAMOTIDINE 20 MG TAB PO SCH (10:24)
[2021-01-10] MEDS: SENNOSIDES/DOCUSATE SODIUM 8.6/50 MG TAB FEEDTUBE SCH ×2 (10:25→22:42)
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
--- NOTE | 2021-01-10 10:44 | Progress Note ---
Assessment and Plan 1. Acute kidney injury: Vasomotor MORGAN in the setting shock. Renal US negative for hydro. MELINA, ANCA, GBM Ab, Complemets and SPE ordered. Monitor renal function. Oliguric. Renal prognosis is guarded. Avoid nephrotoxic agents. Meds dosage based on GFR. Monitor for [employer] needs. Patient was started on hemodialysis due to significant decline in the GFR, associated hyperkalemia and severe metabolic acidosis. Hemodialysis: 01/05, 01/07, 01/08(UF only), 01/09. 2. FEN: Hyperkalemia, improved with HD. Anion-gap Metabolic acidosis, improved, monitor. Replete Mg. Monitor lytes. 3. Acute respiratory failure with hypoxia: S/p extubated. Followed by Pulmonary. 4. Shock, POA: Likely septic. Abx. Off pressors now. Follow cultures. 5. Elevated Troponin: Monitor. 6. Diabetes mellitus type 2: Follow blood glucose. 7. Anemia, POA: S/p 1 unit of PRBC 01/07. Monitor. 8. Encephalopathy: Monitor. 9. Multiple myeloma: On Chemo. Prognosis is guarded. Subjective: Patient was seen and examined at the bedside. Doing ok. Examination: General appearance: well-developed, well-nourished, appears stated age HEENT: ATNC, pupils equal Neck: supple Respiratory: ctab Cardiology: regular, S1S2, no murmur Gastrointestinal: soft, bowel sounds heard, not tender Integumentary: no rash, warm and dry Neurologic: lethargic, hoarse voice, able to move extremities Ext: trace dependent edema : Winters catheter Hemodialysis access: R IJ temp catheter Subjective Date of service: 01/10/21 Principal diagnosis: Ac hypoxemic resp failure; MORGAN; Septic Shock; CAP; Multiple myeloma; NSTEMI Objective - Vital Signs Vital signs: Vital Signs - 12hr 01/09/21 01/09/21 01/09/21 22:50 23:00 23:10 Temperature Pulse Rate 87 89 83 Pulse Rate [ Right Radial] Respiratory 18 12 12 Rate Blood Pressure 163/68 171/72 159/71 O2 Sat by Pulse 98 99 98 Oximetry 01/09/21 01/09/21 01/09/21 23:20 23:30 23:31 Temperature 97.6 F Pulse Rate 83 88 Pulse Rate [ Right Radial] Respiratory 12 16 Rate Blood Pressure 154/65 166/67 O2 Sat by Pulse 99 99 Oximetry 01/09/21 01/09/21 01/10/21 23:40 23:50 00:00 Temperature Pulse Rate 72 76 91 H Pulse Rate [ 78 Right Radial] Respiratory 21 12 14 Rate Blood Pressure 150/75 155/60 165/84 O2 Sat by Pulse 99 99 98 Oximetry 01/10/21 01/10/21 01/10/21 00:10 00:21 00:30 Temperature Pulse Rate 80 78 79 Pulse Rate [ Right Radial] Respiratory 13 18 10 L Rate Blood Pressure 141/57 139/61 156/74 O2 Sat by Pulse 98 98 98 Oximetry 01/10/21 01/10/21 01/10/21 00:40 00:50 01:01 Temperature Pulse Rate 87 88 83 Pulse Rate [ Right Radial] Respiratory 16 16 12 Rate Blood Pressure 157/68 172/73 161/58 O2 Sat by Pulse 98 97 98 Oximetry 01/10/21 01/10/21 01/10/21 01:11 01:20 01:31 Temperature Pulse Rate 77 82 79 Pulse Rate [ Right Radial] Respiratory 12 17 17 Rate Blood Pressure 160/58 169/47 157/59 O2 Sat by Pulse 99 98 99 Oximetry 01/10/21 01/10/21 01/10/21 01:40 01:51 02:01 Temperature Pulse Rate 85 80 78 Pulse Rate [ Right Radial] Respiratory 12 17 21 Rate Blood Pressure 167/67 177/59 150/68 O2 Sat by Pulse 99 98 99 Oximetry 01/10/21 01/10/21 01/10/21 02:10 02:21 02:30 Temperature Pulse Rate 82 88 83 Pulse Rate [ Right Radial] Respiratory 14 12 15 Rate Blood Pressure 157/68 163/73 150/68 O2 Sat by Pulse 99 100 100 Oximetry 01/10/21 01/10/21 01/10/21 02:40 02:50 03:00 Temperature Pulse Rate 82 84 80 Pulse Rate [ Right Radial] Respiratory 11 L 13 14 Rate Blood Pressure 161/71 165/76 163/68 O2 Sat by Pulse 99 99 99 Oximetry 01/10/21 01/10/21 01/10/21 03:10 03:20 03:30 Temperature Pulse Rate 86 84 71 Pulse Rate [ Right Radial] Respiratory 16 18 10 L Rate Blood Pressure 171/74 174/74 177/60 O2 Sat by Pulse 98 98 99 Oximetry 01/10/21 01/10/21 01/10/21 03:40 03:51 04:00 Temperature Pulse Rate 87 79 74 Pulse Rate [ 86 Right Radial] Respiratory 20 15 14 Rate Blood Pressure 168/70 163/62 161/59 O2 Sat by Pulse 97 100 99 Oximetry 01/10/21 01/10/21 01/10/21 04:10 04:20 04:30 Temperature Pulse Rate 86 77 69 Pulse Rate [ Right Radial] Respiratory 16 16 14 Rate Blood Pressure 162/60 151/59 141/56 O2 Sat by Pulse 99 99 100 Oximetry 01/10/21 01/10/21 01/10/21 04:41 04:46 04:51 Temperature 99.3 F Pulse Rate 81 77 Pulse Rate [ Right Radial] Respiratory 14 15 Rate Blood Pressure 140/66 160/64 O2 Sat by Pulse 99 99 Oximetry 01/10/21 01/10/21 01/10/21 05:01 05:10 05:20 Temperature Pulse Rate 78 72 83 Pulse Rate [ Right Radial] Respiratory 14 14 15 Rate Blood Pressure 170/62 161/61 153/54 O2 Sat by Pulse 99 100 99 Oximetry 01/10/21 07:57 Temperature 100.6 F H Pulse Rate Pulse Rate [ Right Radial] Respiratory Rate Blood Pressure O2 Sat by Pulse Oximetry - Lab 01/09/21 04:27 01/10/21 04:00 Most recent lab results ABG pH 7.474 (7.320-7.450) H 01/08/21 09:20 ABG pCO2 19.0 mm Hg 01/05/21 13:35 ABG pO2 84.7 mm Hg (80.0-90.0) 01/05/21 13:35 ABG HCO3 3.5 mmol/L (20.0-26.0) L 01/05/21 13:35 ABG O2 Saturation 98.1 (0-100) 01/08/21 09:20 Calcium 8.7 mg/dL (8.4-10.2) 01/10/21 04:00 Phosphorus 4.60 mg/dL (2.5-4.5) H 01/07/21 07:06 Magnesium 1.50 mg/dL (1.7-2.3) L 01/09/21 04:27 Urine Creatinine 74.4 mg/dL (0.1-20.0) H 01/05/21 17:50 Urine Sodium 59 mmol/L 01/05/21 17:50 Medications & Allergies - Medications Allergies/Adverse Reactions: Allergies No Known Allergies Allergy (Verified 01/05/21 22:00) Home Medications: Home Medications Medication Instructions Recorded Confirmed Last Taken Type Acyclovir [Zovirax Tab] 400 mg PO BID 01/06/21 01/06/21 Unknown History Aspirin [Aspirin BABY CHEW TAB] 81 mg PO 4XD 01/06/21 01/06/21 Unknown History HYDROcodone/ACETAMINOPHEN 1 each PO Q4H PRN 01/06/21 01/06/21 Unknown History [Verdrocet 2.5-325 mg TAB] HYDROcodone/ACETAMINOPHEN 2 each PO Q4H PRN 01/06/21 01/06/21 Unknown History [Verdrocet 2.5-325 mg TAB] Lenalidomide [Revlimid] 10 mg PO QDAY 01/06/21 01/06/21 Unknown History Lisinopril/Hydrochlorothiazide 10 - 12.5 mg PO DAILY 01/06/21 01/06/21 Unknown History [Zestoretic 10-12.5 mg Tablet] Metformin HCl [metFORMIN] 1,000 mg BID 01/06/21 01/06/21 Unknown History Ondansetron HCl [Zofran] 8 mg PO BID PRN 01/06/21 01/06/21 Unknown History Pantoprazole [Protonix] 40 mg PO QDAY 01/06/21 01/06/21 Unknown History Rosuvastatin Calcium 20 mg PO DAILY 01/06/21 01/06/21 Unknown History dexAMETHasone [Dexamethasone] 16 mg PO 1XW 01/06/21 01/06/21 Unknown History traMADoL [Ultram 50 MG tab] 50 mg PO Q6H PRN 01/06/21 01/06/21 Unknown History Active Medications: Generic Name Dose Route Start Last Admin Trade Name Freq PRN Reason Stop Dose Admin Acetaminophen 650 mg 01/05/21 17:00 Acetaminophen 650 Mg Rect Supp DE Q6H PRN Pain MILD(1-3)/Fever >100.5/SILVERMAN Acetaminophen 650 mg 01/05/21 19:00 Acetaminophen 325 Mg Tab PO Q6H PRN Pain, Mild (1-3) Albuterol 2.5 mg 01/05/21 17:00 Albuterol 2.5 Mg/3 Ml Nebu IH Q3HRT PRN Shortness Of Breath Lipase/Protease/Amylase 1 each 01/06/21 08:10 Lipase 10,500/Protease 25,000/Amylase 43,750 (Units) Dr Lockwood FEEDTUBE PRN PRN For Clogged Feeding Tube Famotidine 20 mg 01/08/21 10:00 01/10/21 10:24 Famotidine 20 Mg Tab PO 20 mg DAILY MIKEY Administration Haloperidol Lactate 5 mg 01/08/21 09:13 Haloperidol Lactate 5 Mg/1 Ml Inj IV Q6H PRN Agitation Hydrophilic Ointment 1 applic 01/05/21 14:21 Lip Therapy Vaseline TP Q2HR PRN Dry Lips Sodium Chloride 100 mls @ 999 mls/hr 01/05/21 17:00 Nacl 0.9% IV ERIC PRN Hypotension Fluconazole 200 mg in 100 mls @ 100 mls/hr 01/06/21 15:00 01/09/21 15:36 Diflucan IV 01/12/21 15:59 100 mls/hr Q24H MIKEY Administration Protocol Insulin Human Lispro 0 unit 01/06/21 12:00 01/10/21 02:02 Insulin Lispro 100 Unit/Ml SUB-Q Not Given Q6HR MIKEY Protocol Multi-Ingred Cream/Lotion/Oil/Oint 1 applic 01/05/21 14:21 Mineral Oil/Petrolatum, White Ophth Oint 3.5 Gm OU Q4HR PRN Dry Eye(s) Ondansetron HCl 4 mg 01/07/21 13:23 Ondansetron 4 Mg/2 Ml Inj IV Q8H PRN Nausea And Vomiting Senna/Docusate Sodium 1 tab 01/05/21 22:00 01/10/21 10:25 Sennosides/Docusate Sodium 8.6/50 Mg Tab FEEDTUBE Not Given BID MIKEY Simple Syrup 15 ml 01/06/21 08:10 Simple Syrup 15 Ml FEEDTUBE PRN PRN Hypoglycemia Simple Syrup 30 ml 01/06/21 08:10 Simple Syrup 15 Ml FEEDTUBE PRN PRN Hypoglycemia Sodium Bicarbonate 325 mg 01/06/21 08:10 Sodium Bicarbonate 325 Mg Tab FEEDTUBE PRN PRN For Clogged Feeding Tube Sodium Chloride 10 ml 01/05/21 17:00 01/08/21 11:14 Sodium Chloride 0.9% 10 Ml Flush Syringe IV 10 ml PRN PRN Administration LINE FLUSH Sodium Chloride 10 ml 01/05/21 22:00 01/10/21 10:25 Sodium Chloride 0.9% 10 Ml Flush Syringe IV 10 ml BID MIKEY Administration
--- NOTE | 2021-01-10 11:19 | Progress Note ---
Assessment and Plan Acute hypoxemic respiratory failure s/p MVS -extubated 01/08/2021 Acute kidney injury on HD Severe sepsis with shock, improved Community-acquired pneumonia Multiple myeloma Severe metabolic acidosis Lactic acidosis Hyponatremia Non-ST elevation myocardial infarction Anemia that is normocytic Hyperkalemia Oropharyngeal dysphagia Possible urinary tract infection -Titrate supplemental oxygen for SpO2 89-92% -Modified oral diet with aspiration precautions -continue bronchodilators with pulmonary hygiene per RT -Continue with chest PT, airway clearance, incentive spirometry - continue to avoid nephrotoxins, renally dose all medications -UF/HD per Renal service - continue to avoid benzodiazepines, reduce the possibility of delirium - complete empiric antibiotics per ID - continue accuchecks with glycemic control per SSI (While critically ill target blood glucose of 140-180 mg/dL; avoid hypoglycemia) - Maintenance of sleep-wake cycle, avoid delirium - Continue with VTE prophylaxis - PT/OT/ROM exercises - continue mobility , off loading and frequent turning per facility protocol to avoid pressure ulcers - continue to monitor hemodynamics closely -Resume home multiple myeloma medications -Can downgrade to IMCU status -Discharge planning CONDITION: FAIR PROGNOSIS: FAIR CODE STATUS: FULL CODE Subjective Date of service: 01/10/21 Principal diagnosis: Ac hypoxemic resp failure; MORGAN; Septic Shock; CAP; Multiple myeloma; NSTEMI Interval history: Patient is seen today for: Acute hypoxemic respiratory failure; MORGAN; Septic Shock; CAP; Multiple myeloma; NSTEMI Seen and examined at bedside; 24hour events reviewed; nursing and respiratory care staff consulted; no adverse overnight events reported to me; resting peacefully in bed;no fevers, moist cough, some agitation on and off Objective Vital Signs - 12hr 01/09/21 01/09/21 01/09/21 23:20 23:30 23:31 Temperature 97.6 F Pulse Rate 83 88 Pulse Rate [ Right Radial] Respiratory 12 16 Rate Blood Pressure 154/65 166/67 O2 Sat by Pulse 99 99 Oximetry 01/09/21 01/09/21 01/10/21 23:40 23:50 00:00 Temperature Pulse Rate 72 76 91 H Pulse Rate [ 78 Right Radial] Respiratory 21 12 14 Rate Blood Pressure 150/75 155/60 165/84 O2 Sat by Pulse 99 99 98 Oximetry 01/10/21 01/10/21 01/10/21 00:10 00:21 00:30 Temperature Pulse Rate 80 78 79 Pulse Rate [ Right Radial] Respiratory 13 18 10 L Rate Blood Pressure 141/57 139/61 156/74 O2 Sat by Pulse 98 98 98 Oximetry 01/10/21 01/10/21 01/10/21 00:40 00:50 01:01 Temperature Pulse Rate 87 88 83 Pulse Rate [ Right Radial] Respiratory 16 16 12 Rate Blood Pressure 157/68 172/73 161/58 O2 Sat by Pulse 98 97 98 Oximetry 01/10/21 01/10/21 01/10/21 01:11 01:20 01:31 Temperature Pulse Rate 77 82 79 Pulse Rate [ Right Radial] Respiratory 12 17 17 Rate Blood Pressure 160/58 169/47 157/59 O2 Sat by Pulse 99 98 99 Oximetry 01/10/21 01/10/21 01/10/21 01:40 01:51 02:01 Temperature Pulse Rate 85 80 78 Pulse Rate [ Right Radial] Respiratory 12 17 21 Rate Blood Pressure 167/67 177/59 150/68 O2 Sat by Pulse 99 98 99 Oximetry 01/10/21 01/10/21 01/10/21 02:10 02:21 02:30 Temperature Pulse Rate 82 88 83 Pulse Rate [ Right Radial] Respiratory 14 12 15 Rate Blood Pressure 157/68 163/73 150/68 O2 Sat by Pulse 99 100 100 Oximetry 01/10/21 01/10/21 01/10/21 02:40 02:50 03:00 Temperature Pulse Rate 82 84 80 Pulse Rate [ Right Radial] Respiratory 11 L 13 14 Rate Blood Pressure 161/71 165/76 163/68 O2 Sat by Pulse 99 99 99 Oximetry 01/10/21 01/10/21 01/10/21 03:10 03:20 03:30 Temperature Pulse Rate 86 84 71 Pulse Rate [ Right Radial] Respiratory 16 18 10 L Rate Blood Pressure 171/74 174/74 177/60 O2 Sat by Pulse 98 98 99 Oximetry 01/10/21 01/10/21 01/10/21 03:40 03:51 04:00 Temperature Pulse Rate 87 79 74 Pulse Rate [ 86 Right Radial] Respiratory 20 15 14 Rate Blood Pressure 168/70 163/62 161/59 O2 Sat by Pulse 97 100 99 Oximetry 01/10/21 01/10/21 01/10/21 04:10 04:20 04:30 Temperature Pulse Rate 86 77 69 Pulse Rate [ Right Radial] Respiratory 16 16 14 Rate Blood Pressure 162/60 151/59 141/56 O2 Sat by Pulse 99 99 100 Oximetry 01/10/21 01/10/21 01/10/21 04:41 04:46 04:51 Temperature 99.3 F Pulse Rate 81 77 Pulse Rate [ Right Radial] Respiratory 14 15 Rate Blood Pressure 140/66 160/64 O2 Sat by Pulse 99 99 Oximetry 01/10/21 01/10/21 01/10/21 05:01 05:10 05:20 Temperature Pulse Rate 78 72 83 Pulse Rate [ Right Radial] Respiratory 14 14 15 Rate Blood Pressure 170/62 161/61 153/54 O2 Sat by Pulse 99 100 99 Oximetry 01/10/21 01/10/21 01/10/21 05:31 05:40 05:51 Temperature Pulse Rate 86 81 83 Pulse Rate [ Right Radial] Respiratory 16 13 14 Rate Blood Pressure 151/68 159/74 145/73 O2 Sat by Pulse 99 99 99 Oximetry 01/10/21 01/10/21 01/10/21 06:01 06:10 06:21 Temperature Pulse Rate 87 86 97 H Pulse Rate [ Right Radial] Respiratory 16 15 16 Rate Blood Pressure 170/68 175/77 143/84 O2 Sat by Pulse 97 99 97 Oximetry 01/10/21 01/10/21 01/10/21 06:31 06:41 06:50 Temperature Pulse Rate 81 82 78 Pulse Rate [ Right Radial] Respiratory 19 14 15 Rate Blood Pressure 159/75 160/66 169/68 O2 Sat by Pulse 97 98 98 Oximetry 01/10/21 01/10/21 01/10/21 07:00 07:10 07:20 Temperature Pulse Rate 85 83 75 Pulse Rate [ Right Radial] Respiratory 17 14 16 Rate Blood Pressure 150/78 165/72 154/67 O2 Sat by Pulse 97 98 100 Oximetry 01/10/21 01/10/21 01/10/21 07:31 07:40 07:51 Temperature Pulse Rate 68 81 79 Pulse Rate [ Right Radial] Respiratory 13 16 12 Rate Blood Pressure 162/60 147/70 157/70 O2 Sat by Pulse 100 100 100 Oximetry 01/10/21 01/10/21 01/10/21 07:57 08:00 08:11 Temperature 100.6 F H Pulse Rate 82 82 Pulse Rate [ Right Radial] Respiratory 12 15 Rate Blood Pressure 162/69 172/67 O2 Sat by Pulse 99 100 Oximetry 01/10/21 01/10/21 01/10/21 08:21 08:30 08:40 Temperature Pulse Rate 80 68 79 Pulse Rate [ Right Radial] Respiratory 16 17 17 Rate Blood Pressure 160/67 155/58 172/74 O2 Sat by Pulse 99 100 98 Oximetry 01/10/21 01/10/21 01/10/21 08:50 09:01 09:10 Temperature Pulse Rate 77 83 77 Pulse Rate [ Right Radial] Respiratory 15 17 13 Rate Blood Pressure 171/71 155/70 152/68 O2 Sat by Pulse 99 96 99 Oximetry 01/10/21 01/10/21 01/10/21 09:21 09:30 09:40 Temperature Pulse Rate 78 74 76 Pulse Rate [ Right Radial] Respiratory 16 11 L 16 Rate Blood Pressure 170/65 163/66 145/74 O2 Sat by Pulse 98 100 99 Oximetry 01/10/21 01/10/21 01/10/21 09:51 10:01 10:11 Temperature Pulse Rate 81 81 86 Pulse Rate [ Right Radial] Respiratory 20 15 15 Rate Blood Pressure 136/58 177/76 170/80 O2 Sat by Pulse 99 99 98 Oximetry 01/10/21 01/10/21 01/10/21 10:21 10:30 10:41 Temperature Pulse Rate 79 80 73 Pulse Rate [ Right Radial] Respiratory 16 13 12 Rate Blood Pressure 148/57 163/64 127/74 O2 Sat by Pulse 100 98 99 Oximetry 01/10/21 01/10/21 01/10/21 10:51 11:01 11:11 Temperature Pulse Rate 77 75 73 Pulse Rate [ Right Radial] Respiratory 18 13 13 Rate Blood Pressure 155/54 128/57 131/55 O2 Sat by Pulse 100 100 99 Oximetry Constitutional: no acute distress, appears uncomfortable Eyes: non-icteric ENT: oropharynx moist Neck: supple, no lymphadenopathy, no JVD, other (RIJ HD) Effort: normal Ascultation: Bilateral: clear, diminished breath sounds Percussion: Bilateral: not dull Cardiovascular: regular rate and rhythm, other (S1,S2) Gastrointestinal: normoactive bowel sounds, soft, non-tender, non-distended Integumentary: normal Extremities: no cyanosis, no edema, pink and warm, pulses normal Neurologic: non-focal exam (grossly), pupils equal and round, CN II-XII normal, motor strength normal and Psychiatric: mood appropriate, affect normal CBC and BMP: 01/11/21 04:00 01/11/21 04:00 ABG, PT/INR, D-dimer: ABG ABG pH 7.474 (7.320-7.450) H 01/08/21 09:20 POC ABG pCO2 39.7 mmHg (32.0-48.0) 01/08/21 09:20 ABG pCO2 19.0 mm Hg 01/05/21 13:35 POC ABG pO2 101.9 mmHg (83-108) 01/08/21 09:20 ABG pO2 84.7 mm Hg (80.0-90.0) 01/05/21 13:35 POC ABG HCO3 28.5 01/08/21 09:20 ABG O2 Saturation 98.1 (0-100) 01/08/21 09:20 Abnormal lab findings: Abnormal Labs 01/05/21 01/05/21 01/05/21 13:35 13:44 13:44 WBC 11.6 H RBC 2.83 L Hgb 7.7 L Hct 26.1 L MCH 27 L MCHC RDW 19.2 H Plt Count Eos % (Auto) Seg Neutrophils % Seg Neuts % (Manual) 79.0 H Lymphocytes % (Manual) 9.0 L Eosinophils % (Manual) Nucleated RBC % 2.0 H Seg Neutrophils # Man 9.2 H Lymphocytes # (Manual) 1.0 L APTT 44.4 H ABG pH 6.889 L* POC ABG pCO2 POC ABG pO2 ABG HCO3 3.5 L ABG O2 Saturation 84.1 L ABG Base Excess -27.8 L ABG Hemoglobin 9.2 L ABG Oxyhemoglobin ABG Sodium ABG Potassium ABG Chloride ABG Glucose Oxyhemoglobin 82.4 L Carboxyhemoglobin Sodium Potassium Chloride Carbon Dioxide BUN Creatinine Glucose POC Glucose Lactic Acid Calcium Phosphorus Magnesium AST Ammonia Total Creatine Kinase Troponin T NT-Pro-B Natriuret Pep Total Protein Albumin LDL Cholesterol Direct PTH Intact Arterial Blood Glucose Arterial Blood Ionized Calcium Urine WBC (Auto) Urine Creatinine Crossmatch 01/05/21 01/05/21 01/05/21 13:44 13:44 13:44 WBC RBC Hgb Hct MCH MCHC RDW Plt Count Eos % (Auto) Seg Neutrophils % Seg Neuts % (Manual) Lymphocytes % (Manual) Eosinophils % (Manual) Nucleated RBC % Seg Neutrophils # Man Lymphocytes # (Manual) APTT ABG pH POC ABG pCO2 POC ABG pO2 ABG HCO3 ABG O2 Saturation ABG Base Excess ABG Hemoglobin ABG Oxyhemoglobin ABG Sodium ABG Potassium ABG Chloride ABG Glucose Oxyhemoglobin Carboxyhemoglobin Sodium 129 L Potassium 6.2 H* Chloride 82.2 L Carbon Dioxide 4 L* BUN 67 H Creatinine 8.1 H Glucose 126 H POC Glucose Lactic Acid 20.10 H* Calcium 7.7 L Phosphorus Magnesium AST 54 H Ammonia Total Creatine Kinase 484 H Troponin T 0.153 H* NT-Pro-B Natriuret Pep 26830 H Total Protein Albumin 3.2 L LDL Cholesterol Direct 8 L PTH Intact Arterial Blood Glucose Arterial Blood Ionized Calcium Urine WBC (Auto) Urine Creatinine Crossmatch 01/05/21 01/05/21 01/05/21 13:44 14:47 17:50 WBC RBC Hgb Hct MCH MCHC RDW Plt Count Eos % (Auto) Seg Neutrophils % Seg Neuts % (Manual) Lymphocytes % (Manual) Eosinophils % (Manual) Nucleated RBC % Seg Neutrophils # Man Lymphocytes # (Manual) APTT ABG pH POC ABG pCO2 POC ABG pO2 ABG HCO3 ABG O2 Saturation ABG Base Excess ABG Hemoglobin ABG Oxyhemoglobin ABG Sodium ABG Potassium ABG Chloride ABG Glucose Oxyhemoglobin Carboxyhemoglobin Sodium Potassium Chloride Carbon Dioxide BUN Creatinine Glucose POC Glucose Lactic Acid 18.80 H* Calcium Phosphorus Magnesium AST Ammonia 106.0 H Total Creatine Kinase Troponin T NT-Pro-B Natriuret Pep Total Protein Albumin LDL Cholesterol Direct PTH Intact Arterial Blood Glucose Arterial Blood Ionized Calcium Urine WBC (Auto) 38.0 H Urine Creatinine Crossmatch 01/05/21 01/05/21 01/05/21 17:50 22:34 23:05 WBC RBC Hgb Hct MCH MCHC RDW Plt Count Eos % (Auto) Seg Neutrophils % Seg Neuts % (Manual) Lymphocytes % (Manual) Eosinophils % (Manual) Nucleated RBC % Seg Neutrophils # Man Lymphocytes # (Manual) APTT ABG pH 7.056 L POC ABG pCO2 23.6 L POC ABG pO2 277.9 H ABG HCO3 ABG O2 Saturation ABG Base Excess ABG Hemoglobin 7.6 L ABG Oxyhemoglobin 99.6 H ABG Sodium 125.0 L ABG Potassium 5.7 H ABG Chloride 94.0 L ABG Glucose 283 H Oxyhemoglobin Carboxyhemoglobin 0.1 L Sodium Potassium Chloride Carbon Dioxide BUN Creatinine Glucose POC Glucose Lactic Acid Calcium Phosphorus Magnesium AST Ammonia 100.0 H Total Creatine Kinase Troponin T NT-Pro-B Natriuret Pep Total Protein Albumin LDL Cholesterol Direct PTH Intact Arterial Blood Glucose 283 H Arterial Blood Ionized Calcium 3.9 L Urine WBC (Auto) Urine Creatinine 74.4 H Crossmatch 01/05/21 01/06/21 01/06/21 23:18 05:00 06:40 WBC RBC 2.30 L Hgb 6.5 L Hct 19.1 L* D MCH MCHC RDW 18.5 H Plt Count 85 L Eos % (Auto) Seg Neutrophils % Seg Neuts % (Manual) 76.0 H Lymphocytes % (Manual) 1.0 L Eosinophils % (Manual) Nucleated RBC % 2.0 H Seg Neutrophils # Man Lymphocytes # (Manual) 0.1 L APTT ABG pH POC ABG pCO2 POC ABG pO2 ABG HCO3 ABG O2 Saturation ABG Base Excess ABG Hemoglobin ABG Oxyhemoglobin ABG Sodium ABG Potassium ABG Chloride ABG Glucose Oxyhemoglobin Carboxyhemoglobin Sodium Potassium Chloride Carbon Dioxide BUN Creatinine Glucose POC Glucose 252 H 159 H Lactic Acid Calcium Phosphorus Magnesium AST Ammonia Total Creatine Kinase Troponin T NT-Pro-B Natriuret Pep Total Protein Albumin LDL Cholesterol Direct PTH Intact Arterial Blood Glucose Arterial Blood Ionized Calcium Urine WBC (Auto) Urine Creatinine Crossmatch 01/06/21 01/06/21 01/06/21 06:40 06:40 06:40 WBC RBC Hgb Hct MCH MCHC RDW Plt Count Eos % (Auto) Seg Neutrophils % Seg Neuts % (Manual) Lymphocytes % (Manual) Eosinophils % (Manual) Nucleated RBC % Seg Neutrophils # Man Lymphocytes # (Manual) APTT ABG pH POC ABG pCO2 POC ABG pO2 ABG HCO3 ABG O2 Saturation ABG Base Excess ABG Hemoglobin ABG Oxyhemoglobin ABG Sodium ABG Potassium ABG Chloride ABG Glucose Oxyhemoglobin Carboxyhemoglobin Sodium 135 L Potassium Chloride 87.4 L Carbon Dioxide 14 L D BUN 36 H Creatinine 4.3 H Glucose 167 H POC Glucose Lactic Acid 13.60 H* Calcium 6.5 L D Phosphorus Magnesium AST 122 H Ammonia Total Creatine Kinase Troponin T NT-Pro-B Natriuret Pep Total Protein 5.4 L D Albumin 2.5 L LDL Cholesterol Direct PTH Intact 209.3 H Arterial Blood Glucose Arterial Blood Ionized Calcium Urine WBC (Auto) Urine Creatinine Crossmatch 01/06/21 01/06/21 01/06/21 09:04 12:43 17:27 WBC RBC Hgb Hct MCH MCHC RDW Plt Count Eos % (Auto) Seg Neutrophils % Seg Neuts % (Manual) Lymphocytes % (Manual) Eosinophils % (Manual) Nucleated RBC % Seg Neutrophils # Man Lymphocytes # (Manual) APTT ABG pH POC ABG pCO2 20.9 L POC ABG pO2 162.3 H ABG HCO3 ABG O2 Saturation ABG Base Excess ABG Hemoglobin 6.0 L ABG Oxyhemoglobin 98.2 H ABG Sodium 131.2 L ABG Potassium ABG Chloride 95.0 L ABG Glucose 175 H Oxyhemoglobin Carboxyhemoglobin Sodium Potassium Chloride Carbon Dioxide BUN Creatinine Glucose POC Glucose 151 H 151 H Lactic Acid Calcium Phosphorus Magnesium AST Ammonia Total Creatine Kinase Troponin T NT-Pro-B Natriuret Pep Total Protein Albumin LDL Cholesterol Direct PTH Intact Arterial Blood Glucose 175 H Arterial Blood Ionized Calcium 3.3 L Urine WBC (Auto) Urine Creatinine Crossmatch 01/06/21 01/07/21 01/07/21 23:04 03:22 05:49 WBC RBC Hgb Hct MCH MCHC RDW Plt Count Eos % (Auto) Seg Neutrophils % Seg Neuts % (Manual) Lymphocytes % (Manual) Eosinophils % (Manual) Nucleated RBC % Seg Neutrophils # Man Lymphocytes # (Manual) APTT ABG pH POC ABG pCO2 POC ABG pO2 138.2 H ABG HCO3 ABG O2 Saturation ABG Base Excess ABG Hemoglobin 5.7 L ABG Oxyhemoglobin ABG Sodium 129.7 L ABG Potassium ABG Chloride 89.0 L ABG Glucose 146 H Oxyhemoglobin Carboxyhemoglobin Sodium Potassium Chloride Carbon Dioxide BUN Creatinine Glucose POC Glucose 139 H 137 H Lactic Acid Calcium Phosphorus Magnesium AST Ammonia Total Creatine Kinase Troponin T NT-Pro-B Natriuret Pep Total Protein Albumin LDL Cholesterol Direct PTH Intact Arterial Blood Glucose 146 H Arterial Blood Ionized Calcium 2.9 L Urine WBC (Auto) Urine Creatinine Crossmatch 01/07/21 01/07/21 01/07/21 07:06 07:06 07:06 WBC RBC Hgb Hct MCH MCHC RDW Plt Count Eos % (Auto) Seg Neutrophils % Seg Neuts % (Manual) Lymphocytes % (Manual) Eosinophils % (Manual) Nucleated RBC % Seg Neutrophils # Man Lymphocytes # (Manual) APTT ABG pH POC ABG pCO2 POC ABG pO2 ABG HCO3 ABG O2 Saturation ABG Base Excess ABG Hemoglobin ABG Oxyhemoglobin ABG Sodium ABG Potassium ABG Chloride ABG Glucose Oxyhemoglobin Carboxyhemoglobin Sodium Potassium Chloride 85.2 L Carbon Dioxide 21 L D BUN 48 H Creatinine 5.0 H Glucose 142 H POC Glucose Lactic Acid 13.90 H* Calcium 5.7 L* Phosphorus 4.60 H Magnesium AST Ammonia Total Creatine Kinase Troponin T NT-Pro-B Natriuret Pep Total Protein Albumin LDL Cholesterol Direct PTH Intact Arterial Blood Glucose Arterial Blood Ionized Calcium Urine WBC (Auto) Urine Creatinine Crossmatch See Detail 01/07/21 01/07/21 01/07/21 08:35 11:33 21:00 WBC RBC Hgb Hct MCH MCHC RDW Plt Count Eos % (Auto) Seg Neutrophils % Seg Neuts % (Manual) Lymphocytes % (Manual) Eosinophils % (Manual) Nucleated RBC % Seg Neutrophils # Man Lymphocytes # (Manual) APTT ABG pH 7.482 H POC ABG pCO2 POC ABG pO2 108.1 H ABG HCO3 ABG O2 Saturation ABG Base Excess ABG Hemoglobin 7.2 L ABG Oxyhemoglobin ABG Sodium 128.1 L ABG Potassium 3.2 L ABG Chloride 95.0 L ABG Glucose 185 H Oxyhemoglobin Carboxyhemoglobin Sodium Potassium Chloride Carbon Dioxide BUN Creatinine Glucose POC Glucose 149 H Lactic Acid 14.20 H* Calcium Phosphorus Magnesium AST Ammonia Total Creatine Kinase Troponin T NT-Pro-B Natriuret Pep Total Protein Albumin LDL Cholesterol Direct PTH Intact Arterial Blood Glucose 185 H Arterial Blood Ionized Calcium 4.2 L Urine WBC (Auto) Urine Creatinine Crossmatch 01/07/21 01/08/21 01/08/21 23:09 02:47 05:29 WBC RBC Hgb Hct MCH MCHC RDW Plt Count Eos % (Auto) Seg Neutrophils % Seg Neuts % (Manual) Lymphocytes % (Manual) Eosinophils % (Manual) Nucleated RBC % Seg Neutrophils # Man Lymphocytes # (Manual) APTT ABG pH POC ABG pCO2 POC ABG pO2 ABG HCO3 ABG O2 Saturation ABG Base Excess ABG Hemoglobin ABG Oxyhemoglobin ABG Sodium ABG Potassium ABG Chloride ABG Glucose Oxyhemoglobin Carboxyhemoglobin Sodium Potassium Chloride Carbon Dioxide BUN Creatinine Glucose POC Glucose 179 H 121 H 154 H Lactic Acid Calcium Phosphorus Magnesium AST Ammonia Total Creatine Kinase Troponin T NT-Pro-B Natriuret Pep Total Protein Albumin LDL Cholesterol Direct PTH Intact Arterial Blood Glucose Arterial Blood Ionized Calcium Urine WBC (Auto) Urine Creatinine Crossmatch 01/08/21 01/08/21 01/08/21 05:56 05:56 09:20 WBC 4.0 L RBC 2.57 L Hgb 7.3 L Hct 21.7 L MCH MCHC RDW 17.9 H Plt Count 46 L Eos % (Auto) 4.5 H Seg Neutrophils % 87.1 H Seg Neuts % (Manual) 74.0 H Lymphocytes % (Manual) 1.0 L Eosinophils % (Manual) Nucleated RBC % Seg Neutrophils # Man Lymphocytes # (Manual) 0.0 L APTT ABG pH 7.474 H POC ABG pCO2 POC ABG pO2 ABG HCO3 ABG O2 Saturation ABG Base Excess ABG Hemoglobin 6.9 L ABG Oxyhemoglobin ABG Sodium 126.7 L ABG Potassium 3.0 L ABG Chloride 94.0 L ABG Glucose 199 H Oxyhemoglobin Carboxyhemoglobin Sodium Potassium 3.2 L Chloride 93.4 L Carbon Dioxide BUN 32 H Creatinine 3.2 H Glucose 154 H POC Glucose Lactic Acid Calcium 7.8 L D Phosphorus Magnesium AST Ammonia Total Creatine Kinase Troponin T NT-Pro-B Natriuret Pep Total Protein Albumin LDL Cholesterol Direct PTH Intact Arterial Blood Glucose 199 H Arterial Blood Ionized Calcium 3.9 L Urine WBC (Auto) Urine Creatinine Crossmatch 01/08/21 01/08/21 01/08/21 11:43 17:29 23:58 WBC RBC Hgb Hct MCH MCHC RDW Plt Count Eos % (Auto) Seg Neutrophils % Seg Neuts % (Manual) Lymphocytes % (Manual) Eosinophils % (Manual) Nucleated RBC % Seg Neutrophils # Man Lymphocytes # (Manual) APTT ABG pH POC ABG pCO2 POC ABG pO2 ABG HCO3 ABG O2 Saturation ABG Base Excess ABG Hemoglobin ABG Oxyhemoglobin ABG Sodium ABG Potassium ABG Chloride ABG Glucose Oxyhemoglobin Carboxyhemoglobin Sodium Potassium Chloride Carbon Dioxide BUN Creatinine Glucose POC Glucose 179 H 164 H 142 H Lactic Acid Calcium Phosphorus Magnesium AST Ammonia Total Creatine Kinase Troponin T NT-Pro-B Natriuret Pep Total Protein Albumin LDL Cholesterol Direct PTH Intact Arterial Blood Glucose Arterial Blood Ionized Calcium Urine WBC (Auto) Urine Creatinine Crossmatch 01/09/21 01/09/21 01/09/21 04:27 04:27 05:13 WBC 2.8 L RBC 2.40 L Hgb 6.8 L Hct 19.7 L* MCH MCHC 35 H RDW 18.0 H Plt Count 30 L Eos % (Auto) Seg Neutrophils % Seg Neuts % (Manual) 92.0 H Lymphocytes % (Manual) 2.0 L Eosinophils % (Manual) 5.0 H Nucleated RBC % Seg Neutrophils # Man Lymphocytes # (Manual) 0.1 L APTT ABG pH POC ABG pCO2 POC ABG pO2 ABG HCO3 ABG O2 Saturation ABG Base Excess ABG Hemoglobin ABG Oxyhemoglobin ABG Sodium ABG Potassium ABG Chloride ABG Glucose Oxyhemoglobin Carboxyhemoglobin Sodium Potassium Chloride 97.1 L Carbon Dioxide 33 H BUN 55 H Creatinine 4.2 H Glucose 147 H POC Glucose 138 H Lactic Acid Calcium 7.6 L Phosphorus Magnesium 1.50 L AST Ammonia Total Creatine Kinase Troponin T NT-Pro-B Natriuret Pep Total Protein Albumin LDL Cholesterol Direct PTH Intact Arterial Blood Glucose Arterial Blood Ionized Calcium Urine WBC (Auto) Urine Creatinine Crossmatch 01/09/21 01/09/21 01/09/21 11:57 18:19 23:24 WBC RBC Hgb Hct MCH MCHC RDW Plt Count Eos % (Auto) Seg Neutrophils % Seg Neuts % (Manual) Lymphocytes % (Manual) Eosinophils % (Manual) Nucleated RBC % Seg Neutrophils # Man Lymphocytes # (Manual) APTT ABG pH POC ABG pCO2 POC ABG pO2 ABG HCO3 ABG O2 Saturation ABG Base Excess ABG Hemoglobin ABG Oxyhemoglobin ABG Sodium ABG Potassium ABG Chloride ABG Glucose Oxyhemoglobin Carboxyhemoglobin Sodium Potassium Chloride Carbon Dioxide BUN Creatinine Glucose POC Glucose 155 H 168 H 182 H Lactic Acid Calcium Phosphorus Magnesium AST Ammonia Total Creatine Kinase Troponin T NT-Pro-B Natriuret Pep Total Protein Albumin LDL Cholesterol Direct PTH Intact Arterial Blood Glucose Arterial Blood Ionized Calcium Urine WBC (Auto) Urine Creatinine Crossmatch 01/10/21 01/10/21 04:00 05:58 WBC RBC Hgb Hct MCH MCHC RDW Plt Count Eos % (Auto) Seg Neutrophils % Seg Neuts % (Manual) Lymphocytes % (Manual) Eosinophils % (Manual) Nucleated RBC % Seg Neutrophils # Man Lymphocytes # (Manual) APTT ABG pH POC ABG pCO2 POC ABG pO2 ABG HCO3 ABG O2 Saturation ABG Base Excess ABG Hemoglobin ABG Oxyhemoglobin ABG Sodium ABG Potassium ABG Chloride ABG Glucose Oxyhemoglobin Carboxyhemoglobin Sodium Potassium Chloride Carbon Dioxide 32 H BUN 37 H Creatinine 3.1 H Glucose 168 H POC Glucose 152 H Lactic Acid Calcium Phosphorus Magnesium AST Ammonia Total Creatine Kinase Troponin T NT-Pro-B Natriuret Pep Total Protein Albumin LDL Cholesterol Direct PTH Intact Arterial Blood Glucose Arterial Blood Ionized Calcium Urine WBC (Auto) Urine Creatinine Crossmatch Chest x-ray: image reviewed Allied health notes reviewed: RT
--- NOTE | 2021-01-10 12:30 | Progress Note ---
Assessment and Plan Cultures: 01/05/2021 blood culture: No growth 01/05/2021 urine culture: No growth A/P: 70-year-old female past medical history multiple myeloma currently on chemo, diabetes, obesity admitted with hypoxic respiratory failure: #Acute encephalopathy: mentation worse compared to yesterday. #Acute hypoxic respiratory failure: unclear etiology, only pleural effusion and atelectasis on the left. Extubated 01/08/2021. #Pyuria/UTI: unclear if symptoms previous to admission. epithelial cells on UA but low grade fevers, hence treated as UTI. #Pancytopenia, multiple myeloma on chemotherapy: immunocompromised host. #MORGAN: now requiring HD. Renally dose medications Recs: -completed Cefepime. Hold off on additional doses at this time. Cefepime can cause encephalopathy especially in patients with renal dysfunction -Fluconazole 200 mg daily x 7 days Jose Pichardo MD, FACP [facility] O: [phone] F: [phone] Subjective Date of service: 01/10/21 Principal diagnosis: Ac hypoxemic resp failure; MORGAN; Septic Shock; CAP; Multiple myeloma; NSTEMI Interval history: Low grade temperature x 1. More drowsy today. at bedside, states patient less responsive than yesterday. Objective - Exam Narrative Exam: Physical Exam: Constitutional: drowsy Head, Ears, Nose: Normocephalic, atraumatic. External ears, nose normal Eyes: Conjunctivae/corneas clear. No icterus. No ptosis. Neck: Supple, no meningeal signs. dialysis cath + Cardiovascular: S1, S2 normal. Respiratory: Good air entry, clear to auscultation bilaterally GI: Soft, non-tender; bowel sounds normal. No peritoneal signs Musculoskeletal: No pedal edema, no cyanosis. Skin: No rash or abscess Hem/Lymphatic: No palpable cervical or supraclavicular nodes. No lymphangitis Neurological: drowsy, not obeying commands - Constitutional Vitals: Vital Signs Temp Pulse Resp BP Pulse Ox 100.6 F H 73 13 131/55 99 01/10/21 07:57 01/10/21 11:11 01/10/21 11:11 01/10/21 11:11 01/10/21 11:11 Temperature -Last 24 Hours Temperature 100.6 F Temperature 99.3 F Temperature 97.6 F Temperature 98.7 F Temperature 98.8 F Temperature 98.9 F Temperature 100 F Temperature 98.4 F Temperature 98.4 F - Labs CBC & Chem 7: 01/09/21 04:27 01/10/21 04:00 Labs: Abnormal lab results 01/07/21 01/09/21 01/09/21 Range/Units 07:06 18:19 23:24 Carbon Dioxide (22-30) mmol/L BUN (7-17) mg/dL Creatinine (0.6-1.2) mg/dL Glucose (65-100) mg/dL POC Glucose 168 H 182 H (70-105) mg/dL Crossmatch See Detail 01/10/21 01/10/21 01/10/21 Range/Units 04:00 05:58 11:43 Carbon Dioxide 32 H (22-30) mmol/L BUN 37 H (7-17) mg/dL Creatinine 3.1 H (0.6-1.2) mg/dL Glucose 168 H (65-100) mg/dL POC Glucose 152 H 156 H (70-105) mg/dL Crossmatch
[2021-01-10] MEDS: FLUCONAZOLE 200 MG 200 MG/100 ML BAG IV SCH (16:38)
--- NOTE | 2021-01-10 17:44 | Progress Note ---
Subjective Date of service: 01/10/21 Principal diagnosis: Ac hypoxemic resp failure; MORGAN; Septic Shock; CAP; Multiple myeloma; NSTEMI Objective - Constitutional Vitals: Vital Signs - 12hr 01/10/21 01/10/21 01/10/21 05:51 06:01 06:10 Temperature Pulse Rate 83 87 86 Respiratory 14 16 15 Rate Respiratory Rate [ Generalized] Blood Pressure 145/73 170/68 175/77 O2 Sat by Pulse 99 97 99 Oximetry 01/10/21 01/10/21 01/10/21 06:21 06:31 06:41 Temperature Pulse Rate 97 H 81 82 Respiratory 16 19 14 Rate Respiratory Rate [ Generalized] Blood Pressure 143/84 159/75 160/66 O2 Sat by Pulse 97 97 98 Oximetry 01/10/21 01/10/21 01/10/21 06:50 07:00 07:10 Temperature Pulse Rate 78 85 83 Respiratory 15 17 14 Rate Respiratory Rate [ Generalized] Blood Pressure 169/68 150/78 165/72 O2 Sat by Pulse 98 97 98 Oximetry 01/10/21 01/10/21 01/10/21 07:20 07:31 07:40 Temperature Pulse Rate 75 68 81 Respiratory 16 13 16 Rate Respiratory Rate [ Generalized] Blood Pressure 154/67 162/60 147/70 O2 Sat by Pulse 100 100 100 Oximetry 01/10/21 01/10/21 01/10/21 07:51 07:57 08:00 Temperature 100.6 F H Pulse Rate 79 82 Respiratory 12 12 Rate Respiratory Rate [ Generalized] Blood Pressure 157/70 162/69 O2 Sat by Pulse 100 99 Oximetry 01/10/21 01/10/21 01/10/21 08:11 08:21 08:30 Temperature Pulse Rate 82 80 68 Respiratory 15 16 17 Rate Respiratory Rate [ Generalized] Blood Pressure 172/67 160/67 155/58 O2 Sat by Pulse 100 99 100 Oximetry 01/10/21 01/10/21 01/10/21 08:40 08:50 09:01 Temperature Pulse Rate 79 77 83 Respiratory 17 15 17 Rate Respiratory Rate [ Generalized] Blood Pressure 172/74 171/71 155/70 O2 Sat by Pulse 98 99 96 Oximetry 01/10/21 01/10/21 01/10/21 09:10 09:21 09:30 Temperature Pulse Rate 77 78 74 Respiratory 13 16 11 L Rate Respiratory Rate [ Generalized] Blood Pressure 152/68 170/65 163/66 O2 Sat by Pulse 99 98 100 Oximetry 01/10/21 01/10/21 01/10/21 09:40 09:51 10:00 Temperature Pulse Rate 76 81 Respiratory 16 20 Rate Respiratory 18 Rate [ Generalized] Blood Pressure 145/74 136/58 O2 Sat by Pulse 99 99 Oximetry 01/10/21 01/10/21 01/10/21 10:01 10:11 10:21 Temperature Pulse Rate 81 86 79 Respiratory 15 15 16 Rate Respiratory Rate [ Generalized] Blood Pressure 177/76 170/80 148/57 O2 Sat by Pulse 99 98 100 Oximetry 01/10/21 01/10/21 01/10/21 10:30 10:41 10:51 Temperature Pulse Rate 80 73 77 Respiratory 13 12 18 Rate Respiratory Rate [ Generalized] Blood Pressure 163/64 127/74 155/54 O2 Sat by Pulse 98 99 100 Oximetry 01/10/21 01/10/21 01/10/21 11:01 11:11 11:20 Temperature Pulse Rate 75 73 66 Respiratory 13 13 14 Rate Respiratory Rate [ Generalized] Blood Pressure 128/57 131/55 133/55 O2 Sat by Pulse 100 99 100 Oximetry 01/10/21 01/10/21 01/10/21 11:30 11:40 11:50 Temperature Pulse Rate 79 80 80 Respiratory 12 12 15 Rate Respiratory Rate [ Generalized] Blood Pressure 133/55 157/69 157/64 O2 Sat by Pulse 99 99 98 Oximetry 01/10/21 01/10/21 01/10/21 11:57 12:00 12:10 Temperature 99.6 F Pulse Rate 71 78 Respiratory 13 18 Rate Respiratory Rate [ Generalized] Blood Pressure 119/66 142/77 O2 Sat by Pulse 99 96 Oximetry 01/10/21 01/10/21 01/10/21 12:20 12:30 12:40 Temperature Pulse Rate 76 65 78 Respiratory 15 12 16 Rate Respiratory Rate [ Generalized] Blood Pressure 154/76 137/54 137/54 O2 Sat by Pulse 97 98 99 Oximetry 01/10/21 01/10/21 01/10/21 12:50 13:00 13:10 Temperature Pulse Rate 72 83 79 Respiratory 15 18 13 Rate Respiratory Rate [ Generalized] Blood Pressure 167/69 176/79 167/72 O2 Sat by Pulse 98 98 99 Oximetry 07/05/2301/10/21 01/10/21 13:20 13:30 13:40 Temperature Pulse Rate 85 85 86 Respiratory 22 16 15 Rate Respiratory Rate [ Generalized] Blood Pressure 173/83 170/71 173/73 O2 Sat by Pulse 99 98 99 Oximetry 01/10/21 01/10/21 01/10/21 13:50 14:00 14:10 Temperature Pulse Rate 74 85 76 Respiratory 17 20 12 Rate Respiratory Rate [ Generalized] Blood Pressure 169/56 185/77 163/67 O2 Sat by Pulse 98 98 99 Oximetry 01/10/21 01/10/21 01/10/21 14:20 14:30 14:40 Temperature Pulse Rate 89 93 H 80 Respiratory 17 18 13 Rate Respiratory Rate [ Generalized] Blood Pressure 152/69 167/71 134/65 O2 Sat by Pulse 99 99 97 Oximetry 01/10/21 01/10/21 01/10/21 14:50 15:00 15:10 Temperature Pulse Rate 88 76 92 H Respiratory 15 15 15 Rate Respiratory Rate [ Generalized] Blood Pressure 152/64 161/56 161/56 O2 Sat by Pulse 98 98 99 Oximetry 01/10/21 16:17 Temperature 99.2 F Pulse Rate Respiratory Rate Respiratory Rate [ Generalized] Blood Pressure O2 Sat by Pulse Oximetry General appearance: Present: no acute distress, well-nourished - EENT Eyes: PERRL, EOM intact ENT: hearing intact, clear oral mucosa Ears: bilateral: normal - Neck Neck: supple, normal ROM - Respiratory Respiratory effort: normal Respiratory: bilateral: CTA - Breasts Breasts: normal - Cardiovascular Rhythm: regular Heart Sounds: Present: S1 & S2. Absent: gallop, rub Extremities: pulses intact, No edema, normal color, Full ROM - Gastrointestinal General gastrointestinal: Present: soft, non-tender, non-distended, normal bowel sounds - Genitourinary Female genitourinary: normal - Integumentary Integumentary: clear, warm, dry - Musculoskeletal Musculoskeletal: 1, strength equal bilaterally - Neurologic Neurologic: moves all extremities - Psychiatric Psychiatric: memory intact, appropriate mood/affect, intact judgment & insight - Labs CBC & Chem 7: 01/09/21 04:27 01/10/21 04:00 Labs: Abnormal lab results 01/07/21 01/09/21 01/09/21 Range/Units 07:06 18:19 23:24 Carbon Dioxide (22-30) mmol/L BUN (7-17) mg/dL Creatinine (0.6-1.2) mg/dL Glucose (65-100) mg/dL POC Glucose 168 H 182 H (70-105) mg/dL Crossmatch See Detail 01/10/21 01/10/21 01/10/21 Range/Units 04:00 05:58 11:43 Carbon Dioxide 32 H (22-30) mmol/L BUN 37 H (7-17) mg/dL Creatinine 3.1 H (0.6-1.2) mg/dL Glucose 168 H (65-100) mg/dL POC Glucose 152 H 156 H (70-105) mg/dL Crossmatch HEART Score - HEART Score Troponin: Troponin T 0.153 ng/mL (0.00-0.029) H* 01/05/21 13:44
[2021-01-10] MEDS: metroNIDAZOLE/NS 500 MG/100 ML 500 MG/100 ML BAG IV SCH ×2 (18:39→23:01)
[2021-01-11] MEDS: INSULIN LISPRO 100 UNIT/ML SUB-Q SCH ×3 (00:33→15:52)
[2021-01-11 05:01] LABS: Hematocrit 22.8 % (30.3-42.9); Hemoglobin 7.7 gm/dl (10.1-14.3); Mean Corpuscular HGB Conc 34 % (30-34); Mean Corpuscular Volume 85 fl (79-97); Red Cell Distribution Width 17.6 % (13.2-15.2)
[2021-01-11 05:06] LABS: Platelet Count 43 K/mm3 (140-440)
[2021-01-11 05:29] LABS: Albumin 2.3 g/dL (3.9-5); Calcium 7.8 mg/dL (8.4-10.2)
--- NOTE | 2021-01-11 06:22 | XRay Report ---
XR chest 1V ap INDICATION / CLINICAL INFORMATION: follow up respiratory failure. COMPARISON: 01/08/2021 FINDINGS: SUPPORT DEVICES: Endotracheal tube and enteric catheter has been removed. HEART /PULMONARY VASCULATURE: Unchanged. LUNGS / PLEURA: Left basilar volume loss is unchanged. No new or increasing airspace consolidation. N o pneumothorax. IMPRESSION: Interval extubation. Left basilar volume loss is unchanged. No new or worsening consolidation. Signer Name: Korey Parrish MD Signed: 01/11/2021 6:17 AM Workstation Name: [id number]
[2021-01-11] MEDS: metroNIDAZOLE/NS 500 MG/100 ML 500 MG/100 ML BAG IV SCH (06:25)
[2021-01-11] MEDS: FAMOTIDINE 20 MG TAB PO SCH (09:36)
--- NOTE | 2021-01-11 09:54 | Progress Note ---
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 Eosinophils % (Manual) Nucleated RBC % Seg Neutrophils # Man Lymphocytes # (Manual) APTT ABG pH POC ABG pCO2 POC ABG pO2 ABG HCO3 ABG O2 Saturation ABG Base Excess ABG Hemoglobin ABG Oxyhemoglobin ABG Sodium ABG Potassium ABG Chloride ABG Glucose Oxyhemoglobin Carboxyhemoglobin Sodium Potassium Chloride Carbon Dioxide BUN Creatinine Glucose POC Glucose 131 H Lactic Acid Calcium Phosphorus Magnesium AST ALT Ammonia Total Creatine Kinase Troponin T NT-Pro-B Natriuret Pep Total Protein Albumin LDL Cholesterol Direct PTH Intact Arterial Blood Glucose Arterial Blood Ionized Calcium Urine WBC (Auto) Urine Creatinine Crossmatch Allied health notes reviewed: RT
--- NOTE | 2021-01-11 12:17 | Progress Note ---
Assessment and Plan 1. Acute kidney injury: Vasomotor MORGAN in the setting shock. Renal US negative for hydro. MELINA, ANCA, GBM Ab, Complemets and SPEP ordered. Monitor renal function. Oliguric. Renal prognosis is guarded. Avoid nephrotoxic agents. Meds dosage based on GFR. Monitor for [employer] needs. Patient was started on hemodialysis due to significant decline in the GFR, associated hyperkalemia and severe metabolic acidosis. Hemodialysis: 01/05, 01/07, 01/08(UF only), 01/09. HD today. 2. FEN: Hyperkalemia, improved with HD. Anion-gap Metabolic acidosis, improved, monitor. Monitor lytes. 3. Acute respiratory failure with hypoxia: S/p extubated. Followed by Pulmonary. 4. Shock, POA: Likely septic. Improved. Abx. 5. Elevated Troponin: Monitor. 6. Diabetes mellitus type 2: Follow blood glucose. 7. Anemia, POA: S/p PRBC. Monitor. 8. Encephalopathy: Monitor. 9. Multiple myeloma: On Chemo. 10. Thrombocytopenia. Subjective: Patient was seen and examined at the bedside. Examination: General appearance: well-developed, well-nourished, appears stated age HEENT: ATNC, pupils equal Neck: supple Respiratory: ctab Cardiology: regular, S1S2, no murmur Gastrointestinal: soft, bowel sounds heard, not tender Integumentary: no rash, warm and dry Neurologic: alert, able to move extremities Ext: trace dependent edema Hemodialysis access: R IJ temp catheter Subjective Date of service: 01/11/21 Principal diagnosis: Ac hypoxemic resp failure; MORGAN; Septic Shock; CAP; Multiple myeloma; NSTEMI Objective - Vital Signs Vital signs: Vital Signs - 12hr 01/11/21 01/11/21 01/11/21 00:20 00:30 00:40 Temperature Pulse Rate 72 77 67 Respiratory 14 17 14 Rate Respiratory Rate [ Generalized] Blood Pressure 128/60 130/58 121/52 O2 Sat by Pulse 100 100 100 Oximetry O2 Sat by Pulse Oximetry [ Anterior Bilateral] 01/11/21 01/11/21 01/11/21 00:50 01:00 01:10 Temperature Pulse Rate 73 77 71 Respiratory 17 14 14 Rate Respiratory Rate [ Generalized] Blood Pressure 135/61 147/65 130/53 O2 Sat by Pulse 100 100 100 Oximetry O2 Sat by Pulse Oximetry [ Anterior Bilateral] 01/11/21 01/11/21 01/11/21 01:20 01:30 01:40 Temperature Pulse Rate 71 69 65 Respiratory 15 13 14 Rate Respiratory Rate [ Generalized] Blood Pressure 150/70 150/70 143/59 O2 Sat by Pulse 100 100 100 Oximetry O2 Sat by Pulse Oximetry [ Anterior Bilateral] 01/11/21 01/11/21 01/11/21 01:50 02:00 02:10 Temperature Pulse Rate 68 69 75 Respiratory 13 13 13 Rate Respiratory Rate [ Generalized] Blood Pressure 146/60 142/63 135/64 O2 Sat by Pulse 100 100 100 Oximetry O2 Sat by Pulse Oximetry [ Anterior Bilateral] 01/11/21 01/11/21 01/11/21 02:20 02:30 02:40 Temperature Pulse Rate 74 72 70 Respiratory 14 12 13 Rate Respiratory Rate [ Generalized] Blood Pressure 138/65 139/68 145/62 O2 Sat by Pulse 100 100 100 Oximetry O2 Sat by Pulse Oximetry [ Anterior Bilateral] 01/11/21 01/11/21 01/11/21 02:50 03:00 03:10 Temperature Pulse Rate 72 71 64 Respiratory 15 12 12 Rate Respiratory Rate [ Generalized] Blood Pressure 151/64 132/62 141/54 O2 Sat by Pulse 100 100 100 Oximetry O2 Sat by Pulse Oximetry [ Anterior Bilateral] 01/11/21 01/11/21 01/11/21 03:20 03:30 03:40 Temperature Pulse Rate 74 61 68 Respiratory 16 14 12 Rate Respiratory Rate [ Generalized] Blood Pressure 137/60 139/54 141/55 O2 Sat by Pulse 100 100 100 Oximetry O2 Sat by Pulse Oximetry [ Anterior Bilateral] 01/11/21 01/11/21 01/11/21 03:50 04:00 04:10 Temperature 97.6 F Pulse Rate 70 65 66 Respiratory 13 12 13 Rate Respiratory Rate [ Generalized] Blood Pressure 141/63 138/59 146/56 O2 Sat by Pulse 100 100 100 Oximetry O2 Sat by Pulse Oximetry [ Anterior Bilateral] 01/11/21 01/11/21 01/11/21 04:20 04:30 04:40 Temperature Pulse Rate 67 72 73 Respiratory 13 11 L 11 L Rate Respiratory Rate [ Generalized] Blood Pressure 143/57 136/71 137/69 O2 Sat by Pulse 100 100 98 Oximetry O2 Sat by Pulse Oximetry [ Anterior Bilateral] 01/11/21 01/11/21 01/11/21 04:50 05:00 05:10 Temperature Pulse Rate 73 65 70 Respiratory 14 11 L 14 Rate Respiratory Rate [ Generalized] Blood Pressure 144/63 142/58 131/60 O2 Sat by Pulse 100 100 100 Oximetry O2 Sat by Pulse Oximetry [ Anterior Bilateral] 01/11/21 01/11/21 01/11/21 05:20 05:30 05:40 Temperature Pulse Rate 66 68 67 Respiratory 13 13 12 Rate Respiratory Rate [ Generalized] Blood Pressure 123/50 123/50 115/55 O2 Sat by Pulse 100 100 100 Oximetry O2 Sat by Pulse Oximetry [ Anterior Bilateral] 01/11/21 01/11/21 01/11/21 05:50 06:00 06:10 Temperature Pulse Rate 80 65 78 Respiratory 21 15 14 Rate Respiratory Rate [ Generalized] Blood Pressure 115/55 136/49 136/49 O2 Sat by Pulse 100 100 99 Oximetry O2 Sat by Pulse Oximetry [ Anterior Bilateral] 01/11/21 01/11/21 01/11/21 06:20 06:30 06:40 Temperature Pulse Rate 67 63 62 Respiratory 11 L 13 13 Rate Respiratory Rate [ Generalized] Blood Pressure 144/57 123/55 129/56 O2 Sat by Pulse 99 100 100 Oximetry O2 Sat by Pulse Oximetry [ Anterior Bilateral] 01/11/21 01/11/21 01/11/21 06:50 07:00 07:10 Temperature 98.8 F Pulse Rate 65 64 64 Respiratory 14 14 13 Rate Respiratory Rate [ Generalized] Blood Pressure 129/51 141/51 115/52 O2 Sat by Pulse 100 100 100 Oximetry O2 Sat by Pulse Oximetry [ Anterior Bilateral] 01/11/21 01/11/21 01/11/21 07:20 07:30 07:40 Temperature Pulse Rate 65 70 63 Respiratory 14 15 12 Rate Respiratory Rate [ Generalized] Blood Pressure 114/51 126/69 136/63 O2 Sat by Pulse 100 100 100 Oximetry O2 Sat by Pulse Oximetry [ Anterior Bilateral] 01/11/21 01/11/21 01/11/21 07:50 08:00 08:10 Temperature Pulse Rate 64 62 62 Respiratory 13 12 12 Rate Respiratory Rate [ Generalized] Blood Pressure 141/59 140/57 135/60 O2 Sat by Pulse 100 100 100 Oximetry O2 Sat by Pulse Oximetry [ Anterior Bilateral] 01/11/21 01/11/21 01/11/21 08:20 08:21 08:30 Temperature Pulse Rate 65 64 Respiratory 13 12 Rate Respiratory Rate [ Generalized] Blood Pressure 135/60 142/60 O2 Sat by Pulse 100 99 100 Oximetry O2 Sat by Pulse Oximetry [ Anterior Bilateral] 01/11/21 01/11/21 01/11/21 08:40 08:50 09:00 Temperature Pulse Rate 65 82 70 Respiratory 11 L 15 13 Rate Respiratory Rate [ Generalized] Blood Pressure 149/61 153/70 145/57 O2 Sat by Pulse 100 100 100 Oximetry O2 Sat by Pulse Oximetry [ Anterior Bilateral] 01/11/21 01/11/21 01/11/21 09:10 09:15 09:20 Temperature 97.6 F Pulse Rate 69 67 75 Respiratory 13 14 18 Rate Respiratory Rate [ Generalized] Blood Pressure 132/57 141/66 147/67 O2 Sat by Pulse 99 98 Oximetry O2 Sat by Pulse 99 Oximetry [ Anterior Bilateral] 01/11/21 01/11/21 01/11/21 09:30 09:40 09:45 Temperature Pulse Rate 73 77 73 Respiratory 13 14 Rate Respiratory Rate [ Generalized] Blood Pressure 128/63 141/66 130/58 O2 Sat by Pulse 98 99 Oximetry O2 Sat by Pulse Oximetry [ Anterior Bilateral] 01/11/21 01/11/21 01/11/21 09:50 10:00 10:10 Temperature Pulse Rate 82 87 89 Respiratory 15 13 17 Rate Respiratory 18 Rate [ Generalized] Blood Pressure 130/58 129/70 128/63 O2 Sat by Pulse 98 98 96 Oximetry O2 Sat by Pulse Oximetry [ Anterior Bilateral] 01/11/21 01/11/21 01/11/21 10:15 10:20 10:30 Temperature Pulse Rate 90 89 96 H Respiratory 16 16 Rate Respiratory Rate [ Generalized] Blood Pressure 122/67 122/67 113/62 O2 Sat by Pulse 98 98 Oximetry O2 Sat by Pulse Oximetry [ Anterior Bilateral] 01/11/21 01/11/21 01/11/21 10:40 10:45 10:50 Temperature Pulse Rate 96 H 90 93 H Respiratory 18 17 Rate Respiratory Rate [ Generalized] Blood Pressure 122/67 106/54 106/54 O2 Sat by Pulse 97 97 Oximetry O2 Sat by Pulse Oximetry [ Anterior Bilateral] 01/11/21 01/11/21 01/11/21 11:00 11:10 11:15 Temperature Pulse Rate 90 88 82 Respiratory 16 21 Rate Respiratory Rate [ Generalized] Blood Pressure 85/43 106/54 96/46 O2 Sat by Pulse 99 100 Oximetry O2 Sat by Pulse Oximetry [ Anterior Bilateral] 01/11/21 01/11/21 01/11/21 11:20 11:30 11:40 Temperature Pulse Rate 74 76 84 Respiratory 17 20 17 Rate Respiratory Rate [ Generalized] Blood Pressure 96/46 87/42 96/46 O2 Sat by Pulse 98 98 98 Oximetry O2 Sat by Pulse Oximetry [ Anterior Bilateral] 01/11/21 01/11/21 11:45 12:00 Temperature Pulse Rate 87 85 Respiratory Rate Respiratory Rate [ Generalized] Blood Pressure 90/48 99/50 O2 Sat by Pulse Oximetry O2 Sat by Pulse Oximetry [ Anterior Bilateral] - Lab 01/11/21 04:00 01/11/21 04:00 Most recent lab results ABG pH 7.474 (7.320-7.450) H 01/08/21 09:20 ABG pCO2 19.0 mm Hg 01/05/21 13:35 ABG pO2 84.7 mm Hg (80.0-90.0) 01/05/21 13:35 ABG HCO3 3.5 mmol/L (20.0-26.0) L 01/05/21 13:35 ABG O2 Saturation 98.1 (0-100) 01/08/21 09:20 Calcium 7.8 mg/dL (8.4-10.2) L 01/11/21 04:00 Phosphorus 4.60 mg/dL (2.5-4.5) H 01/07/21 07:06 Magnesium 2.00 mg/dL (1.7-2.3) 01/11/21 04:00 Urine Creatinine 74.4 mg/dL (0.1-20.0) H 01/05/21 17:50 Urine Sodium 59 mmol/L 01/05/21 17:50 Medications & Allergies - Medications Allergies/Adverse Reactions: Allergies No Known Allergies Allergy (Verified 01/05/21 22:00) Home Medications: Home Medications Medication Instructions Recorded Confirmed Last Taken Type Acyclovir [Zovirax Tab] 400 mg PO BID 01/06/21 01/06/21 Unknown History Aspirin [Aspirin BABY CHEW TAB] 81 mg PO 4XD 01/06/21 01/06/21 Unknown History HYDROcodone/ACETAMINOPHEN 1 each PO Q4H PRN 01/06/21 01/06/21 Unknown History [Verdrocet 2.5-325 mg TAB] HYDROcodone/ACETAMINOPHEN 2 each PO Q4H PRN 01/06/21 01/06/21 Unknown History [Verdrocet 2.5-325 mg TAB] Lenalidomide [Revlimid] 10 mg PO QDAY 01/06/21 01/06/21 Unknown History Lisinopril/Hydrochlorothiazide 10 - 12.5 mg PO DAILY 01/06/21 01/06/21 Unknown History [Zestoretic 10-12.5 mg Tablet] Metformin HCl [metFORMIN] 1,000 mg BID 01/06/21 01/06/21 Unknown History Ondansetron HCl [Zofran] 8 mg PO BID PRN 01/06/21 01/06/21 Unknown History Pantoprazole [Protonix] 40 mg PO QDAY 01/06/21 01/06/21 Unknown History Rosuvastatin Calcium 20 mg PO DAILY 01/06/21 01/06/21 Unknown History dexAMETHasone [Dexamethasone] 16 mg PO 1XW 01/06/21 01/06/21 Unknown History traMADoL [Ultram 50 MG tab] 50 mg PO Q6H PRN 01/06/21 01/06/21 Unknown History Active Medications: Generic Name Dose Route Start Last Admin Trade Name Freq PRN Reason Stop Dose Admin Acetaminophen 650 mg 01/05/21 17:00 Acetaminophen 650 Mg Rect Supp LA Q6H PRN Pain MILD(1-3)/Fever >100.5/SILVERMAN Acetaminophen 650 mg 01/05/21 19:00 Acetaminophen 325 Mg Tab PO Q6H PRN Pain, Mild (1-3) Albuterol 2.5 mg 01/05/21 17:00 Albuterol 2.5 Mg/3 Ml Nebu IH Q3HRT PRN Shortness Of Breath Lipase/Protease/Amylase 1 each 01/06/21 08:10 Lipase 10,500/Protease 25,000/Amylase 43,750 (Units) Dr Lockwood FEEDTUBE PRN PRN For Clogged Feeding Tube Famotidine 20 mg 01/08/21 10:00 01/11/21 09:36 Famotidine 20 Mg Tab PO Not Given DAILY MIKEY Haloperidol Lactate 5 mg 01/08/21 09:13 Haloperidol Lactate 5 Mg/1 Ml Inj IV Q6H PRN Agitation Hydrophilic Ointment 1 applic 01/05/21 14:21 Lip Therapy Vaseline TP Q2HR PRN Dry Lips Sodium Chloride 100 mls @ 999 mls/hr 01/05/21 17:00 Nacl 0.9% IV ERIC PRN Hypotension Fluconazole 200 mg in 100 mls @ 100 mls/hr 01/06/21 15:00 01/10/21 16:38 Diflucan IV 01/12/21 15:59 100 mls/hr Q24H MIKEY Administration Protocol Insulin Human Lispro 0 unit 01/06/21 12:00 01/11/21 09:38 Insulin Lispro 100 Unit/Ml SUB-Q Not Given Q6HR [facility] Protocol Multi-Ingred Cream/Lotion/Oil/Oint 1 applic 01/05/21 14:21 Mineral Oil/Petrolatum, White Ophth Oint 3.5 Gm OU Q4HR PRN Dry Eye(s) Ondansetron HCl 4 mg 01/07/21 13:23 01/11/21 09:09 Ondansetron 4 Mg/2 Ml Inj IV 4 mg Q8H PRN Administration Nausea And Vomiting Simple Syrup 15 ml 01/06/21 08:10 Simple Syrup 15 Ml FEEDTUBE PRN PRN Hypoglycemia Simple Syrup 30 ml 01/06/21 08:10 Simple Syrup 15 Ml FEEDTUBE PRN PRN Hypoglycemia Sodium Bicarbonate 325 mg 01/06/21 08:10 Sodium Bicarbonate 325 Mg Tab FEEDTUBE PRN PRN For Clogged Feeding Tube Sodium Chloride 10 ml 01/05/21 17:00 01/08/21 11:14 Sodium Chloride 0.9% 10 Ml Flush Syringe IV 10 ml PRN PRN Administration LINE FLUSH Sodium Chloride 10 ml 01/05/21 22:00 01/11/21 09:10 Sodium Chloride 0.9% 10 Ml Flush Syringe IV 10 ml BID MIKEY Administration
[2021-01-11 13:00] LABS: Band Neutrophils # (Manual) 0.1 K/mm3; Total Cells Counted 100
[2021-01-11 13:03] LABS: Anisocytosis 1+; Platelet Estimate Consistent w Auto
[2021-01-11 13:04] LABS: Hypochromasia 1+; Ovalocytes 1+; Poikilocytosis 1+
--- NOTE | 2021-01-11 13:18 | Progress Note ---
Subjective Date of service: 01/11/21 Principal diagnosis: Ac hypoxemic resp failure; MORGAN; Septic Shock; CAP; Multiple myeloma; NSTEMI Objective - Constitutional Vitals: Vital Signs - 12hr 01/11/21 01/11/21 01/11/21 01:10 01:20 01:30 Temperature Pulse Rate 71 71 69 Respiratory 14 15 13 Rate Respiratory Rate [ Generalized] Blood Pressure 130/53 150/70 150/70 O2 Sat by Pulse 100 100 100 Oximetry O2 Sat by Pulse Oximetry [ Anterior Bilateral] 01/11/21 01/11/21 01/11/21 01:40 01:50 02:00 Temperature Pulse Rate 65 68 69 Respiratory 14 13 13 Rate Respiratory Rate [ Generalized] Blood Pressure 143/59 146/60 142/63 O2 Sat by Pulse 100 100 100 Oximetry O2 Sat by Pulse Oximetry [ Anterior Bilateral] 01/11/21 01/11/21 01/11/21 02:10 02:20 02:30 Temperature Pulse Rate 75 74 72 Respiratory 13 14 12 Rate Respiratory Rate [ Generalized] Blood Pressure 135/64 138/65 139/68 O2 Sat by Pulse 100 100 100 Oximetry O2 Sat by Pulse Oximetry [ Anterior Bilateral] 01/11/21 01/11/21 01/11/21 02:40 02:50 03:00 Temperature Pulse Rate 70 72 71 Respiratory 13 15 12 Rate Respiratory Rate [ Generalized] Blood Pressure 145/62 151/64 132/62 O2 Sat by Pulse 100 100 100 Oximetry O2 Sat by Pulse Oximetry [ Anterior Bilateral] 01/11/21 01/11/21 01/11/21 03:10 03:20 03:30 Temperature Pulse Rate 64 74 61 Respiratory 12 16 14 Rate Respiratory Rate [ Generalized] Blood Pressure 141/54 137/60 139/54 O2 Sat by Pulse 100 100 100 Oximetry O2 Sat by Pulse Oximetry [ Anterior Bilateral] 01/11/21 01/11/21 01/11/21 03:40 03:50 04:00 Temperature 97.6 F Pulse Rate 68 70 65 Respiratory 12 13 12 Rate Respiratory Rate [ Generalized] Blood Pressure 141/55 141/63 138/59 O2 Sat by Pulse 100 100 100 Oximetry O2 Sat by Pulse Oximetry [ Anterior Bilateral] 01/11/21 01/11/21 01/11/21 04:10 04:20 04:30 Temperature Pulse Rate 66 67 72 Respiratory 13 13 11 L Rate Respiratory Rate [ Generalized] Blood Pressure 146/56 143/57 136/71 O2 Sat by Pulse 100 100 100 Oximetry O2 Sat by Pulse Oximetry [ Anterior Bilateral] 01/11/21 01/11/21 01/11/21 04:40 04:50 05:00 Temperature Pulse Rate 73 73 65 Respiratory 11 L 14 11 L Rate Respiratory Rate [ Generalized] Blood Pressure 137/69 144/63 142/58 O2 Sat by Pulse 98 100 100 Oximetry O2 Sat by Pulse Oximetry [ Anterior Bilateral] 01/11/21 01/11/21 01/11/21 05:10 05:20 05:30 Temperature Pulse Rate 70 66 68 Respiratory 14 13 13 Rate Respiratory Rate [ Generalized] Blood Pressure 131/60 123/50 123/50 O2 Sat by Pulse 100 100 100 Oximetry O2 Sat by Pulse Oximetry [ Anterior Bilateral] 01/11/21 01/11/21 01/11/21 05:40 05:50 06:00 Temperature Pulse Rate 67 80 65 Respiratory 12 21 15 Rate Respiratory Rate [ Generalized] Blood Pressure 115/55 115/55 136/49 O2 Sat by Pulse 100 100 100 Oximetry O2 Sat by Pulse Oximetry [ Anterior Bilateral] 01/11/21 01/11/21 01/11/21 06:10 06:20 06:30 Temperature Pulse Rate 78 67 63 Respiratory 14 11 L 13 Rate Respiratory Rate [ Generalized] Blood Pressure 136/49 144/57 123/55 O2 Sat by Pulse 99 99 100 Oximetry O2 Sat by Pulse Oximetry [ Anterior Bilateral] 01/11/21 01/11/21 01/11/21 06:40 06:50 07:00 Temperature 98.8 F Pulse Rate 62 65 64 Respiratory 13 14 14 Rate Respiratory Rate [ Generalized] Blood Pressure 129/56 129/51 141/51 O2 Sat by Pulse 100 100 100 Oximetry O2 Sat by Pulse Oximetry [ Anterior Bilateral] 01/11/21 01/11/21 01/11/21 07:10 07:20 07:30 Temperature Pulse Rate 64 65 70 Respiratory 13 14 15 Rate Respiratory Rate [ Generalized] Blood Pressure 115/52 114/51 126/69 O2 Sat by Pulse 100 100 100 Oximetry O2 Sat by Pulse Oximetry [ Anterior Bilateral] 01/11/21 01/11/21 01/11/21 07:40 07:50 08:00 Temperature Pulse Rate 63 64 62 Respiratory 12 13 18 Rate Respiratory Rate [ Generalized] Blood Pressure 136/63 141/59 140/57 O2 Sat by Pulse 100 100 100 Oximetry O2 Sat by Pulse Oximetry [ Anterior Bilateral] 01/11/21 01/11/21 01/11/21 08:10 08:20 08:21 Temperature Pulse Rate 62 65 Respiratory 12 13 Rate Respiratory Rate [ Generalized] Blood Pressure 135/60 135/60 O2 Sat by Pulse 100 100 99 Oximetry O2 Sat by Pulse Oximetry [ Anterior Bilateral] 01/11/21 01/11/21 01/11/21 08:30 08:40 08:50 Temperature Pulse Rate 64 65 82 Respiratory 12 11 L 15 Rate Respiratory Rate [ Generalized] Blood Pressure 142/60 149/61 153/70 O2 Sat by Pulse 100 100 100 Oximetry O2 Sat by Pulse Oximetry [ Anterior Bilateral] 01/11/21 01/11/21 01/11/21 09:00 09:10 09:15 Temperature 97.6 F Pulse Rate 70 69 67 Respiratory 13 13 14 Rate Respiratory Rate [ Generalized] Blood Pressure 145/57 132/57 141/66 O2 Sat by Pulse 100 99 Oximetry O2 Sat by Pulse 99 Oximetry [ Anterior Bilateral] 01/11/21 01/11/21 01/11/21 09:20 09:30 09:40 Temperature Pulse Rate 75 73 77 Respiratory 18 13 14 Rate Respiratory Rate [ Generalized] Blood Pressure 147/67 128/63 141/66 O2 Sat by Pulse 98 98 99 Oximetry O2 Sat by Pulse Oximetry [ Anterior Bilateral] 01/11/21 01/11/21 01/11/21 09:45 09:50 10:00 Temperature Pulse Rate 73 82 87 Respiratory 15 13 Rate Respiratory 18 Rate [ Generalized] Blood Pressure 130/58 130/58 129/70 O2 Sat by Pulse 98 98 Oximetry O2 Sat by Pulse Oximetry [ Anterior Bilateral] 01/11/21 01/11/21 01/11/21 10:10 10:15 10:20 Temperature Pulse Rate 89 90 89 Respiratory 17 16 Rate Respiratory Rate [ Generalized] Blood Pressure 128/63 122/67 122/67 O2 Sat by Pulse 96 98 Oximetry O2 Sat by Pulse Oximetry [ Anterior Bilateral] 01/11/21 01/11/21 01/11/21 10:30 10:40 10:45 Temperature Pulse Rate 96 H 96 H 90 Respiratory 16 18 Rate Respiratory Rate [ Generalized] Blood Pressure 113/62 122/67 106/54 O2 Sat by Pulse 98 97 Oximetry O2 Sat by Pulse Oximetry [ Anterior Bilateral] 01/11/21 01/11/21 01/11/21 10:50 11:00 11:10 Temperature Pulse Rate 93 H 90 88 Respiratory 17 16 21 Rate Respiratory Rate [ Generalized] Blood Pressure 106/54 85/43 106/54 O2 Sat by Pulse 97 99 100 Oximetry O2 Sat by Pulse Oximetry [ Anterior Bilateral] 01/11/21 01/11/21 01/11/21 11:15 11:20 11:30 Temperature Pulse Rate 82 74 76 Respiratory 17 20 Rate Respiratory Rate [ Generalized] Blood Pressure 96/46 96/46 87/42 O2 Sat by Pulse 98 98 Oximetry O2 Sat by Pulse Oximetry [ Anterior Bilateral] 01/11/21 01/11/21 01/11/21 11:40 11:45 11:50 Temperature Pulse Rate 84 87 84 Respiratory 17 15 Rate Respiratory Rate [ Generalized] Blood Pressure 96/46 90/48 90/48 O2 Sat by Pulse 98 98 Oximetry O2 Sat by Pulse Oximetry [ Anterior Bilateral] 01/11/21 01/11/21 01/11/21 12:00 12:10 12:15 Temperature 98.7 F Pulse Rate 87 85 79 Respiratory 19 16 Rate Respiratory Rate [ Generalized] Blood Pressure 99/50 90/48 101/46 O2 Sat by Pulse 99 99 Oximetry O2 Sat by Pulse Oximetry [ Anterior Bilateral] 01/11/21 01/11/21 01/11/21 12:20 12:25 12:30 Temperature 98.7 F Pulse Rate 84 77 75 Respiratory 19 17 16 Rate Respiratory Rate [ Generalized] Blood Pressure 95/46 110/53 105/45 O2 Sat by Pulse 99 99 Oximetry O2 Sat by Pulse Oximetry [ Anterior Bilateral] 01/11/21 01/11/21 01/11/21 12:40 12:50 13:00 Temperature Pulse Rate 81 67 80 Respiratory 19 18 12 Rate Respiratory Rate [ Generalized] Blood Pressure 110/53 107/50 111/50 O2 Sat by Pulse 99 99 99 Oximetry O2 Sat by Pulse Oximetry [ Anterior Bilateral] General appearance: Present: no acute distress, well-nourished - EENT Eyes: PERRL, EOM intact ENT: hearing intact, clear oral mucosa Ears: bilateral: normal - Neck Neck: supple, normal ROM - Respiratory Respiratory effort: normal Respiratory: bilateral: CTA - Breasts Breasts: normal - Cardiovascular Rhythm: regular Heart Sounds: Present: S1 & S2. Absent: gallop, rub Extremities: pulses intact, No edema, normal color, Full ROM - Gastrointestinal General gastrointestinal: Present: soft, non-tender, non-distended, normal bowel sounds - Genitourinary Female genitourinary: normal - Integumentary Integumentary: clear, warm, dry - Musculoskeletal Musculoskeletal: 1, strength equal bilaterally - Neurologic Neurologic: moves all extremities - Psychiatric Psychiatric: memory intact, appropriate mood/affect, intact judgment & insight - Labs CBC & Chem 7: 01/11/21 04:00 01/11/21 04:00 Labs: Abnormal lab results 01/10/21 01/11/21 01/11/21 Range/Units 18:10 00:15 04:00 WBC (4.5-11.0) K/mm3 RBC (3.65-5.03) M/mm3 Hgb (10.1-14.3) gm/dl Hct (30.3-42.9) % RDW (13.2-15.2) % Plt Count (140-440) K/mm3 Seg Neuts % (Manual) (40.0-70.0) % Lymphocytes % (Manual) (13.4-35.0) % Monocytes % (Manual) (0.0-7.3) % Lymphocytes # (Manual) (1.2-5.4) K/mm3 BUN 59 H (7-17) mg/dL Creatinine 4.7 H D (0.6-1.2) mg/dL Glucose 143 H (65-100) mg/dL POC Glucose 205 H 156 H (70-105) mg/dL Calcium 7.8 L (8.4-10.2) mg/dL ALT 58 H (7-56) units/L Total Protein 4.7 L (6.3-8.2) g/dL Albumin 2.3 L (3.9-5) g/dL 01/11/21 01/11/21 01/11/21 Range/Units 04:00 05:44 11:50 WBC 2.9 L (4.5-11.0) K/mm3 RBC 2.70 L (3.65-5.03) M/mm3 Hgb 7.7 L (10.1-14.3) gm/dl Hct 22.8 L (30.3-42.9) % RDW 17.6 H (13.2-15.2) % Plt Count 43 L (140-440) K/mm3 Seg Neuts % (Manual) 78.0 H (40.0-70.0) % Lymphocytes % (Manual) 4.0 L (13.4-35.0) % Monocytes % (Manual) 10.0 H (0.0-7.3) % Lymphocytes # (Manual) 0.1 L (1.2-5.4) K/mm3 BUN (7-17) mg/dL Creatinine (0.6-1.2) mg/dL Glucose (65-100) mg/dL POC Glucose 131 H 169 H (70-105) mg/dL Calcium (8.4-10.2) mg/dL ALT (7-56) units/L Total Protein (6.3-8.2) g/dL Albumin (3.9-5) g/dL HEART Score - HEART Score Troponin: Troponin T 0.153 ng/mL (0.00-0.029) H* 01/05/21 13:44
--- NOTE | 2021-01-11 14:05 | Consultation ---
History of Present Illness - Reason for Consult Consult date: 01/11/21 - History of Present Illness Afebrile, white count 2.9. On 2 L cannula. Imaging personally reviewed: Chest x-ray: No change in airspace opacities Past History Past Medical History: other (See HPI.) Past Surgical History: No surgical history, Other (Reviewed) Social history: Family history: no significant family history, other (Reviewed) Medications and Allergies Allergies Allergy/AdvReac Type Severity Reaction Status Date / Time No Known Allergies Allergy Verified 01/05/21 22:00 Home Medications Medication Instructions Recorded Confirmed Last Taken Type Acyclovir [Zovirax Tab] 400 mg PO BID 01/06/21 01/06/21 Unknown History Aspirin [Aspirin BABY CHEW TAB] 81 mg PO 4XD 01/06/21 01/06/21 Unknown History HYDROcodone/ACETAMINOPHEN 1 each PO Q4H PRN 01/06/21 01/06/21 Unknown History [Verdrocet 2.5-325 mg TAB] HYDROcodone/ACETAMINOPHEN 2 each PO Q4H PRN 01/06/21 01/06/21 Unknown History [Verdrocet 2.5-325 mg TAB] Lenalidomide [Revlimid] 10 mg PO QDAY 01/06/21 01/06/21 Unknown History Lisinopril/Hydrochlorothiazide 10 - 12.5 mg PO DAILY 01/06/21 01/06/21 Unknown History [Zestoretic 10-12.5 mg Tablet] Metformin HCl [metFORMIN] 1,000 mg BID 01/06/21 01/06/21 Unknown History Ondansetron HCl [Zofran] 8 mg PO BID PRN 01/06/21 01/06/21 Unknown History Pantoprazole [Protonix] 40 mg PO QDAY 01/06/21 01/06/21 Unknown History Rosuvastatin Calcium 20 mg PO DAILY 01/06/21 01/06/21 Unknown History dexAMETHasone [Dexamethasone] 16 mg PO 1XW 01/06/21 01/06/21 Unknown History traMADoL [Ultram 50 MG tab] 50 mg PO Q6H PRN 01/06/21 01/06/21 Unknown History Active Meds: Active Medications Acetaminophen (Acetaminophen 650 Mg Rect Supp) 650 mg SC Q6H PRN PRN Reason: Pain MILD(1-3)/Fever >100.5/SILVERMAN Acetaminophen (Acetaminophen 325 Mg Tab) 650 mg PO Q6H PRN PRN Reason: Pain, Mild (1-3) Albuterol (Albuterol 2.5 Mg/3 Ml Nebu) 2.5 mg IH Q3HRT PRN PRN Reason: Shortness Of Breath Lipase/Protease/Amylase (Lipase 10,500/Protease 25,000/Amylase 43,750 (Units) Dr Lockwood) 1 each FEEDTUBE PRN PRN PRN Reason: For Clogged Feeding Tube Famotidine (Famotidine 20 Mg Tab) 20 mg PO DAILY [facility] Last Admin: 01/11/21 09:36 Dose: Not Given Documented by: Haloperidol Lactate (Haloperidol Lactate 5 Mg/1 Ml Inj) 5 mg IV Q6H PRN PRN Reason: Agitation Hydrophilic Ointment (Lip Therapy Vaseline) 1 applic TP Q2HR PRN PRN Reason: Dry Lips Sodium Chloride (Nacl 0.9%) 100 mls @ 999 mls/hr IV ERIC PRN PRN Reason: Hypotension Fluconazole (Diflucan) 200 mg in 100 mls @ 100 mls/hr IV Q24H [facility]; Protocol Stop: 01/12/21 15:59 Last Admin: 01/10/21 16:38 Dose: 100 mls/hr Documented by: Insulin Human Lispro (Insulin Lispro 100 Unit/Ml) 0 unit SUB-Q Q6HR MIKEY; Protocol Last Admin: 01/11/21 09:38 Dose: Not Given Documented by: Multi-Ingred Cream/Lotion/Oil/Oint (Mineral Oil/Petrolatum, White Ophth Oint 3.5 Gm) 1 applic OU Q4HR PRN PRN Reason: Dry Eye(s) Ondansetron HCl (Ondansetron 4 Mg/2 Ml Inj) 4 mg IV Q8H PRN PRN Reason: Nausea And Vomiting Last Admin: 01/11/21 09:09 Dose: 4 mg Documented by: Simple Syrup (Simple Syrup 15 Ml) 15 ml FEEDTUBE PRN PRN PRN Reason: Hypoglycemia Simple Syrup (Simple Syrup 15 Ml) 30 ml FEEDTUBE PRN PRN PRN Reason: Hypoglycemia Sodium Bicarbonate (Sodium Bicarbonate 325 Mg Tab) 325 mg FEEDTUBE PRN PRN PRN Reason: For Clogged Feeding Tube Sodium Chloride (Sodium Chloride 0.9% 10 Ml Flush Syringe) 10 ml IV PRN PRN PRN Reason: LINE FLUSH Last Admin: 01/08/21 11:14 Dose: 10 ml Documented by: Sodium Chloride (Sodium Chloride 0.9% 10 Ml Flush Syringe) 10 ml IV BID MIKEY Last Admin: 01/11/21 09:10 Dose: 10 ml Documented by: Physical Examination - Physical Exam Narrative exam: Physical Exam: Constitutional: Extubated. Drowsy Head, Ears, Nose: Normocephalic, atraumatic. Eyes: Conjunctivae/corneas clear. No icterus. No ptosis. Oral: Moist MM Cardiovascular: S1, S2 normal. Respiratory: Good air entry, clear to auscultation bilaterally GI: Soft, non-tender; bowel sounds normal. No peritoneal signs. Musculoskeletal: noted sacral wound/erosions on images, patient not turned for exam. Skin: No rash or abscess Hem/Lymphatic: No palpable cervical or supraclavicular nodes. Psych: Mood ok. Affect normal Neurological: Drowsy - Constitutional Vitals: Vital Signs Temp Pulse Resp BP Pulse Ox 98.7 F 80 12 111/50 99 01/11/21 12:25 01/11/21 13:00 01/11/21 13:00 01/11/21 13:00 01/11/21 13:00 Temperature -Last 24 Hours Temperature 98.7 F Temperature 98.7 F Temperature 97.6 F Temperature 98.8 F Temperature 97.6 F Temperature 98.2 F Temperature 99.2 F Results - Labs CBC & Chem 7: 01/11/21 04:00 01/11/21 04:00 Labs: Abnormal lab results 01/10/21 01/11/21 01/11/21 Range/Units 18:10 00:15 04:00 WBC (4.5-11.0) K/mm3 RBC (3.65-5.03) M/mm3 Hgb (10.1-14.3) gm/dl Hct (30.3-42.9) % RDW (13.2-15.2) % Plt Count (140-440) K/mm3 Seg Neuts % (Manual) (40.0-70.0) % Lymphocytes % (Manual) (13.4-35.0) % Monocytes % (Manual) (0.0-7.3) % Lymphocytes # (Manual) (1.2-5.4) K/mm3 BUN 59 H (7-17) mg/dL Creatinine 4.7 H D (0.6-1.2) mg/dL Glucose 143 H (65-100) mg/dL POC Glucose 205 H 156 H (70-105) mg/dL Calcium 7.8 L (8.4-10.2) mg/dL ALT 58 H (7-56) units/L Total Protein 4.7 L (6.3-8.2) g/dL Albumin 2.3 L (3.9-5) g/dL 01/11/21 01/11/21 01/11/21 Range/Units 04:00 05:44 11:50 WBC 2.9 L (4.5-11.0) K/mm3 RBC 2.70 L (3.65-5.03) M/mm3 Hgb 7.7 L (10.1-14.3) gm/dl Hct 22.8 L (30.3-42.9) % RDW 17.6 H (13.2-15.2) % Plt Count 43 L (140-440) K/mm3 Seg Neuts % (Manual) 78.0 H (40.0-70.0) % Lymphocytes % (Manual) 4.0 L (13.4-35.0) % Monocytes % (Manual) 10.0 H (0.0-7.3) % Lymphocytes # (Manual) 0.1 L (1.2-5.4) K/mm3 BUN (7-17) mg/dL Creatinine (0.6-1.2) mg/dL Glucose (65-100) mg/dL POC Glucose 131 H 169 H (70-105) mg/dL Calcium (8.4-10.2) mg/dL ALT (7-56) units/L Total Protein (6.3-8.2) g/dL Albumin (3.9-5) g/dL Assessment and Plan Cultures: 01/05/2021 blood culture: No growth 01/05/2021 urine culture: No growth A/P: 70-year-old female past medical history multiple myeloma currently on chemo, diabetes, obesity admitted with hypoxic respiratory failure: #Acute encephalopathy: mentation worse compared to yesterday. #Acute hypoxic respiratory failure: unclear etiology, only pleural effusion and atelectasis on the left. Extubated 01/08/2021. #Pyuria/UTI: unclear if symptoms previous to admission. epithelial cells on UA but low grade fevers, hence treated as UTI. #Pancytopenia, multiple myeloma on chemotherapy: immunocompromised host. #MORGAN: now requiring HD. Renally dose medications Recs: -Fluconazole 200 mg daily x 7 days Thank you for the consult, we will continue to follow. Kesha Davis MD [facility] ([facility] O: [phone] F: [phone]
[2021-01-11] MEDS: FLUCONAZOLE 200 MG 200 MG/100 ML BAG IV SCH (16:11)
[2021-01-11 20:41] VITALS: BP 135/66
[2021-01-13 20:12] LABS: Myeloperoxidase Antibody <1.0 AI (<1.0)
[2021-01-13 22:41] LABS: ANA Screen, IFA Positive (Negative)
[2021-01-14 04:34] LABS: Abnormal Protein Band 1 0.6 g/dL; Albumin 1.9 g/dL (3.8-4.8); Gamma Globulin 0.5 g/dL (0.8-1.7)
== END 2021-01-11 21:39 | disposition short-term general hospital (02) | DRG 871 ==
LOC: ED 12:19 → CC1 16:42 → 4A 01-11 18:15
PROVIDERS: ADMIT Internal Medicine; ATTEND Internal Medicine
PROC: 0BH17EZ Insertion of Endotracheal Airway into Trachea, Via Natural or Artificial Opening (ICD-10-PCS; principal; 2021-01-05)
PROC: 5A1945Z Respiratory Ventilation, 24-96 Consecutive Hours (ICD-10-PCS; 2021-01-05)
PROC: 06HM33Z Insertion of Infusion Device into Right Femoral Vein, Percutaneous Approach (ICD-10-PCS; 2021-01-05)
PROC: 4A033R1 Measurement of Arterial Saturation, Peripheral, Percutaneous Approach (ICD-10-PCS; 2021-01-05)
PROC: 5A1D70Z Performance of Urinary Filtration, Intermittent, Less than 6 Hours Per Day (ICD-10-PCS; 2021-01-05)
PROC: 02HV33Z Insertion of Infusion Device into Superior Vena Cava, Percutaneous Approach (ICD-10-PCS; 2021-01-05)
PROC: B548ZZA Ultrasonography of Superior Vena Cava, Guidance (ICD-10-PCS; 2021-01-05)
PROC: 30233N1 Transfusion of Nonautologous Red Blood Cells into Peripheral Vein, Percutaneous Approach (ICD-10-PCS; 2021-01-07)
PROC: 5A1D70Z Performance of Urinary Filtration, Intermittent, Less than 6 Hours Per Day (ICD-10-PCS; 2021-01-07)
PROC: 5A1D70Z Performance of Urinary Filtration, Intermittent, Less than 6 Hours Per Day (ICD-10-PCS; 2021-01-08)
PROC: 5A1D70Z Performance of Urinary Filtration, Intermittent, Less than 6 Hours Per Day (ICD-10-PCS; 2021-01-09)
PROC: 5A1D70Z Performance of Urinary Filtration, Intermittent, Less than 6 Hours Per Day (ICD-10-PCS; 2021-01-11)
DX: A41.9 Sepsis, unspecified organism (principal); R65.21 Severe sepsis with septic shock; J96.01 Acute respiratory failure with hypoxia; N18.6 End stage renal disease; I21.4 Non-ST elevation (NSTEMI) myocardial infarction; J18.9 Pneumonia, unspecified organism; N17.0 Acute kidney failure with tubular necrosis; N39.0 Urinary tract infection, site not specified; C90.00 Multiple myeloma not having achieved remission; E87.1 Hypo-osmolality and hyponatremia; G93.40 Encephalopathy, unspecified; I12.0 Hypertensive chronic kidney disease with stage 5 chronic kidney disease or end stage renal disease; J90 Pleural effusion, not elsewhere classified; J98.11 Atelectasis; D61.818 Other pancytopenia; D63.8 Anemia in other chronic diseases classified elsewhere; E87.5 Hyperkalemia; E11.22 Type 2 diabetes mellitus with diabetic chronic kidney disease; E66.9 Obesity, unspecified; E78.5 Hyperlipidemia, unspecified; R13.12 Dysphagia, oropharyngeal phase; Z99.2 Dependence on renal dialysis; Z92.21 Personal history of antineoplastic chemotherapy; Z68.35 Body mass index [BMI] 35.0-35.9, adult
CPT/HCPCS: 31500; 36415; 36430; 36600; 70450; 71045; 74018; 76770; 80048; 80053; 80061; 80074; 80202; 80307; 81001; 82010; 82140; 82550; 82570; 82803; 82805; 82962; 83520; 83735; 83880; 83970; 84100; 84145; 84165; 84300; 84484; 85007; 85025; 85730; 86021; 86038; 86160; 86850; 86900; 86901; 86920; 87040; 87086; 89050; 93306; 94002; 94003; 96365; 96375; 99292; G0378; J0610; J0692; J1170; J1450; J1644; J1815; J2405; J3010; J3370; J3475; J3480; J7030; J7070; P9016